=== PATIENT | male | born 1940 | race Caucasian/White ===

== ENCOUNTER 2016-12-05 12:57 | Day surgery (SDC) | payer MEDICARE ==
[2016-11-29 12:25] VITALS: BMI 32.3
[~2016-12-05 12:57] MED LIST: LACTATED RINGERS 1,000 ML IV SCH
[2016-12-05] MEDS: PHENYLEPHRINE 10% OPHTH DROPS 5 ML BTL OP ONE ×3 (13:18→13:39)
[2016-12-05] MEDS: FLURBIPROFEN 0.03% OPHTH DROPS 2.5 ML BTL OP ONE ×3 (13:20→13:41)
[2016-12-05] MEDS: CYCLOPENTOLATE 1% OPHTH SOLN 2 ML BTL OP ONE ×3 (13:22→13:44)
[2016-12-05] MEDS ORDERED: LIDOCAINE 1% 20 ML VIAL (10MG/ML) FOR IV START INTRADERMA ONE (13:31)
[2016-12-05] MEDS ORDERED: BALANCED SALT IRRIG SOLN COMB2 15 ML IRRIG.SOLN INTRAOCULA ONE (13:58)
[2016-12-05] MEDS ORDERED: HYALURONATE SODIUM INTRAOCULAR 1 EACH SYRINGE (10MG/ML) INTRAOCULA ONE (13:58)
[2016-12-05] MEDS ORDERED: LIDOCAINE 1% INJ 10MG/ML (20 ML MDV) ONE (14:00)
[2016-12-05] MEDS ORDERED: PROPOFOL 10 MG/ML 20 ML VIAL IV ONE (14:00)
[2016-12-05] MEDS ORDERED: EPINEPHrine (PF) 0.5 ML in BALANCED SALT IRRIG SOLN COMB2 500 ML IRRIGATION ONE (14:11)
--- NOTE | 2016-12-05 14:22 | P.OP ---
Date of Procedure: 12/05/16 Procedure(s) Performed: PREOPERATIVE DIAGNOSIS: Cataract, left eye. POSTOPERATIVE DIAGNOSIS: Cataract, left eye. OPERATION: Phacoemulsification cataract, left eye. DESCRIPTION OF PROCEDURE: The patient was taken to the preoperative holding area. Intravenous Propofol was given so as to bring about adequate sedation. The following mixture was given for local anesthesia: 5 mL of 2% lidocaine, 5 mL of 0.75% Marcaine, and 1 mL of Wydase. Approximately 4 mL was injected in the retrobulbar space of the surgical eye. Additional 1 mL was then directed to the temporal area of the surgical eye. This was performed to allow adequate neurological block of the facial muscles. The patient was revived and then taken into the operative room. The patient was prepped and draped in the usual sterile manner for the operative eye. A lid speculum was put into position. The conjunctiva was resected back from the limbus in the 12 o'clock position. Bleeding was controlled with electrocautery. A #69 blade was then used and a half-thickness scleral incision approximately 1-mm posterior to the limbus was made on bare sclera. This was shelved in the clear cornea using a crescent knife. Next a 15-degree blade was used to make a stab incision at the 3 o' clock position at the corneolimbal interface. Keratome blade was then used and the superior wound was extended into the anterior chamber. Viscoelastic was injected into the anterior chamber and to maintain its form. Next, a cystotome was used and a continuous anterior capsulotomy was made without difficulty. Hydrodissection using a blunt cannula and BSS was performed. Phaco probe was then employed and a groove extending from 12 to 6 o'clock in the lens was created. A Rickie wand was used through the stab incision so as to perform a divide and conquer technique. Next an irrigation aspiration probe was utilized and any residual cortex was removed from the eye. Again, viscoelastic was injected into the anterior chamber. An Trey posterior chamber lens implant was placed in the cartridge and injected into the anterior chamber without difficulty. The SinMobileWeaverey hook was utilized to spin the lens into position and this was again performed without any difficulty. The irrigation and aspiration probe was again employed and any residual viscoelastic was removed from the eye. Then BSS was injected into the limbal stab incision and the anterior chamber re-inflated. The conjunctiva was reapproximated using electrocautery. One drop of 0.25% Timoptic was placed over the corneal along with TobraDex ophthalmic ointment. Two sterile patches and a Lester eye shield were taped into position. The patient was transported to the recovery room in stable condition. Pathology: none sent Condition: stable Disposition: same day
[2016-12-05 14:31] VITALS: PULSE 60; RESP 16; TEMP 96.6
[2016-12-05 14:40] VITALS: BP 166/95
[2016-12-05] MEDS ORDERED: TIMOLOL 0.5% OPHTH SOLN (PF) 0.2 ML DROPERETTE OP ONE (23:00)
[2016-12-05] MEDS ORDERED: BUPIVACAINE (PF) 0.75% 5 ML, LIDOCAINE 4% (PF) 5 ML, HYALURONIDASE, HUMAN RECOMB 150 UNIT MISCELLANE ONE ×3 (23:00)
[2016-12-05] MEDS ORDERED: GENTAMICIN/PREDNISOL AC OPHTH OINT 3.5GM OPHTHALMIC ONE (23:00)
== END 2016-12-05 15:16 | disposition home or self-care (01) ==
LOC: OR 12:57
PROVIDERS: ATTEND Ophthalmology
DX: H25.13 Age-related nuclear cataract, bilateral (principal); I25.10 Atherosclerotic heart disease of native coronary artery without angina pectoris; I10 Essential (primary) hypertension; F03.90 Unspecified dementia, unspecified severity, without behavioral disturbance, psychotic disturbance, mood disturbance, and anxiety; E78.5 Hyperlipidemia, unspecified; K21.9 Gastro-esophageal reflux disease without esophagitis; I25.2 Old myocardial infarction; Z79.01 Long term (current) use of anticoagulants; Z79.82 Long term (current) use of aspirin; Z79.899 Other long term (current) drug therapy; Z95.0 Presence of cardiac pacemaker; Z95.1 Presence of aortocoronary bypass graft; Z87.442 Personal history of urinary calculi
CPT/HCPCS: 66984; V2632; J2001 ×2; J3470; J0171; J2704; 99152; 99153

== ENCOUNTER 2017-01-01 07:48 | Day surgery (SDC) | payer MEDICARE ==
[2017-01-01 08:53] LABS: Mean Platelet Volume 8.3
[2017-01-01] MEDS ORDERED: DIAZEPAM 5 MG TAB PO STA (09:02)
[2017-01-01 09:07] LABS: INR 1.3 (<1.1); Prothrombin Time 12.8 sec (9.0-12.0)
[2017-01-01 09:55] VITALS: TEMP 97.8
[2017-01-01 10:55] VITALS: RESP 16
[2017-01-01] MEDS ORDERED: HYDROcodone/APAP 5-325MG 1 EACH TAB PO PRN (11:08)
--- NOTE | 2017-01-01 14:15 | FL ---
EXAMINATION TYPE: FL guided lumbar puncture LP DATE OF EXAM: 01/01/2017 11:33 AM COMPARISON: NONE HISTORY: Gait disturbance, normal pressure hydrocephalus evaluation Informed consent was obtained and all the patient's questions were answered. The L3-L4 level was loc alized under fluoroscopy. Standard sterile technique was utilized as well as appropriate local anest hesia 1% Lidocaine. Spinal needle was introduced into the thecal sac under fluoroscopic guidance. A total of 42 mL of clear CSF was drained by gravity. The patient was monitored throughout the proced ure. The patient tolerated the procedure very well. Following completion of the drainage of fluid 0.5 mL of tagged indium-111 was administered. The patient was transferred for completion of the evaluation in physical therapy for normal pressure hydrocephalus following the fluid drainage. Discharge instructions were provided. Follow-up will be p erformed by nuclear medicine scans. IMPRESSION: 1. Drainage of CSF for normal pressure hydrocephalus evaluation. 2. Successful injection of radiotracer for normal pressure hydrocephalus testing.
[2017-01-01 18:40] VITALS: BP 162/85; PULSE 62
--- NOTE | 2017-01-04 13:18 | NM ---
EXAMINATION TYPE: NM cerebral spine fluid flow DATE OF EXAM: 01/04/2017 12:57 PM COMPARISON: NONE HISTORY: Hydrocephalus TECHNIQUE: Following intrathecal administration of In-111 DTPA 550 uCi uCi In-111 DTPA via lumbar pu ncture. Images 6 HR, 24 HR, 48 HR, 72 HR hours post injection. FINDINGS: Planar images at 24 and 48 hours post injection demonstrate persistent reflux into the ventricles wit h no flow over the convexities. At 72 hours of flow is noted over the convexities. IMPRESSION: Findings compatible with normal pressure hydrocephalus.
== END 2017-01-01 16:25 | disposition home or self-care (01) ==
LOC: RADPROMAIN 07:48
PROVIDERS: ATTEND Neurological Surgery
DX: Z79.899 Other long term (current) drug therapy (principal); Z85.830 Personal history of malignant neoplasm of bone; Z85.3 Personal history of malignant neoplasm of breast; Z85.46 Personal history of malignant neoplasm of prostate; Z85.118 Personal history of other malignant neoplasm of bronchus and lung; Z91.040 Latex allergy status; Z91.09 Other allergy status, other than to drugs and biological substances; K21.9 Gastro-esophageal reflux disease without esophagitis; E11.9 Type 2 diabetes mellitus without complications; E20.9 Hypoparathyroidism, unspecified; I10 Essential (primary) hypertension
CPT/HCPCS: 85049; 85610; 36415; 62272; 78630; A9548; 62270

== ENCOUNTER 2017-03-07 20:04 | Inpatient (IN) | payer MEDICARE ==
--- NOTE | 2017-03-07 20:45 | ED ---
General Adult HPI - General Chief complaint: Altered Mental Status Stated complaint: Poss Sepsis Time Seen by Provider: 03/07/17 20:05 Source: family, EMS, RN notes reviewed, old records reviewed Mode of arrival: EMS Limitations: altered mental status - History of Present Illness Initial comments: This is a 76-year-old male to the ER for evaluation of altered mental status fever not responding well. Patient's poor historian. Patient has history of normal pressure hydrocephalus with just having a recent shunt placement. Patient's history is obtained from EMS and the patient's chart - Related Data Home Medications Medication Instructions Recorded Confirmed Leflunomide [Arava] 20 mg PO DAILY 08/05/14 03/07/17 Omeprazole [PriLOSEC] 20 mg PO QAM 08/05/14 03/07/17 Warfarin [Coumadin] 1.25 mg PO THSA 08/05/14 03/07/17 Allopurinol [Zyloprim] 100 mg PO BID 07/25/16 03/07/17 Furosemide [Lasix] 40 mg PO SUTUTHSA PRN 07/25/16 03/07/17 Losartan Potassium [Cozaar] 100 mg PO QAM 07/25/16 03/07/17 Warfarin [Coumadin] 2.5 mg PO SUMOWEFR 07/25/16 03/07/17 Donepezil [Aricept] 5 mg PO HS 11/29/16 03/07/17 Acetaminophen Tab [Tylenol] 650 mg PO ONCE PRN 03/07/17 03/07/17 Atorvastatin [Lipitor] 20 mg PO HS 03/07/17 03/07/17 Dimethicone/Zinc Oxide [Inzo Zinc 1 applic TOPICAL BID 03/07/17 03/07/17 Oxide Barrier Cream] Furosemide [Lasix] 40 mg PO MOWEFR@0900,1700 03/07/17 03/07/17 Metoprolol Tartrate [Lopressor] 50 mg PO BID 03/07/17 03/07/17 Potassium Chloride ER [K-Dur 20] 20 meq PO SUTUTHSA 03/07/17 03/07/17 Potassium Chloride [Klor-Con 20] 20 meq PO MOWEFR@0900,2100 03/07/17 03/07/17 Tamsulosin [Flomax] 0.4 mg PO DAILY 03/07/17 03/07/17 Tolnaftate [Tinactin] 1 applic TOPICAL BID 03/07/17 03/07/17 predniSONE 10 mg PO DAILY 03/07/17 03/07/17 Allergies Allergy/AdvReac Type Severity Reaction Status Date / Time No Known Allergies Allergy Verified 03/07/17 20:11 Review of Systems ROS Statement: Those systems with pertinent positive or pertinent negative responses have been documented in the HPI. ROS Other: All systems not noted in ROS Statement are negative. Past Medical History Past Medical History: Cancer, GERD/Reflux, Hyperlipidemia, Hypertension, Memory Impairment, Myocardial Infarction (non Q-wave), Rheumatoid Arthritis (RA) Additional Past Medical History / Comment(s): CMP - PACEMAKER. Skin CA, MELANOMA X1. Renal Stones. OCC EDEMA LEGS. HX RECTAL BLEED AFTER COLONOSCOPY R/T COUMADIN USE, unsteady gait with intermittent confusion. Last Myocardial Infarction Date:: 2001 History of Any Multi-Drug Resistant Organisms: None Reported Past Surgical History: Coronary Bypass/CABG, Orthopedic Surgery, Pacemaker Additional Past Surgical History / Comment(s): TRIPLE CABG 2001. LT Shoulder. Colonoscopy. KIDNEY Stones Removed. 07/2016 GENERATOR CHANGE Past Anesthesia/Blood Transfusion Reactions: No Reported Reaction Type of Cardiac Device: Permanent Pacemaker Device Placement Date:: 03/21/2006 Past Psychological History: No Psychological Hx Reported Smoking Status: Never smoker Past Alcohol Use History: Daily Additional Past Alcohol Use History / Comment(s): GLASS OF WINE WITH DARLING JUICE DAILY PER SPOUSE Past Drug Use History: None Reported - Past Family History Brother(s) Family Medical History: Cancer Additional Family Medical History / Comment(s): SKIN Sister(s) Family Medical History: Cancer Additional Family Medical History / Comment(s): SKIN Mother Family Medical History: Cancer General Exam Limitations: altered mental status General appearance: alert, in no apparent distress Head exam: Present: atraumatic, normocephalic, normal inspection Eye exam: Present: normal appearance, PERRL, EOMI. Absent: scleral icterus, conjunctival injection, periorbital swelling ENT exam: Present: normal exam, mucous membranes moist Neck exam: Present: normal inspection. Absent: tenderness, meningismus, lymphadenopathy Respiratory exam: Present: normal lung sounds bilaterally. Absent: respiratory distress, wheezes, rales, rhonchi, stridor Cardiovascular Exam: Present: regular rate, normal rhythm, normal heart sounds. Absent: systolic murmur, diastolic murmur, rubs, gallop, clicks GI/Abdominal exam: Present: soft, normal bowel sounds. Absent: distended, tenderness, guarding, rebound, rigid Extremities exam: Present: normal inspection, full ROM, normal capillary refill. Absent: tenderness, pedal edema, joint swelling, calf tenderness Back exam: Present: normal inspection Neurological exam: Present: alert, oriented X3, CN II-XII intact Psychiatric exam: Present: normal affect, normal mood Skin exam: Present: warm, dry, intact, normal color. Absent: rash Course Vital Signs 03/07/17 03/07/17 03/07/17 20:26 20:34 22:32 Temperature 100.1 F H 98.6 F Pulse Rate 71 72 Respiratory 22 22 16 Rate Blood Pressure 146/81 O2 Sat by Pulse 95 96 Oximetry 03/07/17 23:00 Temperature Pulse Rate 81 Respiratory 16 Rate Blood Pressure 142/65 O2 Sat by Pulse 98 Oximetry - Reevaluation(s) Reevaluation #1: 03/07/17 23:37 Family spoke with regarding patient's clinical condition, they are aware, questions answered Reevaluation #2: 03/07/17 23:37 The patient appears to be improving regarding symptomatic therapy fever control hydration EKG Findings - EKG Comments: EKG Findings:: EKG shows A. fib paced rhythm rate of 71, QRS 152, QRS 499 Medical Decision Making - Medical Decision Making 76 male the ER for altered mental status fever, patient found positive urinary tract infection, significant sepsis, patient given significant IV fluid hydration, fever control and will be admitted for IV antibiotics and monitoring of cardiopath pulmonary hemodynamic status - Lab Data Result diagrams: 03/07/17 20:29 03/07/17 20:29 Lab Results 03/07/17 03/07/17 03/07/17 Range/Units 20:29 20:29 20:29 WBC 13.2 H (3.8-10.6) k/uL RBC 4.35 (4.30-5.90) m/uL Hgb 13.7 (13.0-17.5) gm/dL Hct 42.0 (39.0-53.0) % MCV 96.7 (80.0-100.0) fL MCH 31.5 (25.0-35.0) pg MCHC 32.5 (31.0-37.0) g/dL RDW 15.8 H (11.5-15.5) % Plt Count 260 (150-450) k/uL Neutrophils % 92 % Lymphocytes % 4 % Monocytes % 4 % Eosinophils % 0 % Basophils % 0 % Neutrophils # 12.1 H (1.3-7.7) k/uL Lymphocytes # 0.5 L (1.0-4.8) k/uL Monocytes # 0.5 (0-1.0) k/uL Eosinophils # 0.0 (0-0.7) k/uL Basophils # 0.1 (0-0.2) k/uL PT (9.0-12.0) sec INR (<1.1) APTT (22.0-30.0) sec Sodium 135 L (137-145) mmol/L Potassium 4.0 (3.5-5.1) mmol/L Chloride 103 (98-107) mmol/L Carbon Dioxide 20 L (22-30) mmol/L Anion Gap 12 mmol/L BUN 32 H (9-20) mg/dL Creatinine 1.30 H (0.66-1.25) mg/dL Est GFR (MDRD) Af Amer >60 (>60 ml/min/1.73 sqM) Est GFR (MDRD) Non-Af 54 (>60 ml/min/1.73 sqM) Glucose 143 H (74-99) mg/dL Plasma Lactic Acid Santiago (0.7-2.0) mmol/L Calcium 8.9 (8.4-10.2) mg/dL Phosphorus 3.1 (2.5-4.5) mg/dL Magnesium 1.6 (1.6-2.3) mg/dL Total Bilirubin 1.4 H (0.2-1.3) mg/dL AST 36 (17-59) U/L ALT 37 (21-72) U/L Alkaline Phosphatase 71 (38-126) U/L Total Creatine Kinase 130 (55-170) U/L CK-MB (CK-2) 1.9 (0.0-2.4) ng/mL CK-MB (CK-2) Rel Index 1.5 Troponin I 0.092 H* (0.000-0.034) ng/mL Total Protein 6.4 (6.3-8.2) g/dL Albumin 3.3 L (3.5-5.0) g/dL Urine Color Urine Appearance (Clear) Urine pH (5.0-8.0) Ur Specific [place] (1.001-1.035) Urine Protein (Negative) Urine Glucose (UA) (Negative) Urine Ketones (Negative) Urine Blood (Negative) Urine Nitrite (Negative) Urine Bilirubin (Negative) Urine Urobilinogen (<2.0) mg/dL Ur Leukocyte Esterase (Negative) Urine RBC (0-5) /hpf Urine WBC (0-5) /hpf Urine WBC Clumps (None) /hpf Urine Bacteria (None) /hpf Urine Yeast (Budding) (None) /hpf 03/07/17 03/07/17 03/07/17 Range/Units 20:29 20:29 23:00 WBC (3.8-10.6) k/uL RBC (4.30-5.90) m/uL Hgb (13.0-17.5) gm/dL Hct (39.0-53.0) % MCV (80.0-100.0) fL MCH (25.0-35.0) pg MCHC (31.0-37.0) g/dL RDW (11.5-15.5) % Plt Count (150-450) k/uL Neutrophils % % Lymphocytes % % Monocytes % % Eosinophils % % Basophils % % Neutrophils # (1.3-7.7) k/uL Lymphocytes # (1.0-4.8) k/uL Monocytes # (0-1.0) k/uL Eosinophils # (0-0.7) k/uL Basophils # (0-0.2) k/uL PT 25.8 H (9.0-12.0) sec INR 2.7 (<1.1) APTT 26.0 (22.0-30.0) sec Sodium (137-145) mmol/L Potassium (3.5-5.1) mmol/L Chloride (98-107) mmol/L Carbon Dioxide (22-30) mmol/L Anion Gap mmol/L BUN (9-20) mg/dL Creatinine (0.66-1.25) mg/dL Est GFR (MDRD) Af Amer (>60 ml/min/1.73 sqM) Est GFR (MDRD) Non-Af (>60 ml/min/1.73 sqM) Glucose (74-99) mg/dL Plasma Lactic Acid Santiago 6.1 H* (0.7-2.0) mmol/L Calcium (8.4-10.2) mg/dL Phosphorus (2.5-4.5) mg/dL Magnesium (1.6-2.3) mg/dL Total Bilirubin (0.2-1.3) mg/dL AST (17-59) U/L ALT (21-72) U/L Alkaline Phosphatase (38-126) U/L Total Creatine Kinase (55-170) U/L CK-MB (CK-2) (0.0-2.4) ng/mL CK-MB (CK-2) Rel Index Troponin I (0.000-0.034) ng/mL Total Protein (6.3-8.2) g/dL Albumin (3.5-5.0) g/dL Urine Color Light Yellow Urine Appearance Cloudy (Clear) Urine pH 6.0 (5.0-8.0) Ur Specific [place] 1.008 (1.001-1.035) Urine Protein Negative (Negative) Urine Glucose (UA) Negative (Negative) Urine Ketones Negative (Negative) Urine Blood Moderate H (Negative) Urine Nitrite Negative (Negative) Urine Bilirubin Negative (Negative) Urine Urobilinogen <2.0 (<2.0) mg/dL Ur Leukocyte Esterase Large H (Negative) Urine RBC 11 H (0-5) /hpf Urine WBC >182 H (0-5) /hpf Urine WBC Clumps Many H (None) /hpf Urine Bacteria Many H (None) /hpf Urine Yeast (Budding) Few H (None) /hpf - Radiology Data Radiology results: report reviewed (CT brain and chest x-ray negative for acute disease), image reviewed Disposition Clinical Impression: Altered mental status, UTI (urinary tract infection), Fever, Sepsis Disposition: ADMITTED IP TO THIS HOSP Condition: Fair Referrals: Alejandrina Roman MD [Primary Care Provider] - 1-2 days
[2017-03-07 20:53] LABS: Basophils # (A) 0.1 k/uL (0-0.2); Basophils % (A) 0 %; CHCM 33.2; Eosinophils % (A) 0 %; HGB 13.7 gm/dL (13.0-17.5); Immature Gran Flag Slight; Luc # (Auto) 0.05; Luc % (Auto) 0; Lymphocytes # (A) 0.5 k/uL (1.0-4.8); Lymphocytes % (A) 4 %; MCH 31.5 pg (25.0-35.0); MCHC 32.5 g/dL (31.0-37.0); MCV 96.7 fL (80.0-100.0); Monocytes # (A) 0.5 k/uL (0-1.0); Monocytes % (A) 4 %; Neutrophils # (A) 12.1 k/uL (1.3-7.7); Neutrophils % (A) 92 %; RBC 4.35 m/uL (4.30-5.90); RDW 15.8 % (11.5-15.5); WBC 13.2 k/uL (3.8-10.6); WBC (Perox) 13.63
[2017-03-07 21:02] LABS: Chloride 103 mmol/L (98-107); Glucose 143 mg/dL (74-99); Sodium 135 mmol/L (137-145); Total Protein 6.4 g/dL (6.3-8.2)
[2017-03-07 21:03] LABS: ALT 37 U/L (21-72); AST 36 U/L (17-59); Alkaline Phosphatase 71 U/L (38-126); Anion Gap 12 mmol/L; Blood Urea Nitrogen 32 mg/dL (9-20); Calcium 8.9 mg/dL (8.4-10.2); Carbon Dioxide 20 mmol/L (22-30); Magnesium 1.6 mg/dL (1.6-2.3); Non-African American GFR(MDRD) 54 (>60 ml/min/1.73 sqM); Phosphorous 3.1 mg/dL (2.5-4.5); Total Bilirubin 1.4 mg/dL (0.2-1.3)
[2017-03-07 21:18] LABS: INR 2.7 (<1.1); Prothrombin Time 25.8 sec (9.0-12.0)
[2017-03-07 21:25] LABS: Creatine Kinase MB 1.9 ng/mL (0.0-2.4)
[2017-03-07 21:26] LABS: Troponin I 0.092 ng/mL (0.000-0.034)
--- NOTE | 2017-03-07 21:44 | CT ---
EXAMINATION TYPE: CT brain wo con DATE OF EXAM: 03/07/2017 9:13 PM COMPARISON: October 04, 2016 HISTORY: Post OP 3 weeks shunt placement. decreased mental status CT DLP: 2440 mGycm Automated exposure control for dose reduction was used. FINDINGS: Shunt catheter enters the right lateral ventricle from a right posterior approach to have i ts tip at the interventricular septum between the frontal horns. The right and left lateral ventricles and third ventricle appear slightly larger than the prior CT of October 04, 2016. The sulcal pattern and cisterns appear similar to the prior study. There is no evidence of hemorrhage. No evidence of mass or mass effect or definite new attenuation in tra-axial defect. No extra-axial fluid collections. However, a 2 mm gas bubble is noted nondependently within the front al horn of the right lateral ventricle. Bones and soft tissues are unremarkable as are the paranasal sinuses and mastoid sinus air cells and middle ear cavities. IMPRESSION: MILD VENTRICULOMEGALY PATTERN APPEARS MILDLY MORE PROMINENT WHEN COMPARED TO THE OCTOBER 04, 2016 CT . 2 MM NONDEPENDENT GAS BUBBLE NOTED WITHIN THE FRONTAL HORN OF THE RIGHT LATERAL VENTRICLE.
--- NOTE | 2017-03-07 21:47 | XR ---
EXAMINATION TYPE: XR chest 2V DATE OF EXAM: 03/07/2017 9:06 PM COMPARISON: 03/15/2015 HISTORY: Shunt placement 3 weeks ago, altered mental status TECHNIQUE: Frontal and lateral views of the chest are obtained. FINDINGS: Moderate marked cardiac silhouette enlargement redemonstrated. Sternal sutures and mediast inal clips and cardiac pacemaker noted. Shunt catheter is noted along the right hemithorax . The lungs appear to be clear bilaterally. Pleural spaces are negative. Bones and soft tissues are unr emarkable. IMPRESSION: NO DEFINITE ACUTE PROCESS.
[2017-03-07] MEDS ORDERED: ACETAMINOPHEN TAB 500 MG TAB PO STA (21:59)
[2017-03-07] MEDS ORDERED: IBUPROFEN 800 MG TAB PO STA (21:59)
[2017-03-07] MEDS ORDERED: AMPICILLIN-SULBACTAM 3 GM in SODIUM CHLORIDE 0.9% 100 ML IVPB STA (21:59)
[2017-03-07 23:20] LABS: Appearance,Urine Cloudy (Clear); Bacteria,Urine Many /hpf; Bilirubin,Urine Negative (Negative); Glucose,Urine (UA) Negative (Negative); Ketones,Urine Negative (Negative); Leukocyte Esterase,Urine Large (Negative); Nitrite,Urine Negative (Negative); Particle Count 55963; Protein,Urine Negative (Negative); RBC,Urine 11 /hpf (0-5); Specific Gravity,Urine 1.008 (1.001-1.035); UA Billing (MACRO vs. MICRO) MICRO; Urobilinogen,Urine <2.0 mg/dL (<2.0); WBC,Urine >182 /hpf (0-5)
[2017-03-07] MEDS ORDERED: SODIUM CHLORIDE 0.9% 1,000 ML IV ONE (23:37)
[2017-03-07] MEDS ORDERED: ACETAMINOPHEN TAB 325 MG TAB PO PRN (23:37)
[2017-03-07] MEDS ORDERED: SODIUM CHLORIDE 0.9% 1,000 ML IV STA (23:52)
[2017-03-07] MEDS ORDERED: SODIUM CHLORIDE 0.9% 2,000 ML IV STA (23:52)
[2017-03-07] MEDS ORDERED: SODIUM CHLORIDE 0.9% 500 ML IV STA (23:52)
[2017-03-08] MEDS ORDERED: ACETAMINOPHEN IV (For NPO) 1,000 MG in EMPTY BAG 1 BAG IVPB STA (02:00)
[2017-03-08] MEDS ORDERED: KETOROLAC 30 MG/ML 1 ML VIAL IVP STA (02:00)
[2017-03-08] MEDS: METOPROLOL TARTRATE 50 MG TAB PO SCH ×3 (02:00→21:50)
[2017-03-08 06:51] LABS: Basophils % (A) 0 %; CH 31.8; CHCM 32.7; Eosinophils # (A) 0.1 k/uL (0-0.7); Eosinophils % (A) 1 %; HCT 37.4 % (39.0-53.0); HDW 2.45; HGB 11.7 gm/dL (13.0-17.5); Luc # (Auto) 0.04; Luc % (Auto) 0; Lymphocytes # (A) 0.5 k/uL (1.0-4.8); Lymphocytes % (A) 6 %; MCH 30.7 pg (25.0-35.0); MCHC 31.4 g/dL (31.0-37.0); MCV 97.9 fL (80.0-100.0); Macrocytosis Slight; Mean Platelet Volume 6.9; Monocytes # (A) 0.3 k/uL (0-1.0); Monocytes % (A) 3 %; Neutrophils % (A) 90 %; RBC 3.82 m/uL (4.30-5.90); WBC 8.8 k/uL (3.8-10.6); WBC (Perox) 9.23
[2017-03-08 07:09] LABS: INR 3.4 (<1.1); Prothrombin Time 33.4 sec (9.0-12.0)
[2017-03-08 07:14] LABS: ALT 31 U/L (21-72); AST 30 U/L (17-59); Alkaline Phosphatase 58 U/L (38-126); Anion Gap 6 mmol/L; Blood Urea Nitrogen 31 mg/dL (9-20); Carbon Dioxide 25 mmol/L (22-30); Chloride 108 mmol/L (98-107); Glucose 151 mg/dL (74-99); Non-African American GFR(MDRD) 50 (>60 ml/min/1.73 sqM); Potassium 3.5 mmol/L (3.5-5.1); Sodium 139 mmol/L (137-145); Total Bilirubin 1.1 mg/dL (0.2-1.3); Total Protein 5.2 g/dL (6.3-8.2)
[2017-03-08] MEDS ORDERED: ENOXAPARIN 40 MG/0.4 ML SYRINGE SQ SCH (09:00)
[2017-03-08] MEDS: ALLOPURINOL 100 MG TAB PO SCH ×2 (09:26→21:47)
[2017-03-08] MEDS: PANTOPRAZOLE 40 MG TABLET PO SCH (09:27)
[2017-03-08] MEDS: LOSARTAN 50 MG TAB PO SCH (09:27)
[2017-03-08] MEDS: TAMSULOSIN 0.4 MG CAP.ER.24H PO SCH (09:27)
[2017-03-08] MEDS: predniSONE 10 MG TAB PO SCH (09:28)
[2017-03-08] MEDS: POTASSIUM CHLORIDE ER 20 MEQ TAB.ER PO SCH (09:28)
[2017-03-08] MEDS: IBUPROFEN 600 MG TAB PO SCH ×2 (09:34→16:38)
[2017-03-08] MEDS: CLOTRIMAZOLE 1% CREAM 15 GM TUBE TOPICAL SCH ×2 (10:39→21:52)
--- NOTE | 2017-03-08 13:28 | US ---
EXAMINATION TYPE: US kidneys/renal and bladder DATE OF EXAM: 03/08/2017 1:00 PM COMPARISON: CT CLINICAL HISTORY: pyelonephritis. Abnormal labs EXAM MEASUREMENTS: Right Kidney: 11.2 x 5.9 x 5.2 cm Left Kidney: 10.7 x 5.3 x 5.2 cm Right Kidney: Mildly dilated renal pelvis, lobulation vs. mass upper/medial pole= 3.7 x 3.0 x 2.7 cm Left Kidney: Difficult to visualize due to large pt body habitus, overlying bowel gas, no evidence of hydro Bladder: Over distended, multiple diverticula, debris at dependent portion Bilateral Jets seen: No There is no evidence for hydronephrosis at this point in time. No nephrolithiasis is seen. No joao s are identified. The urinary bladder is anechoic. Bilateral ureteral jets are seen. IMPRESSION: 1. Right-sided hydronephrosis. 2. I cannot exclude a mass versus cortical lobulation upper pole right kidney. Consider contrast-enha nced CT. 3. Limited visualization of the left kidney. 4. Debris with multiple diverticula involving the urinary bladder.
--- NOTE | 2017-03-08 17:49 | P.HPIM ---
History of Present Illness H&P Date: 03/08/17 Chief Complaint: Weakness, mental status change fever This is a pleasant 76-year-old gentleman patient of Dr. Dr. putnam. He [facility] resides [facility] [place]. He recently was diagnosed to have normal pressure hydrocephalus requiring shunt placement by Dr. Ray04/ at [facility]. He stayed there for a few days, thereafter transferred to [facility] 2 weeks ago. He complained of urinary retention at that time the hospital, and required an indwelling Anne catheter for which he was discharged to [facility] on anne catheter. He is anne catheter was discontinued by Dr. Bob one week prior to admission. Patient complained off diminished appetite, decreased oral intake, weight loss of 13 pounds, memory worsening memory loss, walking impairment, shuffling gait, and urinary incontinence. He also has edema , along with fever and chills. Next Emergency room he was found to have a urinary tract infection with urine WBC of 182, RBC of 11, INR 2.6, blood WBC of 13, lactic acid of 6. He was admitted for sepsis with suspected urinary tract source. CAT scan of the brain was performed including a chest x-ray which failed to reveal any acute infiltrate no pneumoperitoneum and no pneumothorax,. CAT scan of the brain showed mild ventriculomegaly pattern appears mildly more prominent when compared to 2015 CT, 2 mm nondependent gas bubble noted within the frontal horn of the right lateral ventricle additional tests included ultrasound right hydronephrosis, cannot exclude a mass versus cortical lobulation within upper pole right kidney consultation made with Dr. Bob and Dr. Jeffries Review of Systems Constitutional: Reports as per HPI, Reports anorexia, Reports chills, Reports fever, Reports lethargy, Reports malaise, Reports weakness, Reports weight loss Ears, nose, mouth and throat: Reports as per HPI, Denies ant. neck pain, Denies bleeding gums, Denies dental pain, Denies dysphagia, Denies epistaxis, Denies headache, Denies hoarseness, Denies mouth pain, Denies nasal congestion, Denies nasal discharge, Denies neck fullness/pressure, Denies neck lump, Denies nose pain, Denies odynophagia, Denies post-nasal drip, Denies sinus pain, Denies sinus pressure, Denies swelling in mouth, Denies swelling in throat, Denies sore throat, Denies vertigo, Denies voice changes Cardiovascular: Reports as per HPI, Denies chest pain, Denies claudication, Denies decreased exercise tolerance, Denies dyspnea on exertion, Denies edema, Denies high blood pressure, Denies irregular heart beat, Denies leg edema, Denies lightheadedness, Denies orthopnea, Denies palpitations, Denies paroxysmal nocturnal dyspnea, Denies phlebitis, Denies rapid heart beat, Denies shortness of breath, Denies syncope Respiratory: Reports as per HPI, Denies congestion, Denies cough, Denies cough with sputum, Denies dyspnea, Denies excessive sputum, Denies hemoptysis, Denies home oxygen, Denies pain, Denies pain on inspiration, Denies pleurisy, Denies respiratory infections, Denies sleep apnea, Denies snoring, Denies wheezing Gastrointestinal: Reports as per HPI, Denies abdominal pain, Denies belching, Denies bloating, Denies BRBPR, Denies change in bowel habits, Denies coffee ground emesis, Denies constipation, Denies diarrhea, Denies dyspepsia, Denies early satiety, Denies excessive gas, Denies heartburn, Denies hematemesis, Denies hematochezia, Denies indigestion, Denies jaundice, Denies lactose intolerance, Denies loss of appetite, Denies melena, Denies nausea, Denies vomiting Genitourinary: Reports as per HPI, Denies decreased libido, Denies difficulties fathering child, Denies discharge, Denies dysuria, Denies erectile dysfunction, Denies flank pain, Denies genital pain, Denies genital sores, Denies hematuria, Denies impotence, Denies incontinence, Denies kidney stones, Denies nocturia, Denies polyuria, Denies testicular lump, Denies testicular pain, Denies urinary frequency, Denies urinary hesitancy, Denies urinary retention Musculoskeletal: Reports as per HPI, Reports gait dysfunction, Reports limitation of motion Integumentary: Reports as per HPI, Denies acne, Denies boils, Denies brittle nails, Denies change in hair/nails, Denies color changes, Denies darkening of skin, Denies depigmentation, Denies dryness, Denies foot/leg ulcers, Denies growths, Denies hirsutism, Denies lesions, Denies onychomycosis, Denies pruritus , Denies rash, Denies sores, Denies striae, Denies unusual bruising, Denies wounds Neurological: Reports as per HPI, Reports gait dysfunction, Reports lack of coordination, Denies aphasia, Denies ataxia, Denies balance difficulties, Denies burning pain, Denies change in mentation, Denies change in smell/taste, Denies change in speech, Denies confusion, Denies convulsions, Denies double vision, Denies head injury, Denies headaches, Denies hearing difficulties, Denies loss of vision, Denies memory loss, Denies migraines, Denies motor disturbance, Denies numbness, Denies paralysis, Denies paresthesias, Denies seizures, Denies sensory deficit, Denies spasticity, Denies syncope, Denies tic , Denies tingling, Denies transient paralysis, Denies tremors, Denies vertigo, Denies weakness, Denies visual changes Psychiatric: Reports as per HPI, Reports change in appetite Endocrine: Reports as per HPI Hematologic/Lymphatic: Reports as per HPI Allergic/Immunologic: Reports as per HPI, Denies allergic rhinitis, Denies anaphylaxis, Denies angioedema, Denies gluten intolerance, Denies persistent infections, Denies seasonal allergies, Denies urticaria, Denies wheezing Past Medical History Past Medical History: Atrial Fibrillation, Cancer, Dementia, Eye Disorder, GERD/ Reflux, GI Bleed, Hyperlipidemia, Hypertension, Memory Impairment, Myocardial Infarction ([place]), Prostate Disorder, Renal Disease, Rheumatoid Arthritis (RA), Vascular Disorder Additional Past Medical History / Comment(s): Normal pressure hydocephalus with recent shunt, current yeast infection meatus, SSS - PACEMAKER, Skin CA- MELANOMA with removal from nose and other types of skin cancer removed, CKD, nephrolithiasis with sx, PVD, OCC EDEMA LEGS, glaucoma bilaterally, R eye cataract, BPH, past urinary retention after cerebral shunt and was discharged with a anne to [facility] dc'd on 03/02/17, RECTAL BLEED AFTER COLONOSCOPY R /T COUMADIN USE, unsteady gait, intermittent confusion, occasional allergic rhinitis. Last Myocardial Infarction Date:: 2001?-silent History of Any Multi-Drug Resistant Organisms: None Reported Past Surgical History: Coronary Bypass/CABG, Heart Catheterization, Orthopedic Surgery, Pacemaker Additional Past Surgical History / Comment(s): Recent cerebral shunt, PCI with stent, TRIPLE CABG 2001, LT Shoulder rotator cuff repair, Colonoscopy, 2004 Original pacer, 07/2016 GENERATOR CHANGE, cystoscopy with double J catheter, since removed, lithotripsies, L eye cataract removal, skin cancer removals. Past Anesthesia/Blood Transfusion Reactions: No Reported Reaction Type of Cardiac Device: Permanent Pacemaker Device Placement Date:: 03/21/2006 Past Psychological History: No Psychological Hx Reported Additional Psychological History / Comment(s): Pt recently resides at [facility] for rehab post cerebral shunt placement. They state he is mostly in a wheelchair and can stand with one assist. He feeds himself and needs assistance with all other ADLs. Spouse states that prior to cerebral shunt, pt could ambulate short distances with a walker. He was no longer driving due to dementia. Spouse drives. She was his product advisor and hopes for pt to come home after rehab. She is in the process of placing grab rails etc. Smoking Status: Never smoker Past Alcohol Use History: Daily Additional Past Alcohol Use History / Comment(s): GLASS OF WINE WITH DARLING JUICE DAILY PER SPOUSE Past Drug Use History: None Reported - Past Family History Brother(s) Family Medical History: Cancer Additional Family Medical History / Comment(s): SKIN Sister(s) Family Medical History: Cancer Additional Family Medical History / Comment(s): SKIN Mother Family Medical History: Cancer Medications and Allergies Home Medications Medication Instructions Recorded Confirmed Type Leflunomide [Arava] 20 mg PO DAILY 08/05/14 03/07/17 History Omeprazole [PriLOSEC] 20 mg PO QAM 08/05/14 03/07/17 History Warfarin [Coumadin] 1.25 mg PO THSA 08/05/14 03/07/17 History Allopurinol [Zyloprim] 100 mg PO BID 07/25/16 03/07/17 History Furosemide [Lasix] 40 mg PO SUTUTHSA PRN 07/25/16 03/07/17 History Losartan Potassium [Cozaar] 100 mg PO QAM 07/25/16 03/07/17 History Warfarin [Coumadin] 2.5 mg PO SUMOWEFR 07/25/16 03/07/17 History Donepezil [Aricept] 5 mg PO HS 11/29/16 03/07/17 History Acetaminophen Tab [Tylenol] 650 mg PO ONCE PRN 03/07/17 03/07/17 History Atorvastatin [Lipitor] 20 mg PO HS 03/07/17 03/07/17 History Dimethicone/Zinc Oxide [Inzo Zinc 1 applic TOPICAL BID 03/07/17 03/07/17 History Oxide Barrier Cream] Furosemide [Lasix] 40 mg PO MOWEFR@0900,1700 03/07/17 03/07/17 History Metoprolol Tartrate [Lopressor] 50 mg PO BID 03/07/17 03/07/17 History Potassium Chloride ER [K-Dur 20] 20 meq PO SUTUTHSA 03/07/17 03/07/17 History Potassium Chloride [Klor-Con 20] 20 meq PO MOWEFR@0900,2100 03/07/17 03/07/17 History Tamsulosin [Flomax] 0.4 mg PO DAILY 03/07/17 03/07/17 History Tolnaftate [Tinactin] 1 applic TOPICAL BID 03/07/17 03/07/17 History predniSONE 10 mg PO DAILY 03/07/17 03/07/17 History Allergies Allergy/AdvReac Type Severity Reaction Status Date / Time No Known Allergies Allergy Verified 03/07/17 20:11 Physical Exam Vitals: Vital Signs Temp Pulse Resp BP Pulse Ox 03/08/17 08:13 98.1 F 67 18 134/61 97 03/08/17 07:52 98.1 F 67 18 134/61 03/08/17 06:11 65 16 105/67 97 03/08/17 04:20 77 16 101/57 96 03/08/17 01:27 99.0 F 79 18 159/85 99 03/08/17 00:00 98.0 F 80 20 134/70 96 - Constitutional General appearance: cooperative, no acute distress, obese - EENT Eyes: anicteric sclerae, EOMI, PERRLA, dentition normal, normal appearance ENT: hard of hearing, NA/AT, normal oropharynx - Neck Neck: no lymphadenopathy, normal ROM, no other, no rigidity, no stridor, no thyromegaly - Respiratory Respiratory: bilateral: CTA, negative: diminished, dullness, rales, rhonchi - Cardiovascular Rhythm: regular Heart sounds: normal: S1, S2 Abnormal Heart Sounds: systolic murmur, diastolic murmur, no rub, no S3 Gallop, no S4 Gallop, no click, no other - Gastrointestinal General gastrointestinal: normal bowel sounds, soft - Integumentary Integumentary: normal, normal turgor - Neurologic Neurologic: CNII-XII intact - Musculoskeletal Musculoskeletal: generalized weakness, strength equal bilaterally - Psychiatric Psychiatric: A&O x's 3, appropriate affect, intact judgment & insight Results CBC & Chem 7: 03/08/17 06:38 03/08/17 06:38 Labs: Abnormal Lab Results - Last 24 Hours (Table) 03/08/17 03/08/17 03/08/17 Range/Units 00:29 06:38 06:38 RBC 3.82 L (4.30-5.90) m/uL Hgb 11.7 L (13.0-17.5) gm/dL Hct 37.4 L (39.0-53.0) % RDW 16.0 H (11.5-15.5) % Neutrophils # 8.0 H (1.3-7.7) k/uL Lymphocytes # 0.5 L (1.0-4.8) k/uL PT (9.0-12.0) sec Chloride 108 H (98-107) mmol/L BUN 31 H (9-20) mg/dL Creatinine 1.38 H (0.66-1.25) mg/dL Glucose 151 H (74-99) mg/dL Plasma Lactic Acid Santiago 3.5 H* (0.7-2.0) mmol/L Calcium 8.0 L (8.4-10.2) mg/dL Total Protein 5.2 L (6.3-8.2) g/dL Albumin 2.6 L (3.5-5.0) g/dL 03/08/17 Range/Units 06:45 RBC (4.30-5.90) m/uL Hgb (13.0-17.5) gm/dL Hct (39.0-53.0) % RDW (11.5-15.5) % Neutrophils # (1.3-7.7) k/uL Lymphocytes # (1.0-4.8) k/uL PT 33.4 H (9.0-12.0) sec Chloride (98-107) mmol/L BUN (9-20) mg/dL Creatinine (0.66-1.25) mg/dL Glucose (74-99) mg/dL Plasma Lactic Acid Santiago (0.7-2.0) mmol/L Calcium (8.4-10.2) mg/dL Total Protein (6.3-8.2) g/dL Albumin (3.5-5.0) g/dL Thrombosis Risk Factor Assmnt - Choose All That Apply Any of the Below Risk Factors Present?: Yes Each Factor Represents 1 point: Medical pt on bed rest, Obesity (BMI >25), Sepsis (< 1month) Other Risk Factors: Yes Each Risk Factor Represents 2 Points: Malignancy Each Risk Factor Represents 3 Points: Age 75 years or older Other congenital or acquired thrombophilia - If yes, enter type in comment: No Thrombosis Risk Factor Assessment Total Risk Factor Score: 8 Thrombosis Risk Factor Assessment Level: High Risk Assessment and Plan Plan: 1. Sepsis with SIRS, metabolic encephalopathy, acute urinary tract infection for which patient recently was admitted for MARINE OILER shunt placement at [facility], 02/15/2017, he required indwelling Anne catheter for a few weeks and this was discontinued one week ago, catheter related urinary tract infection is highly suspected, patient is started on Fortaz and Rocephin 2. Bacteremia noted, cultures will be repeated, antibiotic as above, consult were made with Dr. Jeffries and Dr. Bob for the right hydronephrosis 3. Right hydronephrosis with lobulation noted on the upper pole of the right kidney, CT of the kidneys will be done kidney once renal function improves evaluate for abscess, continue Flomax 4. Recent MARINE OILER shunt by Dr. Ray 02/15/2017 [facility] normal pressure hydrocephalus 5. Hypertension 6. Pacemaker stable indication needs to be determined 7. Dementia possibly related to the NPH, continue Aricept 8 History of melanoma 9 Acute renal sufficiency with CK D stage III, fluids IV, avoid nephrotoxins, 10 hyperglycemia 11 Elevated troponin as related to sepsis, troponins will be monitored Debility with impaired balance and memory loss, patient seen by physical therapy and occupational therapy, Discharge planning [facility] with prior CABG in 2001, Edema, continue Lasix, metoprolol, losartan, history of kidney stone with prior lithotripsies BPH currently on Flomax Coagulopathy on Coumadin, indication for Coumadin currently is not known this would be verified Coumadin is on hold for possible procedure by urology Rheumatid arthritis on arava this needs to be held secondary to sepsis
[2017-03-08] MEDS ORDERED: WARFARIN 2.5 MG TAB PO SCH (18:00)
[2017-03-08] MEDS: ATORVASTATIN 20 MG TAB PO SCH (21:50)
[2017-03-08] MEDS: DONEPEZIL 5 MG TAB PO SCH (21:52)
[2017-03-08] MEDS: MENTHOL-ZINC OXIDE OINT 113 GM TUBE TOPICAL SCH (22:29)
--- NOTE | 2017-03-08 23:08 | P.GSCN ---
History of Present Illness Consult date: 03/08/17 Reason for Consult: UTI Requesting physician: Kim Carson History of present illness: He is a 76 year old male who developed urinary retention after a shunt placement for idiopathic hydrocephalus at [facility]. He has been having incontinence, and not been emptying his bladder for some time. He is now having more mobility problems. He was placed on tamsulosin, and his Anne catheter was removed when recently seen in our office by Dr. Bob. Bladder Scan was used to assess bladder emptying later in the day at [facility] [place]. The postvoid residual was 30 mL, and therefore the Anne catheter was left out. He is now admitted with confusion. Urinalysis obtained at the time of admission is consistent with infection. Review of Systems - Constitutional Reports chills, Reports fever, Reports poor appetite, Reports weight loss - Genitourinary Reports incontinence, Denies dysuria Past Medical History Past Medical History: Atrial Fibrillation, Cancer, Dementia, Eye Disorder, GERD/ Reflux, GI Bleed, Hyperlipidemia, Hypertension, Memory Impairment, Myocardial Infarction ([place]), Prostate Disorder, Renal Disease, Rheumatoid Arthritis ([place]), Vascular Disorder Additional Past Medical History / Comment(s): Normal pressure hydocephalus with recent shunt, current yeast infection meatus, SSS - PACEMAKER, Skin CA- MELANOMA with removal from nose and other types of skin cancer removed, CKD, nephrolithiasis with sx, PVD, OCC EDEMA LEGS, glaucoma bilaterally, R eye cataract, BPH, past urinary retention after cerebral shunt and was discharged with a anne to [facility] dc'd on 03/02/17, RECTAL BLEED AFTER COLONOSCOPY R /T COUMADIN USE, unsteady gait, intermittent confusion, occasional allergic rhinitis. Last Myocardial Infarction Date:: 2001?-silent History of Any Multi-Drug Resistant Organisms: None Reported Past Surgical History: Coronary Bypass/CABG, Heart Catheterization, Orthopedic Surgery, Pacemaker Additional Past Surgical History / Comment(s): Recent cerebral shunt, PCI with stent, TRIPLE CABG 2001, LT Shoulder rotator cuff repair, Colonoscopy, 2004 Original pacer, 07/2016 GENERATOR CHANGE, cystoscopy with double J catheter, since removed, lithotripsies, L eye cataract removal, skin cancer removals. Past Anesthesia/Blood Transfusion Reactions: No Reported Reaction Type of Cardiac Device: Permanent Pacemaker Device Placement Date:: 03/21/2006 Past Psychological History: No Psychological Hx Reported Additional Psychological History / Comment(s): Pt recently resides at [facility] for rehab post cerebral shunt placement. They state he is mostly in a wheelchair and can stand with one assist. He feeds himself and needs assistance with all other ADLs. Spouse states that prior to cerebral shunt, pt could ambulate short distances with a walker. He was no longer driving due to dementia. Spouse drives. She was his catalogue and special products manager and hopes for pt to come home after rehab. She is in the process of placing grab rails etc. Smoking Status: Never smoker Past Alcohol Use History: Daily Additional Past Alcohol Use History / Comment(s): GLASS OF WINE WITH DARLING JUICE DAILY PER SPOUSE Past Drug Use History: None Reported - Past Family History Brother(s) Family Medical History: Cancer Additional Family Medical History / Comment(s): SKIN Sister(s) Family Medical History: Cancer Additional Family Medical History / Comment(s): SKIN Mother Family Medical History: Cancer Medications and Allergies Home Medications Medication Instructions Recorded Confirmed Type Leflunomide [Arava] 20 mg PO DAILY 08/05/14 03/07/17 History Omeprazole [PriLOSEC] 20 mg PO QAM 08/05/14 03/07/17 History Warfarin [Coumadin] 1.25 mg PO THSA 08/05/14 03/07/17 History Allopurinol [Zyloprim] 100 mg PO BID 07/25/16 03/07/17 History Furosemide [Lasix] 40 mg PO SUTUTHSA PRN 07/25/16 03/07/17 History Losartan Potassium [Cozaar] 100 mg PO QAM 07/25/16 03/07/17 History Warfarin [Coumadin] 2.5 mg PO SUMOWEFR 07/25/16 03/07/17 History Donepezil [Aricept] 5 mg PO HS 11/29/16 03/07/17 History Acetaminophen Tab [Tylenol] 650 mg PO ONCE PRN 03/07/17 03/07/17 History Atorvastatin [Lipitor] 20 mg PO HS 03/07/17 03/07/17 History Dimethicone/Zinc Oxide [Inzo Zinc 1 applic TOPICAL BID 03/07/17 03/07/17 History Oxide Barrier Cream] Furosemide [Lasix] 40 mg PO MOWEFR@00,1700 03/07/17 03/07/17 History Metoprolol Tartrate [Lopressor] 50 mg PO BID 03/07/17 03/07/17 History Potassium Chloride ER [K-Dur 20] 20 meq PO SUTUTHSA 03/07/17 03/07/17 History Potassium Chloride [Klor-Con 20] 20 meq PO MOWEFR@0900,2100 03/07/17 03/07/17 History Tamsulosin [Flomax] 0.4 mg PO DAILY 03/07/17 03/07/17 History Tolnaftate [Tinactin] 1 applic TOPICAL BID 03/07/17 03/07/17 History predniSONE 10 mg PO DAILY 03/07/17 03/07/17 History Allergies Allergy/AdvReac Type Severity Reaction Status Date / Time No Known Allergies Allergy Verified 03/07/17 20:11 Surgical - Exam Vital Signs Temp Pulse Resp BP Pulse Ox 100.1 F H 71 22 146/81 95 03/07/17 20:26 03/07/17 20:26 03/07/17 20:26 03/07/17 20:26 03/07/17 20:26 - General well developed, well nourished, no distress - Respiratory normal respiratory effort - Abdomen Abdomen: soft, tender (mild RLQ tenderness), no masses, no guarding, no rigid, no rebound, no distended - Genitourinary normal penis with no external lesions, testicles non-tender Results - Labs 03/08/17 06:38 03/08/17 06:38 Abnormal Lab Results - Last 24 Hours (Table) 03/08/17 03/08/17 03/08/17 Range/Units 00:29 06:38 06:38 RBC 3.82 L (4.30-5.90) m/uL Hgb 11.7 L (13.0-17.5) gm/dL Hct 37.4 L (39.0-53.0) % RDW 16.0 H (11.5-15.5) % Neutrophils # 8.0 H (1.3-7.7) k/uL Lymphocytes # 0.5 L (1.0-4.8) k/uL PT (9.0-12.0) sec Chloride 108 H (98-107) mmol/L BUN 31 H (9-20) mg/dL Creatinine 1.38 H (0.66-1.25) mg/dL Glucose 151 H (74-99) mg/dL Plasma Lactic Acid Santiago 3.5 H* (0.7-2.0) mmol/L Calcium 8.0 L (8.4-10.2) mg/dL Total Protein 5.2 L (6.3-8.2) g/dL Albumin 2.6 L (3.5-5.0) g/dL 03/08/17 Range/Units 06:45 RBC (4.30-5.90) m/uL Hgb (13.0-17.5) gm/dL Hct (39.0-53.0) % RDW (11.5-15.5) % Neutrophils # (1.3-7.7) k/uL Lymphocytes # (1.0-4.8) k/uL PT 33.4 H (9.0-12.0) sec Chloride (98-107) mmol/L BUN (9-20) mg/dL Creatinine (0.66-1.25) mg/dL Glucose (74-99) mg/dL Plasma Lactic Acid Santiago (0.7-2.0) mmol/L Calcium (8.4-10.2) mg/dL Total Protein (6.3-8.2) g/dL Albumin (3.5-5.0) g/dL Diabetes panel 03/08/17 Range/Units 06:38 Sodium 139 (137-145) mmol/L Potassium 3.5 (3.5-5.1) mmol/L Chloride 108 H (98-107) mmol/L Carbon Dioxide 25 (22-30) mmol/L BUN 31 H (9-20) mg/dL Creatinine 1.38 H (0.66-1.25) mg/dL Glucose 151 H (74-99) mg/dL Calcium 8.0 L (8.4-10.2) mg/dL AST 30 (17-59) U/L ALT 31 (21-72) U/L Alkaline Phosphatase 58 (38-126) U/L Total Protein 5.2 L (6.3-8.2) g/dL Albumin 2.6 L (3.5-5.0) g/dL Calcium panel 03/08/17 Range/Units 06:38 Calcium 8.0 L (8.4-10.2) mg/dL Albumin 2.6 L (3.5-5.0) g/dL Pituitary panel 03/08/17 Range/Units 06:38 Sodium 139 (137-145) mmol/L Potassium 3.5 (3.5-5.1) mmol/L Chloride 108 H (98-107) mmol/L Carbon Dioxide 25 (22-30) mmol/L BUN 31 H (9-20) mg/dL Creatinine 1.38 H (0.66-1.25) mg/dL Glucose 151 H (74-99) mg/dL Calcium 8.0 L (8.4-10.2) mg/dL Adrenal panel 03/08/17 Range/Units 06:38 Sodium 139 (137-145) mmol/L Potassium 3.5 (3.5-5.1) mmol/L Chloride 108 H (98-107) mmol/L Carbon Dioxide 25 (22-30) mmol/L BUN 31 H (9-20) mg/dL Creatinine 1.38 H (0.66-1.25) mg/dL Glucose 151 H (74-99) mg/dL Calcium 8.0 L (8.4-10.2) mg/dL Total Bilirubin 1.1 (0.2-1.3) mg/dL AST 30 (17-59) U/L ALT 31 (21-72) U/L Alkaline Phosphatase 58 (38-126) U/L Total Protein 5.2 L (6.3-8.2) g/dL Albumin 2.6 L (3.5-5.0) g/dL Assessment and Plan (1) UTI (urinary tract infection) Status: Acute Plan: Urinalysis is consistent with a UTI. A urine culture is pending. Blood cultures show gram-negative bacilli. He is being treated with ceftazidime, pending the final culture results. He is receiving tamsulosin, and bladder ultrasound suggested the presence of bladder distention. In view of this, the postvoid residual will be checked using the bladder scan. The renal ultrasound visualized the left kidney poorly, and suggested the possible presence of right hydronephrosis as well as a right upper pole renal mass. I am in agreement that a computed tomography scan should be obtained for further evaluation. Time with Patient: Greater than 30
[2017-03-09 03:44] LABS: Basophils % (A) 0 %; CH 31.6; CHCM 32.7; Eosinophils # (A) 0.1 k/uL (0-0.7); Eosinophils % (A) 1 %; HDW 2.49; HGB 11.5 gm/dL (13.0-17.5); Luc # (Auto) 0.04; Luc % (Auto) 1; Lymphocytes # (A) 0.4 k/uL (1.0-4.8); Lymphocytes % (A) 5 %; MCH 31.1 pg (25.0-35.0); MCV 97.2 fL (80.0-100.0); Macrocytosis Slight; Mean Platelet Volume 6.8; Monocytes # (A) 0.3 k/uL (0-1.0); Monocytes % (A) 3 %; Neutrophils # (A) 7.3 k/uL (1.3-7.7); Neutrophils % (A) 91 %; RDW 15.9 % (11.5-15.5); WBC (Perox) 8.51
[2017-03-09 03:56] LABS: ALT 37 U/L (21-72); AST 48 U/L (17-59); Alkaline Phosphatase 59 U/L (38-126); Anion Gap 7 mmol/L; Blood Urea Nitrogen 32 mg/dL (9-20); Calcium 8.2 mg/dL (8.4-10.2); Carbon Dioxide 21 mmol/L (22-30); Chloride 114 mmol/L (98-107); Glucose 105 mg/dL (74-99); Non-African American GFR(MDRD) >60 (>60 ml/min/1.73 sqM); Potassium 3.3 mmol/L (3.5-5.1); Sodium 142 mmol/L (137-145); Total Bilirubin 0.8 mg/dL (0.2-1.3); Total Protein 5.2 g/dL (6.3-8.2)
[2017-03-09] MEDS: PANTOPRAZOLE 40 MG TABLET PO SCH (07:00)
[2017-03-09] MEDS: MENTHOL-ZINC OXIDE OINT 113 GM TUBE TOPICAL SCH ×2 (07:59→21:50)
[2017-03-09] MEDS: CLOTRIMAZOLE 1% CREAM 15 GM TUBE TOPICAL SCH (07:59)
[2017-03-09] MEDS: ALLOPURINOL 100 MG TAB PO SCH ×2 (07:59→21:50)
[2017-03-09] MEDS: METOPROLOL TARTRATE 50 MG TAB PO SCH ×2 (08:00→21:50)
[2017-03-09] MEDS: LOSARTAN 50 MG TAB PO SCH (08:00)
[2017-03-09] MEDS: TAMSULOSIN 0.4 MG CAP.ER.24H PO SCH (08:00)
[2017-03-09] MEDS: POTASSIUM CHLORIDE ER 20 MEQ TAB.ER PO SCH ×2 (08:00→21:50)
[2017-03-09] MEDS: predniSONE 10 MG TAB PO SCH (08:00)
--- NOTE | 2017-03-09 09:32 | P.CONS ---
History of Present Illness - Reason for Consult Consult date: 03/09/17 Bacteremia, urinary tract infection - History of Present Illness This is a 76-year-old male who is currently presented from [facility]. 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 Apparently, he has had ongoing problems with urinary retention since that time and has followed with Dr. holden. He has been on tamsulosin and Anne catheter was recently removed in the office. Patient was sent in from [facility] to be evaluated at [facility] emergency center for altered mental status and fever. Patient remains very confused and information is mostly obtained from the chart and from his nurse. He presented with temperature of 100.1, leukocytosis of 13.2 and lactic acidosis of 6.1 with repeat of 1.2. His INR is elevated at 3.4 for which she is on Coumadin for atrial fibrillation. His urinalysis was cloudy, blood moderate, WBCs greater than 182, bacteria many, WBC clumps many, yeast few. One blood culture showing gram-negative rods and a second blood cultures showing gram-negative bacilli. Urine culture is in progress. There are no previous cultures on her system. CAT scan of the brain showed mild ventriculomegaly pattern appears mildly more prominent when compared to September CAT scan. 2 mm nondependent gas bubble the frontal horn of the right lateral ventricle. Chest x-ray shows no definite acute process. Patient did have urinary retention during the night and required straight catheter 900 mL. His nurse states that initially the flow was clear and then became a milky white. He also has had incontinence of urine but small amounts only. Patient' s passed on that the patient was treated for a fungal urinary tract infection at the snf. There is a rash in the buttocks for which barrier cream is being used. Patient also has history of rheumatoid arthritis and is on Arava and prednisone. Review of Systems ROS unobtainable: due to mental status All systems: negative Constitutional: Reports chills, Reports fever Eyes: denies blurred vision, denies pain Ears, nose, mouth and throat: Denies headache, Denies sore throat Cardiovascular: Denies chest pain, Denies shortness of breath Respiratory: Denies cough Gastrointestinal: Denies abdominal pain, Denies diarrhea, Denies nausea, Denies vomiting Genitourinary: Reports dysuria, Reports urinary retention Musculoskeletal: Denies myalgias Integumentary: Denies pruritus, Denies rash Neurological: Reports change in mentation, Denies numbness, Denies weakness Psychiatric: Denies anxiety, Denies depression Endocrine: Denies fatigue, Denies weight change Past Medical History Past Medical History: Atrial Fibrillation, Cancer, Dementia, Eye Disorder, GERD/ Reflux, GI Bleed, Hyperlipidemia, Hypertension, Memory Impairment, Myocardial Infarction (IN), Prostate Disorder, Renal Disease, Rheumatoid Arthritis (RA), Vascular Disorder Additional Past Medical History / Comment(s): Normal pressure hydocephalus with recent shunt, current yeast infection meatus, SSS - PACEMAKER, Skin CA- MELANOMA with removal from nose and other types of skin cancer removed, CKD, nephrolithiasis with sx, PVD, OCC EDEMA LEGS, glaucoma bilaterally, R eye cataract, BPH, past urinary retention after cerebral shunt and was discharged with a anne to [facility]-anne dc'd on 03/02/17, RECTAL BLEED AFTER COLONOSCOPY R /T COUMADIN USE, unsteady gait, intermittent confusion, occasional allergic rhinitis. Last Myocardial Infarction Date:: 2001?-silent History of Any Multi-Drug Resistant Organisms: None Reported Past Surgical History: Coronary Bypass/CABG, Heart Catheterization, Orthopedic Surgery, Pacemaker Additional Past Surgical History / Comment(s): Recent cerebral shunt, PCI with stent, TRIPLE CABG 2001, LT Shoulder rotator cuff repair, Colonoscopy, 2004 Original pacer, 07/2016 GENERATOR CHANGE, cystoscopy with double J catheter, since removed, lithotripsies, L eye cataract removal, skin cancer removals. Past Anesthesia/Blood Transfusion Reactions: No Reported Reaction Type of Cardiac Device: Permanent Pacemaker Device Placement Date:: 03/21/2006 Past Psychological History: No Psychological Hx Reported Additional Psychological History / Comment(s): Pt recently resides at [facility] on [facility] for rehab post cerebral shunt placement. They state he is mostly in a wheelchair and can stand with one assist. He feeds himself and needs assistance with all other ADLs. Spouse states that prior to cerebral shunt, pt could ambulate short distances with a walker. He was no longer driving due to dementia. Spouse drives. She was his geothermal hvac technician and hopes for pt to come home after rehab. She is in the process of placing grab rails etc. Smoking Status: Never smoker Past Alcohol Use History: Daily Additional Past Alcohol Use History / Comment(s): GLASS OF WINE WITH DARLING JUICE DAILY PER SPOUSE Past Drug Use History: None Reported - Past Family History Brother(s) Family Medical History: Cancer Additional Family Medical History / Comment(s): SKIN Sister(s) Family Medical History: Cancer Additional Family Medical History / Comment(s): SKIN Mother Family Medical History: Cancer Medications and Allergies Home Medications Medication Instructions Recorded Confirmed Type Leflunomide [Arava] 20 mg PO DAILY 08/05/14 03/07/17 History Omeprazole [PriLOSEC] 20 mg PO QAM 08/05/14 03/07/17 History Warfarin [Coumadin] 1.25 mg PO THSA 08/05/14 03/07/17 History Allopurinol [Zyloprim] 100 mg PO BID 07/25/16 03/07/17 History Furosemide [Lasix] 40 mg PO SUTUTHSA PRN 07/25/16 03/07/17 History Losartan Potassium [Cozaar] 100 mg PO QAM 07/25/16 03/07/17 History Warfarin [Coumadin] 2.5 mg PO SUMOWEFR 07/25/16 03/07/17 History Donepezil [Aricept] 5 mg PO HS 11/29/16 03/07/17 History Acetaminophen Tab [Tylenol] 650 mg PO ONCE PRN 03/07/17 03/07/17 History Atorvastatin [Lipitor] 20 mg PO HS 03/07/17 03/07/17 History Dimethicone/Zinc Oxide [Inzo Zinc 1 applic TOPICAL BID 03/07/17 03/07/17 History Oxide Barrier Cream] Furosemide [Lasix] 40 mg PO MOWEFR@0900,1700 03/07/17 03/07/17 History Metoprolol Tartrate [Lopressor] 50 mg PO BID 03/07/17 03/07/17 History Potassium Chloride ER [K-Dur 20] 20 meq PO SUTUTHSA 03/07/17 03/07/17 History Potassium Chloride [Klor-Con 20] 20 meq PO MOWEFR@0900,2100 03/07/17 03/07/17 History Tamsulosin [Flomax] 0.4 mg PO DAILY 03/07/17 03/07/17 History Tolnaftate [Tinactin] 1 applic TOPICAL BID 03/07/17 03/07/17 History predniSONE 10 mg PO DAILY 03/07/17 03/07/17 History Allergies Allergy/AdvReac Type Severity Reaction Status Date / Time No Known Allergies Allergy Verified 03/07/17 20:11 Physical Exam Vitals: Vital Signs Temp Pulse Resp BP BP Pulse Ox 03/09/17 07:56 97.5 F L 66 16 144/77 97 03/09/17 04:00 97.3 F L 60 16 133/67 98 03/09/17 00:00 96.9 F L 70 16 157/84 100 03/08/17 20:00 96.9 F L 77 16 111/55 99 03/08/17 15:45 97.2 F L 74 16 130/74 97 03/08/17 12:00 97.6 F 68 16 101/59 100 Intake and Output 03/08/17 03/09/17 03/09/17 22:59 06:59 14:59 Intake Total 306 60 480 Output Total 1000 Balance 306 -940 480 Intake: IV 70 60 0.9@ 20mls 20 60 cefTAZidime 1 gm In 50 Sodium Chloride 0.9% 50 ml @ 100 mls/hr IVPB Q8HR [facility] Rx#:[id number] Oral 236 480 Output: Post Void Residual 1000 Other: Voiding Method Urinal Urinal Urinal Diaper Diaper Diaper # Voids 1 # Bowel Movements 1 Gen: This is a 76-year-old male. He is sitting up in bed and appears to be in no acute distress. HEENT: Head is atraumatic, normocephalic. Pupils equal, round. Sclerae is anicteric. Adjunctive a pink. Mucous membranes of the mouth are moist. Dentition is in good condition for age. There is a lesion on the lower left lip. Small abrasion to the top of his scalp NECK: Supple. No JVD. No lymphadenopathy. No thyromegaly. LUNGS: Clear to auscultation. No wheezes or rhonchi. No intercostal retractions. HEART: Regular rate and rhythm. Systolic murmur. ABDOMEN: Soft. Bowel sounds are present. No masses. No tenderness. EXTREMITIES: No pedal edema. Dorsalis pedis +2 bilaterally. Patient has dark color change to the right heel which is tender to touch. Mediboots are on bilaterally. NEUROLOGICAL: Patient is awake, alert and oriented x1. He is unable to state where he is, month or year. 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 Results Results: Laboratory Results WBC 8.0 k/uL (3.8-10.6) 03/09/17 03:25 RBC 3.70 m/uL (4.30-5.90) L 03/09/17 03:25 Hgb 11.5 gm/dL (13.0-17.5) L 03/09/17 03:25 Hct 36.0 % (39.0-53.0) L 03/09/17 03:25 MCV 97.2 fL (80.0-100.0) 03/09/17 03:25 MCH 31.1 pg (25.0-35.0) 03/09/17 03:25 MCHC 32.0 g/dL (31.0-37.0) 03/09/17 03:25 RDW 15.9 % (11.5-15.5) H 03/09/17 03:25 Plt Count 206 k/uL (150-450) 03/09/17 03:25 Neutrophils % 91 % 03/09/17 03:25 Lymphocytes % 5 % 03/09/17 03:25 Monocytes % 3 % 03/09/17 03:25 Eosinophils % 1 % 03/09/17 03:25 Basophils % 0 % 03/09/17 03:25 Neutrophils # 7.3 k/uL (1.3-7.7) 03/09/17 03:25 Lymphocytes # 0.4 k/uL (1.0-4.8) L 03/09/17 03:25 Monocytes # 0.3 k/uL (0-1.0) 03/09/17 03:25 Eosinophils # 0.1 k/uL (0-0.7) 03/09/17 03:25 Basophils # 0.0 k/uL (0-0.2) 03/09/17 03:25 Macrocytosis Slight 03/09/17 03:25 PT 33.4 sec (9.0-12.0) H 03/08/17 06:45 INR 3.4 (<1.1) 03/08/17 06:45 APTT 26.0 sec (22.0-30.0) 03/07/17 20:29 Sodium 142 mmol/L (137-145) 03/09/17 03:25 Potassium 3.3 mmol/L (3.5-5.1) L 03/09/17 03:25 Chloride 114 mmol/L (98-107) H 03/09/17 03:25 Carbon Dioxide 21 mmol/L (22-30) L 03/09/17 03:25 Anion Gap 7 mmol/L 03/09/17 03:25 BUN 32 mg/dL (9-20) H 03/09/17 03:25 Creatinine 1.16 mg/dL (0.66-1.25) 03/09/17 03:25 Est GFR (MDRD) Af Amer >60 (>60 ml/min/1.73 sqM) 03/09/17 03:25 Est GFR (MDRD) Non-Af >60 (>60 ml/min/1.73 sqM) 03/09/17 03:25 Glucose 105 mg/dL (74-99) H 03/09/17 03:25 Plasma Lactic Acid Santiago 1.2 mmol/L (0.7-2.0) 03/09/17 03:25 Calcium 8.2 mg/dL (8.4-10.2) L 03/09/17 03:25 Phosphorus 3.1 mg/dL (2.5-4.5) 03/07/17 20:29 Magnesium 1.6 mg/dL (1.6-2.3) 03/07/17 20:29 Total Bilirubin 0.8 mg/dL (0.2-1.3) 03/09/17 03:25 AST 48 U/L (17-59) 03/09/17 03:25 ALT 37 U/L (21-72) 03/09/17 03:25 Alkaline Phosphatase 59 U/L (38-126) 03/09/17 03:25 Total Creatine Kinase 130 U/L (55-170) 03/07/17 20:29 CK-MB (CK-2) 1.9 ng/mL (0.0-2.4) 03/07/17 20:29 CK-MB (CK-2) Rel Index 1.5 03/07/17 20:29 Troponin I 0.092 ng/mL (0.000-0.034) H* 03/07/17 20:29 Total Protein 5.2 g/dL (6.3-8.2) L 03/09/17 03:25 Albumin 2.4 g/dL (3.5-5.0) L 03/09/17 03:25 Urine Color Light Yellow 03/07/17 23:00 Urine Appearance Cloudy (Clear) 03/07/17 23:00 Urine pH 6.0 (5.0-8.0) 03/07/17 23:00 Ur Specific [place] 1.008 (1.001-1.035) 03/07/17 23:00 Urine Protein Negative (Negative) 03/07/17 23:00 Urine Glucose (UA) Negative (Negative) 03/07/17 23:00 Urine Ketones Negative (Negative) 03/07/17 23:00 Urine Blood Moderate (Negative) H 03/07/17 23:00 Urine Nitrite Negative (Negative) 03/07/17 23:00 Urine Bilirubin Negative (Negative) 03/07/17 23:00 Urine Urobilinogen <2.0 mg/dL (<2.0) 03/07/17 23:00 Ur Leukocyte Esterase Large (Negative) H 03/07/17 23:00 Urine RBC 11 /hpf (0-5) H 03/07/17 23:00 Urine WBC >182 /hpf (0-5) H 03/07/17 23:00 Urine WBC Clumps Many /hpf (None) H 03/07/17 23:00 Urine Bacteria Many /hpf (None) H 03/07/17 23:00 Urine Yeast (Budding) Few /hpf (None) H 03/07/17 23:00 CBC & Chem 7: 03/09/17 03:25 03/09/17 03:25 Labs: Abnormal Lab Results - Last 24 Hours (Table) 03/08/17 03/09/17 03/09/17 Range/Units 20:08 03:25 03:25 RBC 3.70 L (4.30-5.90) m/uL Hgb 11.5 L (13.0-17.5) gm/dL Hct 36.0 L (39.0-53.0) % RDW 15.9 H (11.5-15.5) % Lymphocytes # 0.4 L (1.0-4.8) k/uL Potassium 3.3 L (3.5-5.1) mmol/L Chloride 114 H (98-107) mmol/L Carbon Dioxide 21 L (22-30) mmol/L BUN 32 H (9-20) mg/dL Glucose 105 H (74-99) mg/dL Plasma Lactic Acid Santiago 2.4 H* (0.7-2.0) mmol/L Calcium 8.2 L (8.4-10.2) mg/dL Total Protein 5.2 L (6.3-8.2) g/dL Albumin 2.4 L (3.5-5.0) g/dL Assessment and Plan Plan: This is a 76-year-old male who has had ongoing problems with urinary retention despite tamsulosin. He has been managed by Dr. Bob and Anne catheter was recently removed in the office. Ultrasound at this time shows a right hydronephrosis and cannot exclude mass versus cortical lobulation upper pole right kidney. He is currently on IV antibiotics in the form of ceftazidime which will be changed to meropenem. He does show signs of gram- negative bacteremia and septicemia due to urinary tract infection secondary to urinary retention, present on admission. Patient is followed by Dr. Chua. Eckerman Nane catheter be replaced due to right-sided hydronephrosis and urinary retention this continued. Pre-albumin has been ordered. Continue supportive care. Further recommendations as patient progresses. The above dictated assessment and findings were discussed with Dr. Jeffries. The impression and plan of care have been directed as dictated. Trudi Dawkins nurse practitioner acting as scribe for Dr. Jeffries. Time with Patient: Greater than 30
[2017-03-09 10:13] LABS: INR 3.2 (<1.1); Prothrombin Time 30.7 sec (9.0-12.0)
[2017-03-09] MEDS ORDERED: POTASSIUM CHLORIDE ER 20 MEQ TAB.ER PO STA (10:46)
[2017-03-09 11:02] VITALS: BMI 31.5
[2017-03-09] MEDS: MEROPENEM 1 GM in SODIUM CHLORIDE 0.9% 100 ML IVPB SCH (12:00)
[2017-03-09] MEDS ORDERED: RX INFO: IV CONTRAST WAS GIVEN 1 EACH MISC MISCELLANE PRN (12:27)
--- NOTE | 2017-03-09 14:55 | P.PN ---
Subjective This is a pleasant 76-year-old gentleman patient of Dr. Dr. putnam. [facility] [place]. He recently was diagnosed to have normal pressure hydrocephalus requiring shunt placement by Dr. Ray02/15/2017 at [facility]. He stayed there for a few days, thereafter transferred to [facility] 2 weeks ago. He complained of urinary retention at that time the hospital, and required an indwelling Anne catheter for which he was discharged to [facility] on anne catheter. He is anne catheter was discontinued by Dr. Bob one week prior to admission. Patient complained off diminished appetite, decreased oral intake, weight loss of 13 pounds, memory worsening memory loss, walking impairment, shuffling gait, and urinary incontinence. He also has edema , along with fever and chills. Next Emergency room he was found to have a urinary tract infection with urine WBC of 182, RBC of 11, INR 2.6, blood WBC of 13, lactic acid of 6. He was admitted for sepsis with suspected urinary tract source. CAT scan of the brain was performed including a chest x-ray which failed to reveal any acute infiltrate no pneumoperitoneum and no pneumothorax,. CAT scan of the brain showed mild ventriculomegaly pattern appears mildly more prominent when compared to 2015 CT, 2 mm nondependent gas bubble noted within the frontal horn of the right lateral ventricle additional tests included ultrasound right hydronephrosis, cannot exclude a mass versus cortical lobulation within upper pole right kidney consultation made with Dr. Bob and Dr. Jeffries 03/09: Patient has had ongoing urinary retention and required straight cath this morning. Anne catheter will be reinserted. Patient is been seen by Dr. Jeffries and repeat blood cultures have been obtained and antibiotics changed to meropenem. CAT scan of the abdomen and pelvis with contrast has been ordered regarding mass. IV fluids at 75 mL per hour. Potassium has been replaced. Patient's states that she does not want him to go back to [facility] and would like [facility] [place] instead. Medical social work has been updated. Objective - Vital Signs Vital signs: Vital Signs Temp 97.5 F L 03/09/17 07:56 Pulse 66 03/09/17 07:56 Resp 16 03/09/17 07:56 BP 144/77 03/09/17 07:56 Pulse Ox 97 03/09/17 07:56 Intake & Output 03/08/17 03/09/17 03/09/17 18:59 06:59 18:59 Intake Total 476 130 480 Output Total 1000 Balance 476 -870 480 Intake: IV 130 0.9@ 20mls 80 cefTAZidime 1 gm In 50 Sodium Chloride 0.9% 50 ml @ 100 mls/hr IVPB Q8HR [facility] Rx#:[id number] Oral 476 480 Output: Post Void Residual 1000 Other: Voiding Method Urinal Urinal Urinal Diaper Diaper Diaper # Voids 1 1 # Bowel Movements 1 - Exam General appearance: cooperative, no acute distress, obese - EENT Eyes: anicteric sclerae, EOMI, PERRLA, dentition normal, normal appearance ENT: hard of hearing, NA/AT, normal oropharynx - Neck Neck: no lymphadenopathy, normal ROM, no other, no rigidity, no stridor, no thyromegaly - Respiratory Respiratory: bilateral: CTA, negative: diminished, dullness, rales, rhonchi - Cardiovascular Rhythm: regular Heart sounds: normal: S1, S2 Abnormal Heart Sounds: systolic murmur, diastolic murmur, no rub, no S3 Gallop, no S4 Gallop, no click, no other - Gastrointestinal General gastrointestinal: normal bowel sounds, soft - Integumentary Integumentary: normal, normal turgor - Neurologic Neurologic: CNII-XII intact - Musculoskeletal Musculoskeletal: generalized weakness, strength equal bilaterally - Psychiatric Psychiatric: A&O x's 1, no appropriate affect, intact judgment & insight - Labs CBC & Chem 7: 03/09/17 03:25 03/09/17 03:25 Labs: Abnormal Lab Results - Last 24 Hours (Table) 03/08/17 03/09/17 03/09/17 Range/Units 20:08 03:25 03:25 RBC 3.70 L (4.30-5.90) m/uL Hgb 11.5 L (13.0-17.5) gm/dL Hct 36.0 L (39.0-53.0) % RDW 15.9 H (11.5-15.5) % Lymphocytes # 0.4 L (1.0-4.8) k/uL PT (9.0-12.0) sec Potassium 3.3 L (3.5-5.1) mmol/L Chloride 114 H (98-107) mmol/L Carbon Dioxide 21 L (22-30) mmol/L BUN 32 H (9-20) mg/dL Glucose 105 H (74-99) mg/dL Plasma Lactic Acid Santiago 2.4 H* (0.7-2.0) mmol/L Calcium 8.2 L (8.4-10.2) mg/dL Total Protein 5.2 L (6.3-8.2) g/dL Albumin 2.4 L (3.5-5.0) g/dL 03/09/17 Range/Units 09:38 RBC (4.30-5.90) m/uL Hgb (13.0-17.5) gm/dL Hct (39.0-53.0) % RDW (11.5-15.5) % Lymphocytes # (1.0-4.8) k/uL PT 30.7 H (9.0-12.0) sec Potassium (3.5-5.1) mmol/L Chloride (98-107) mmol/L Carbon Dioxide (22-30) mmol/L BUN (9-20) mg/dL Glucose (74-99) mg/dL Plasma Lactic Acid Santiago (0.7-2.0) mmol/L Calcium (8.4-10.2) mg/dL Total Protein (6.3-8.2) g/dL Albumin (3.5-5.0) g/dL Assessment and Plan Plan: 1. Septicemia and gram-negative bacteremia, metabolic encephalopathy, acute urinary tract infection due to urinary retention and recent Anne catheter, catheter associated urinary tract infection. Patient recently was admitted for BARREL LINER shunt placement at [facility], 02/15/2017, he required indwelling Anne catheter for a few weeks and this was discontinued one week ago. Consults with Dr. Peralta and Dr. Jeffries appreciated. Anne catheter to be inserted. CAT scan of the abdomen and pelvis has been ordered to evaluate mass. 2. Gram- negative bacteremia. Consult in place with Dr. Jeffries and Dr. Bob for the right hydronephrosis 3. Right hydronephrosis with lobulation noted on the upper pole of the right kidney, CT of the kidneys will be done kidney once renal function improves evaluate for abscess, continue Flomax. Patient may require Anne catheter be replaced. 4. Recent BARREL LINER shunt by Dr. Ray 02/15/2017 [facility] for normal pressure hydrocephalus 5. Hypertension 6. Pacemaker stable indication needs to be determined 7. Dementia possibly related to the NPH, continue Aricept 8 History of melanoma 9 Acute renal insufficiency with CKD stage III, fluids IV, avoid nephrotoxins, 10 hyperglycemia 11 Elevated troponin as related to sepsis 12. Debility with impaired balance and memory loss, patient seen by physical therapy and occupational therapy, 13. CAD with prior CABG in 2001, Edema, continue Lasix, metoprolol, losartan, 14. History of kidney stone with prior lithotripsies 15. BPH currently on Flomax 16. Coagulopathy on Coumadin, indication for Coumadin currently is not known this would be verified Coumadin is on hold for possible procedure by urology 17. Rheumatid arthritis on arava and prednisone. Arava held secondary to sepsis. Continue prednisone Discharge plan: Medical social work following for possible [facility] [place] versus [facility] Impression and plan of care have been directed as dictated by the signing physician. Trudi Dawkins nurse practitioner acting as scribe for signing physician. Time with Patient: Greater than 30
--- NOTE | 2017-03-09 15:42 | CT ---
EXAMINATION TYPE: CT abdomen pelvis w con DATE OF EXAM: 03/09/2017 2:50 PM REFERENCE: Previous study dated 04/05/2012 HISTORY: low dose contrast, mass, creat 1.16 HISTORY: Abdominal pain REFERENCE: NONE CT DLP: 1956 mGy Automated exposure control for dose reduction was used. TECHNIQUE: Helical acquisition through the abdomen and pelvis was obtained following the oral ingesti on of without Oral Contrast and following intravenous administration of 100 ml mL of Visipaque 320. T he data was reformatted in axial, coronal and sagittal projections. FINDINGS: There is atelectasis or consolidation at both lung bases. There is no pleural or pericardi al fluid. The heart is enlarged. Pacemaker is in place. There is coronary artery and other vascular c alcifications. Within the abdomen, the liver and gallbladder are normal. There is evidence of old granulomatous dise ase within the spleen. There is a stable 2.2 cm myolipoma of the right adrenal gland. The left adrenal gland is normal. Calcifications associated with the kidneys are believed to BE vascular. There is no evidence of hydro nephrosis. The pancreas is unremarkable. No significant retroperitoneal, iliac or inguinal adenopathy. There is a Barriga catheter within the bladder. There are scattered diverticula in the sigmoid region with scattered diverticula elsewhere. There is no radiographic evidence of diverticulitis. The appendix appears normal. There is a direct inguinal hernia on the right containing fat only. There is no free fluid and there is no free air. There is a looped catheter within the anterior abdominal wall with surrounding soft tissue which may represent hematoma. There is degenerative disc disease at L5-S1. This hypertrophic spondylosis throughout the spine most marked in the mid dorsal region. There is facet arthropathy in the lower lumbar spine. No bony destru ctive lesion is seen. IMPRESSION: 1. CARDIOMEGALY. 2. OLD GRANULOMATOUS DISEASE OF THE SPLEEN. 3. STABLE RIGHT ADRENAL MYELOLIPOMA. 4. MINIMAL, UNCOMPLICATED DIVERTICULOSIS OF THE LEFT SIDE OF THE COLON. 5. LOOP CATHETER IN THE ANTERIOR ABDOMINAL WALL WITH ADJACENT SOFT TISSUE MAY REPRESENT HEMATOMA. 6. DEGENERATIVE CHANGES WITHIN THE SPINE. 7. DIRECT INGUINAL HERNIA ON THE RIGHT CONTAINING FAT ONLY.
[2017-03-09] MEDS: SODIUM CHLORIDE 0.9% 1,000 ML IV SCH (15:56)
--- NOTE | 2017-03-09 17:01 | CDI ---
In responding to this query, please exercise your independent professional judgment. The [facility] Coding Staff and Clinical Documentation Specialists appreciate your assistance in clarifying documentation, maintaining compliance with coding guidelines, accurately documenting patients condition and capturing severity of illness. The fact that a question is asked does not imply that any particular answer is desired or expected. Communication forms are a method of clarifying documentation and are not made part of the Legal Health Record. Thank you in advance for your clarification. Last Revision, September 2015 Radu Babin [address] [facility] [place] [address] Documentation Clarification Form Date: 03/09/2017 4:53:00 PM From: Nanda King CCS, CCDS Admit Date: 03/07/2017 11:37:00 PM Patient Name: Allan Stevens Visit Number: [id number] Discharge Date: Dr. Kim Carson: Patient presents with a BUN/CR/GFR of: 32 & 1.30. History/Risk Factors: CKD stage III, BPH with recurrent urinary retention requiring a Barriga Catheter, recently removed. Patients baseline BUN/CR/GFR: unknown or not documented. Clinical Indicators: Recently hospitalized for insertion of ONLINE RETAILER shunt for NPH, discharged with Barriga catheter to [facility], cath recently removed, now admitted with gm negative sepsis secondary to CAUTI. Treatment: IV antibiotics, IV fluids Consults: Infectious Disease, Urology In order to capture the severity of condition, please clarify if the condition signifies: Acute renal failure Please specify (if known): Cortical, Medullary, or Tubular Necrosis? Acute kidney injury Acute on chronic renal failure Other, specify Please document in your progress notes and discharge summary in order to capture severity of illness and risk of mortality. Include clinical findings that support your diagnosis. FYI: Press F11 to launch patient chart. Place X here if this finding has no clinical significance, is not applicable or if you are not able to provide any additional documentation. Thank You. add dx acute on chronic renal failure ckd 3 MTDD
[2017-03-09] MEDS ORDERED: WARFARIN 1.25 MG TAB PO SCH (18:00)
--- NOTE | 2017-03-09 18:51 | P.CON ---
Consult Note - . Consult date: 03/09/17 Assessment/Plan:: This is a 76-year-old male who is currently presented from [facility]. He has a recent history of DIGITAL MEASUREMENT ADVISOR shunt placement for idiopathic hydrocephalus done at [facility]. Apparently, he has had ongoing problems with urinary retention since that time and has followed with Dr. holden. He has been on tamsulosin and Barriga catheter was recently removed in the office. Patient was sent in from [facility] to be evaluated at [facility] emergency center for altered mental status and fever. Patient remains very confused and information is mostly obtained from the chart and from his nurse. He presented with temperature of 100.1, leukocytosis of 13.2 and lactic acidosis of 6.1 with repeat of 1.2. His INR is elevated at 3.4 for which she is on Coumadin for atrial fibrillation. His urinalysis was cloudy, blood moderate, WBCs greater than 182, bacteria many, WBC clumps many, yeast few. One blood culture showing gram-negative rods and a second blood cultures showing gram-negative bacilli. Urine culture is in progress. There are no previous cultures on her system. CAT scan of the brain showed mild ventriculomegaly pattern appears mildly more prominent when compared to September CAT scan. 2 mm nondependent gas bubble the frontal horn of the right lateral ventricle. Chest x-ray shows no definite acute process. Patient did have urinary retention during the night and required straight catheter 900 mL. His nurse states that initially the flow was clear and then became a milky white. He also has had incontinence of urine but small amounts only. Patient' s passed on that the patient was treated for a fungal urinary tract infection at the detention. There is a rash in the buttocks for which barrier cream is being used. Patient also has history of rheumatoid arthritis and is on Arava and prednisone. Please see the consult note is dictated by nurse practitioner Mrs. Trudi Dawkins. Patient has evidence of some ongoing confusion which has been ongoing for quite some time family which his and son are very hopeful that after treatment of his sepsis, now that he has drainage of his normal pressure hydrocephalus that he may have some improvement of his neurological status. Since patient was at a tertiary [facility] antibiotic therapy was changed to meropenem with concerns to a drug resistant pathogen such as ESBL. Cultures are pending which will further help direct antimicrobial therapy. May require intravenous antibiotic therapy at discharge depending on findings This information is provided to the family who is the and the son. Urological follow-up is in process. Computed tomography scan was requested. May require intervention to the right renal system. I agree with evaluation, assessment and plan as dictated by nurse practitioner Mrs. Trudi Dawkins
[2017-03-09] MEDS: ATORVASTATIN 20 MG TAB PO SCH (21:50)
[2017-03-09] MEDS: DONEPEZIL 5 MG TAB PO SCH (21:50)
[2017-03-10] MEDS: MEROPENEM 1 GM in SODIUM CHLORIDE 0.9% 100 ML IVPB SCH ×3 (00:09→17:28)
[2017-03-10] MEDS: CLOTRIMAZOLE 1% CREAM 15 GM TUBE TOPICAL SCH ×3 (06:50→21:03)
[2017-03-10] MEDS: PANTOPRAZOLE 40 MG TABLET PO SCH (06:51)
[2017-03-10] MEDS: SODIUM CHLORIDE 0.9% 1,000 ML IV SCH ×2 (06:51→17:31)
[2017-03-10 06:56] LABS: INR 2.8 (<1.1); Prothrombin Time 27.3 sec (9.0-12.0)
[2017-03-10 07:11] LABS: Anion Gap 6 mmol/L; Blood Urea Nitrogen 19 mg/dL (9-20); Calcium 8.3 mg/dL (8.4-10.2); Carbon Dioxide 18 mmol/L (22-30); Chloride 112 mmol/L (98-107); Creatine Kinase 154 U/L (55-170); Glucose 103 mg/dL (74-99); Non-African American GFR(MDRD) >60 (>60 ml/min/1.73 sqM); Potassium 3.9 mmol/L (3.5-5.1); Sodium 136 mmol/L (137-145)
[2017-03-10] MEDS: MENTHOL-ZINC OXIDE OINT 113 GM TUBE TOPICAL SCH ×2 (08:19→21:03)
[2017-03-10] MEDS: ALLOPURINOL 100 MG TAB PO SCH ×2 (08:19→21:02)
[2017-03-10] MEDS: METOPROLOL TARTRATE 50 MG TAB PO SCH ×2 (08:19→21:03)
[2017-03-10] MEDS: POTASSIUM CHLORIDE ER 20 MEQ TAB.ER PO SCH ×2 (08:20→11:56)
[2017-03-10 09:48] LABS: Basophils % (A) 0 %; CH 31.5; CHCM 32.2; Eosinophils # (A) 0.1 k/uL (0-0.7); Eosinophils % (A) 1 %; HGB 11.7 gm/dL (13.0-17.5); Luc # (Auto) 0.11; Luc % (Auto) 1; Lymphocytes # (A) 0.7 k/uL (1.0-4.8); Lymphocytes % (A) 8 %; MCHC 32.6 g/dL (31.0-37.0); MCV 98.3 fL (80.0-100.0); Macrocytosis Slight; Mean Platelet Volume 8.1; Monocytes # (A) 0.5 k/uL (0-1.0); Monocytes % (A) 6 %; Neutrophils # (A) 6.5 k/uL (1.3-7.7); Neutrophils % (A) 83 %; RBC 3.67 m/uL (4.30-5.90); RDW 15.8 % (11.5-15.5); WBC 7.8 k/uL (3.8-10.6); WBC (Perox) 7.38
--- NOTE | 2017-03-10 10:05 | P.PN ---
Subjective This is a pleasant 76-year-old gentleman patient of Dr. Dr. putnam. He [facility] [place]. He recently was diagnosed to have normal pressure hydrocephalus requiring shunt placement by Dr. Ray02/15/2017 at [facility]. He stayed there for a few days, thereafter transferred to [facility] 2 weeks ago. He complained of urinary retention at that time the hospital, and required an indwelling Anne catheter for which he was discharged to [facility] on anne catheter. He is anne catheter was discontinued by Dr. Bob one week prior to admission. Patient complained off diminished appetite, decreased oral intake, weight loss of 13 pounds, memory worsening memory loss, walking impairment, shuffling gait, and urinary incontinence. He also has edema , along with fever and chills. Next Emergency room he was found to have a urinary tract infection with urine WBC of 182, RBC of 11, INR 2.6, blood WBC of 13, lactic acid of 6. He was admitted for sepsis with suspected urinary tract source. CAT scan of the brain was performed including a chest x-ray which failed to reveal any acute infiltrate no pneumoperitoneum and no pneumothorax,. CAT scan of the brain showed mild ventriculomegaly pattern appears mildly more prominent when compared to 2015 CT, 2 mm nondependent gas bubble noted within the frontal horn of the right lateral ventricle additional tests included ultrasound right hydronephrosis, cannot exclude a mass versus cortical lobulation within upper pole right kidney consultation made with Dr. Bob and Dr. Jeffries 03/09: Patient has had ongoing urinary retention and required straight cath this morning. Anne catheter will be reinserted. Patient is been seen by Dr. Jeffries and repeat blood cultures have been obtained and antibiotics changed to meropenem. CAT scan of the abdomen and pelvis with contrast has been ordered regarding mass. IV fluids at 75 mL per hour. Potassium has been replaced. Patient's states that she does not want him to go back to [facility] and would like [facility] instead. Medical social work has been updated. 03/10: Patient continues to be confused but awake and alert and able to answer simple questions. He has Anne catheter in place draining lamont urine. Urine cultures positive for Klebsiella pneumoniae riggs sensitive. Patient will be transferred to the [facility] floor. Objective - Vital Signs Vital signs: Vital Signs Temp 97.2 F L 03/10/17 08:00 Pulse 82 03/10/17 08:00 Resp 16 03/10/17 08:00 BP 159/76 03/10/17 08:00 Pulse Ox 96 03/10/17 08:00 Intake & Output 03/09/17 03/10/17 03/10/17 18:59 06:59 18:59 Intake Total 1120 700 120 Output Total 1000 200 Balance 120 500 120 Weight 99.79 kg 78 kg Intake: Intake, IV Titration 700 Amount Meropenem 1 gm In Sodium 100 Chloride 0.9% 100 ml @ 200 mls/hr IVPB Q8HR [facility] Rx#:[id number] Sodium Chloride 0.9% 1, 600 000 ml @ 75 mls/hr IV . [id number] [facility] Rx#:[id number] Oral 1120 120 Output: Urine 1000 200 Straight 500 Uretheral (Anne) 500 Other: Voiding Method Indwelling Catheter Indwelling Catheter # Voids 1 - Exam General appearance: cooperative, no acute distress, obese - EENT Eyes: anicteric sclerae, EOMI, PERRLA, dentition normal, normal appearance ENT: hard of hearing, NA/AT, normal oropharynx - Neck Neck: no lymphadenopathy, normal ROM, no other, no rigidity, no stridor, no thyromegaly - Respiratory Respiratory: bilateral: CTA, negative: diminished, dullness, rales, rhonchi - Cardiovascular Rhythm: regular Heart sounds: normal: S1, S2 Abnormal Heart Sounds: systolic murmur, diastolic murmur, no rub, no S3 Gallop, no S4 Gallop, no click, no other - Gastrointestinal General gastrointestinal: normal bowel sounds, soft - Integumentary Integumentary: normal, normal turgor - Neurologic Neurologic: CNII-XII intact - Musculoskeletal Musculoskeletal: generalized weakness, strength equal bilaterally - Psychiatric Psychiatric: A&O x's 1, no appropriate affect, intact judgment & insight - Labs CBC & Chem 7: 03/10/17 06:30 03/10/17 06:30 Labs: Abnormal Lab Results - Last 24 Hours (Table) 03/09/17 03/10/17 03/10/17 Range/Units 09:38 06:30 06:30 RBC 3.67 L (4.30-5.90) m/uL Hgb 11.7 L (13.0-17.5) gm/dL Hct 36.0 L (39.0-53.0) % RDW 15.8 H (11.5-15.5) % Lymphocytes # 0.7 L (1.0-4.8) k/uL PT 30.7 H 27.3 H (9.0-12.0) sec Sodium (137-145) mmol/L Chloride (98-107) mmol/L Carbon Dioxide (22-30) mmol/L Glucose (74-99) mg/dL Calcium (8.4-10.2) mg/dL 03/10/17 Range/Units 06:30 RBC (4.30-5.90) m/uL Hgb (13.0-17.5) gm/dL Hct (39.0-53.0) % RDW (11.5-15.5) % Lymphocytes # (1.0-4.8) k/uL PT (9.0-12.0) sec Sodium 136 L (137-145) mmol/L Chloride 112 H (98-107) mmol/L Carbon Dioxide 18 L (22-30) mmol/L Glucose 103 H (74-99) mg/dL Calcium 8.3 L (8.4-10.2) mg/dL Microbiology - Last 24 Hours (Table) 03/09/17 04:00 Urine Culture - Preliminary Urine,Catheterized Assessment and Plan Plan: 1. Septicemia and Klebsiella pneumoniae bacteremia, metabolic encephalopathy, acute urinary tract infection due to urinary retention and recent Anne catheter , catheter associated urinary tract infection. Patient recently was admitted for PEARL HAND shunt placement at [facility], 02/15/2017, he required indwelling Anne catheter for a few weeks and this was discontinued one week ago. Consults with Dr. Chua and Dr. Jeffries appreciated. Anne catheter to be inserted. CAT scan of the abdomen and pelvis has been ordered to evaluate mass. 2. Klebsiella pneumoniae bacteremia. Consult in place with Dr. Jeffries and Dr. Bob for the right hydronephrosis 3. Right hydronephrosis with lobulation noted on the upper pole of the right kidney, CT of the kidneys will be done kidney once renal function improves evaluate for abscess, continue Flomax. Patient may require Anne catheter be replaced. 4. Recent PEARL HAND shunt by Dr. Ray 02/15/2017 [facility] for normal pressure hydrocephalus 5. Hypertension 6. Pacemaker stable indication needs to be determined 7. Dementia possibly related to the NPH, continue Aricept 8 History of melanoma 9 Acute renal insufficiency with CKD stage III, fluids IV, avoid nephrotoxins, 10 hyperglycemia 11 Elevated troponin as related to sepsis 12. Debility with impaired balance and memory loss, patient seen by physical therapy and occupational therapy, 13. CAD with prior CABG in 2001, Edema, continue Lasix, metoprolol, losartan, 14. History of kidney stone with prior lithotripsies 15. BPH currently on Flomax 16. Coagulopathy on Coumadin, indication for Coumadin currently is not known this would be verified Coumadin is on hold for possible procedure by urology 17. Rheumatid arthritis on arava and prednisone. Arava held secondary to sepsis. Continue prednisone Discharge plan: Medical social work following for possible [facility] versus [facility] Impression and plan of care have been directed as dictated by the signing physician. Trudi Dawkins nurse practitioner acting as scribe for signing physician. Time with Patient: Greater than 30
--- NOTE | 2017-03-10 11:55 | P.PN ---
Subjective The patient has admission for confusion and urinary tract infection with sepsis. The catheter has been replaced. There was question of a hydronephrosis on ultrasound. A computed tomography scan did not identify any hydronephrosis. Urine culture grew Klebsiella which was sensitive to everything but ampicillin. He can be switched to oral antibiotics at any time deemed appropriate from the medical staff. He should follow-up with as an outpatient for his voiding dysfunction. No further urologic recommendations are necessary at this point in time. Objective - Vital Signs Vital signs: Vital Signs Temp 97.2 F L 03/10/17 08:00 Pulse 82 03/10/17 08:00 Resp 16 03/10/17 11:22 BP 159/76 03/10/17 08:00 Pulse Ox 96 03/10/17 08:00 Intake & Output 03/09/17 03/10/17 03/10/17 18:59 06:59 18:59 Intake Total 1120 700 120 Output Total 1000 200 Balance 120 500 120 Weight 99.79 kg 78 kg Intake: Intake, IV Titration 700 Amount Meropenem 1 gm In Sodium 100 Chloride 0.9% 100 ml @ 200 mls/hr IVPB Q8HR [facility] Rx#:[id number] Sodium Chloride 0.9% 1, 600 000 ml @ 75 mls/hr IV . [id number] [facility] Rx#:[id number] Oral 1120 120 Output: Urine 1000 200 Straight 500 Uretheral (Barriga) 500 Other: Voiding Method Indwelling Catheter Indwelling Catheter Indwelling Catheter # Voids 1 - Labs CBC & Chem 7: 03/10/17 06:30 03/10/17 06:30 Labs: Abnormal Lab Results - Last 24 Hours (Table) 03/10/17 03/10/17 03/10/17 Range/Units 06:30 06:30 06:30 RBC 3.67 L (4.30-5.90) m/uL Hgb 11.7 L (13.0-17.5) gm/dL Hct 36.0 L (39.0-53.0) % RDW 15.8 H (11.5-15.5) % Lymphocytes # 0.7 L (1.0-4.8) k/uL PT 27.3 H (9.0-12.0) sec Sodium 136 L (137-145) mmol/L Chloride 112 H (98-107) mmol/L Carbon Dioxide 18 L (22-30) mmol/L Glucose 103 H (74-99) mg/dL Calcium 8.3 L (8.4-10.2) mg/dL Microbiology - Last 24 Hours (Table) 03/09/17 04:00 Urine Culture - Preliminary Urine,Catheterized
[2017-03-10] MEDS: TAMSULOSIN 0.4 MG CAP.ER.24H PO SCH (11:57)
[2017-03-10] MEDS: LOSARTAN 50 MG TAB PO SCH (11:57)
[2017-03-10] MEDS: predniSONE 10 MG TAB PO SCH (11:57)
[2017-03-10 15:50] VITALS: RESP 20
[2017-03-10] MEDS: cefTRIAXone 2,000 MG in SODIUM CHLORIDE 0.9% 100 ML IVPB SCH (17:28)
[2017-03-10] MEDS: ATORVASTATIN 20 MG TAB PO SCH (21:03)
[2017-03-10] MEDS: DONEPEZIL 5 MG TAB PO SCH (21:03)
--- NOTE | 2017-03-11 00:10 | P.PN ---
Subjective Principal diagnosis: sepsis This is a 76-year-old male who is currently presented from [facility]. He has a recent history of ZIGZAGGER shunt placement for idiopathic hydrocephalus done at [facility]. Apparently, he has had ongoing problems with urinary retention since that time and has followed with Dr. holden. He has been on tamsulosin and Barriga catheter was recently removed in the office. Patient was sent in from [facility] to be evaluated at [facility] emergency center for altered mental status and fever. Patient remains very confused and information is mostly obtained from the chart and from his nurse. He presented with temperature of 100.1, leukocytosis of 13.2 and lactic acidosis of 6.1 with repeat of 1.2. His INR is elevated at 3.4 for which she is on Coumadin for atrial fibrillation. His urinalysis was cloudy, blood moderate, WBCs greater than 182, bacteria many, WBC clumps many, yeast few. One blood culture showing gram-negative rods and a second blood cultures showing gram-negative bacilli. Urine culture is in progress. There are no previous cultures on her system. CAT scan of the brain showed mild ventriculomegaly pattern appears mildly more prominent when compared to September CAT scan. 2 mm nondependent gas bubble the frontal horn of the right lateral ventricle. Chest x-ray shows no definite acute process. Patient did have urinary retention during the night and required straight catheter 900 mL. His nurse states that initially the flow was clear and then became a milky white. He also has had incontinence of urine but small amounts only. Patient' s passed on that the patient was treated for a fungal urinary tract infection at the [facility]. There is a rash in the buttocks for which barrier cream is being used. Patient also has history of rheumatoid arthritis and is on Arava and prednisone. Urine culture is coming back is a quite susceptible Klebsiella pneumoniae Patient is change of his status. It is noted that he is having is somewhat copious amount of drainage out of the abdominal site of his vent particular peritoneal shunt. The fluid is clear in nature. There is no significant yellow hue. There is also no odor. Culture is sent. Objective - Vital Signs Vital signs: Vital Signs Temp 100.8 F H 03/10/17 15:49 Pulse 79 03/10/17 21:04 Resp 20 03/10/17 16:00 BP 147/86 03/10/17 15:49 Pulse Ox 96 03/10/17 15:49 Intake & Output 03/10/17 03/10/17 03/11/17 06:59 18:59 06:59 Intake Total 700 600 Output Total 200 400 Balance 500 200 Weight 78 kg Intake: Intake, IV Titration 700 Amount Meropenem 1 gm In Sodium 100 Chloride 0.9% 100 ml @ 200 mls/hr IVPB Q8HR MIROSLAVA Rx#:[id number] Sodium Chloride 0.9% 1, 600 000 ml @ 75 mls/hr IV . [id number] MIROSLAVA Rx#:[id number] Oral 600 Output: Urine 200 400 Other: Voiding Method Indwelling Catheter Indwelling Catheter Indwelling Catheter # Voids 1 # Bowel Movements 1 - Exam Gen: This is a 76-year-old male. He is sitting up in bed and appears to be in no acute distress. HEENT: Head is atraumatic, normocephalic. Pupils equal, round. Sclerae is anicteric. Adjunctive a pink. Mucous membranes of the mouth are moist. Dentition is in good condition for age. There is a lesion on the lower left lip. Small abrasion to the top of his scalp NECK: Supple. No JVD. No lymphadenopathy. No thyromegaly. LUNGS: Clear to auscultation. No wheezes or rhonchi. No intercostal retractions. HEART: Regular rate and rhythm. Systolic murmur. ABDOMEN: Soft. Bowel sounds are present. No masses. No tenderness.There however is no significant drainage of a thin serous clear fluid from the abdominal wall. It has no odor. Sent for culture. EXTREMITIES: No pedal edema. Dorsalis pedis +2 bilaterally. Patient has dark color change to the right heel which is tender to touch. Mediboots are on bilaterally. NEUROLOGICAL: Patient is awake, alert and oriented x1. He is unable to state where he is, month or year. He does not know where he resides and does not know or able to recall recent ZIGZAGGER shunt surgery or anything regarding recent urinary retention. - Labs CBC & Chem 7: 03/10/17 06:30 03/10/17 06:30 Labs: Abnormal Lab Results - Last 24 Hours (Table) 03/10/17 03/10/17 03/10/17 Range/Units 06:30 06:30 06:30 RBC 3.67 L (4.30-5.90) m/uL Hgb 11.7 L (13.0-17.5) gm/dL Hct 36.0 L (39.0-53.0) % RDW 15.8 H (11.5-15.5) % Lymphocytes # 0.7 L (1.0-4.8) k/uL PT 27.3 H (9.0-12.0) sec Sodium 136 L (137-145) mmol/L Chloride 112 H (98-107) mmol/L Carbon Dioxide 18 L (22-30) mmol/L Glucose 103 H (74-99) mg/dL Calcium 8.3 L (8.4-10.2) mg/dL Microbiology - Last 24 Hours (Table) 03/10/17 17:28 Wound Culture - Preliminary Abdominal Fluid 03/09/17 04:00 Urine Culture - Preliminary Urine,Catheterized Gram Neg Bacilli 03/09/17 09:48 Blood Culture - Preliminary Blood No Growth after 24 hours 03/09/17 09:38 Blood Culture - Preliminary Blood No Growth after 24 hours Laboratory Results WBC 7.8 k/uL (3.8-10.6) 03/10/17 06:30 RBC 3.67 m/uL (4.30-5.90) L 03/10/17 06:30 Hgb 11.7 gm/dL (13.0-17.5) L 03/10/17 06:30 Hct 36.0 % (39.0-53.0) L 03/10/17 06:30 MCV 98.3 fL (80.0-100.0) 03/10/17 06:30 MCH 32.0 pg (25.0-35.0) 03/10/17 06:30 MCHC 32.6 g/dL (31.0-37.0) 03/10/17 06:30 RDW 15.8 % (11.5-15.5) H 03/10/17 06:30 Plt Count 201 k/uL (150-450) 03/10/17 06:30 Neutrophils % 83 % 03/10/17 06:30 Lymphocytes % 8 % 03/10/17 06:30 Monocytes % 6 % 03/10/17 06:30 Eosinophils % 1 % 03/10/17 06:30 Basophils % 0 % 03/10/17 06:30 Neutrophils # 6.5 k/uL (1.3-7.7) 03/10/17 06:30 Lymphocytes # 0.7 k/uL (1.0-4.8) L 03/10/17 06:30 Monocytes # 0.5 k/uL (0-1.0) 03/10/17 06:30 Eosinophils # 0.1 k/uL (0-0.7) 03/10/17 06:30 Basophils # 0.0 k/uL (0-0.2) 03/10/17 06:30 Macrocytosis Slight 03/10/17 06:30 PT 27.3 sec (9.0-12.0) H 03/10/17 06:30 INR 2.8 (<1.1) 03/10/17 06:30 APTT 26.0 sec (22.0-30.0) 03/07/17 20:29 Sodium 136 mmol/L (137-145) L 03/10/17 06:30 Potassium 3.9 mmol/L (3.5-5.1) 03/10/17 06:30 Chloride 112 mmol/L (98-107) H 03/10/17 06:30 Carbon Dioxide 18 mmol/L (22-30) L 03/10/17 06:30 Anion Gap 6 mmol/L 03/10/17 06:30 BUN 19 mg/dL (9-20) 03/10/17 06:30 Creatinine 0.88 mg/dL (0.66-1.25) 03/10/17 06:30 Est GFR (MDRD) Af Amer >60 (>60 ml/min/1.73 sqM) 03/10/17 06:30 Est GFR (MDRD) Non-Af >60 (>60 ml/min/1.73 sqM) 03/10/17 06:30 Glucose 103 mg/dL (74-99) H 03/10/17 06:30 Plasma Lactic Acid Santiago 1.2 mmol/L (0.7-2.0) 03/09/17 03:25 Calcium 8.3 mg/dL (8.4-10.2) L 03/10/17 06:30 Phosphorus 3.1 mg/dL (2.5-4.5) 03/07/17 20:29 Magnesium 1.6 mg/dL (1.6-2.3) 03/07/17 20:29 Total Bilirubin 0.8 mg/dL (0.2-1.3) 03/09/17 03:25 AST 48 U/L (17-59) 03/09/17 03:25 ALT 37 U/L (21-72) 03/09/17 03:25 Alkaline Phosphatase 59 U/L (38-126) 03/09/17 03:25 Creatine Kinase 154 U/L (55-170) 03/10/17 06:30 Total Creatine Kinase 130 U/L (55-170) 03/07/17 20:29 CK-MB (CK-2) 1.9 ng/mL (0.0-2.4) 03/07/17 20: CK-MB (CK-2) Rel Index 1.5 03/07/17 20: Troponin I 0.092 ng/mL (0.000-0.034) H* 03/07/17 20:29 Total Protein 5.2 g/dL (6.3-8.2) L 03/09/17 03:25 Albumin 2.4 g/dL (3.5-5.0) L 03/09/17 03:25 Prealbumin 19 mg/dL (18-36) 03/09/17 03:25 Urine Color Light Yellow 03/07/17 23:00 Urine Appearance Cloudy (Clear) 03/07/17 23:00 Urine pH 6.0 (5.0-8.0) 03/07/17 23:00 Ur Specific [place] 1.008 (1.001-1.035) 03/07/17 23:00 Urine Protein Negative (Negative) 03/07/17 23:00 Urine Glucose (UA) Negative (Negative) 03/07/17 23:00 Urine Ketones Negative (Negative) 03/07/17 23:00 Urine Blood Moderate (Negative) H 03/07/17 23:00 Urine Nitrite Negative (Negative) 03/07/17 23:00 Urine Bilirubin Negative (Negative) 03/07/17 23:00 Urine Urobilinogen <2.0 mg/dL (<2.0) 03/07/17 23:00 Ur Leukocyte Esterase Large (Negative) H 03/07/17 23:00 Urine RBC 11 /hpf (0-5) H 03/07/17 23:00 Urine WBC >182 /hpf (0-5) H 03/07/17 23:00 Urine WBC Clumps Many /hpf (None) H 03/07/17 23:00 Urine Bacteria Many /hpf (None) H 03/07/17 23:00 Urine Yeast (Budding) Few /hpf (None) H 03/07/17 23:00 Microbiology 03/10/17 17:28 Abdominal Fluid Wound Culture - Preliminary 03/09/17 04:00 Urine,Catheterized Urine Culture - Preliminary Gram Neg Bacilli 03/09/17 09:48 Blood Blood Culture - Preliminary No Growth after 24 hours 03/09/17 09:38 Blood Blood Culture - Preliminary No Growth after 24 hours 03/07/17 23:00 Urine,Catheterized Urine Culture - Final Klebsiella pneumoniae 03/07/17 20:29 Blood Blood Culture Gram Stain - Final 03/07/17 20:29 Blood Blood Culture - Final Klebsiella pneumoniae 03/07/17 20:29 Blood Blood Culture - Final Assessment and Plan (1) Klebsiella pneumoniae sepsis Narrative/Plan: 76-year-old male who has a history of progressive ulceration of his mental status. Underlying dementia that appear to be much worse because of his normal pressure hydrocephalus. Was seen at [facility] and underwent the ventricular peritoneal shunt. Hope is that this will allow some improvement of his hydrocephalus and improve his functional status. However is now admitted with evidence of sepsis or urinary system. Was having difficulties with significant obstructive uropathy. No his Barriga catheter in place. Urine culture with Klebsiella pneumoniae. Fortunately quite susceptible. However there is evidence of possible cultures. Oral therapy would be possible if he quinolone can be utilized. Will have a catheter in place until there is resolution of his significant obstructive symptoms. Follow blood cultures have been requested to ensure that he is clearing his bacteremia Doing well with current antibiotic therapy. However does not need such broad coverage and is now tapered to ceftriaxone 2 g a day. He has no other significant trouble with the abdominal wall with drainage of the site of the abdominal wall. Concern is this could be CSF fluid. Cultures obtained. If there is any concern that this is infected or it is truly CSF drainage would need to be seen by his neurosurgeon for reevaluation of this acute issue. This is discussed with the . Information is given about the infection and sepsis. Status: Acute (2) UTI (urinary tract infection) Status: Acute (3) Obstructive uropathy Status: Acute (4) Hydrocephalus Status: Acute
[2017-03-11] MEDS: SODIUM CHLORIDE 0.9% 1,000 ML IV SCH (04:23)
[2017-03-11] MEDS: METOPROLOL TARTRATE 50 MG TAB PO SCH (07:49)
[2017-03-11] MEDS: predniSONE 10 MG TAB PO SCH (07:50)
[2017-03-11] MEDS: PANTOPRAZOLE 40 MG TABLET PO SCH (07:50)
[2017-03-11] MEDS: ALLOPURINOL 100 MG TAB PO SCH (07:50)
[2017-03-11] MEDS: LOSARTAN 50 MG TAB PO SCH (07:50)
[2017-03-11] MEDS: TAMSULOSIN 0.4 MG CAP.ER.24H PO SCH (07:50)
[2017-03-11] MEDS: POTASSIUM CHLORIDE ER 20 MEQ TAB.ER PO SCH ×2 (07:51→07:52)
[2017-03-11] MEDS: MENTHOL-ZINC OXIDE OINT 113 GM TUBE TOPICAL SCH (07:51)
[2017-03-11] MEDS: CLOTRIMAZOLE 1% CREAM 15 GM TUBE TOPICAL SCH (07:52)
[2017-03-11 09:44] LABS: Prothrombin Time 19.3 sec (9.0-12.0)
[2017-03-11] MEDS ORDERED: SPIRONOLACTONE 25 MG TAB PO SCH (10:00)
[2017-03-11] MEDS ORDERED: FUROSEMIDE 10 MG/ML 2 ML VIAL IV SCH (10:00)
[2017-03-11 10:02] LABS: Anion Gap 6 mmol/L; Calcium 7.9 mg/dL (8.4-10.2); Carbon Dioxide 18 mmol/L (22-30); Chloride 106 mmol/L (98-107); Creatine Kinase 132 U/L (55-170); Glucose 95 mg/dL (74-99); Non-African American GFR(MDRD) >60 (>60 ml/min/1.73 sqM); Sodium 130 mmol/L (137-145)
[2017-03-11 10:16] LABS: Blood Urea Nitrogen 18 mg/dL (9-20); Potassium 3.8 mmol/L (3.5-5.1)
--- NOTE | 2017-03-11 12:33 | P.PN ---
Subjective This is a pleasant 76-year-old gentleman patient of Dr. Dr. putnam. [facility] [place]. He recently was diagnosed to have normal pressure hydrocephalus requiring sh[place] [facility] days, thereafter transferred to [facility] weeks ago. He complained of urinary retention at that time the hospital, and required an indwelling Anne catheter for which he was discharged to [facility] on anne catheter. He is anne catheter was discontinued by Dr. Bob one week prior to admission. Patient complained off diminished appetite, decreased oral intake, weight loss of 13 pounds, memory worsening memory loss, walking impairment, shuffling gait, and urinary incontinence. He also has edema , along with fever and chills. Next Emergency room he was found to have a urinary tract infection with urine WBC of 182, RBC of 11, INR 2.6, blood WBC of 13, lactic acid of 6. He was admitted for sepsis with suspected urinary tract source. CAT scan of the brain was performed including a chest x-ray which failed to reveal any acute infiltrate no pneumoperitoneum and no pneumothorax,. CAT scan of the brain showed mild ventriculomegaly pattern appears mildly more prominent when compared to 2015 CT, 2 mm nondependent gas bubble noted within the frontal horn of the right lateral ventricle additional tests included ultrasound right hydronephrosis, cannot exclude a mass versus cortical lobulation within upper pole right kidney consultation made with Dr. Bob and Dr. Jeffries 03/09: Patient has had ongoing urinary retention and required straight cath this morning. Anne catheter will be reinserted. Patient is been seen by Dr. Jeffries and repeat blood cultures have been obtained and antibiotics changed to meropenem. CAT scan of the abdomen and pelvis with contrast has been ordered regarding mass. IV fluids at 75 mL per hour. Potassium has been replaced. Patient's states that she does not want him to go back to [facility] and would like [facility] [place] instead. Medical social work has been updated. 03/10: Patient continues to be confused but awake and alert and able to answer simple questions. He has Anne catheter in place draining lamont urine. Urine cultures positive for Klebsiella pneumoniae riggs sensitive. [facility]. 03/11: Dr. Jeffries has changed antibiotics to Rocephin. Patient developed copious amounts of drainage from his abdominal site of the FORESTRY WORKER shunt which is clear. Cultures were obtained yesterday with Dr. Jeffries. Son is at the bedside and discussed the patient will need follow-up with [facility] in 7-10 days regarding the FORESTRY WORKER shunt. Son does not think his mental status has changed very much. He is still sleeping a lot and confused. Repeat blood cultures showing no growth at 24 hours. Patient has followed with Dr. Major in the outpatient setting. Objective - Vital Signs Vital signs: Vital Signs Temp 97.6 F 03/11/17 07:42 Pulse 65 03/11/17 07:42 Resp 20 03/11/17 07:42 BP 158/77 03/11/17 07:42 Pulse Ox 97 03/11/17 07:42 Intake & Output 03/10/17 03/11/17 03/11/17 18:59 06:59 18:59 Intake Total 600 400 240 Output Total 400 800 Balance 200 -400 240 Weight 71.5 kg Intake: Oral 600 400 240 Output: Urine 400 800 Uretheral (Anne) 400 Other: Voiding Method Indwelling Catheter Indwelling Catheter Indwelling Catheter # Bowel Movements 1 1 1 - Exam General appearance: cooperative, no acute distress, obese - EENT Eyes: anicteric sclerae, EOMI, PERRLA, dentition normal, normal appearance ENT: hard of hearing, NA/AT, normal oropharynx - Neck Neck: no lymphadenopathy, normal ROM, no other, no rigidity, no stridor, no thyromegaly - Respiratory Respiratory: bilateral: CTA, negative: diminished, dullness, rales, rhonchi - Cardiovascular Rhythm: regular Heart sounds: normal: S1, S2 Abnormal Heart Sounds: systolic murmur, diastolic murmur, no rub, no S3 Gallop, no S4 Gallop, no click, no other - Gastrointestinal General gastrointestinal: normal bowel sounds, soft - Integumentary Integumentary: normal, normal turgor - Neurologic Neurologic: CNII-XII intact - Musculoskeletal Musculoskeletal: generalized weakness, strength equal bilaterally - Psychiatric Psychiatric: A&O x's 1, no appropriate affect, intact judgment & insight - Labs CBC & Chem 7: 03/10/17 06:30 03/11/17 08:30 Labs: Abnormal Lab Results - Last 24 Hours (Table) 05/07/17 05/07/17 Range/Units 08:30 08:30 PT 19.3 H (9.0-12.0) sec Sodium 130 L (137-145) mmol/L Carbon Dioxide 18 L (22-30) mmol/L Calcium 7.9 L (8.4-10.2) mg/dL Microbiology - Last 24 Hours (Table) 03/09/17 09:48 Blood Culture - Preliminary Blood No Growth after 48 hours 03/09/17 09:38 Blood Culture - Preliminary Blood No Growth after 48 hours 03/09/17 04:00 Urine Culture - Final Urine,Catheterized Klebsiella pneumoniae 03/10/17 17:28 Gram Stain - Preliminary Abdominal Fluid Wound Culture - Preliminary Assessment and Plan Plan: 1. Septicemia and Klebsiella pneumoniae bacteremia, metabolic encephalopathy, acute urinary tract infection due to urinary retention and recent Anne catheter , catheter associated urinary tract infection. Patient recently was admitted for FORESTRY WORKER shunt placement at [facility], 02/15/2017, he required indwelling Anne catheter for a few weeks and this was discontinued one week ago. Consults with Dr. Chua and Dr. Jeffries appreciated. Anne catheter to be inserted. CAT scan of the abdomen and pelvis has been ordered to evaluate mass. 2. Klebsiella pneumoniae bacteremia. Consult in place with Dr. Jeffries and Dr. Bob for the right hydronephrosis 3. Right hydronephrosis with lobulation noted on the upper pole of the right kidney, CT of the kidneys will be done kidney once renal function improves evaluate for abscess, continue Flomax. Anne catheter be replaced. 4. Recent FORESTRY WORKER shunt by Dr. Ray 02/15/2017 [facility] for normal pressure hydrocephalus. Abdominal drainage possible from FORESTRY WORKER shunt. Patient will follow-up with neurosurgeon. 5. Hypertension 6. Pacemaker stable indication needs to be determined 7. Dementia possibly related to the NPH, continue Aricept 8 History of melanoma 9 Acute renal insufficiency with CKD stage III, fluids IV, avoid nephrotoxins, 10 hyperglycemia 11 Elevated troponin as related to sepsis 12. Debility with impaired balance and memory loss, patient seen by physical therapy and occupational therapy, 13. CAD with prior CABG in 2001, Edema, continue Lasix, metoprolol, losartan, 14. History of kidney stone with prior lithotripsies 15. BPH currently on Flomax 16. Coagulopathy on Coumadin, indication for Coumadin currently is not known this would be verified Coumadin is on hold for possible procedure by urology 17. Rheumatid arthritis on arava and prednisone. Arava held secondary to sepsis. Continue prednisone Discharge plan: Medical social work following for possible [facility] [place] versus [facility] and plan of care have been directed as dictated by the signing physician. Trudi Dawkins nurse practitioner acting as scribe for signing physician.
--- NOTE | 2017-03-11 14:32 | P.CNNES ---
History of Present Illness Consult date: 03/11/17 Reason for Consult: Patient with history of NPH and now with [employer] SERVICE TECHNICIAN shunt leak. History of Present Illness: This neurology consultation was notified to Dr. Elvin Cameron on 03/11/2017 at 2 PM. This patient is a 76-year-old right-handed white male who was admitted to Hospital with symptoms of altered mentation and recent ventriculoperitoneal shunt surgery. Patient is residing at [facility] the [facility] and apparently showed signs of increased confusion and disorientation. He was also having evidence of sepsis. His initial temperature on admission was 100.1. He had evidence of leukocytosis as well. Patient was seen in the emergency room and underwent a computed tomography scan of the brain on 03/07/2017. The CAT scan report revealed evidence of mild ventriculomegaly. This was slightly more prominent when compared to her previous study done on 10/04/2016. 2 mm nondependent gas bubble was noted in the right frontal horn as well. Patient's was at bedside today and provided history stating that he has a history of underlying dementia which has been worsening over the last 6 months. He underwent a recent cisternogram which came back positive for normal pressure hydrocephalus. He was referred to neurosurgeon at [facility] in [place]. According to his he underwent a [employer] SERVICE TECHNICIAN shunt placement by Dr. Ray on 02/15/2017. He stayed there for a few days and then was transferred to [facility] on the [facility] for recovery and rehabilitation. According to his who provided the medical history today there was no significant improvement in his underlying dementia. In fact she feels he actually worsened following the [employer] SERVICE TECHNICIAN shunt placement. The patient was seen by infectious disease yesterday for evaluation of sepsis. He was found to have discharge from the abdominal incision suggesting possibility of CSF fluid. We are concerned that this has been ongoing according to the at the assisted for the past week. He has had brief computed discharge coming from the incision site on the abdominal wall. The patient continues to follow some simple commands. As noted he does have history of underlying dementia and hydrocephalus. Due to the leakage of his possible spinal fluid we are recommending he should be reevaluated by neurosurgery and Dr. Ray who performed the [employer] SERVICE TECHNICIAN shunt procedures soon as possible for further assessment. There is concern he should not develop some form of the fistula or ventriculitis due to spread of infection. He is currently being seen by Dr. Jeffries. He has been placed on IV Rocephin. He does have positive urine and blood cultures. We have discussed the case today with Dr. Jeffries and he is in agreement that it would be best to have this patient transferred for neurosurgical consultation at [facility] with Dr. Ray. Since he is performed the surgery he is best to reevaluate him regarding possible CSF leak. We have recommended a stat computed tomography scan of the brain be done this afternoon as well for comparison to the previous study done on 03/07/2017. We have discussed these findings in detail with the patient's and son at bedside. We are recommending the patient to be transferred as soon as possible to [facility] for further evaluation. They're aware of our recommendations and we will await further orders from the admitting physician Dr. Avila and the transferred team. His overall prognosis at this time remains guarded. He does remain afebrile with a temperature of 97.7 today. He does have episodes of intermittent confusion and will require ongoing treatment for this sepsis. We have discussed once again these findings in detail with the patient's and son at bedside. All their questions were answered. They're aware of his urgent need for neurosurgical consultation today. We will follow along with the other specialist in his further treatment at this time. His overall prognosis at this time remains very guarded. Review of Systems Constitutional: Denies chills, Denies fever Eyes: denies blurred vision, denies pain Ears, nose, mouth and throat: Denies headache, Denies sore throat Cardiovascular: Denies chest pain, Denies shortness of breath Respiratory: Denies cough Gastrointestinal: Denies abdominal pain, Denies diarrhea, Denies nausea, Denies vomiting Musculoskeletal: Denies myalgias Integumentary: Denies pruritus, Denies rash Neurological: Reports change in mentation, Reports confusion, Reports memory loss, Denies numbness, Denies weakness Psychiatric: Reports memory loss, Denies anxiety, Denies depression Endocrine: Denies fatigue, Denies weight change Past Medical History Past Medical History: Atrial Fibrillation, Cancer, Dementia, Eye Disorder, GERD/ Reflux, GI Bleed, Hyperlipidemia, Hypertension, Memory Impairment, Myocardial Infarction ([place]), Prostate Disorder, Renal Disease, Rheumatoid Arthritis (RA), Vascular Disorder Additional Past Medical History / Comment(s): Normal pressure hydocephalus with recent shunt, current yeast infection meatus, SSS - PACEMAKER, Skin CA- MELANOMA with removal from nose and other types of skin cancer removed, CKD, nephrolithiasis with sx, PVD, OCC EDEMA LEGS, glaucoma bilaterally, R eye cataract, BPH, past urinary retention after cerebral shunt and was discharged with a anne to [facility]-anne dc'd on 03/02/17, RECTAL BLEED AFTER COLONOSCOPY R /T COUMADIN USE, unsteady gait, intermittent confusion, occasional allergic rhinitis. Last Myocardial Infarction Date:: 2001?-silent History of Any Multi-Drug Resistant Organisms: None Reported Past Surgical History: Coronary Bypass/CABG, Heart Catheterization, Orthopedic Surgery, Pacemaker Additional Past Surgical History / Comment(s): Recent cerebral shunt, PCI with stent, TRIPLE CABG 2001, LT Shoulder rotator cuff repair, Colonoscopy, 2004 Original pacer, 07/2016 GENERATOR CHANGE, cystoscopy with double J catheter, since removed, lithotripsies, L eye cataract removal, skin cancer removals. Past Anesthesia/Blood Transfusion Reactions: No Reported Reaction Type of Cardiac Device: Permanent Pacemaker Device Placement Date:: 03/21/2006 Past Psychological History: No Psychological Hx Reported Additional Psychological History / Comment(s): Pt recently resides at [facility] on the [facility] for rehab post cerebral shunt placement. They state he is mostly in a wheelchair and can stand with one assist. He feeds himself and needs assistance with all other ADLs. Spouse states that prior to cerebral shunt, pt could ambulate short distances with a walker. He was no longer driving due to dementia. Spouse drives. She was his metal sorter and hopes for pt to come home after rehab. She is in the process of placing grab rails etc. Smoking Status: Never smoker Past Alcohol Use History: Daily Additional Past Alcohol Use History / Comment(s): GLASS OF WINE WITH DARLING JUICE DAILY PER SPOUSE Past Drug Use History: None Reported - Past Family History Brother(s) Family Medical History: Cancer Additional Family Medical History / Comment(s): SKIN Sister(s) Family Medical History: Cancer Additional Family Medical History / Comment(s): SKIN Mother Family Medical History: Cancer Medications and Allergies Home Medications Medication Instructions Recorded Confirmed Type Leflunomide [Arava] 20 mg PO DAILY 08/05/14 03/07/17 History Omeprazole [PriLOSEC] 20 mg PO QAM 08/05/14 03/07/17 History Warfarin [Coumadin] 1.25 mg PO THSA 08/05/14 03/07/17 History Allopurinol [Zyloprim] 100 mg PO BID 07/25/16 03/07/17 History Furosemide [Lasix] 40 mg PO SUTUTHSA PRN 07/25/16 03/07/17 History Losartan Potassium [Cozaar] 100 mg PO QAM 07/25/16 03/07/17 History Warfarin [Coumadin] 2.5 mg PO SUMOWEFR 07/25/16 03/07/17 History Donepezil [Aricept] 5 mg PO HS 11/29/16 03/07/17 History Acetaminophen Tab [Tylenol] 650 mg PO ONCE PRN 03/07/17 03/07/17 History Atorvastatin [Lipitor] 20 mg PO HS 03/07/17 03/07/17 History Dimethicone/Zinc Oxide [Inzo Zinc 1 applic TOPICAL BID 03/07/17 03/07/17 History Oxide Barrier Cream] Furosemide [Lasix] 40 mg PO MOWEFR@0900,1700 03/07/17 03/07/17 History Metoprolol Tartrate [Lopressor] 50 mg PO BID 03/07/17 03/07/17 History Potassium Chloride ER [K-Dur 20] 20 meq PO SUTUTHSA 03/07/17 03/07/17 History Potassium Chloride [Klor-Con 20] 20 meq PO MOWEFR@0900,2100 03/07/17 03/07/17 History Tamsulosin [Flomax] 0.4 mg PO DAILY 03/07/17 03/07/17 History Tolnaftate [Tinactin] 1 applic TOPICAL BID 03/07/17 03/07/17 History predniSONE 10 mg PO DAILY 03/07/17 03/07/17 History Allergies Allergy/AdvReac Type Severity Reaction Status Date / Time No Known Allergies Allergy Verified 03/07/17 20:11 Physical Examination - Vital Signs Vital Signs: Vital Signs Temp Pulse Resp BP Pulse Ox 03/11/17 07:42 97.6 F 65 20 158/77 97 03/11/17 00:00 98.7 F 71 20 149/84 96 03/10/17 21:04 79 05/06/17 16:00 20 03/10/17 15:49 100.8 F H 67 20 147/86 96 03/10/17 14:30 20 Intake and Output 03/10/17 03/11/17 03/11/17 22:59 06:59 14:59 Intake Total 540 100 240 Output Total 800 Balance 540 -700 240 Intake: Oral 540 100 240 Output: Urine 800 Uretheral (Anne) 400 Other: Voiding Method Indwelling Catheter Indwelling Catheter # Bowel Movements 1 1 Weight 71.5 kg - Constitutional General appearance: cooperative, mild distress - EENT EENT: PERRL, mucous membranes moist - Respiratory Respiratory: lungs clear, normal breath sounds - Cardiovascular Cardiovascular: regular rate, normal S1, normal S2 Extremities: no peripheral edema bilaterally - Gastrointestinal Gastrointestinal: normoactive bowel sounds - Integumentary Integumentary: normal - Neurologic Cranial nerve examination: PERRL, EOMI, VFF, V1/V2/V3 grossly intact, face symmetric, intact gag reflex, intact corneal reflex, normal palatal elevation Speech examination: intact Sensorimotor examination: intact Detailed motor examination: grossly full strength in all extremities Detailed sensory examination: intact Reflex and gait examination: intact Reflexes: 1+: ankle, bicep, knee, tricep - Musculoskeletal Musculoskeletal: no pain - Psychiatric Psychiatric: mood/affect appropriate, cooperative Results - Laboratory Findings CBC and BMP: 03/10/17 06:30 03/11/17 08:30 Abnormal Lab Findings: Abnormal Labs 03/08/17 03/08/17 03/08/17 00:29 06:38 06:38 RBC 3.82 L Hgb 11.7 L Hct 37.4 L RDW 16.0 H Neutrophils # 8.0 H Lymphocytes # 0.5 L PT Sodium Potassium Chloride 108 H Carbon Dioxide BUN 31 H Creatinine 1.38 H Glucose 151 H Plasma Lactic Acid Santiago 3.5 H* Calcium 8.0 L Total Protein 5.2 L Albumin 2.6 L 03/08/17 03/08/17 03/09/17 06:45 20:08 03:25 RBC 3.70 L Hgb 11.5 L Hct 36.0 L RDW 15.9 H Neutrophils # Lymphocytes # 0.4 L PT 33.4 H Sodium Potassium Chloride Carbon Dioxide BUN Creatinine Glucose Plasma Lactic Acid Santiago 2.4 H* Calcium Total Protein Albumin 03/09/17 03/09/17 03/10/17 03:25 09:38 06:30 RBC 3.67 L Hgb 11.7 L Hct 36.0 L RDW 15.8 H Neutrophils # Lymphocytes # 0.7 L PT 30.7 H Sodium Potassium 3.3 L Chloride 114 H Carbon Dioxide 21 L BUN 32 H Creatinine Glucose 105 H Plasma Lactic Acid Santiago Calcium 8.2 L Total Protein 5.2 L Albumin 2.4 L 03/10/17 03/10/17 03/11/17 06:30 06:30 08:30 RBC Hgb Hct RDW Neutrophils # Lymphocytes # PT 27.3 H 19.3 H Sodium 136 L Potassium Chloride 112 H Carbon Dioxide 18 L BUN Creatinine Glucose 103 H Plasma Lactic Acid Santiago Calcium 8.3 L Total Protein Albumin 03/11/17 08:30 RBC Hgb Hct RDW Neutrophils # Lymphocytes # PT Sodium 130 L Potassium Chloride Carbon Dioxide 18 L BUN Creatinine Glucose Plasma Lactic Acid Santiago Calcium 7.9 L Total Protein Albumin Assessment and Plan (1) Normal pressure hydrocephalus Status: Acute Code(s): G91.2 - (IDIOPATHIC) NORMAL PRESSURE HYDROCEPHALUS (2) S/P [employer] SERVICE TECHNICIAN shunt Status: Acute Code(s): Z98.2 - PRESENCE OF CEREBROSPINAL FLUID DRAINAGE DEVICE (3) Dementia Status: Acute Code(s): F03.90 - UNSPECIFIED DEMENTIA WITHOUT BEHAVIORAL DISTURBANCE (4) Acute encephalopathy Status: Acute Code(s): G93.40 - ENCEPHALOPATHY, UNSPECIFIED Plan: This patient is a 76-year-old male who recently underwent a ventriculoperitoneal shunt procedure for treatment of normal pressure hydrocephalus. This was done at [facility] on 02/15/[address] Ray. He remained in the hospital a few days and then was transferred to [facility] for further recovery and management. Patient was admitted from [facility] with symptoms of sepsis and worsening dementia. According to the since having the [employer] SERVICE TECHNICIAN shunt's dementia symptoms actually have worsened. He did have a computed tomography scan of the brain done on 01/2017 which revealed mild ventriculomegaly. He was seen by infectious disease and is being treated for urinary tract infection as well as positive blood cultures. He is currently on IV Rocephin. The patient also has evidence of base discharge coming from the abdominal wall highly suggestive of CSF fluid. Most likely this is spinal fluid as his [employer] SERVICE TECHNICIAN shunt is draining into the abdominal cavity. Case was discussed today with Dr. Jeffries. Patient is at risk of developing ventriculitis from a possible fistula developing in the abdominal wall. We are recommending the patient should be transferred to neurosurgery for correction of this possible [employer] SERVICE TECHNICIAN shunt leak. We have recommended a stat computed tomography scan of the brain be done today as well for comparison to his previous study done on 03/07/2017. The the and son of the patient was updated on all of our current neurological findings. They' re aware of his current position with possible spinal fluid leak. We are recommending that he should be transferred back to [facility] today for further evaluation by neurosurgery. They are in full agreement and we will make arrangements for transfer this patient as soon as a bed becomes available. We've instructed the nursing staff to contact Dr. Avila to inform him of our recommendations for transfer this patient to neurosurgery as is the recommendation of Dr. Jeffries as well today. His overall prognosis at this time remains guarded. Case was discussed at length with the patient's and son at bedside. All their questions were answered. They are aware of his guarded condition. We will continue close neurological follow-up of this patient during this admission. Time with Patient: Greater than 30
--- NOTE | 2017-03-11 14:42 | CT ---
EXAMINATION TYPE: CT brain wo con DATE OF EXAM: 03/11/2017 2:33 PM COMPARISON: Prior CT brain 07 Mar 2017 HISTORY: History of NPH and LOG POND WORKER shunt leak CT DLP: 1189 mGycm Automated exposure control for dose reduction was used. FINDINGS: Findings are stable. Gastric bubble present in the anterior aspect of the right lateral ventricle. Ve ntricles show prominence as on prior exam, shunt tubing appear stable. There is no hemorrhage. IMPRESSION: Stable findings, no acute abnormality.
--- NOTE | 2017-03-11 15:01 | P.PN ---
Subjective Principal diagnosis: sepsis This is a 76-year-old male who is currently presented from [facility]. He has a recent history of FOOTWEAR FACTORY WORKER shunt placement for idiopathic hydrocephalus done at [facility]. Apparently, he has had ongoing problems with urinary retention since that time and has followed with Dr. holden. He has been on tamsulosin and Barriga catheter was recently removed in the office. Patient was sent in from [facility] to be evaluated at [facility] emergency center for altered mental status and fever. Patient remains very confused and information is mostly obtained from the chart and from his nurse. He presented with temperature of 100.1, leukocytosis of 13.2 and lactic acidosis of 6.1 with repeat of 1.2. His INR is elevated at 3.4 for which she is on Coumadin for atrial fibrillation. His urinalysis was cloudy, blood moderate, WBCs greater than 182, bacteria many, WBC clumps many, yeast few. One blood culture showing gram-negative rods and a second blood cultures showing gram-negative bacilli. Urine culture is in progress. There are no previous cultures on her system. CAT scan of the brain showed mild ventriculomegaly pattern appears mildly more prominent when compared to September CAT scan. 2 mm nondependent gas bubble the frontal horn of the right lateral ventricle. Chest x-ray shows no definite acute process. Patient did have urinary retention during the night and required straight catheter 900 mL. His nurse states that initially the flow was clear and then became a milky white. He also has had incontinence of urine but small amounts only. Patient' s passed on that the patient was treated for a fungal urinary tract infection at the halfway. There is a rash in the buttocks for which barrier cream is being used. Patient also has history of rheumatoid arthritis and is on Arava and prednisone. Urine culture is coming back is a quite susceptible Klebsiella pneumoniae Patient is change of his status. It is noted that he is having is somewhat copious amount of drainage out of the abdominal site of his vent particular peritoneal shunt. The fluid is clear in nature. There is no significant yellow hue. There is also no odor. Culture is sent. The case is discussed with the neurologist. The wound and fluid is demonstrated to the neurologist. Agreement that this is likely fluid from the FOOTWEAR FACTORY WORKER shunt. Objective - Vital Signs Vital signs: Vital Signs Temp 97.6 F 03/11/17 07:42 Pulse 65 03/11/17 07:42 Resp 20 03/11/17 07:42 BP 158/77 03/11/17 07:42 Pulse Ox 97 03/11/17 07:42 Intake & Output 03/10/17 03/11/17 03/11/17 18:59 06:59 18:59 Intake Total 600 400 240 Output Total 871 985 9706 Balance 200 -400 -2260 Weight 71.5 kg Intake: Oral 600 400 240 Output: Urine 828 263 0728 Uretheral (Barriga) 400 Other: Voiding Method Indwelling Catheter Indwelling Catheter Indwelling Catheter # Bowel Movements 1 1 1 - Exam Gen: This is a 76-year-old male. He is sitting up in bed and appears to be in no acute distress. HEENT: Head is atraumatic, normocephalic. Pupils equal, round. Sclerae is anicteric. Adjunctive a pink. Mucous membranes of the mouth are moist. Dentition is in good condition for age. There is a lesion on the lower left lip. Small abrasion to the top of his scalp NECK: Supple. No JVD. No lymphadenopathy. No thyromegaly. LUNGS: Clear to auscultation. No wheezes or rhonchi. No intercostal retractions. HEART: Regular rate and rhythm. Systolic murmur. ABDOMEN: Soft. Bowel sounds are present. No masses. No tenderness.There however is no significant drainage of a thin serous clear fluid from the abdominal wall. It has no odor. Sent for culture. EXTREMITIES: No pedal edema. Dorsalis pedis +2 bilaterally. Patient has dark color change to the right heel which is tender to touch. Mediboots are on bilaterally. NEUROLOGICAL: Patient is awake, alert and oriented x1. He is unable to state where he is, month or year. He does not know where he resides and does not know or able to recall recent FOOTWEAR FACTORY WORKER shunt surgery or anything regarding recent urinary retention. - Labs CBC & Chem 7: 03/10/17 06:30 03/11/17 08:30 Labs: Abnormal Lab Results - Last 24 Hours (Table) 03/11/17 03/11/17 Range/Units 08:30 08:30 PT 19.3 H (9.0-12.0) sec Sodium 130 L (137-145) mmol/L Carbon Dioxide 18 L (22-30) mmol/L Calcium 7.9 L (8.4-10.2) mg/dL Microbiology - Last 24 Hours (Table) 03/09/17 09:48 Blood Culture - Preliminary Blood No Growth after 48 hours 03/09/17 09:38 Blood Culture - Preliminary Blood No Growth after 48 hours 03/09/17 04:00 Urine Culture - Final Urine,Catheterized Klebsiella pneumoniae 03/10/17 17:28 Gram Stain - Preliminary Abdominal Fluid Wound Culture - Preliminary Laboratory Results WBC 7.8 k/uL (3.8-10.6) 03/10/17 06:30 RBC 3.67 m/uL (4.30-5.90) L 03/10/17 06:30 Hgb 11.7 gm/dL (13.0-17.5) L 03/10/17 06:30 Hct 36.0 % (39.0-53.0) L 03/10/17 06:30 MCV 98.3 fL (80.0-100.0) 03/10/17 06:30 MCH 32.0 pg (25.0-35.0) 03/10/17 06:30 MCHC 32.6 g/dL (31.0-37.0) 03/10/17 06:30 RDW 15.8 % (11.5-15.5) H 03/10/17 06:30 Plt Count 201 k/uL (150-450) 03/10/17 06:30 Neutrophils % 83 % 03/10/17 06:30 Lymphocytes % 8 % 03/10/17 06:30 Monocytes % 6 % 03/10/17 06:30 Eosinophils % 1 % 03/10/17 06:30 Basophils % 0 % 03/10/17 06:30 Neutrophils # 6.5 k/uL (1.3-7.7) 03/10/17 06:30 Lymphocytes # 0.7 k/uL (1.0-4.8) L 03/10/17 06:30 Monocytes # 0.5 k/uL (0-1.0) 03/10/17 06:30 Eosinophils # 0.1 k/uL (0-0.7) 03/10/17 06:30 Basophils # 0.0 k/uL (0-0.2) 03/10/17 06:30 Macrocytosis Slight 03/10/17 06:30 PT 19.3 sec (9.0-12.0) H 03/11/17 08:30 INR 2.0 (<1.1) 03/11/17 08:30 APTT 26.0 sec (22.0-30.0) 03/07/17 20:29 Sodium 130 mmol/L (137-145) L 03/11/17 08:30 Potassium 3.8 mmol/L (3.5-5.1) 03/11/17 08:30 Chloride 106 mmol/L (98-107) 03/11/17 08:30 Carbon Dioxide 18 mmol/L (22-30) L 03/11/17 08:30 Anion Gap 6 mmol/L 03/11/17 08:30 BUN 18 mg/dL (9-20) 03/11/17 08:30 Creatinine 0.86 mg/dL (0.66-1.25) 03/11/17 08:30 Est GFR (MDRD) Af Amer >60 (>60 ml/min/1.73 sqM) 03/11/17 08:30 Est GFR (MDRD) Non-Af >60 (>60 ml/min/1.73 sqM) 03/11/17 08:30 Glucose 95 mg/dL (74-99) 03/11/17 08:30 Plasma Lactic Acid Santiago 1.2 mmol/L (0.7-2.0) 03/09/17 03:25 Calcium 7.9 mg/dL (8.4-10.2) L 03/11/17 08:30 Phosphorus 3.1 mg/dL (2.5-4.5) 03/07/17 20:29 Magnesium 1.6 mg/dL (1.6-2.3) 03/07/17 20:29 Total Bilirubin 0.8 mg/dL (0.2-1.3) 03/09/17 03:25 AST 48 U/L (17-59) 03/09/17 03:25 ALT 37 U/L (21-72) 03/09/17 03:25 Alkaline Phosphatase 59 U/L (38-126) 03/09/17 03:25 Creatine Kinase 132 U/L (55-170) 03/11/17 08:30 Total Creatine Kinase 130 U/L (55-170) 03/07/17 20:29 CK-MB (CK-2) 1.9 ng/mL (0.0-2.4) 03/07/17 20: CK-MB (CK-2) Rel Index 1.5 03/07/17 20: Troponin I 0.092 ng/mL (0.000-0.034) H* 03/07/17 20:29 Total Protein 5.2 g/dL (6.3-8.2) L 03/09/17 03:25 Albumin 2.4 g/dL (3.5-5.0) L 03/09/17 03:25 Prealbumin 19 mg/dL (18-36) 03/09/17 03:25 Urine Color Light Yellow 03/07/17 23:00 Urine Appearance Cloudy (Clear) 03/07/17 23:00 Urine pH 6.0 (5.0-8.0) 03/07/17 23:00 Ur Specific Story 1.008 (1.001-1.035) 03/07/17 23:00 Urine Protein Negative (Negative) 03/07/17 23:00 Urine Glucose (UA) Negative (Negative) 03/07/17 23:00 Urine Ketones Negative (Negative) 03/07/17 23:00 Urine Blood Moderate (Negative) H 03/07/17 23:00 Urine Nitrite Negative (Negative) 03/07/17 23:00 Urine Bilirubin Negative (Negative) 03/07/17 23:00 Urine Urobilinogen <2.0 mg/dL (<2.0) 03/07/17 23:00 Ur Leukocyte Esterase Large (Negative) H 03/07/17 23:00 Urine RBC 11 /hpf (0-5) H 03/07/17 23:00 Urine WBC >182 /hpf (0-5) H 03/07/17 23:00 Urine WBC Clumps Many /hpf (None) H 03/07/17 23:00 Urine Bacteria Many /hpf (None) H 03/07/17 23:00 Urine Yeast (Budding) Few /hpf (None) H 03/07/17 23:00 Microbiology 03/09/17 09:48 Blood Blood Culture - Preliminary No Growth after 48 hours 03/09/17 09:38 Blood Blood Culture - Preliminary No Growth after 48 hours 03/09/17 04:00 Urine,Catheterized Urine Culture - Final Klebsiella pneumoniae 03/10/17 17:28 Abdominal Fluid Gram Stain - Preliminary 03/10/17 17:28 Abdominal Fluid Wound Culture - Preliminary 03/07/17 23:00 Urine,Catheterized Urine Culture - Final Klebsiella pneumoniae 03/07/17 20:29 Blood Blood Culture Gram Stain - Final 03/07/17 20:29 Blood Blood Culture - Final Klebsiella pneumoniae 03/07/17 20:29 Blood Blood Culture - Final Assessment and Plan (1) Klebsiella pneumoniae sepsis Narrative/Plan: 76-year-old male who has a history of progressive ulceration of his mental status. Underlying dementia that appear to be much worse because of his normal pressure hydrocephalus. Was seen at [facility] and underwent the ventricular peritoneal shunt. Hope is that this will allow some improvement of his hydrocephalus and improve his functional status. However is now admitted with evidence of sepsis or urinary system. Was having difficulties with significant obstructive uropathy. No his Barriga catheter in place. Urine culture with Klebsiella pneumoniae. Fortunately quite susceptible. However there is evidence of possible cultures. Oral therapy would be possible if he quinolone can be utilized. Will have a catheter in place until there is resolution of his significant obstructive symptoms. Follow blood cultures have been requested to ensure that he is clearing his bacteremia Doing well with current antibiotic therapy. However does not need such broad coverage and is now tapered to ceftriaxone 2 g a day. He has no other significant trouble with the abdominal wall with drainage of the site of the abdominal wall. Concern is this could be CSF fluid. Cultures obtained. This is been discussed with the neurologist. Agreement this could be CSF leak. Will discuss with the attending about the need for transfer back to his neurosurgeon who placed a FOOTWEAR FA[employer]ORY WORKER shunt to have repair of the peritoneal side of the shunt. Continue current antibiotic therapy. Status: Acute (2) UTI (urinary tract infection) Status: Acute (3) Obstructive uropathy Status: Acute (4) Hydrocephalus Status: Acute
[2017-03-11 15:19] VITALS: BP 163/91; PULSE 68; TEMP 98.2
[2017-03-11] MEDS: cefTRIAXone 2,000 MG in SODIUM CHLORIDE 0.9% 100 ML IVPB SCH (17:18)
--- NOTE | 2017-03-13 14:58 | P.DS ---
Providers Date of admission: 03/07/17 23:37 Expected date of discharge: 03/11/17 Attending physician: Kim Carson Consults: 03/08/17 11:53 Consult Physician Routine Consulting Provider: Blue Jeffries Consult Reason/Comments: septis fever uti brain shunt Do you want consulting provider notified?: Yes 03/08/17 14:23 Consult Physician Routine Consulting Provider: Janusz Bob Consult Reason/Comments: hydronephrosis, mass pyelonephritis Do you want consulting provider notified?: Yes 03/11/17 09:58 Consult Physician Routine Consulting Provider: Dianne Cameron Consult Reason/Comments: NPH Do you want consulting provider notified?: Yes [facility] Course: This is a pleasant 76-year-old gentleman patient of Dr. Dr. putnam. [facility] [place]. He recently was diagnosed to have normal pressure hydrocephalus requiring shunt placement by Dr. Ray02/15/2017 at [facility]. He stayed there for a few days, thereafter transferred to [facility] weeks ago. He complained of urinary retention at that time the hospital, and required an indwelling Anne catheter for which he was discharged to [facility] on anne catheter. He is anne catheter was discontinued by Dr. Bob one week prior to admission. Patient complained off diminished appetite, decreased oral intake, weight loss of 13 pounds, memory worsening memory loss, walking impairment, shuffling gait, and urinary incontinence. He also has edema , along with fever and chills. Next Emergency room he was found to have a urinary tract infection with urine WBC of 182, RBC of 11, INR 2.6, blood WBC of 13, lactic acid of 6. He was admitted for sepsis with suspected urinary tract source. CAT scan of the brain was performed including a chest x-ray which failed to reveal any acute infiltrate no pneumoperitoneum and no pneumothorax,. CAT scan of the brain showed mild ventriculomegaly pattern appears mildly more prominent when compared to 2015 CT, 2 mm nondependent gas bubble noted within the frontal horn of the right lateral ventricle additional tests included ultrasound right hydronephrosis, cannot exclude a mass versus cortical lobulation within upper pole right kidney consultation made with Dr. Bob and Dr. Jeffries 03/09: Patient has had ongoing urinary retention and required straight cath this morning. Anne catheter will be reinserted. Patient is been seen by Dr. Jeffries and repeat blood cultures have been obtained and antibiotics changed to meropenem. CAT scan of the abdomen and pelvis with contrast has been ordered regarding mass. IV fluids at 75 mL per hour. Potassium has been replaced. Patient's states that she does not want him to go back to [facility] and would like metal lodged [place] instead. Medical social work has been updated. 03/10: Patient continues to be confused but awake and alert and able to answer simple questions. He has Anne catheter in place draining lamont urine. Urine cultures positive for Klebsiella pneumoniae riggs sensitive. Patient will be transferred to the [facility] floor. 03/11: Dr. Jeffries has changed antibiotics to Rocephin. Patient developed copious amounts of drainage from his abdominal site of the TRAFFIC ANALYST shunt which is clear. Cultures were obtained yesterday with Dr. Jeffries. Son is at the bedside and discussed the patient will need follow-up with [facility] in 7-10 days regarding the TRAFFIC ANALYST shunt. Son does not think his mental status has changed very much. He is still sleeping a lot and confused. Repeat blood cultures showing no growth at 24 hours. Patient has followed with Dr. Major in the outpatient setting. Patient was reevaluated by Dr. Cameron with concern for possible spinal fluid leak for which arrangements were made for him to transfer to [facility] and be evaluated by neurosurgery. All arrangements were made by Dr. Cameron. Discharge diagnoses: 1. Septicemia and Klebsiella pneumoniae bacteremia, metabolic encephalopathy, acute urinary tract infection due to urinary retention and recent Anne catheter , catheter associated urinary tract infection. 2. Klebsiella pneumoniae bacteremia. 3. Right hydronephrosis with lobulation noted on the upper pole of the right kidney 4. Recent TRAFFIC ANALYST shunt by Dr. Ray 02/15/2017 [facility] for normal pressure hydrocephalus with possible TRAFFIC ANALYST leak of cerebrospinal fluid. 5. Hypertension 6. Pacemaker stable i 7. Dementia possibly related to the NPH 8 History of melanoma 9 Acute renal insufficiency with CKD stage III 10 hyperglycemia 11 Elevated troponin as related to sepsis 12. Debility with impaired balance and memory loss 13. CAD with prior CABG in 2001 14. History of kidney stone with prior lithotripsies 15. BPH 16. Coagulopathy on Coumadin 17. Rheumatid arthritis Discharge plan: Transfer to [facility] Impression and plan of care have been directed as dictated by the signing physician. Trudi Dawkins nurse practitioner acting as scribe for signing physician. Patient Condition at Discharge: Serious Plan - Discharge Summary Discharge Medication List Leflunomide [Arava] 20 mg PO DAILY 08/05/14 [History] Omeprazole [PriLOSEC] 20 mg PO QAM 08/05/14 [History] Warfarin [Coumadin] 1.25 mg PO THSA 08/05/14 [History] Allopurinol [Zyloprim] 100 mg PO BID 07/25/16 [History] Furosemide [Lasix] 40 mg PO SUTUTHSA PRN 07/25/16 [History] Losartan Potassium [Cozaar] 100 mg PO QAM 07/25/16 [History] Warfarin [Coumadin] 2.5 mg PO SUMOWEFR 07/25/16 [History] Donepezil [Aricept] 5 mg PO HS 11/29/16 [History] Acetaminophen Tab [Tylenol] 650 mg PO ONCE PRN 03/07/17 [History] Atorvastatin [Lipitor] 20 mg PO HS 03/07/17 [History] Dimethicone/Zinc Oxide [Inzo Zinc Oxide Barrier Cream] 1 applic TOPICAL BID 01/19 [History] Furosemide [Lasix] 40 mg PO MOWEFR@0900,1700 03/07/17 [History] Metoprolol Tartrate [Lopressor] 50 mg PO BID 03/07/17 [History] Potassium Chloride ER [K-Dur 20] 20 meq PO SUTUTHSA 03/07/17 [History] Potassium Chloride [Klor-Con 20] 20 meq PO MOWEFR@0900,2100 03/07/17 [History] Tamsulosin [Flomax] 0.4 mg PO DAILY 03/07/17 [History] Tolnaftate [Tinactin] 1 applic TOPICAL BID 03/07/17 [History] predniSONE 10 mg PO DAILY 03/07/17 [History] Follow up Appointment(s)/Referral(s): Alejandrina Roman MD [Primary Care Provider] - 1-2 days Discharge Disposition: OTHER INSTITUTION NOT DEFINED
== END 2017-03-11 20:09 | disposition short-term general hospital (02) | DRG 698 ==
LOC: EC 20:04 → 6ICU 23:37 → 6SEL 03-08 03:28 → 4MS4W 03-10 12:53
PROVIDERS: ADMIT Family Medicine; ATTEND Family Medicine
PROC: 0T2BX0Z Change Drainage Device in Bladder, External Approach (ICD-10-PCS; principal; 2017-03-09)
DX: T83.511A Infection and inflammatory reaction due to indwelling urethral catheter, initial encounter (principal); G93.41 Metabolic encephalopathy; A41.59 Other Gram-negative sepsis; E87.2 Acidosis; G91.2 (Idiopathic) normal pressure hydrocephalus; N13.30 Unspecified hydronephrosis; T85.615A Breakdown (mechanical) of other nervous system device, implant or graft, initial encounter; N39.0 Urinary tract infection, site not specified; I48.91 Unspecified atrial fibrillation; N18.3 Chronic kidney disease, stage 3 (moderate); M06.9 Rheumatoid arthritis, unspecified; R33.8 Other retention of urine; N40.1 Benign prostatic hyperplasia with lower urinary tract symptoms; I25.2 Old myocardial infarction; I25.10 Atherosclerotic heart disease of native coronary artery without angina pectoris; T45.515A Adverse effect of anticoagulants, initial encounter; R74.8 Abnormal levels of other serum enzymes; I73.9 Peripheral vascular disease, unspecified; I12.9 Hypertensive chronic kidney disease with stage 1 through stage 4 chronic kidney disease, or unspecified chronic kidney disease; B96.1 Klebsiella pneumoniae [K. pneumoniae] as the cause of diseases classified elsewhere; R73.9 Hyperglycemia, unspecified; E78.5 Hyperlipidemia, unspecified; N39.498 Other specified urinary incontinence; K21.9 Gastro-esophageal reflux disease without esophagitis; F03.90 Unspecified dementia, unspecified severity, without behavioral disturbance, psychotic disturbance, mood disturbance, and anxiety; R93.421 Abnormal radiologic findings on diagnostic imaging of right kidney; R41.3 Other amnesia; R53.81 Other malaise; R26.9 Unspecified abnormalities of gait and mobility; R60.9 Edema, unspecified; R21 Rash and other nonspecific skin eruption; G93.89 Other specified disorders of brain; L98.9 Disorder of the skin and subcutaneous tissue, unspecified; S00.01XA Abrasion of scalp, initial encounter; I49.5 Sick sinus syndrome; H26.9 Unspecified cataract; E66.9 Obesity, unspecified; J30.9 Allergic rhinitis, unspecified; H40.9 Unspecified glaucoma; R63.4 Abnormal weight loss; H91.90 Unspecified hearing loss, unspecified ear; Z98.42 Cataract extraction status, left eye; Z87.19 Personal history of other diseases of the digestive system; Z98.2 Presence of cerebrospinal fluid drainage device; Z87.442 Personal history of urinary calculi; Z95.1 Presence of aortocoronary bypass graft; Z85.820 Personal history of malignant melanoma of skin; Z16.11 Resistance to penicillins; Z79.01 Long term (current) use of anticoagulants; Z79.899 Other long term (current) drug therapy; Z85.828 Personal history of other malignant neoplasm of skin; Z71.3 Dietary counseling and surveillance; Z80.8 Family history of malignant neoplasm of other organs or systems; Z86.19 Personal history of other infectious and parasitic diseases; Z87.440 Personal history of urinary (tract) infections; Z68.31 Body mass index [BMI] 31.0-31.9, adult; Z95.0 Presence of cardiac pacemaker; Z79.52 Long term (current) use of systemic steroids; Y84.6 Urinary catheterization as the cause of abnormal reaction of the patient, or of later complication, without mention of misadventure at the time of the procedure
CPT/HCPCS: 36415; 70450; 71020; 74177; 76770; 80048; 80053; 81001; 82550; 82553; 83605; 83735; 84100; 84134; 84484; 85025; 85610; 85730; 87040; 87070; 87077; 87086; 87186; 87205; 93005; 96365; 99285

== ENCOUNTER → 2017-08-24 | Outpatient (CLI) | payer MEDICARE ==
--- NOTE | 2017-08-24 12:03 | CT ---
EXAMINATION TYPE: CT brain wo con DATE OF EXAM: 08/24/2017 COMPARISON: 03/11/2017 INDICATION: Patient poor historian. Normal pressure hydrocephalus. Follow up study. DLP: 1070 mGycm, Automated exposure control for dose reduction was used. CONTRAST: None CT of the brain is performed utilizing 3 mm thick sections through the posterior fossa and 3 mm thick sections through the remaining calvarium. Study is performed within 24 hours of arrival to the hosp ital. No abnormal hyperdensity is present to suggest an acute intracranial hemorrhage. No mass lesion is evident. No acute infarcts are evident. Old lacunar infarct is in the lateral posterior left basal ganglion. T his was not present on 03/11/2017. There is some periventricular white matter hypodensity most likely on the basis of chronic white mat ter ischemic changes. Shunt catheter enters on the right posterior lateral region with the tip in the midline right anterio r lateral ventricle. Third and fourth ventricle are midline. Lateral ventricles are mildly prominent. There is mild prominence of the sulci compatible with atrophy. Ventricular and sulci findings appear stable from comparison. No suspicious temporal horn dilatation is evident. Paranasal sinuses and mastoid air cells within the [id number] are clear. IMPRESSIONS: 1. Right-sided shunt catheter is stable in appearance. No change in the ventricular prominence from comparison 2. Interval development of a left basal ganglion lacunar infarct. This appears old. 3. Atrophy with periventricular white matter ischemic changes.
== END | disposition home or self-care (01) ==
LOC: RADCTMAIN 11:29
PROVIDERS: ATTEND Neurological Surgery
DX: G31.9 Degenerative disease of nervous system, unspecified (principal); I67.89 Other cerebrovascular disease; Z98.2 Presence of cerebrospinal fluid drainage device
CPT/HCPCS: 70450

== ENCOUNTER → 2017-11-15 | Outpatient (CLI) | payer MEDICARE ==
--- NOTE | 2017-11-15 11:49 | CT ---
EXAMINATION TYPE: CT brain wo con DATE OF EXAM: 11/15/2017 COMPARISON: 08/24/2017 HISTORY: Idiopathic normal pressure hydrocephalus CT DLP: [address] of the brain was performed. The ventricles, basal cisterns and sulci overlying the cerebral convexities demonstrate mild enlargem ent. Again noted is a shunt catheter which enters the posterior right parietal region with its distal tip within the midline right lateral ventricle. High left frontal extra-axial prominence since the p rior study may reflect a small chronic subdural. There is no evidence for intracranial hemorrhage or sulcal effacement. There is decreased attenuation about the periventricular white matter and deep white matter of both c erebral hemispheres, compatible with chronic small vessel ischemia. Differential diagnosis does inclu de demyelination. No mass effects are seen.No midline shift. Osseous calvarium is intact. If symptoms persist consider MRI. IMPRESSION: 1. Stable features of normal pressure hydrocephalus. 2. Interval development of high left frontal extra-axial prominence which may reflect a small chronic subdural.
== END | disposition home or self-care (01) ==
LOC: RADCTMAIN 10:59
PROVIDERS: ATTEND Neurological Surgery
DX: G91.2 (Idiopathic) normal pressure hydrocephalus (principal)
CPT/HCPCS: 70450

== ENCOUNTER → 2017-11-30 | Outpatient (CLI) | payer MEDICARE ==
--- NOTE | 2017-11-30 14:04 | US ---
EXAMINATION TYPE: US venous doppler duplex LE RT DATE OF EXAM: 11/30/2017 1:38 PM COMPARISON: Bilateral lower extremity venous ultrasound August 20, 2017 CLINICAL HISTORY: RT Lower Edema R60.9. SIDE PERFORMED: Right TECHNIQUE: The lower extremity deep venous system is examined utilizing real time linear array sonog ildefonso with graded compression, doppler sonography and color-flow sonography. VESSELS IMAGED: External Iliac Vein (EIV) Common Femoral Vein Deep Femoral Vein Greater Saphenous Vein * Femoral Vein Popliteal Vein Proximal Calf Veins (* superficial vessels) Severe subcutaneous edema is noted towards end of study in the right lower extremity. Right Leg: Negative for DVT Grayscale, color doppler, spectral doppler imaging performed of the deep veins of the right lower ext remity. There is normal flow, compressibility, vascular waveforms. IMPRESSION: No ultrasound evidence for acute DVT in the right lower extremity.
== END | disposition home or self-care (01) ==
LOC: RADUSWWP 13:13
PROVIDERS: ATTEND Internal Medicine
DX: R60.9 Edema, unspecified (principal)

== ENCOUNTER → 2018-04-05 | Outpatient (CLI) | payer MEDICARE ==
--- NOTE | 2018-04-05 15:52 | US ---
EXAMINATION TYPE: US venous doppler duplex LE BI DATE OF EXAM: 04/05/2018 2:58 PM COMPARISON: Bilateral venous ultrasound August 20, 2017 CLINICAL HISTORY: I77.9 DISORDER OF ARTERIES AND ARTERIOLES. Bilateral lower leg swelling, patient on blood thinners SIDE PERFORMED: Bilateral TECHNIQUE: The lower extremity deep venous system is examined utilizing real time linear array sonog ildefonso with graded compression, doppler sonography and color-flow sonography. VESSELS IMAGED: External Iliac Vein (EIV) Common Femoral Vein Deep Femoral Vein Greater Saphenous Vein * Femoral Vein Popliteal Vein Small Saphenous Vein * Proximal Calf Veins (* superficial vessels) Right Leg: Appears negative for DVT Left Leg: Appears negative for DVT Grayscale, color doppler, spectral doppler imaging performed of the deep veins of the bilateral lower extremities. There is normal flow, compressibility, vascular waveforms. IMPRESSION: No ultrasound evidence for acute DVT in either lower extremity.
--- NOTE | 2018-04-09 09:52 | P.ARTDOP ---
Arterial Doppler LOWER EXTREMITY ARTERIAL DOPPLER: DATE OF SERVICE: 04/05/2018 Reason for study: Bilateral leg swelling. Doppler waveforms: Multiphasic bilaterally throughout. Pulse volume recording: Normal configuration. Pressure gradients: Only at the right great toe. Ankle-brachial indices: Greater than 1 bilaterally. Toe pressures: 64 on the right, 124 on the left Impression: Normal study. Right great toe decreased pressure of uncertain significance. Clinical correlation recommended..
== END | disposition home or self-care (01) ==
LOC: RADUSWWP 14:10
PROVIDERS: ATTEND Surgery
DX: I83.893 Varicose veins of bilateral lower extremities with other complications (principal); I77.9 Disorder of arteries and arterioles, unspecified; M79.89 Other specified soft tissue disorders
CPT/HCPCS: 93923; 93970

== ENCOUNTER → 2018-07-10 | Outpatient (CLI) | payer MEDICARE ==
--- NOTE | 2018-07-10 18:47 | CT ---
EXAMINATION TYPE: CT brain wo con DATE OF EXAM: 07/10/2018 COMPARISON: 11/15/2017 HISTORY: Idiopathic normal pressure hydrocephalus. CT DLP: 1260 mGycm Automated exposure control for dose reduction was used. FINDINGS: There is cerebral cortical atrophy. There is no mass effect nor midline shift. There is no sign of in tracranial hemorrhage. There is prominence of the ventricles. There is a right ventriculoperitoneal s trinh catheter with the tip in the frontal horn right lateral ventricle. The calvarium appears intact. IMPRESSION: CEREBRAL ATROPHY. SHUNT CATHETER IS IN GOOD POSITION. STABLE MILD HYDROCEPHALUS. NO ACUTE INTRACRANIA L ABNORMALITY.
== END | disposition home or self-care (01) ==
LOC: RADCTMAIN 18:00
PROVIDERS: ATTEND Neurological Surgery
DX: G91.9 Hydrocephalus, unspecified (principal); G31.9 Degenerative disease of nervous system, unspecified; Z98.2 Presence of cerebrospinal fluid drainage device
CPT/HCPCS: 70450

== ENCOUNTER 2018-12-15 08:40 | Emergency (ER) | payer MEDICARE ==
[2018-12-15 08:49] VITALS: RESP 18
--- NOTE | 2018-12-15 09:52 | ED ---
Fall HPI - General Chief Complaint: Fall Stated Complaint: fall, head and knee injury Time Seen by Provider: 12/15/18 08:51 Source: patient, Caregiver Mode of arrival: wheelchair - History of Present Illness Initial Comments: Patient 78-year-old male who presents return from [facility]. Patient presents emergency department today after a fall. Patient reports that he slipped and fell. Patient states that he hit his head and complains of bilateral knee pain. - Related Data Home Medications Medication Instructions Recorded Confirmed Leflunomide [Arava] 20 mg PO DAILY 08/05/14 03/07/17 Omeprazole [PriLOSEC] 20 mg PO QAM 08/05/14 03/07/17 Warfarin [Coumadin] 1.25 mg PO THSA 08/05/14 03/07/17 Allopurinol [Zyloprim] 100 mg PO BID 07/25/16 03/07/17 Furosemide [Lasix] 40 mg PO SUTUTHSA PRN 07/25/16 03/07/17 Losartan Potassium [Cozaar] 100 mg PO QAM 07/25/16 03/07/17 Warfarin [Coumadin] 2.5 mg PO SUMOWEFR 07/25/16 03/07/17 Donepezil [Aricept] 5 mg PO HS 11/29/16 03/07/17 Acetaminophen Tab [Tylenol] 650 mg PO ONCE PRN 03/07/17 03/07/17 Atorvastatin [Lipitor] 20 mg PO HS 03/07/17 03/07/17 Dimethicone/Zinc Oxide [Inzo Zinc 1 applic TOPICAL BID 03/07/17 03/07/17 Oxide Barrier Cream] Furosemide [Lasix] 40 mg PO MOWEFR@0900,1700 03/07/17 03/07/17 Metoprolol Tartrate [Lopressor] 50 mg PO BID 03/07/17 03/07/17 Potassium Chloride ER [K-Dur 20] 20 meq PO SUTUTHSA 03/07/17 03/07/17 Potassium Chloride [Klor-Con 20] 20 meq PO MOWEFR@0900,2100 03/07/17 03/07/17 Tamsulosin [Flomax] 0.4 mg PO DAILY 03/07/17 03/07/17 Tolnaftate [Tinactin] 1 applic TOPICAL BID 03/07/17 03/07/17 predniSONE 10 mg PO DAILY 03/07/17 03/07/17 Allergies Allergy/AdvReac Type Severity Reaction Status Date / Time No Known Allergies Allergy Verified 12/15/18 08:49 Review of Systems ROS Statement: Those systems with pertinent positive or pertinent negative responses have been documented in the HPI. ROS Other: All systems not noted in ROS Statement are negative. Past Medical History Past Medical History: Atrial Fibrillation, Cancer, Dementia, Eye Disorder, GERD/ Reflux, GI Bleed, Hyperlipidemia, Hypertension, Memory Impairment, Myocardial Infarction ([place]), Prostate Disorder, Renal Disease, Rheumatoid Arthritis ([place]), Vascular Disorder Additional Past Medical History / Comment(s): Normal pressure hydocephalus with recent shunt, current yeast infection meatus, SSS - PACEMAKER, Skin CA- MELANOMA with removal from nose and other types of skin cancer removed, CKD, nephrolithiasis with sx, PVD, OCC EDEMA LEGS, glaucoma bilaterally, R eye cataract, BPH, past urinary retention after cerebral shunt and was discharged with a anne to [facility]-anne dc'd on 03/02/17, RECTAL BLEED AFTER COLONOSCOPY R /T COUMADIN USE, unsteady gait, intermittent confusion, occasional allergic rhinitis. Last Myocardial Infarction Date:: 2001?-silent History of Any Multi-Drug Resistant Organisms: None Reported Past Surgical History: Coronary Bypass/CABG, Heart Catheterization, Orthopedic Surgery, Pacemaker Additional Past Surgical History / Comment(s): Recent cerebral shunt, PCI with stent, TRIPLE CABG 2001, LT Shoulder rotator cuff repair, Colonoscopy, 2004 Original pacer, 07/2016 GENERATOR CHANGE, cystoscopy with double J catheter, since removed, lithotripsies, L eye cataract removal, skin cancer removals. Past Anesthesia/Blood Transfusion Reactions: No Reported Reaction Type of Cardiac Device: Permanent Pacemaker Device Placement Date:: 03/21/2006 Past Psychological History: No Psychological Hx Reported Smoking Status: Never smoker Past Alcohol Use History: Daily Past Drug Use History: None Reported - Past Family History Brother(s) Family Medical History: Cancer Additional Family Medical History / Comment(s): SKIN Sister(s) Family Medical History: Cancer Additional Family Medical History / Comment(s): SKIN Mother Family Medical History: Cancer General Exam - General Exam Comments Initial Comments: 78 year old male, with history of dementia. Alert to self and place. Family reports baseline. Limitations: altered mental status General appearance: alert, in no apparent distress Head exam: Present: atraumatic, normocephalic, normal inspection, other ( abrasion over forhead. ) Eye exam: Present: normal appearance, PERRL, EOMI. Absent: scleral icterus, conjunctival injection, periorbital swelling ENT exam: Present: normal exam, mucous membranes moist Neck exam: Present: normal inspection. Absent: tenderness, meningismus, lymphadenopathy Respiratory exam: Present: normal lung sounds bilaterally. Absent: respiratory distress, wheezes, rales, rhonchi, stridor Cardiovascular Exam: Present: regular rate, normal rhythm, normal heart sounds. Absent: systolic murmur, diastolic murmur, rubs, gallop, clicks GI/Abdominal exam: Present: soft, normal bowel sounds. Absent: distended, tenderness, guarding, rebound, rigid Extremities exam: Present: normal inspection, full ROM, normal capillary refill. Absent: tenderness, pedal edema, joint swelling, calf tenderness Back exam: Present: normal inspection Neurological exam: Present: alert, oriented X3, CN II-XII intact Psychiatric exam: Present: normal affect, normal mood Skin exam: Present: warm, dry, intact, normal color. Absent: rash Course Vital Signs 12/15/18 12/15/18 08:42 11:54 Pulse Rate 66 65 Respiratory 18 18 Rate Blood Pressure 133/86 130/70 O2 Sat by Pulse 96 97 Oximetry Medical Decision Making - Medical Decision Making 78 year old male presents for assisted living after slipping and falling. He complains of bilateral knee pain and contusion over forehead. He is at baseline. Patient is on coumadin. PAtient has full range of motion of legs. Patient has negative CT scan, and negative knee xrays. Patient family feel comfortable with patient back to assisted living facility and close follow up with PCP. - Radiology Data Radiology results: report reviewed Mild hydrocephalus. Stable of the shunt catheter present unchanged from 2017. No acute osseous normality seen in cervical spine. Degenerative disc changes and firm at foraminal narrowing and C4-C5 and C5-C6 and C6-C7. Xray of knees are unremarkable. Disposition Clinical Impression: Dementia, Knee contusion, Head injury, closed, without LOC, Fall Disposition: HOME SELF-CARE Condition: Good Instructions (If sedation given, give patient instructions): Fall Prevention ( ED) Additional Instructions: Patient advised close follow-up with primary care physician. Patient should return to the emergency department if any alarming signs or symptoms occur. Is patient prescribed a controlled substance at d/c from ED?: No Referrals: Alejandrina Roman MD [Primary Care Provider] - 1-2 days Time of Disposition: 12:36
--- NOTE | 2018-12-15 10:55 | CT ---
EXAMINATION TYPE: CT brain mat wo con DATE OF EXAM: 12/15/2018 COMPARISON: 07/10/2018 HISTORY: head injury CT DLP: 1589.3 mGycm, Automated exposure control for dose reduction was used. CONTRAST: Patient injected with 0 mL of Isovue 300. CT of the brain is performed utilizing 3 mm thick sections through the posterior fossa and 3 mm thick sections through the remaining calvarium. Study is performed within 24 hours of arrival to the hospital. No abnormal hyperdensity is present to suggest an acute intracranial hemorrhage. No mass lesion is evident. No acute infarcts are evident. Periventricular white matter hypodensity is present, likely on the ba sis of chronic white matter ischemic changes. There is a shunt catheter present entering from the right parietal-occipital region with the tip in t he midline. Lateral ventricles are prominent. Third ventricle is prominent. Mild temporal horn roundi ng is present. This is stable from comparison. Ventricles and sulci are appropriate for the patient age. Paranasal sinuses and mastoid air cells within the [id number] are clear. Motion artifact limits the skull base evaluation. IMPRESSIONS: 1. Mild hydrocephalus, stable with the shunt catheter present unchanged from July 25, 2018. CT cervical spine. COMPARISON: None CT of the cervical spine is performed in the axial plane at 2 mm thick sections. Reconstructed image s in the coronal, and sagittal plane are reviewed on the computer. No acute fractures are evident. Vertebral body alignment is normal. Diffuse disc space narrowing is present. Vertebral body heights are preserved. No spinal canal stenosis is evident. Uncovertebral joint hypertrophy at C4-5 has severe left and moderate right foraminal stenosis. Forami nal stenosis is mild foraminal narrowing C5-6 and on the left at C6-7. IMPRESSIONS: 1. No acute osseous abnormality cervical spine. 2. Degenerative changes with foraminal narrowing discussed above.
--- NOTE | 2018-12-15 11:46 | XR ---
EXAMINATION TYPE: XR knee complete bilateral DATE OF EXAM: 12/15/2018 COMPARISON: None HISTORY: Pain following fall TECHNIQUE: Bilateral knees examined in 3 projections each. FINDINGS: Bilateral knees: Medial and lateral compartment joint spaces are normal. A large anterior superior patellar spur is present. No joint effusion is evident. Vascular calcification is present bilaterally. Right knee Vascular clips are present medially. IMPRESSION: 1. No acute osseous abnormality bilateral knees
[2018-12-15 11:55] VITALS: BP 130/70; PULSE 65
== END 2018-12-15 12:59 | disposition home or self-care (01) ==
LOC: EC 08:40
DX: S00.83XA Contusion of other part of head, initial encounter (principal); S80.02XA Contusion of left knee, initial encounter; S80.01XA Contusion of right knee, initial encounter; F03.90 Unspecified dementia, unspecified severity, without behavioral disturbance, psychotic disturbance, mood disturbance, and anxiety; I48.91 Unspecified atrial fibrillation; K21.9 Gastro-esophageal reflux disease without esophagitis; E78.5 Hyperlipidemia, unspecified; I25.2 Old myocardial infarction; M06.9 Rheumatoid arthritis, unspecified; I12.9 Hypertensive chronic kidney disease with stage 1 through stage 4 chronic kidney disease, or unspecified chronic kidney disease; N18.9 Chronic kidney disease, unspecified; I73.9 Peripheral vascular disease, unspecified; N40.0 Benign prostatic hyperplasia without lower urinary tract symptoms; Z98.2 Presence of cerebrospinal fluid drainage device; Z95.0 Presence of cardiac pacemaker; Z85.820 Personal history of malignant melanoma of skin; Z95.1 Presence of aortocoronary bypass graft; Z95.818 Presence of other cardiac implants and grafts; Z79.01 Long term (current) use of anticoagulants; Z79.52 Long term (current) use of systemic steroids; Z79.899 Other long term (current) drug therapy; W01.0XXA Fall on same level from slipping, tripping and stumbling without subsequent striking against object, initial encounter; Y92.009 Unspecified place in unspecified non-institutional (private) residence as the place of occurrence of the external cause
CPT/HCPCS: 70450; 72125; 99284

== ENCOUNTER 2019-10-26 11:59 | Inpatient (IN) | payer MEDICARE ==
[2019-10-26] MEDS ORDERED: IPRATROPIUM-ALBUTEROL 3 ML NEB INHALATION STA (12:41)
--- NOTE | 2019-10-26 12:46 | ED ---
General Adult HPI - General Chief complaint: Shortness of Breath Stated complaint: wheezing Time Seen by Provider: 10/26/19 12:12 Source: patient, family, RN notes reviewed Mode of arrival: wheelchair Limitations: altered mental status, physical limitation - History of Present Illness Initial comments: Patient is a pleasant 79-year-old male presenting to the emergency Department with complaints of difficulty in breathing. provides majority of history. Onset of symptoms was 3-4 days ago. Patient does have occasional cough. Patient does have some leg swelling however this is chronic. May be slightly worse than normal. No fevers. No history of similar symptoms previous. No known history of chronic lung disease. - Related Data Home Medications Medication Instructions Recorded Confirmed Leflunomide [Arava] 20 mg PO DAILY 08/05/14 03/07/17 Omeprazole [PriLOSEC] 20 mg PO QAM 08/05/14 03/07/17 Warfarin [Coumadin] 1.25 mg PO THSA 08/05/14 03/07/17 Allopurinol [Zyloprim] 100 mg PO BID 07/25/16 03/07/17 Furosemide [Lasix] 40 mg PO SUTUTHSA PRN 07/25/16 03/07/17 Losartan Potassium [Cozaar] 100 mg PO QAM 07/25/16 03/07/17 Warfarin [Coumadin] 2.5 mg PO SUMOWEFR 07/25/16 03/07/17 Donepezil [Aricept] 5 mg PO HS 11/29/16 03/07/17 Acetaminophen Tab [Tylenol] 650 mg PO ONCE PRN 03/07/17 03/07/17 Atorvastatin [Lipitor] 20 mg PO HS 03/07/17 03/07/17 Dimethicone/Zinc Oxide [Inzo Zinc 1 applic TOPICAL BID 03/07/17 03/07/17 Oxide Barrier Cream] Furosemide [Lasix] 40 mg PO MOWEFR@0900,1700 03/07/17 03/07/17 Metoprolol Tartrate [Lopressor] 50 mg PO BID 03/07/17 03/07/17 Potassium Chloride ER [K-Dur 20] 20 meq PO SUTUTHSA 03/07/17 03/07/17 Potassium Chloride [Klor-Con 20] 20 meq PO MOWEFR@0900,2100 03/07/17 03/07/17 Tamsulosin [Flomax] 0.4 mg PO DAILY 03/07/17 03/07/17 Tolnaftate [Tinactin] 1 applic TOPICAL BID 03/07/17 03/07/17 predniSONE 10 mg PO DAILY 03/07/17 03/07/17 Allergies Allergy/AdvReac Type Severity Reaction Status Date / Time No Known Allergies Allergy Verified 10/26/19 12:07 Review of Systems ROS Statement: Those systems with pertinent positive or pertinent negative responses have been documented in the HPI. ROS Other: All systems not noted in ROS Statement are negative. Constitutional: Denies: fever Eyes: Denies: eye pain ENT: Denies: ear pain Respiratory: Reports: cough, dyspnea Cardiovascular: Denies: chest pain Endocrine: Reports: fatigue Gastrointestinal: Denies: abdominal pain Genitourinary: Denies: dysuria Musculoskeletal: Denies: back pain Skin: Denies: rash Neurological: Denies: weakness Past Medical History Past Medical History: Atrial Fibrillation, Cancer, Dementia, Eye Disorder, GERD/Reflux, GI Bleed, Hyperlipidemia, Hypertension, Memory Impairment, Myocardial Infarction ([place]), Prostate Disorder, Renal Disease, Rheumatoid Arthritis ([place]), Vascular Disorder Additional Past Medical History / Comment(s): alcoholism, Normal pressure hydocephalus with recent shunt, SSS - PACEMAKER, Skin CA- MELANOMA with removal from nose and other types of skin cancer removed, CKD, nephrolithiasis with sx, PVD, OCC EDEMA LEGS, glaucoma bilaterally, R eye cataract, BPH, past urinary retention after cerebral shunt and was discharged with a anne to [facility] dc'd on 03/02/17, RECTAL BLEED AFTER COLONOSCOPY R/T COUMADIN USE, unsteady gait, intermittent confusion, Last Myocardial Infarction Date:: 2001?-silent History of Any Multi-Drug Resistant Organisms: None Reported Past Surgical History: Coronary Bypass/CABG, Heart Catheterization, Orthopedic Surgery, Pacemaker Additional Past Surgical History / Comment(s): Recent cerebral shunt, PCI with stent, TRIPLE CABG 2001, Shoulder rotator cuff repair, Colonoscopy, 2004 Original pacer, 07/2016 GENERATOR CHANGE, cystoscopy with double J catheter, since removed, lithotripsies, L eye cataract removal, skin cancer removals. Past Anesthesia/Blood Transfusion Reactions: No Reported Reaction Type of Cardiac Device: Permanent Pacemaker Device Placement Date:: 03/21/2006 Past Psychological History: No Psychological Hx Reported Smoking Status: Never smoker Past Alcohol Use History: Daily Past Drug Use History: None Reported - Past Family History Brother(s) Family Medical History: Cancer Additional Family Medical History / Comment(s): SKIN Sister(s) Family Medical History: Cancer Additional Family Medical History / Comment(s): SKIN Mother Family Medical History: Cancer General Exam Limitations: altered mental status, physical limitation General appearance: alert, in no apparent distress Head exam: Present: normocephalic Eye exam: Present: normal appearance Neck exam: Present: normal inspection Respiratory exam: Present: wheezes Cardiovascular Exam: Present: regular rate, normal rhythm GI/Abdominal exam: Present: soft. Absent: tenderness Extremities exam: Present: pedal edema. Absent: calf tenderness Neurological exam: Present: alert Psychiatric exam: Present: normal affect, normal mood Skin exam: Present: normal color Course Vital Signs 10/26/19 10/26/19 10/26/19 12:01 13:00 13:09 Temperature 98.0 F Pulse Rate 60 59 L 60 Respiratory 18 Rate Blood Pressure 143/81 O2 Sat by Pulse 98 Oximetry EKG Findings - EKG Comments: EKG Findings:: Paced rhythm 363. QRS 182. QT 494. QTC 505. Left axis. Wide QRS complex. Nonspecific ST-T. Medical Decision Making - Medical Decision Making patient reevaluated and resting comfortably in bed. Patient still feels slightly short of breath. Patient still has some wheezing on the left side. Patient and family updated on results and plan. Case was discussed in detail with Dr. Salvador, who will admit covering for Dr. Anibal putnam. - Lab Data Result diagrams: 10/26/19 12:45 10/26/19 12:45 Lab Results 10/26/19 10/26/19 10/26/19 Range/Units 12:45 12:45 12:45 WBC 8.5 (3.8-10.6) k/uL RBC 3.86 L (4.30-5.90) m/uL Hgb 12.5 L (13.0-17.5) gm/dL Hct 38.0 L (39.0-53.0) % MCV 98.5 (80.0-100.0) fL MCH 32.4 (25.0-35.0) pg MCHC 32.9 (31.0-37.0) g/dL RDW 14.8 (11.5-15.5) % Plt Count 254 (150-450) k/uL Neutrophils % 74 % Lymphocytes % 16 % Monocytes % 6 % Eosinophils % 2 % Basophils % 0 % Neutrophils # 6.3 (1.3-7.7) k/uL Lymphocytes # 1.4 (1.0-4.8) k/uL Monocytes # 0.5 (0-1.0) k/uL Eosinophils # 0.2 (0-0.7) k/uL Basophils # 0.0 (0-0.2) k/uL PT (9.0-12.0) sec INR (<1.2) APTT (22.0-30.0) sec Sodium 138 (137-145) mmol/L Potassium 4.3 (3.5-5.1) mmol/L Chloride 104 (98-107) mmol/L Carbon Dioxide 27 (22-30) mmol/L Anion Gap 7 mmol/L BUN 29 H (9-20) mg/dL Creatinine 1.26 H (0.66-1.25) mg/dL Est GFR (CKD-EPI)AfAm 62 (>60 ml/min/1.73 sqM) Est GFR (CKD-EPI)NonAf 54 (>60 ml/min/1.73 sqM) Glucose 97 (74-99) mg/dL Calcium 9.2 (8.4-10.2) mg/dL Total Bilirubin 1.1 (0.2-1.3) mg/dL AST 37 (17-59) U/L ALT 37 (4-49) U/L Alkaline Phosphatase 91 (38-126) U/L Troponin I (0.000-0.034) ng/mL NT-Pro-B Natriuret Pep 2010 pg/mL Total Protein 7.6 (6.3-8.2) g/dL Albumin 3.9 (3.5-5.0) g/dL 10/26/19 10/26/19 Range/Units 12:45 12:45 WBC (3.8-10.6) k/uL RBC (4.30-5.90) m/uL Hgb (13.0-17.5) gm/dL Hct (39.0-53.0) % MCV (80.0-100.0) fL MCH (25.0-35.0) pg MCHC (31.0-37.0) g/dL RDW (11.5-15.5) % Plt Count (150-450) k/uL Neutrophils % % Lymphocytes % % Monocytes % % Eosinophils % % Basophils % % Neutrophils # (1.3-7.7) k/uL Lymphocytes # (1.0-4.8) k/uL Monocytes # (0-1.0) k/uL Eosinophils # (0-0.7) k/uL Basophils # (0-0.2) k/uL PT 18.6 H (9.0-12.0) sec INR 1.9 H (<1.2) APTT 31.8 H (22.0-30.0) sec Sodium (137-145) mmol/L Potassium (3.5-5.1) mmol/L Chloride (98-107) mmol/L Carbon Dioxide (22-30) mmol/L Anion Gap mmol/L BUN (9-20) mg/dL Creatinine (0.66-1.25) mg/dL Est GFR (CKD-EPI)AfAm (>60 ml/min/1.73 sqM) Est GFR (CKD-EPI)NonAf (>60 ml/min/1.73 sqM) Glucose (74-99) mg/dL Calcium (8.4-10.2) mg/dL Total Bilirubin (0.2-1.3) mg/dL AST (17-59) U/L ALT (4-49) U/L Alkaline Phosphatase (38-126) U/L Troponin I 0.020 (0.000-0.034) ng/mL NT-Pro-B Natriuret Pep pg/mL Total Protein (6.3-8.2) g/dL Albumin (3.5-5.0) g/dL - Radiology Data Radiology results: image reviewed (Chest x-ray shows bibasilar airspace disease and cardiomegaly. Cannot rule out small effusion.) Disposition Clinical Impression: Pneumonia Disposition: ADMITTED IP TO THIS [facility] Is patient prescribed a controlled substance at d/c from ED?: No Referrals: Alejandrina Roman MD [Primary Care Provider] - 1-2 days Decision Time: 13:50
[2019-10-26 13:05] LABS: Basophils % (A) 0 %; Eosinophils # (A) 0.2 k/uL (0-0.7); Eosinophils % (A) 2 %; HGB 12.5 gm/dL (13.0-17.5); Lymphocytes # (A) 1.4 k/uL (1.0-4.8); Lymphocytes % (A) 16 %; MCH 32.4 pg (25.0-35.0); MCHC 32.9 g/dL (31.0-37.0); MCV 98.5 fL (80.0-100.0); Mean Platelet Volume 7.5; Monocytes # (A) 0.5 k/uL (0-1.0); Monocytes % (A) 6 %; Neutrophils # (A) 6.3 k/uL (1.3-7.7); Neutrophils % (A) 74 %; Platelet Count 254 k/uL (150-450); RBC 3.86 m/uL (4.30-5.90); RDW 14.8 % (11.5-15.5); WBC 8.5 k/uL (3.8-10.6)
[2019-10-26 13:14] LABS: Albumin 3.9 g/dL (3.5-5.0); Calcium 9.2 mg/dL (8.4-10.2); Potassium 4.3 mmol/L (3.5-5.1); Total Bilirubin 1.1 mg/dL (0.2-1.3); Total Protein 7.6 g/dL (6.3-8.2)
[2019-10-26 13:15] LABS: INR 1.9 (<1.2); Partial Thromboplastin Time 31.8 sec (22.0-30.0); Prothrombin Time 18.6 sec (9.0-12.0)
--- NOTE | 2019-10-26 13:30 | XR ---
EXAMINATION TYPE: XR chest 2V DATE OF EXAM: 10/26/2019 HISTORY: difficulty breathing. REFERENCE: Previous study dated 03/07/2017. FINDINGS: There has been a midline sternotomy. There is a bipolar pacemaker place on the left. A HOT BALLER s trinh projects over the right side of the chest. The heart is enlarged. The left CP angle is blunted and I cannot exclude a small left effusion. There is bibasilar airspace disease greater on the right than the left. I cannot exclude pneumonia. IMPRESSION: 1. BIBASILAR AIRSPACE DISEASE, WORSE ON THE RIGHT THAN THE LEFT. 2. CARDIOMEGALY. 3. I COULD NOT EXCLUDE A SMALL LEFT EFFUSION.
[2019-10-26] MEDS ORDERED: AZITHROMYCIN 500 MG in SODIUM CHLORIDE 0.9% 250 ML IVPB STA (13:51)
[2019-10-26] MEDS ORDERED: PNEUMONIA PROTOCOL UTILIZED 1 EACH MISC PO PRN (13:51)
[2019-10-26] MEDS ORDERED: IPRATROPIUM-ALBUTEROL 3 ML NEB INHALATION PRN (13:51)
[2019-10-26] MEDS: SODIUM CHLORIDE 0.9% 1,000 ML IV SCH ×2 (14:29→23:41)
[2019-10-26] MEDS: IPRATROPIUM-ALBUTEROL 3 ML NEB INHALATION SCH ×3 (15:43→19:09)
[2019-10-26] MEDS ORDERED: guaiFENesin-DM 100-10MG/5ML 10 ML CUP PO PRN (18:20)
[2019-10-26] MEDS ORDERED: LOPERAMIDE 2 MG CAP PO PRN (18:20)
[2019-10-26] MEDS ORDERED: HYDROcodone/APAP 5-325MG 1 EACH TAB PO PRN (18:20)
[2019-10-26] MEDS ORDERED: ACETAMINOPHEN TAB 325 MG TAB PO PRN (18:20)
[2019-10-26] MEDS: MIRTAZAPINE 15 MG TAB PO SCH (20:17)
[2019-10-26] MEDS: POTASSIUM CHLORIDE ER 20 MEQ TAB.ER PO SCH (20:17)
[2019-10-26] MEDS: ALLOPURINOL 100 MG TAB PO SCH (20:17)
[2019-10-26] MEDS: ATORVASTATIN 40 MG TAB PO SCH (20:17)
[2019-10-26] MEDS: TAMSULOSIN 0.4 MG CAP.ER.24H PO SCH (20:17)
[2019-10-26] MEDS: WARFARIN 1.5 MG TAB PO SCH (20:17)
[2019-10-27] MEDS: IPRATROPIUM-ALBUTEROL 3 ML NEB INHALATION SCH ×4 (07:02→19:17)
[2019-10-27] MEDS ORDERED: NON FORMULARY DRUG (Ensure 1 CAN) PO SCH (07:30)
[2019-10-27] MEDS: FUROSEMIDE 80 MG TAB PO SCH ×2 (08:04→13:28)
[2019-10-27] MEDS: ALLOPURINOL 100 MG TAB PO SCH ×2 (08:04→20:37)
[2019-10-27] MEDS: FERROUS SULFATE 325 MG TAB PO SCH (08:04)
[2019-10-27] MEDS: METOPROLOL TARTRATE 50 MG TAB PO SCH ×2 (08:04→16:50)
[2019-10-27] MEDS: TAMSULOSIN 0.4 MG CAP.ER.24H PO SCH ×2 (08:04→20:37)
[2019-10-27] MEDS: POTASSIUM CHLORIDE ER 20 MEQ TAB.ER PO SCH ×3 (08:04→20:37)
[2019-10-27] MEDS: LOSARTAN 50 MG TAB PO SCH (08:04)
[2019-10-27] MEDS: METOLAZONE 2.5 MG TAB PO SCH (08:04)
[2019-10-27] MEDS: PANTOPRAZOLE 40 MG TABLET PO SCH (08:04)
[2019-10-27] MEDS: FINASTERIDE 5 MG TAB PO SCH (08:04)
[2019-10-27] MEDS: SODIUM CHLORIDE 0.9% 1,000 ML IV SCH ×2 (10:10→20:38)
--- NOTE | 2019-10-27 10:14 | XR ---
EXAMINATION TYPE: XR chest 2V DATE OF EXAM: 10/27/2019 COMPARISON: 10/26/2019 HISTORY: 79-year-old male with pneumonia TECHNIQUE: Frontal and lateral views FINDINGS: Median sternotomy wires are present with post-CABG clips. Left anterior chest wall pacemaker generato r leads. Right-sided [employer] TESTER shunt catheter. Heart is enlarged. Low lung volumes and crowded vascular markings. Diffuse interstitial changes. Left basilar opacity and suspected small effusions. IMPRESSION: Hypoventilatory changes. Correlate for superimposed CHF with pulmonary vascular congestion. Left basi lar atelectasis and/or consolidation. Small effusions difficult to exclude.
[2019-10-27] MEDS ORDERED: DOCUSATE 100 MG CAP PO SCH (12:00)
[2019-10-27] MEDS: AZITHROMYCIN 500 MG TAB PO SCH (13:28)
--- NOTE | 2019-10-27 15:58 | P.HPIM ---
History of Present Illness H&P Date: 10/27/19 Chief Complaint: COUGHSHORTNESS OF BREATHBREATH This is a pleasant 79-year-old gentleman patient of Dr. Roman. He currently resides at [facility] , underlying history normal pressure hydrocephalus requiring shunt placement by Dr. Ray02/15/2017 at [facility] causing significant memory impairment, hypertension, atrial fibrillation, CAD, sick sinus syndrome requiring pacemaker,he follows with Dr. Vizcaino cardiology. Patient has had shortness of breath for the past 4 days, occasional cough, chronic dependent edema, and wheezing for the past 5 days. He was given Mucinex, no antibiotics, no fever, there is rest or illnesses ongoing at the residential home, patient has diminished appetite for the past 2 days, no medication changes from any other physicians, however the mentioned that he needs a pacemaker check routinely. Patient denies any palpitations, no chest pain, no aspirative events, Review of Systems All systems: negative Constitutional: Reports anorexia, Reports lethargy, Reports poor appetite, Reports weight loss, Denies as per HPI, Denies chills, Denies chronic headaches, Denies chronic pain, Denies daytime sleepiness, Denies fatigue, Denies fever, Denies malaise, Denies night sweats, Denies sweats, Denies weakness, Denies weight gain Ears, nose, mouth and throat: Reports as per HPI, Denies ant. neck pain, Denies bleeding gums, Denies dental pain, Denies dysphagia, Denies epistaxis, Denies headache, Denies hoarseness, Denies mouth pain, Denies nasal congestion, Denies nasal discharge, Denies neck fullness/pressure, Denies neck lump, Denies nose pain, Denies odynophagia, Denies post-nasal drip, Denies sinus pain, Denies sinus pressure, Denies swelling in mouth, Denies swelling in throat, Denies sore throat, Denies vertigo, Denies voice changes Cardiovascular: Reports as per HPI, Reports decreased exercise tolerance, Reports shortness of breath, Denies chest pain, Denies claudication, Denies dyspnea on exertion, Denies edema, Denies high blood pressure, Denies irregular heart beat, Denies leg edema, Denies lightheadedness, Denies orthopnea, Denies palpitations, Denies paroxysmal nocturnal dyspnea, Denies phlebitis, Denies rapid heart beat, Denies syncope Respiratory: Reports as per HPI, Denies congestion, Denies cough, Denies cough with sputum, Denies dyspnea, Denies excessive sputum, Denies hemoptysis, Denies home oxygen, Denies pain, Denies pain on inspiration, Denies pleurisy, Denies respiratory infections, Denies sleep apnea, Denies snoring, Denies wheezing Gastrointestinal: Reports as per HPI, Denies abdominal pain, Denies belching, Denies bloating, Denies BRBPR, Denies change in bowel habits, Denies coffee ground emesis, Denies constipation, Denies diarrhea, Denies dyspepsia, Denies early satiety, Denies excessive gas, Denies heartburn, Denies hematemesis, Denies hematochezia, Denies indigestion, Denies jaundice, Denies lactose intolerance, Denies loss of appetite, Denies melena, Denies nausea, Denies vomiting Genitourinary: Reports as per HPI Musculoskeletal: Reports as per HPI, Reports gait dysfunction, Reports limitation of motion (wheelchair bound) Integumentary: Reports as per HPI Neurological: Reports as per HPI, Denies aphasia, Denies ataxia, Denies balance difficulties, Denies burning pain, Denies change in mentation, Denies change in smell/taste, Denies change in speech, Denies confusion, Denies convulsions, Denies double vision, Denies gait dysfunction, Denies head injury, Denies headaches, Denies hearing difficulties, Denies lack of coordination, Denies loss of vision, Denies memory loss, Denies migraines, Denies motor disturbance, Denies numbness, Denies paralysis, Denies paresthesias, Denies seizures, Denies sensory deficit, Denies spasticity, Denies syncope, Denies tic, Denies tingling, Denies transient paralysis, Denies tremors, Denies vertigo, Denies weakness, Denies visual changes Psychiatric: Reports as per HPI Endocrine: Reports as per HPI, Denies cold intolerance, Denies deepening of the voice, Denies excessive sweating, Denies excessive thirst, Denies fatigue, Denies flushing, Denies heat intolerance, Denies high blood sugars, Denies increase in ring/shoe/hat size, Denies low blood sugars, Denies nocturia, Denies palpitations, Denies polydipsia, Denies polyphagia, Denies polyuria, Denies proptosis, Denies recent glucocorticoid use, Denies thyroid mass, Denies weight change Hematologic/Lymphatic: Reports as per HPI Allergic/Immunologic: Reports as per HPI Past Medical History Past Medical History: Atrial Fibrillation, Cancer, Dementia, Eye Disorder, GERD/Reflux, GI Bleed, Hyperlipidemia, Hypertension, Memory Impairment, Myocardial Infarction (PR), Prostate Disorder, Renal Disease, Rheumatoid Arthritis (RA), Vascular Disorder Additional Past Medical History / Comment(s): alcoholism, Normal pressure hyd ocephalus with recent shunt, SSS - PACEMAKER, Skin CA- MELANOMA with removal from nose and other types of skin cancer removed, CKD, nephrolithiasis with sx, PVD, OCC EDEMA LEGS, glaucoma bilaterally, R eye cataract, BPH, past urinary retention after cerebral shunt and was discharged with a anne to [facility] dc'd on 03/02/17, RECTAL BLEED AFTER COLONOSCOPY R/T COUMADIN USE, unsteady gait, intermittent confusion, Last Myocardial Infarction Date:: 2001?-silent History of Any Multi-Drug Resistant Organisms: None Reported Past Surgical History: Coronary Bypass/CABG, Heart Catheterization, Orthopedic Surgery, Pacemaker Additional Past Surgical History / Comment(s): Recent cerebral shunt, PCI with stent, TRIPLE CABG 2001, LT Shoulder rotator cuff repair, Colonoscopy, 2004 Original pacer, 07/2016 GENERATOR CHANGE, cystoscopy with double J catheter, since removed, lithotripsies, L eye cataract removal, skin cancer removals. Past Anesthesia/Blood Transfusion Reactions: No Reported Reaction Type of Cardiac Device: Permanent Pacemaker Device Placement Date:: 03/21/2006 Past Psychological History: No Psychological Hx Reported Additional Psychological History / Comment(s): Pt recently resides at [facility] for rehab post cerebral shunt placement. They state he is mostly in a wheelchair and can stand with one assist. He feeds himself and needs assistance with all other ADLs. Spouse states that prior to cerebral shunt, pt could ambulate short distances with a walker. He was no longer driving due to dementia. Spouse drives. She was his application defense manager and hopes for pt to come home after rehab. She is in the process of placing grab rails etc. Smoking Status: Never smoker Past Alcohol Use History: Daily Additional Past Alcohol Use History / Comment(s): GLASS OF WINE WITH DARLING JUICE DAILY PER SPOUSE Past Drug Use History: None Reported - Past Family History Brother(s) Family Medical History: Cancer Additional Family Medical History / Comment(s): SKIN Sister(s) Family Medical History: Cancer Additional Family Medical History / Comment(s): SKIN Mother Family Medical History: Cancer Medications and Allergies Home Medications Medication Instructions Recorded Confirmed Type Allopurinol [Zyloprim] 100 mg PO BID@0800,199907/25/16 10/26/19 History Losartan Potassium [Cozaar] 50 mg PO QAM 07/25/16 10/26/19 History Acetaminophen Tab [Tylenol] 650 mg PO BID PRN 03/07/17 10/26/19 History Metoprolol Tartrate [Lopressor] 50 mg PO BID@0800,1700 03/07/17 10/26/19 History Potassium Chloride [Klor-Con 20] 20 meq PO TID@0800,1400,199903/07/17 10/26/19 History Tamsulosin [Flomax] 0.4 mg PO BID@0800,199903/07/17 10/26/19 History Acetaminophen Tab [Tylenol Tab] 325 mg PO Q4H PRN 10/26/19 10/26/19 History Antibiotic Oint 1 applic TOPICAL BID 10/26/19 10/26/19 History Atorvastatin [Lipitor] 40 mg PO HS@199910/26/19 10/26/19 History Docusate Sodium [Dok] 100 mg PO DAILY@1200 10/26/19 10/26/19 History Ensure 1 can PO BID-W/MEALS 10/26/19 10/26/19 History Ferrous Sulfate [Feosol] 325 mg PO DAILY@0800 10/26/19 10/26/19 History Finasteride [Proscar] 5 mg PO DAILY 10/26/19 10/26/19 History Furosemide [Lasix] 80 mg PO BID@0800,1400 10/26/19 10/26/19 History HYDROcodone/APAP 5-325MG [[place] 1 tab PO Q12H PRN 10/26/19 10/26/19 History 5-325] Loperamide [Imodium] 2 mg PO QID PRN 10/26/19 10/26/19 History Metolazone [Zaroxolyn] 2.5 mg PO MOWEFR 10/26/19 10/26/19 History Metolazone [Zaroxolyn] 2.5 mg PO ONCE PRN 10/26/19 10/26/19 History Mirtazapine [Remeron] 15 mg PO HS@199910/26/19 10/26/19 History Mupirocin 2% Oint [Bactroban 2% 1 applic TOPICAL DAILY 10/26/19 10/26/19 History Oint] Pantoprazole Sodium [Protonix] 40 mg PO DAILY@0800 10/26/19 10/26/19 History SILVER sulfADIAZINE CREAM 1 applic TOPICAL HS@199910/26/19 10/26/19 History [Silvadene Cream] Thermazine 1% Cr 1 applic TOPICAL BID 10/26/19 10/26/19 History Warfarin [Coumadin] 1.5 mg PO SUTUTH 10/26/19 10/26/19 History Warfarin [Coumadin] 3 mg PO MOWEFRSA 10/26/19 10/26/19 History guaiFENesin-DM 100-10MG/5ML 20 ml PO Q4H PRN 10/26/19 10/26/19 History [Robitussin DM] Allergies Allergy/AdvReac Type Severity Reaction Status Date / Time No Known Allergies Allergy Verified 10/26/19 14:57 Physical Exam Vitals: Vital Signs Temp Pulse Pulse Pulse Resp BP BP 10/27/19 11:10 60 10/27/19 11:01 60 10/27/19 07:11 60 10/27/19 07:02 60 10/27/19 05:27 97.7 F 59 L 20 133/72 10/26/19 23:00 98.6 F 60 20 129/62 10/26/19 22:13 18 10/26/19 15:59 62 10/26/19 15:43 60 10/26/19 15:00 98.0 F 57 L 18 125/66 10/26/19 14:00 64 114/72 10/26/19 13:30 66 112/56 10/26/19 13:09 60 10/26/19 13:00 62 112/70 10/26/19 12:30 58 L 10/26/19 12:01 98.0 F 60 18 143/81 Pulse Ox 10/27/19 11:10 10/27/19 11:01 10/27/19 07:11 10/27/19 07:02 91 L 10/27/19 05:27 95 10/26/19 23:00 96 10/26/19 22:13 10/26/19 15:59 10/26/19 15:43 96 10/26/19 15:00 98 10/26/19 14:00 96 10/26/19 13:30 97 10/26/19 13:09 10/26/19 13:00 96 10/26/19 12:30 10/26/19 12:01 98 Intake and Output 10/26/19 10/27/19 10/27/19 22:59 06:59 14:59 Other: Voiding Method Diaper # Voids 1 2 # Bowel Movements 0 0 Weight 114.305 kg - Constitutional General appearance: cooperative, no acute distress - EENT Eyes: anicteric sclerae, PERRLA, dentition normal, normal appearance ENT: hard of hearing, NA/AT - Neck Neck: normal ROM - Respiratory Respiratory: bilateral: CTA, diminished, negative: rales, rhonchi, wheezing - Cardiovascular Rhythm: regular Heart sounds: normal: S1, S2 Abnormal Heart Sounds: systolic murmur - Gastrointestinal General gastrointestinal: normal bowel sounds, soft - Integumentary Integumentary: decreased turgor, normal - Neurologic Neurologic: CNII-XII intact - Musculoskeletal Musculoskeletal: generalized weakness, strength equal bilaterally - Psychiatric Psychiatric: A&O x's 3 (x1), appropriate affect Results CBC & Chem 7: 10/26/19 12:45 10/26/19 12:45 Labs: Abnormal Lab Results - Last 24 Hours (Table) 10/26/19 10/26/19 10/26/19 Range/Units 12:45 12:45 12:45 RBC 3.86 L (4.30-5.90) m/uL Hgb 12.5 L (13.0-17.5) gm/dL Hct 38.0 L (39.0-53.0) % PT 18.6 H (9.0-12.0) sec INR 1.9 H (<1.2) APTT 31.8 H (22.0-30.0) sec BUN 29 H (9-20) mg/dL Creatinine 1.26 H (0.66-1.25) mg/dL 10/27/19 Range/Units 07:49 RBC (4.30-5.90) m/uL Hgb (13.0-17.5) gm/dL Hct (39.0-53.0) % PT 20.0 H (9.0-12.0) sec INR 2.0 H (<1.2) APTT (22.0-30.0) sec BUN (9-20) mg/dL Creatinine (0.66-1.25) mg/dL Microbiology - Last 24 Hours (Table) 10/26/19 19:05 Gram Stain - Preliminary Sputum Sputum Culture - Preliminary Laboratory Results WBC 8.5 k/uL (3.8-10.6) 10/26/19 12:45 RBC 3.86 m/uL (4.30-5.90) L 10/26/19 12:45 Hgb 12.5 gm/dL (13.0-17.5) L 10/26/19 12:45 Hct 38.0 % (39.0-53.0) L 10/26/19 12:45 MCV 98.5 fL (80.0-100.0) 10/26/19 12:45 MCH 32.4 pg (25.0-35.0) 10/26/19 12:45 MCHC 32.9 g/dL (31.0-37.0) 10/26/19 12:45 RDW 14.8 % (11.5-15.5) 10/26/19 12:45 Plt Count 254 k/uL (150-450) 10/26/19 12:45 Neutrophils % 74 % 10/26/19 12:45 Lymphocytes % 16 % 10/26/19 12:45 Monocytes % 6 % 10/26/19 12:45 Eosinophils % 2 % 10/26/19 12:45 Basophils % 0 % 10/26/19 12:45 Neutrophils # 6.3 k/uL (1.3-7.7) 10/26/19 12:45 Lymphocytes # 1.4 k/uL (1.0-4.8) 10/26/19 12:45 Monocytes # 0.5 k/uL (0-1.0) 10/26/19 12:45 Eosinophils # 0.2 k/uL (0-0.7) 10/26/19 12:45 Basophils # 0.0 k/uL (0-0.2) 10/26/19 12:45 PT 20.0 sec (9.0-12.0) H 10/27/19 07:49 INR 2.0 (<1.2) H 10/27/19 07:49 APTT 31.8 sec (22.0-30.0) H 10/26/19 12:45 Sodium 138 mmol/L (137-145) 10/26/19 12:45 Potassium 4.3 mmol/L (3.5-5.1) 10/26/19 12:45 Chloride 104 mmol/L (98-107) 10/26/19 12:45 Carbon Dioxide 27 mmol/L (22-30) 10/26/19 12:45 Anion Gap 7 mmol/L 10/26/19 12:45 BUN 29 mg/dL (9-20) H 10/26/19 12:45 Creatinine 1.26 mg/dL (0.66-1.25) H 10/26/19 12:45 Est GFR (CKD-EPI)AfAm 62 (>60 ml/min/1.73 sqM) 10/26/19 12:45 Est GFR (CKD-EPI)NonAf 54 (>60 ml/min/1.73 sqM) 10/26/19 12:45 Glucose 97 mg/dL (74-99) 10/26/19 12:45 Calcium 9.2 mg/dL (8.4-10.2) 10/26/19 12:45 Total Bilirubin 1.1 mg/dL (0.2-1.3) 10/26/19 12:45 AST 37 U/L (17-59) 10/26/19 12:45 ALT 37 U/L (4-49) 10/26/19 12:45 Alkaline Phosphatase 91 U/L (38-126) 10/26/19 12:45 Troponin I 0.020 ng/mL (0.000-0.034) 10/26/19 12:45 NT-Pro-B Natriuret Pep 2010 pg/mL 10/26/19 12:45 Total Protein 7.6 g/dL (6.3-8.2) 12/22/19 12:45 Albumin 3.9 g/dL (3.5-5.0) 10/26/19 12:45 Thrombosis Risk Factor Assmnt - DVT/VTE Prophylaxis DVT/VTE Prophylaxis: Mechanical Prophylaxis ordered, Low risk, early ambulation encouraged - Choose All That Apply Each Risk Factor Represents 3 Points: Age 75 years or older Thrombosis Risk Factor Assessment Total Risk Factor Score: 3 Thrombosis Risk Factor Assessment Level: Moderate Risk Assessment and Plan Plan: 1. left basilar infiltrate and/or atelectasis, with possible small pleural effusion, superimposed CHF with pulmonary vascular congestion diffuse interstitial changes , community acquired, start on Rocephin IVand ZithromaxIV 2. Acute renal insufficiency with dehydration secondary secondary to diminished appetite, IV hydration gentle, History of hydronephrosis in the past, we'll going to obtain renal ultrasound, was seen by urology in 2017 for obstructive uropathy 3. diastolic CHF exacerbation with bilateral dependent edema, however unknown whether this is systolic in nature, no echocardiogram available for review since 2017,we will request another echocardiogram, consult cardiology, IV Lasix 4. history of NPH with BUS PERSON DISHWASHER shunt by Dr. Ray 02/15/2017 [facility] normal pressure hydrocephalus 5. Hypertension metoprolol, Zaroxolyn, 6. Pacemaker stable , need pacemaker check consult cardiology, on long-term anticoagulation 7. significantDementia possibly related to the NPH, not on a cholinesterase inhibition 8 History of melanoma 9 Acute renal sufficiency with CK D stage III, fluids IV, avoid nephrotoxins, 11 Elevated troponin as related to sepsis, troponins will be monitored 12 Debility with impaired balance and memory loss, patient seen by physical therapy and occupational therapy, 13 CAD with prior CABG in 2001, Edema, . readjusted Lasix, continue metoprolol, losartan, 14 history of kidney stone with prior lithotripsies 15 BPH currently on Flomax Proscar 16 Coagulopathy on Coumadin, indication for Coumadin currently is not known this would be verified Coumadin is on hold for possible procedure by urology 17 Rheumatid arthritis with debility wheelchair bound prior to admission, 1-2 person assist on community ablation consult PT OT 18 long-term anticoagulation with Coumadin discharge planning, subacute rehab against returning to [facility]
[2019-10-27] MEDS: SENNOSIDES-DOCUSATE SODIUM 1 EACH TAB PO SCH (16:50)
[2019-10-27] MEDS: WARFARIN 3 MG TAB PO SCH (16:51)
--- NOTE | 2019-10-27 17:33 | US ---
EXAMINATION TYPE: US renals and bladder DATE OF EXAM: 10/27/2019 COMPARISON: US, CT CLINICAL HISTORY: hydronephrosis arf. Dementia EXAM MEASUREMENTS: Right Kidney: 8.7 x 6.7 x 5.4cm Left Kidney: 10.3 x 4.5 x 4.9cm Post Void Residual Volume: not assessed on inpatient Right Kidney: smaller than left kidney; hypoechoic crescent shaped area adjacent to mid cortex is son ographic "sweat sign" suggestive of renal failure Left Kidney: couple of shadowing renal stones imaged with larger 0.8 x 0.8 x 0.5cm Bladder: wnl Bilateral Jets seen: yes IMPRESSION: Nonobstructing left renal calculi. Mild renal atrophy. No solid renal mass. No evidence of obstructio n. Urinary bladder is sonolucent. No evidence of bladder mass.
[2019-10-27] MEDS: ATORVASTATIN 40 MG TAB PO SCH (20:37)
[2019-10-27] MEDS: MIRTAZAPINE 15 MG TAB PO SCH (20:37)
[2019-10-27] MEDS: FUROSEMIDE 10 MG/ML 4 ML VIAL IV SCH (23:27)
[2019-10-28 00:39] LABS: Appearance,Urine Turbid (Clear); Bacteria,Urine Occasional /hpf; Bilirubin,Urine Negative (Negative); Blood,Urine Small (Negative); Color,Urine Light Yellow; Glucose,Urine (UA) Negative (Negative); Hyaline Casts,Urine 9 /lpf (0-2); Ketones,Urine Negative (Negative); Leukocyte Esterase,Urine Large (Negative); Nitrite,Urine Negative (Negative); PH, Urine 6.5 (5.0-8.0); Protein,Urine Negative (Negative); RBC,Urine 11 /hpf (0-5); Specific Gravity,Urine 1.009 (1.001-1.035); Urobilinogen,Urine <2.0 mg/dL (<2.0); WBC,Urine >182 /hpf (0-5)
[2019-10-28] MEDS: SODIUM CHLORIDE 0.9% 1,000 ML IV SCH ×2 (05:51→16:55)
[2019-10-28] MEDS: IPRATROPIUM-ALBUTEROL 3 ML NEB INHALATION SCH ×4 (06:59→20:39)
[2019-10-28] MEDS: FUROSEMIDE 10 MG/ML 4 ML VIAL IV SCH (08:24)
[2019-10-28] MEDS: SENNOSIDES-DOCUSATE SODIUM 1 EACH TAB PO SCH (08:24)
[2019-10-28] MEDS: FERROUS SULFATE 325 MG TAB PO SCH (08:24)
[2019-10-28] MEDS: FINASTERIDE 5 MG TAB PO SCH (08:25)
[2019-10-28] MEDS: LOSARTAN 50 MG TAB PO SCH (08:25)
[2019-10-28] MEDS: TAMSULOSIN 0.4 MG CAP.ER.24H PO SCH ×2 (08:25→21:44)
[2019-10-28] MEDS: POTASSIUM CHLORIDE ER 20 MEQ TAB.ER PO SCH ×3 (08:25→21:43)
[2019-10-28] MEDS: PANTOPRAZOLE 40 MG TABLET PO SCH (08:25)
[2019-10-28] MEDS: ALLOPURINOL 100 MG TAB PO SCH ×2 (08:25→21:44)
[2019-10-28] MEDS: METOPROLOL TARTRATE 50 MG TAB PO SCH ×2 (08:25→16:40)
[2019-10-28 08:34] LABS: Prothrombin Time 19.9 sec (9.0-12.0)
[2019-10-28 08:39] LABS: Basophils % (A) 0 %; Eosinophils # (A) 0.2 k/uL (0-0.7); Eosinophils % (A) 3 %; HCT 37.8 % (39.0-53.0); HGB 11.9 gm/dL (13.0-17.5); Lymphocytes # (A) 1.5 k/uL (1.0-4.8); Lymphocytes % (A) 21 %; MCH 31.2 pg (25.0-35.0); MCHC 31.5 g/dL (31.0-37.0); MCV 99.1 fL (80.0-100.0); Macrocytosis Slight; Mean Platelet Volume 7.5; Monocytes # (A) 0.4 k/uL (0-1.0); Monocytes % (A) 6 %; Neutrophils # (A) 5.1 k/uL (1.3-7.7); Neutrophils % (A) 68 %; Platelet Count 220 k/uL (150-450); RBC 3.82 m/uL (4.30-5.90); RDW 14.7 % (11.5-15.5); WBC 7.5 k/uL (3.8-10.6)
[2019-10-28 08:42] LABS: Albumin 3.3 g/dL (3.5-5.0); Potassium 3.6 mmol/L (3.5-5.1); Total Bilirubin 0.9 mg/dL (0.2-1.3); Total Protein 6.7 g/dL (6.3-8.2)
--- NOTE | 2019-10-28 08:51 | P.CRDCN ---
History of Present Illness Consult date: 10/28/19 Requesting physician: Kim Carson Reason for Consult (text): CHF, Pacemaker check Chief complaint: shortness of breath, edema History of present illness: This is a pleasantly confused 79-year-old gentleman who follows with Dr. Vizcaino in the office. The patient has a history of memory impairment and dementia he is a poor historian and no family is at the bedside at the time of my exam. HE has apparently been somewhat cmbative and uncooperative at times with the staff and family. HPI was obtained from the chart and nursing staff. The patient cannot recall while why he came into the hospital and answers most questions inappropriately. Apparently came in with a 3 to four-day history of progressively worsening shortness of breath as well as worsening edema. Patient does have a history of chronic persistent atrial fibrillation, sick sinus syndrome with prior pacemaker implantation, NPH, prior shunt placement, hypertension, CAD, prior CABG, and chronic congestive heart failure. We were asked to see the patient in consultation for CHF and pacemaker check. EKG on admission showed underlying atrial fibrillation with ventricular paced rhythm with no signs of pacemaker malfunction. Chest x-ray on admission showed bibasilar airspace disease, worse on the right than the left, cardiomegaly, could not exclude a small left effusion. Repeat chest x-ray done yesterday showed hypoventilatory changes, correlate for superimposed CHF with pulmonary vascular congestion, left basilar atelectasis in her consolidation, small effusions difficult to exclude. Labs on admission show normal white blood cell count, hemoglobin 12.5, INR 1.9 with repeat of 2.0 yesterday, BUN of 29 and creatinine of 1.26 with an NT proBNP of 2010 and troponin negative 1. Creatinine is elevated compared to most recent creatinine drawn here in July 2017. Vital signs have been stable except for oxygen saturation dipping into the low 90s on room air at times. Heart rate has been stable in the 50s to 60s. Upon review of office records, patient's most recent pacemaker interrogation there in April of this year was normal, patient is pacemaker dependent and is followed remotely with the last remote transmission in September of this year being normal. Most recent echocardiogram from the office done in December 2017 showed a low-normal LV systolic function with an ejection fraction between 50-55% with no significant valvular abnormalities. No labs have been drawn yet this morning as patient refused. He is currently on Lasix 40 mg IV every 8 hours as well as metolazone 2.5 mg by mouth on Wednesdays and Fridays. Other medications include Lipitor 40 mg by mouth daily at bedtime, metoprolol 50 mg by mouth twice a day, losartan 50 mg by mouth daily, and Coumadin. Upon examination, patient is resting comfortably in bed with no signs of acute distress. The patient is unable to answer most questions appropriately. Past Medical History Past Medical History: Atrial Fibrillation, Cancer, Dementia, Eye Disorder, GERD/Reflux, GI Bleed, Hyperlipidemia, Hypertension, Memory Impairment, Myocardial Infarction ([place]), Prostate Disorder, Renal Disease, Rheumatoid Arthritis (RA), Vascular Disorder Additional Past Medical History / Comment(s): alcoholism, Normal pressure hydocephalus with recent shunt, SSS - PACEMAKER, Skin CA- MELANOMA with removal from nose and other types of skin cancer removed, CKD, nephrolithiasis with sx, PVD, OCC EDEMA LEGS, glaucoma bilaterally, R eye cataract, BPH, past urinary retention after cerebral shunt and was discharged with a anne to [facility] dc'd on 03/02/17, RECTAL BLEED AFTER COLONOSCOPY R/T COUMADIN USE, unsteady gait, intermittent confusion, Last Myocardial Infarction Date:: 2001?-silent History of Any Multi-Drug Resistant Organisms: None Reported Past Surgical History: Coronary Bypass/CABG, Heart Catheterization, Orthopedic Surgery, Pacemaker Additional Past Surgical History / Comment(s): Recent cerebral shunt, PCI with stent, TRIPLE CABG 2001, LT Shoulder rotator cuff repair, Colonoscopy, 2004 Original pacer, 07/2016 GENERATOR CHANGE, cystoscopy with double J catheter, since removed, lithotripsies, L eye cataract removal, skin cancer removals. Past Anesthesia/Blood Transfusion Reactions: No Reported Reaction Type of Cardiac Device: Permanent Pacemaker Device Placement Date:: 03/21/2006 Past Psychological History: No Psychological Hx Reported Additional Psychological History / Comment(s): Pt recently resides at [facility] on [facility] for rehab post cerebral shunt placement. They state he is mostly in a wheelchair and can stand with one assist. He feeds himself and needs assistance with all other ADLs. Spouse states that prior to cerebral shunt, pt could ambulate short distances with a walker. He was no longer driving due to dementia. Spouse drives. She was his wholesale account manager and hopes for pt to come home after rehab. She is in the process of placing grab rails etc. Smoking Status: Never smoker Past Alcohol Use History: Daily Additional Past Alcohol Use History / Comment(s): GLASS OF WINE WITH DARLING JUICE DAILY PER SPOUSE Past Drug Use History: None Reported - Past Family History Brother(s) Family Medical History: Cancer Additional Family Medical History / Comment(s): SKIN Sister(s) Family Medical History: Cancer Additional Family Medical History / Comment(s): SKIN Mother Family Medical History: Cancer Medications and Allergies Home Medications Medication Instructions Recorded Confirmed Type Allopurinol [Zyloprim] 100 mg PO BID@0800,199907/25/16 10/26/19 History Losartan Potassium [Cozaar] 50 mg PO QAM 07/25/16 10/26/19 History Acetaminophen Tab [Tylenol] 650 mg PO BID PRN 03/07/17 10/26/19 History Metoprolol Tartrate [Lopressor] 50 mg PO BID@0800,1700 03/07/17 10/26/19 History Potassium Chloride [Klor-Con 20] 20 meq PO TID@0800,1400,199903/07/17 10/26/19 History Tamsulosin [Flomax] 0.4 mg PO BID@0800,199903/07/17 10/26/19 History Acetaminophen Tab [Tylenol Tab] 325 mg PO Q4H PRN 10/26/19 10/26/19 History Antibiotic Oint 1 applic TOPICAL BID 10/26/19 10/26/19 History Atorvastatin [Lipitor] 40 mg PO HS@199910/26/19 10/26/19 History Docusate Sodium [Dok] 100 mg PO DAILY@1200 10/26/19 10/26/19 History Ensure 1 can PO BID-W/MEALS 10/26/19 10/26/19 History Ferrous Sulfate [Feosol] 325 mg PO DAILY@0800 10/26/19 10/26/19 History Finasteride [Proscar] 5 mg PO DAILY 10/26/19 10/26/19 History Furosemide [Lasix] 80 mg PO BID@0800,1400 10/26/19 10/26/19 History HYDROcodone/APAP 5-325MG [Racine 1 tab PO Q12H PRN 10/26/19 10/26/19 History 5-325] Loperamide [Imodium] 2 mg PO QID PRN 10/26/19 10/26/19 History Metolazone [Zaroxolyn] 2.5 mg PO MOWEFR 10/26/19 10/26/19 History Metolazone [Zaroxolyn] 2.5 mg PO ONCE PRN 10/26/19 10/26/19 History Mirtazapine [Remeron] 15 mg PO HS@199910/26/19 10/26/19 History Mupirocin 2% Oint [Bactroban 2% 1 applic TOPICAL DAILY 10/26/19 10/26/19 History Oint] Pantoprazole Sodium [Protonix] 40 mg PO DAILY@0800 10/26/19 10/26/19 History SILVER sulfADIAZINE CREAM 1 applic TOPICAL HS@199910/26/19 10/26/19 History [Silvadene Cream] Thermazine 1% Cr 1 applic TOPICAL BID 10/26/19 10/26/19 History Warfarin [Coumadin] 1.5 mg PO SUTUTH 10/26/19 10/26/19 History Warfarin [Coumadin] 3 mg PO MOWEFRSA 10/26/19 10/26/19 History guaiFENesin-DM 100-10MG/5ML 20 ml PO Q4H PRN 10/26/19 10/26/19 History [Robitussin DM] Allergies Allergy/AdvReac Type Severity Reaction Status Date / Time No Known Allergies Allergy Verified 10/26/19 14:57 Physical Exam Vitals: Vital Signs Temp Pulse Pulse Resp BP Pulse Ox 10/28/19 07:11 60 10/28/19 07:00 98.7 F 64 20 130/77 95 10/28/19 06:59 60 95 10/27/19 21:00 98.3 F 55 L 18 112/61 95 10/27/19 19:25 62 10/27/19 19:17 62 10/27/19 15:39 17 10/27/19 15:13 64 10/27/19 15:00 68 10/27/19 13:51 93 L 10/27/19 12:50 98.5 F 61 17 151/60 90 L 10/27/19 11:10 60 10/27/19 11:01 60 Intake and Output 10/27/19 10/28/19 10/28/19 22:59 06:59 14:59 Intake Total 615 400 Output Total 1300 Balance 615 -900 Intake: Oral 615 400 Output: Urine 1300 Uretheral (Anne) 300 Other: Voiding Method Diaper Diaper Indwelling Catheter # Voids 3 # Bowel Movements 1 PHYSICAL EXAMINATION: HEENT: Head is atraumatic, normocephalic. Pupils equal, round. Neck is supple. There is no elevated jugular venous pressure. No carotid bruit HEART EXAMINATION: Heart sounds regular, S1 and S2 with a systolic murmur. CHEST EXAMINATION: Lungs are clear to auscultation anteriorly. No chest wall tenderness is noted on palpation or with deep breathing. Coughing up small amounts of clear sputum. ABDOMEN: Soft, obese, nontender. Bowel sounds are heard. EXTREMITIES: 1+ peripheral pulses with +1 bilateral lower extremity edema with evidence of improvement. NEUROLOGIC patient is awake, alert and oriented x1. . Results 10/28/19 08:04 10/28/19 08:04 Coagulation 10/27/19 Range/Units 07:49 PT 20.0 H (9.0-12.0) sec Current Medications Generic Name Dose Route Start Last Admin Trade Name Freq PRN Reason Stop Dose Admin Acetaminophen 325 mg 10/26/19 18:20 Tylenol Tab PO Q4H PRN Pain Hydrocodone Bitart/Acetaminophen 1 each 10/26/19 18:20 [place] 5-325 PO Q12H PRN Moderate Pain Albuterol/Ipratropium 3 ml 10/26/19 16:00 10/28/19 06:59 Duoneb 0.5 Mg-3 Mg/3 Ml Soln INHALATION 3 ml RT-QID MIROSLAVA Administration Albuterol/Ipratropium 3 ml 10/26/19 13:51 Duoneb 0.5 Mg-3 Mg/3 Ml Soln INHALATION RT-Q4H PRN shortness of breath Allopurinol 100 mg 10/26/19 20:00 10/27/19 20:37 Zyloprim PO 100 mg BID@0800,1999 MIROSLAVA Administration Atorvastatin Calcium 40 mg 10/26/19 20:00 10/27/19 20:37 Lipitor PO 40 mg HS@1999 MIROSLAVA Administration Azithromycin 500 mg 10/27/19 12:00 10/27/19 13:28 Zithromax PO 500 mg DAILY@1200 MIROSLAVA Administration Ferrous Sulfate 325 mg 10/27/19 08:00 10/27/19 08:04 Feosol PO 325 mg DAILY@0800 MIROSLAVA Administration Finasteride 5 mg 10/27/19 09:00 10/27/19 08:04 Proscar PO 5 mg DAILY MIROSLAVA Administration Furosemide 40 mg 10/28/19 00:00 10/27/19 23:27 Lasix IV 40 mg Q8HR MIROSLAVA Administration Guaifenesin/Dextromethorphan 10 ml 10/26/19 18:20 Robitussin Dm PO Q4H PRN Cough Haloperidol Lactate 2 mg 10/26/19 18:31 Haldol IM Q4HR PRN Agitation or Acute Psychosis Sodium Chloride 1,000 mls @ 100 mls/hr 10/26/19 14:00 10/28/19 05:51 Saline 0.9% IV 100 mls/hr .Q10H MIROSLAVA Administration Ceftriaxone Sodium 1 gm/ 50 mls @ 100 mls/hr 10/27/19 09:00 10/27/19 08:02 Sodium Chloride IVPB 10/30/19 09:01 100 mls/hr Q24HR MIROSLAVA Administration Loperamide HCl 2 mg 10/26/19 18:20 Imodium PO QID PRN Loose Stool Losartan Potassium 50 mg 10/27/19 09:00 10/27/19 08:04 Cozaar PO 50 mg QAM MIROSLAVA Administration Metolazone 2.5 mg 10/27/19 09:00 10/27/19 08:04 Zaroxolyn PO 2.5 mg MoWeFr@0900 MIROSLAVA Administration Metoprolol Tartrate 50 mg 10/27/19 08:00 10/27/19 16:50 Lopressor PO 50 mg BID@0800,1700 MIROSLAVA Administration Mirtazapine 15 mg 10/26/19 20:00 10/27/19 20:37 Remeron PO 15 mg HS@2000 MIROSLAVA Administration Miscellaneous Information 1 each 10/26/19 13:51 Pneumonia Protocol Utilized PO ONCE PRN Per Protocol Miscellaneous Information 1 each 10/26/19 18:32 Coumadin Per Pharmacy MISCELLANE DIRECTED PRN Per Protocol Pantoprazole Sodium 40 mg 10/27/19 08:00 12/23/19 08:04 Protonix PO 40 mg DAILY@0800 [facility] Administration Potassium Chloride 20 meq 10/26/19 20:00 10/27/19 20:37 K-Dur 20 PO 20 meq TID@0800,1399,1999 [facility] Administration Senna/Docusate Sodium 1 each 10/27/19 16:15 10/27/19 16:50 Senokot-S PO 1 each DAILY MIROSLAVA Administration Silver Sulfadiazine 1 applic 10/26/19 20:00 10/27/19 20:38 Silvadene Cream TOPICAL 1 applic HS@1999 [facility] Administration Tamsulosin HCl 0.4 mg 10/26/19 20:00 10/27/19 20:37 Flomax PO 0.4 mg BID@799,1999 [facility] Administration Warfarin Sodium 1.5 mg 10/26/19 19:00 10/26/19 20:17 Coumadin PO 1.5 mg SuTuTh@1800 [facility] Administration Warfarin Sodium 3 mg 10/27/19 18:00 10/27/19 16:51 Coumadin PO 3 mg MoWeFrSa@1800 [facility] Administration Intake and Output 10/27/19 10/28/19 10/28/19 22:59 06:59 14:59 Intake Total 615 400 Output Total 1300 Balance 615 -900 Intake: Oral 615 400 Output: Urine 1300 Uretheral (Anne) 300 Other: Voiding Method Diaper Diaper Indwelling Catheter # Voids 3 # Bowel Movements 1 10/26/19 12:45 10/26/19 12:45 EKG Interpretations (text) Ventricular paced rhythm with underlying atrial fibrillation Assessment and Plan Assessment: #1 mild acute on chronic congestive heart failure, awaiting recent echocardiogram but likely diastolic with most recent echocardiogram from December 2017 showing an ejection fraction between 50-55%, diuresing well #2 left basilar infiltrate, community acquired, on IV antibiotics #3 acute renal insufficiency #4 history of NPH with VIROLOGIST shunt #5 advanced dementia #6 chronic atrial fibrillation, anticoagulated on Coumadin #7 history of sick sinus syndrome, status post pacemaker implantation with no signs of malfunction #8 CAD with prior CABG Plan: From cardiology's perspective, we will review 2-D echocardiogram that was ordered by primary. Obtain labs this morning to assess renal function and electrolytes and make recommendations regarding diuresis following results. We will likely switch to by mouth Lasix. No indication for pacemaker interrogation at this time as there is no signs of malfunction. Patient has follow-up appointment and appointment for pacemaker interrogation to be done in the office on 11/10/2019. We will keep this appointment. The patient is followed remotely through [facility]. We will continue to follow the patient and provide further recommendations accordingly. FOUNDATION COORDINATOR note has been reviewed, I agree with a documented findings and plan of care. Patient was seen and examined.
--- NOTE | 2019-10-28 10:00 | ECHOF ---
Referral Reason:shortness of breath chf MEASUREMENTS -------- HEIGHT: 182.9 cm WEIGHT: 114.3 kg BP: RVIDd: 4.0 cm (< 3.3) IVSd: 1.7 cm (0.6 - 1.1) LVIDd: 3.9 cm (3.9 - 5.3) LVPWd: 1.6 cm (0.6 - 1.1) IVSs: 1.9 cm LVIDs: 2.0 cm LVPWs: 2.3 cm Ao Diam: 3.4 cm (2.0 - 3.7) AV Cusp: 2.2 cm (1.5 - 2.6) LA Diam: 4.1 cm (2.7 - 3.8) MV EXCURSION: 15.618 mm (> 18.000) MV EF SLOPE: 41 mm/s (70 - 150) EPSS: 1.0 cm MV E Jorge: 1.02 m/s MV DecT: 209 ms MV A Jorge: 0.46 m/s MV E/A Ratio: 2.20 RAP: 5.00 mmHg RVSP: 37.96 mmHg FINDINGS -------- Sinus rhythm. This was a technically difficult study with suboptimal views. The left ventricular size is normal. There is moderate concentric left ventricular hypertrophy. O verall left ventricular systolic function is low-normal with, an EF between 50 - 55 %. The right ventricle is moderately enlarged. The left atrium is mildly dilated. The right atrium was not well visualized. Lumason used There is moderate aortic valve sclerosis. The mitral valve leaflets are mildly thickened. Mild mitral regurgitation is present. The tricuspid valve appears structurally normal. [id number] tricuspid regurgitation present. There is mild pulmonary hypertension. The right ventricular systolic pressure, as measured by Dop pler, is 37.96mmHg. The pulmonic valve was not well visualized. The aortic root size is normal. IVC Not well visulized. There is no pericardial effusion. CONCLUSIONS -------- 1. Sinus rhythm. 2. This was a technically difficult study with suboptimal views. 3. The left ventricular size is normal. 4. There is moderate concentric left ventricular hypertrophy. 5. Overall left ventricular systolic function is low-normal with, an EF between 50 - 55 %. 6. The right ventricle is moderately enlarged. 7. The left atrium is mildly dilated. 8. Lumason used 9. There is moderate aortic valve sclerosis. 10. The mitral valve leaflets are mildly thickened. 11. Mild mitral regurgitation is present. 12. The tricuspid valve appears structurally normal. 13. Nzec-jk-rcygjqre tricuspid regurgitation present. 14. There is mild pulmonary hypertension. 15. The pulmonic valve was not well visualized. 16. The aortic root size is normal. 17. IVC Not well visulized. 18. There is no pericardial effusion. SCREENING TECHNICIAN: Chari Aquino RDCS
[2019-10-28] MEDS: AZITHROMYCIN 500 MG TAB PO SCH (14:10)
--- NOTE | 2019-10-28 14:23 | CDI ---
Documentation Clarification Form Date: 10/28/2019 01:49:27 PM From: Claudia Moses RN, CCDS Admit Date: 10/26/2019 01:51:00 PM Patient Name: Allan Stevens Visit Number: [id number] Discharge Date: ATTENTION: The Clinical Documentation Specialists (CDI) and [facility] Coding Staff appreciate your assistance in clarifying documentation. Please respond to the clarification below the line at the bottom and electronically sign. The CDI & [facility] Coding staff will review the response and follow-up if needed. Please note: Queries are made part of the Legal Health Record. If you have any questions, please contact the author of this message via ITS. Dr. Anita Galvin MD Documentation states: Left basilar infiltrate and/or atelectasis, with possible small pleural effusion, superimposed CHF with pulmonary vascular congestion diffuse interstitial changes, community acquired. History/Risk Factors: Hypertension, CKD stage III, Cerebral shunt, Atrial Fibrillation, Congestive heart failure Clinical indicators: 79-year-old male who present with shortness of breath with occasional cough for past 4 days. Chest x-ray: bibasilar air space disease and cardiomegaly. Cannot rule out small effusion. 10/26/19 @ 12:01 Vial signs 143/81 60 18 98.0 Emergency department clinical impression: Pneumonia Treatment: Rocephin IV, Zithromax PO Monitor CBC, Lytes Duonebs per orders Clinical significance of diagnostic testing and treatment CANNOT be assumed or coded without physician documentation of significance if any. Please further clarify left basilar infiltrate and are you treating? Pneumonia, community acquired Infectious process, please specify Unable to determine Other, please specify (Last Revision: August 2017) community acquired pneumonia, gram negative MTDD
--- NOTE | 2019-10-28 14:37 | CDI ---
Documentation Clarification Form Date: 10/28/2019 02:24:36 PM From: Claudia Moses RN, CCDS Admit Date: 10/26/2019 01:51:00 PM Patient Name: Allan Stevens Visit Number: [id number] Discharge Date: ATTENTION: The Clinical Documentation Specialists (CDI) and [facility] Coding Staff appreciate your assistance in clarifying documentation. Please respond to the clarification below the line at the bottom and electronically sign. The CDI & [facility] Coding staff will review the response and follow-up if needed. Please note: Queries are made part of the Legal Health Record. If you have any questions, please contact the author of this message via ITS. Dr. Anita Galvin MD The patient presented with shortness of breath with occasional cough for past 4 days. History/Risk Factors: Hypertension, CKD stage III, Cerebral shunt, Atrial fibrillation, Congestive heart failure Clinical Indicators:79-year-old male present for evaluation of his shortness or breath ruled in for congestive heart failure and per emergency department impression pneumonia. In the History and Physical you have documented elevated troponin as related to sepsis, troponins will be monitored. 10/26/19 WBC 8.5 Lactic acid: Not noted Blood cultures: No growth after 24 hrs (preliminary Urine: Ur Leukocyte esterase Large, WBC .182, Urine culture: Pending Vitals signs on admission: 143/81 60 19 98.0 98 % RA Treatment: Antibiotics: Rocephin IV, Zithromax PO Monitor CBC, Lytes, In your professional opinion, please clarify if these findings signify one of the following conditions, whether the condition: Sepsis ruled out Sepsis ruled in (specify clinical indicators to support diagnosis) Other, please specify Unable to determine SIRS Criteria (2 or more of the following may indicate SIRS): -Temperature < 96.8F (36C) or > 101.0F (38.3C) -Heart Rate > 90 bpm -Respiratory Rate > 20 breaths/min or PaCO2 < 32 mmHg -White Blood Cell Count > 12,000 or < 4,000 cells/mm3 or > 10% bands -Lactate >2.0 mmol/L (>4.0 is equivalent to septic shock) (Last Revision: February 2018) sepsis ruled out MTDD
[2019-10-28] MEDS ORDERED: FUROSEMIDE 10 MG/ML 4 ML VIAL IV SCH (16:02)
--- NOTE | 2019-10-28 16:10 | P.PN ---
Subjective Progress Note Date: 10/28/19 This is a pleasant 79-year-old gentleman patient of Dr. Roman. He currently resides at [facility] , underlying history normal pressure hydrocephalus requiring shunt placement by Dr. Ray02/15/2017 at [facility] causing significant memory impairment, hypertension, atrial fibrillation, CAD, sick sinus syndrome requiring pacemaker,he follows with Dr. Vizcaino cardiology. Patient has had shortness of breath for the past 4 days, occasional cough, chronic dependent edema, and wheezing for the past 5 days. He was given Mucinex, no antibiotics, no fever, there is rest or illnesses ongoing at the residential home, patient has diminished appetite for the past 2 days, no medication changes from any other physicians, however the mentioned that he needs a pacemaker check routinely. Patient denies any palpitations, no chest pain, no aspirative events, 10/28: Patient is more mentally clear today, was able to converse and participate appropriately, per nursing staff, patient was able to ambulate with a walker to the door but not to the hallway, no lightheadedness and dizziness, patient has a positive urinalysis with pyuria, patient is on Rocephin, which was currently pending sputum cultures final, few normal respiratory luis, blood cultures are currently negative patient remains to be afebrile, oxygen are 98% room air blood pressure 146/50, INR 2.0, hemoglobin 11.wbc count 7.5, creatinine 1.39 from a previous of 1.26, has indwelling Barriga for I's and O's monitoring, will discontinue Barriga catheter tonight. him a cardiology has seen him, patient does not need any interrogation at this time, IV Lasix now switched to oral, awaiting urine cultures prior to discharge, discharge planning in progress, subacute against home therapies at residential place Review of Systems All systems: negative Constitutional: Reports anorexia, Reports lethargy, Reports poor appetite, Reports weight loss, Denies as per HPI, Denies chills, Denies chronic headaches, Denies chronic pain, Denies daytime sleepiness, Denies fatigue, Denies fever, Denies malaise, Denies night sweats, Denies sweats, Denies weakness, Denies weight gain Ears, nose, mouth and throat: Reports as per HPI, Denies ant. neck pain, Denies bleeding gums, Denies dental pain, Denies dysphagia, Denies epistaxis, Denies headache, Denies hoarseness, Denies mouth pain, Denies nasal congestion, Denies nasal discharge, Denies neck fullness/pressure, Denies neck lump, Denies nose pain, Denies odynophagia, Denies post-nasal drip, Denies sinus pain, Denies sinus pressure, Denies swelling in mouth, Denies swelling in throat, Denies sore throat, Denies vertigo, Denies voice changes Cardiovascular: Reports as per HPI, Reports decreased exercise tolerance, Reports shortness of breath, Denies chest pain, Denies claudication, Denies dyspnea on exertion, Denies edema, Denies high blood pressure, Denies irregular heart beat, Denies leg edema, Denies lightheadedness, Denies orthopnea, Denies palpitations, Denies paroxysmal nocturnal dyspnea, Denies phlebitis, Denies rapid heart beat, Denies syncope Respiratory: Reports as per HPI, Denies congestion, Denies cough, Denies cough with sputum, Denies dyspnea, Denies excessive sputum, Denies hemoptysis, Denies home oxygen, Denies pain, Denies pain on inspiration, Denies pleurisy, Denies respiratory infections, Denies sleep apnea, Denies snoring, Denies wheezing Gastrointestinal: Reports as per HPI, Denies abdominal pain, Denies belching, Denies bloating, Denies BRBPR, Denies change in bowel habits, Denies coffee ground emesis, Denies constipation, Denies diarrhea, Denies dyspepsia, Denies early satiety, Denies excessive gas, Denies heartburn, Denies hematemesis, Denies hematochezia, Denies indigestion, Denies jaundice, Denies lactose intolerance, Denies loss of appetite, Denies melena, Denies nausea, Denies vomiting Genitourinary: Reports as per HPI Musculoskeletal: Reports as per HPI, Reports gait dysfunction, Reports limitation of motion (wheelchair bound) Integumentary: Reports as per HPI Neurological: Reports as per HPI, Denies aphasia, Denies ataxia, Denies balance difficulties, Denies burning pain, Denies change in mentation, Denies change in smell/taste, Denies change in speech, Denies confusion, Denies convulsions, Denies double vision, Denies gait dysfunction, Denies head injury, Denies headaches, Denies hearing difficulties, Denies lack of coordination, Denies loss of vision, Denies memory loss, Denies migraines, Denies motor disturbance, Denies numbness, Denies paralysis, Denies paresthesias, Denies seizures, Denies sensory deficit, Denies spasticity, Denies syncope, Denies tic, Denies tingling, Denies transient paralysis, Denies tremors, Denies vertigo, Denies weakness, Denies visual changes Psychiatric: Reports as per HPI Endocrine: Reports as per HPI, Denies cold intolerance, Denies deepening of the voice, Denies excessive sweating, Denies excessive thirst, Denies fatigue, Denies flushing, Denies heat intolerance, Denies high blood sugars, Denies increase in ring/shoe/hat size, Denies low blood sugars, Denies nocturia, Denies palpitations, Denies polydipsia, Denies polyphagia, Denies polyuria, Denies proptosis, Denies recent glucocorticoid use, Denies thyroid mass, Denies weight change Hematologic/Lymphatic: Reports as per HPI Allergic/Immunologic: Reports as per HPI Objective - Vital Signs Vital signs: Vital Signs Temp 97.9 F 10/28/19 15:00 Pulse 61 10/28/19 15:35 Resp 16 10/28/19 15:00 BP 146/55 10/28/19 15:00 Pulse Ox 98 10/28/19 15:24 Intake & Output 10/27/19 10/28/19 10/28/19 18:59 06:59 18:59 Intake Total 240 775 540 Output Total 1300 Balance 240 -525 540 Intake: Oral 240 775 540 Output: Urine 1300 Uretheral (Barriga) 300 Other: Voiding Method Diaper Diaper Indwelling Catheter Indwelling Catheter # Voids 3 3 1,100 # Bowel Movements 1 - Constitutional General appearance: Present: cooperative, no acute distress - EENT Eyes: Present: anicteric sclerae, EOMI, PERRLA, poor dentition ENT: Present: NA/AT, normal oropharynx - Neck Neck: Present: normal ROM - Respiratory Respiratory: bilateral: CTA, negative: diminished, dullness, rales - Cardiovascular Rhythm: regular Heart sounds: normal: S1, S2 - Gastrointestinal General gastrointestinal: Present: normal bowel sounds, soft - Integumentary Integumentary: Present: decreased turgor, normal - Neurologic Neurologic: Present: CNII-XII intact - Musculoskeletal Musculoskeletal: Present: gait normal (Walker's assistance), generalized weakness, strength equal bilaterally - Psychiatric Psychiatric: Present: A&O x's 3 (2), appropriate affect - Labs CBC & Chem 7: 10/28/19 08:04 10/28/19 08:04 Labs: Abnormal Lab Results - Last 24 Hours (Table) 10/28/19 10/28/19 10/28/19 Range/Units 00:17 08:04 08:04 RBC 3.82 L (4.30-5.90) m/uL Hgb 11.9 L (13.0-17.5) gm/dL Hct 37.8 L (39.0-53.0) % PT 19.9 H (9.0-12.0) sec INR 2.0 H (<1.2) BUN (9-20) mg/dL Creatinine (0.66-1.25) mg/dL Glucose (74-99) mg/dL Albumin (3.5-5.0) g/dL Urine Blood Small H (Negative) Ur Leukocyte Esterase Large H (Negative) Urine RBC 11 H (0-5) /hpf Urine WBC >182 H (0-5) /hpf Urine WBC Clumps Many H (None) /hpf Urine Bacteria Occasional H (None) /hpf Hyaline Casts 9 H (0-2) /lpf 10/28/19 Range/Units 08:04 RBC (4.30-5.90) m/uL Hgb (13.0-17.5) gm/dL Hct (39.0-53.0) % PT (9.0-12.0) sec INR (<1.2) BUN 28 H (9-20) mg/dL Creatinine 1.39 H (0.66-1.25) mg/dL Glucose 117 H (74-99) mg/dL Albumin 3.3 L (3.5-5.0) g/dL Urine Blood (Negative) Ur Leukocyte Esterase (Negative) Urine RBC (0-5) /hpf Urine WBC (0-5) /hpf Urine WBC Clumps (None) /hpf Urine Bacteria (None) /hpf Hyaline Casts (0-2) /lpf Microbiology - Last 24 Hours (Table) 10/26/19 19:05 Gram Stain - Final Sputum Sputum Culture - Final 10/28/19 00:17 Urine Culture - Preliminary Urine,Catheterized 10/26/19 12:41 Blood Culture - Preliminary Blood No Growth after 24 hours Assessment and Plan Plan: 1. left basilar infiltrate and/or atelectasis, with possible small pleural ef fusion, superimposed CHF with pulmonary vascular congestion diffuse interstitial changes , community acquired, start on Rocephin IVand ZithromaxIV few respiratory normal luis isolated on culture 2. Acute urinary tract infection, with metabolic encephalopathy, patient is on Rocephin, cultures are currently pending 2. Acute renal insufficiency with dehydration secondary secondary to diminished appetite, IV hydration gentle, History of hydronephrosis in the past, we'll going to obtain renal ultrasound, was seen by urology in 2017 for obstructive uropathy 3. diastolic CHF exacerbation with bilateral dependent edema, however unknown whether this is systolic in nature, no echocardiogram available for review since 2017,we will request another echocardiogram, consult cardiology, IV Lasix 4. 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 Ray 02/15/2017 [facility] normal pressure hydrocephalus 5. Hypertension metoprolol, Zaroxolyn, 6. Pacemaker stable , need pacemaker check consult cardiology, on long-term anticoagulation 7. significantDementia possibly related to the NPH, not on a cholinesterase inhibition 8 History of melanoma 9 Acute renal sufficiency with CK D stage III, fluids IV, avoid nephrotoxins, 11 Elevated troponin as related to sepsis, troponins will be monitored 12 Debility with impaired balance and memory loss, patient seen by physical therapy and occupational therapy, 13 CAD with prior CABG in 2001, Edema, . readjusted Lasix, continue metoprolol, losartan, 14 history of kidney stone with prior lithotripsies 15 BPH currently on Flomax Proscar 16 Coagulopathy on Coumadin, indication for Coumadin currently is not known this would be verified Coumadin is on hold for possible procedure by urology 17 Rheumatid arthritis with debility wheelchair bound prior to admission, 1-2 person assist on community ablation consult PT OT 18 long-term anticoagulation with Coumadin discharge planning, subacute rehab against returning to [facility] with home therapy baseline with ambulation would be a walker, 1 person assist
[2019-10-28] MEDS: FUROSEMIDE 20 MG TAB PO SCH (16:40)
[2019-10-28] MEDS: WARFARIN 1.5 MG TAB PO SCH (16:42)
[2019-10-28] MEDS: MIRTAZAPINE 15 MG TAB PO SCH (21:43)
[2019-10-28] MEDS: ATORVASTATIN 40 MG TAB PO SCH (21:44)
[2019-10-29] MEDS: SODIUM CHLORIDE 0.9% 1,000 ML IV SCH ×3 (02:15→22:23)
[2019-10-29 07:25] LABS: Basophils % (A) 0 %; Eosinophils # (A) 0.3 k/uL (0-0.7); Eosinophils % (A) 3 %; HCT 37.9 % (39.0-53.0); HGB 12.4 gm/dL (13.0-17.5); Lymphocytes # (A) 1.2 k/uL (1.0-4.8); Lymphocytes % (A) 15 %; MCH 32.1 pg (25.0-35.0); MCHC 32.8 g/dL (31.0-37.0); MCV 97.8 fL (80.0-100.0); Mean Platelet Volume 7.4; Monocytes # (A) 0.5 k/uL (0-1.0); Monocytes % (A) 6 %; Neutrophils # (A) 6.3 k/uL (1.3-7.7); Neutrophils % (A) 75 %; Platelet Count 260 k/uL (150-450); RBC 3.88 m/uL (4.30-5.90); RDW 14.6 % (11.5-15.5); WBC 8.5 k/uL (3.8-10.6)
[2019-10-29] MEDS: IPRATROPIUM-ALBUTEROL 3 ML NEB INHALATION SCH ×4 (07:41→19:40)
[2019-10-29 07:45] LABS: INR 2.2 (<1.2)
[2019-10-29 07:52] LABS: Albumin 3.6 g/dL (3.5-5.0); Calcium 9.2 mg/dL (8.4-10.2); Potassium 3.9 mmol/L (3.5-5.1); Total Bilirubin 0.9 mg/dL (0.2-1.3)
[2019-10-29] MEDS: ALLOPURINOL 100 MG TAB PO SCH ×2 (08:31→19:23)
[2019-10-29] MEDS: FINASTERIDE 5 MG TAB PO SCH (08:31)
[2019-10-29] MEDS: METOPROLOL TARTRATE 50 MG TAB PO SCH ×2 (08:31→18:31)
[2019-10-29] MEDS: FERROUS SULFATE 325 MG TAB PO SCH (08:31)
[2019-10-29] MEDS: FUROSEMIDE 20 MG TAB PO SCH ×2 (08:31→18:31)
[2019-10-29] MEDS: POTASSIUM CHLORIDE ER 20 MEQ TAB.ER PO SCH ×3 (08:31→19:22)
[2019-10-29] MEDS: PANTOPRAZOLE 40 MG TABLET PO SCH (08:31)
[2019-10-29] MEDS: SENNOSIDES-DOCUSATE SODIUM 1 EACH TAB PO SCH (08:32)
[2019-10-29] MEDS: TAMSULOSIN 0.4 MG CAP.ER.24H PO SCH ×2 (08:32→19:22)
[2019-10-29] MEDS: LOSARTAN 50 MG TAB PO SCH (08:32)
[2019-10-29] MEDS: METOLAZONE 2.5 MG TAB PO SCH (12:53)
[2019-10-29] MEDS: AZITHROMYCIN 500 MG TAB PO SCH (12:53)
--- NOTE | 2019-10-29 13:36 | PN ---
PROGRESS NOTE Mr. Stevens is an 79-year-old male who is followed by Dr. Vizcaino, has a history of dementia who was more confused. He had a prior history of coronary artery bypass grafting, history of chronic congestive heart failure, permanent pacemaker implantation, who presented with worsening dyspnea and change in mental status. He is awake, confused, denying any chest pain. His breathing has been stable. Denies any dizziness or palpitation. He had an echocardiogram performed during this admission that revealed an ejection fraction of 50% to 55% with mild mitral and mild to moderate tricuspid regurgitation. He continues to be at this time on Lipitor 40 mg daily, azithromycin, ceftriaxone, iron, Lasix 80 mg p.o. twice a day, losartan 50 mg daily, metolazone 3 times a week, metoprolol tartrate 50 mg twice a day in addition to Coumadin. PHYSICAL EXAMINATION: Blood pressure 130/60 with a heart rate in the 60s. Lungs with a few crackles at the bases. No wheezes. Heart S1, S2. No S3, no rub with systolic murmur. ABDOMEN: Soft, nontender. EXTREMITIES: With trace edema. IMPRESSION: 1. Progressive dyspnea with an element of pneumonia and mild congestive heart failure with preserved systolic function. 2. History of chronic persistent atrial fibrillation. 3. Permanent pacemaker implantation. 4. Status post coronary artery bypass grafting. 5. Chronic kidney disease. RECOMMENDATIONS: From the cardiac standpoint, he is stable. We will continue present therapy. No further cardiac workup will be needed at this time. We will see him on as-needed basis. Please feel free to call us for any questions. MMODL / IJN: [id number] /
--- NOTE | 2019-10-29 14:54 | P.PN ---
Subjective Progress Note Date: 10/29/19 This is a pleasant 79-year-old gentleman patient of Dr. Roman. He currently resides at [facility] , underlying history normal pressure hydrocephalus requiring shunt placement by Dr. Ray02/15/2017 at [facility] causing significant memory impairment, hypertension, atrial fibrillation, CAD, sick sinus syndrome requiring pacemaker,he follows with Dr. Vizcaino cardiology. Patient has had shortness of breath for the past 4 days, occasional cough, chronic dependent edema, and wheezing for the past 5 days. He was given Mucinex, no antibiotics, no fever, there is rest or illnesses ongoing at the residential home, patient has diminished appetite for the past 2 days, no medication changes from any other physicians, however the mentioned that he needs a pacemaker check routinely. Patient denies any palpitations, no chest pain, no aspirative events, 10/28: Patient is more mentally clear today, was able to converse and participate appropriately, per nursing staff, patient was able to ambulate with a walker to the door but not to the hallway, no lightheadedness and dizziness, patient has a positive urinalysis with pyuria, patient is on Rocephin, which was currently pending sputum cultures final, few normal respiratory luis, blood cultures are currently negative patient remains to be afebrile, oxygen are 98% room air blood pressure 146/50, INR 2.0, hemoglobin 11.wbc count 7.5, creatinine 1.39 from a previous of 1.26, has indwelling Barriga for I's and O's monitoring, will discontinue Barriga catheter tonight. him a cardiology has seen him, patient does not need any interrogation at this time, IV Lasix now switched to oral, awaiting urine cultures prior to discharge, discharge planning in progress, subacute against home therapies at residential place 10/29: Patient continues to be alert, he has baseline difficulties of hearing, however appropriate answers are given, no mentation changes at night per nursing staff, no fever no chills, Pseudomonas growing on urine, sensitivities are currently pending, on IV Rocephin, await final culture report, anticipate discha rge in a.m. 2 therapies either to [facility] where he currently resides at the 28/05 supervision, again subacute rehab Review of Systems All systems: negative Constitutional: Reports anorexia, Reports lethargy, Reports poor appetite, Reports weight loss, Denies as per HPI, Denies chills, Denies chronic headaches, Denies chronic pain, Denies daytime sleepiness, Denies fatigue, Denies fever, Denies malaise, Denies night sweats, Denies sweats, Denies weakness, Denies weight gain Ears, nose, mouth and throat: Reports as per HPI, Denies ant. neck pain, Denies bleeding gums, Denies dental pain, Denies dysphagia, Denies epistaxis, Denies headache, Denies hoarseness, Denies mouth pain, Denies nasal congestion, Denies nasal discharge, Denies neck fullness/pressure, Denies neck lump, Denies nose pain, Denies odynophagia, Denies post-nasal drip, Denies sinus pain, Denies sinus pressure, Denies swelling in mouth, Denies swelling in throat, Denies sore throat, Denies vertigo, Denies voice changes Cardiovascular: Reports as per HPI, Reports decreased exercise tolerance, Repor ts shortness of breath, Denies chest pain, Denies claudication, Denies dyspnea on exertion, Denies edema, Denies high blood pressure, Denies irregular heart beat, Denies leg edema, Denies lightheadedness, Denies orthopnea, Denies palpitations, Denies paroxysmal nocturnal dyspnea, Denies phlebitis, Denies rapid heart beat, Denies syncope Respiratory: Reports as per HPI, Denies congestion, Denies cough, Denies cough with sputum, Denies dyspnea, Denies excessive sputum, Denies hemoptysis, Denies home oxygen, Denies pain, Denies pain on inspiration, Denies pleurisy, Denies respiratory infections, Denies sleep apnea, Denies snoring, Denies wheezing Gastrointestinal: Reports as per HPI, Denies abdominal pain, Denies belching, Denies bloating, Denies BRBPR, Denies change in bowel habits, Denies coffee ground emesis, Denies constipation, Denies diarrhea, Denies dyspepsia, Denies early satiety, Denies excessive gas, Denies heartburn, Denies hematemesis, Denies hematochezia, Denies indigestion, Denies jaundice, Denies lactose intolerance, Denies loss of appetite, Denies melena, Denies nausea, Denies vomiting Genitourinary: Reports as per HPI Musculoskeletal: Reports as per HPI, Reports gait dysfunction, Reports limitation of motion (wheelchair bound) Integumentary: Reports as per HPI Neurological: Reports as per HPI, Denies aphasia, Denies ataxia, Denies balance difficulties, Denies burning pain, Denies change in mentation, Denies change in smell/taste, Denies change in speech, Denies confusion, Denies convulsions, Denies double vision, Denies gait dysfunction, Denies head injury, Denies headaches, Denies hearing difficulties, Denies lack of coordination, Denies loss of vision, Denies memory loss, Denies migraines, Denies motor disturbance, Denies numbness, Denies paralysis, Denies paresthesias, Denies seizures, Denies sensory deficit, Denies spasticity, Denies syncope, Denies tic, Denies tingling, Denies transient paralysis, Denies tremors, Denies vertigo, Denies weakness, Denies visual changes Psychiatric: Reports as per HPI Endocrine: Reports as per HPI, Denies cold intolerance, Denies deepening of the voice, Denies excessive sweating, Denies excessive thirst, Denies fatigue, Denies flushing, Denies heat intolerance, Denies high blood sugars, Denies increase in ring/shoe/hat size, Denies low blood sugars, Denies nocturia, Denies palpitations, Denies polydipsia, Denies polyphagia, Denies polyuria, Denies proptosis, Denies recent glucocorticoid use, Denies thyroid mass, Denies weight change Hematologic/Lymphatic: Reports as per HPI Allergic/Immunologic: Reports as per HPI Objective - Vital Signs Vital signs: Vital Signs Temp 97.0 F L 10/29/19 12:18 Pulse 62 10/29/19 12:18 Resp 18 10/29/19 12:18 BP 146/85 10/29/19 12:18 Pulse Ox 94 L 10/29/19 12:18 Intake & Output 10/28/19 10/29/19 10/29/19 18:59 06:59 18:59 Intake Total 540 Output Total 325 700 Balance 540 -325 -700 Weight 101.5 kg Intake: Oral 540 Output: Urine 325 700 Other: Voiding Method Indwelling Catheter Indwelling Catheter Indwelling Catheter # Voids 1,100 600 1 - Constitutional General appearance: Present: cooperative, no acute distress - EENT Eyes: Present: anicteric sclerae - Respiratory Respiratory: bilateral: CTA, negative: diminished, dullness, rales, rhonchi - Cardiovascular Rhythm: regular - Gastrointestinal General gastrointestinal: Present: normal bowel sounds, soft - Integumentary Integumentary: Present: normal - Musculoskeletal Musculoskeletal: Present: generalized weakness, strength equal bilaterally - Psychiatric Psychiatric: Present: appropriate affect - Allied health notes Allied health notes reviewed: PT - Labs CBC & Chem 7: 10/29/19 06:56 10/29/19 06:56 Labs: Abnormal Lab Results - Last 24 Hours (Table) 10/29/19 10/29/19 10/29/19 Range/Units 06:56 06:56 06:56 RBC 3.88 L (4.30-5.90) m/uL Hgb 12.4 L (13.0-17.5) gm/dL Hct 37.9 L (39.0-53.0) % PT 21.0 H (9.0-12.0) sec INR 2.2 H (<1.2) BUN 29 H (9-20) mg/dL Creatinine 1.42 H (0.66-1.25) mg/dL Glucose 109 H (74-99) mg/dL Microbiology - Last 24 Hours (Table) 10/28/19 00:17 Urine Culture - Preliminary Urine,Catheterized Pseudomonas spec 10/26/19 12:41 Blood Culture - Preliminary Blood No Growth after 48 hours 10/26/19 19:05 Gram Stain - Final Sputum Sputum Culture - Final Assessment and Plan Plan: 1. left basilar infiltrate and/or atelectasis, with possible small pleural effusion, superimposed CHF with pulmonary vascular congestion diffuse interstitial changes , community acquired, start on Rocephin IVand ZithromaxIV few respiratory normal luis isolated on culture 2. Acute urinary tract infection Pseudomonas, with metabolic encephalopathy, patient is on Rocephin, cultures are currently pending 2. Acute renal insufficiency with dehydration secondary secondary to diminished appetite, IV hydration gentle, History of hydronephrosis in the past, we'll going to obtain renal ultrasound, was seen by urology in 2017 for obstructive uropathy 3. diastolic CHF exacerbation with bilateral dependent edema, however unknown whether this is systolic in nature, no echocardiogram available for review since 2017,we will request another echocardiogram, consult cardiology, IV Lasix 4. 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 Ray 02/15/2017 [facility] normal pressure hydrocephalus 5. Hypertension metoprolol, Zaroxolyn, 6. Pacemaker stable , need pacemaker check consult cardiology, on long-term anticoagulation 7. significantDementia possibly related to the NPH, not on a cholinesterase inhibition 8 History of melanoma 9 Acute renal sufficiency with CK D stage III, fluids IV, avoid nephrotoxins, 11 Elevated troponin as related to sepsis, troponins will be monitored 12 Debility with impaired balance and memory loss, patient seen by physical therapy and occupational therapy, 13 CAD with prior CABG in 2001, Edema, . readjusted Lasix, continue metoprolol, losartan, 14 history of kidney stone with prior lithotripsies 15 BPH currently on Flomax Proscar 16 Coagulopathy on Coumadin, indication for Coumadin currently is not known this would be verified Coumadin is on hold for possible procedure by urology 17 Rheumatid arthritis with debility wheelchair bound prior to admission, 1-2 person assist on community ablation consult PT OT 18 long-term anticoagulation with Coumadin discharge planning, subacute rehab against returning to [facility] with home therapy baseline with ambulation would be a walker, 1 person assist
[2019-10-29] MEDS: ATORVASTATIN 40 MG TAB PO SCH (19:22)
[2019-10-29] MEDS: WARFARIN 3 MG TAB PO SCH (19:22)
[2019-10-29] MEDS: MIRTAZAPINE 15 MG TAB PO SCH (19:23)
[2019-10-29] MEDS: HALOPERIDOL LACTATE 5 MG/ML 1 ML VIAL IM PRN (19:30)
[2019-10-30] MEDS: SENNOSIDES-DOCUSATE SODIUM 1 EACH TAB PO SCH (08:16)
[2019-10-30] MEDS: PANTOPRAZOLE 40 MG TABLET PO SCH (08:16)
[2019-10-30] MEDS: METOPROLOL TARTRATE 50 MG TAB PO SCH ×2 (08:16→17:10)
[2019-10-30] MEDS: FERROUS SULFATE 325 MG TAB PO SCH (08:16)
[2019-10-30] MEDS: FINASTERIDE 5 MG TAB PO SCH (08:16)
[2019-10-30] MEDS: POTASSIUM CHLORIDE ER 20 MEQ TAB.ER PO SCH ×3 (08:16→21:08)
[2019-10-30] MEDS: LOSARTAN 50 MG TAB PO SCH (08:16)
[2019-10-30] MEDS: FUROSEMIDE 20 MG TAB PO SCH ×2 (08:16→17:09)
[2019-10-30] MEDS: TAMSULOSIN 0.4 MG CAP.ER.24H PO SCH ×2 (08:16→21:08)
[2019-10-30] MEDS: ALLOPURINOL 100 MG TAB PO SCH ×2 (08:16→21:08)
[2019-10-30] MEDS: SODIUM CHLORIDE 0.9% 1,000 ML IV SCH ×2 (08:22→21:07)
[2019-10-30 08:59] LABS: Basophils % (A) 0 %; Eosinophils # (A) 0.3 k/uL (0-0.7); Eosinophils % (A) 4 %; HCT 40.3 % (39.0-53.0); HGB 13.3 gm/dL (13.0-17.5); Lymphocytes # (A) 1.2 k/uL (1.0-4.8); Lymphocytes % (A) 15 %; MCH 32.4 pg (25.0-35.0); MCHC 32.9 g/dL (31.0-37.0); MCV 98.6 fL (80.0-100.0); Mean Platelet Volume 7.3; Monocytes # (A) 0.4 k/uL (0-1.0); Monocytes % (A) 4 %; Neutrophils # (A) 6.1 k/uL (1.3-7.7); Neutrophils % (A) 74 %; Platelet Count 272 k/uL (150-450); RBC 4.09 m/uL (4.30-5.90); RDW 14.6 % (11.5-15.5); WBC 8.1 k/uL (3.8-10.6)
[2019-10-30 09:03] LABS: INR 2.1 (<1.2); Prothrombin Time 20.6 sec (9.0-12.0)
[2019-10-30] MEDS: IPRATROPIUM-ALBUTEROL 3 ML NEB INHALATION SCH ×4 (09:18→19:14)
[2019-10-30] MEDS ORDERED: CEFEPIME 2 GM in SODIUM CHLORIDE 0.9% 100 ML IVPB SCH (13:00)
--- NOTE | 2019-10-30 15:36 | P.PN ---
Subjective This is a pleasant 79-year-old gentleman patient of Dr. Roman. He currently resides at [facility] , underlying history normal pressure hydrocephalus requiring shunt placement by Dr. Ray02/15/2017 at [facility] causing significant memory impairment, hypertension, atrial fibrillation, CAD, sick sinus syndrome requiring pacemaker,he follows with Dr. Vizcaino cardiology. Patient has had shortness of breath for the past 4 days, occasional cough, chronic dependent edema, and wheezing for the past 5 days. He was given Mucinex, no antibiotics, no fever, there is rest or illnesses ongoing at the residential home, patient has diminished appetite for the past 2 days, no medication changes from any other physicians, however the mentioned that he needs a pacemaker check routinely. Patient denies any palpitations, no chest pain, no aspirative events, 10/28: Patient is more mentally clear today, was able to converse and p articipate appropriately, per nursing staff, patient was able to ambulate with a walker to the door but not to the hallway, no lightheadedness and dizziness, patient has a positive urinalysis with pyuria, patient is on Rocephin, which was currently pending sputum cultures final, few normal respiratory luis, blood cultures are currently negative patient remains to be afebrile, oxygen are 98% room air blood pressure 146/50, INR 2.0, hemoglobin 11.wbc count 7.5, creatinine 1.39 from a previous of 1.26, has indwelling Barriga for I's and O's monitoring, will discontinue Barriga catheter tonight. him a cardiology has seen him, patient does not need any interrogation at this time, IV Lasix now switched to oral, awaiting urine cultures prior to discharge, discharge planning in progress, subacute against home therapies at residential place 10/29: Patient continues to be alert, he has baseline difficulties of hearing, however appropriate answers are given, no mentation changes at night per nursing staff, no fever no chills, Pseudomonas growing on urine, sensitivities are currently pending, on IV Rocephin, await final culture report, anticipate discharge in a.m. 2 therapies either to [facility] where he currently resides at the 28/05 supervision, again subacute rehab Review of Systems All systems: negative Constitutional: Reports anorexia, Reports lethargy, Reports poor appetite, Reports weight loss, Denies as per HPI, Denies chills, Denies chronic headaches, Denies chronic pain, Denies daytime sleepiness, Denies fatigue, Denies fever, Denies malaise, Denies night sweats, Denies sweats, Denies weakness, Denies w eight gain Ears, nose, mouth and throat: Reports as per HPI, Denies ant. neck pain, Denies bleeding gums, Denies dental pain, Denies dysphagia, Denies epistaxis, Denies headache, Denies hoarseness, Denies mouth pain, Denies nasal congestion, Denies nasal discharge, Denies neck fullness/pressure, Denies neck lump, Denies nose pain, Denies odynophagia, Denies post-nasal drip, Denies sinus pain, Denies sinus pressure, Denies swelling in mouth, Denies swelling in throat, Denies sore throat, Denies vertigo, Denies voice changes Cardiovascular: Reports as per HPI, Reports decreased exercise tolerance, Reports shortness of breath, Denies chest pain, Denies claudication, Denies dyspnea on exertion, Denies edema, Denies high blood pressure, Denies irregular heart beat, Denies leg edema, Denies lightheadedness, Denies orthopnea, Denies palpitations, Denies paroxysmal nocturnal dyspnea, Denies phlebitis, Denies rapid heart beat, Denies syncope Respiratory: Reports as per HPI, Denies congestion, Denies cough, Denies cough with sputum, Denies dyspnea, Denies excessive sputum, Denies hemoptysis, Denies home oxygen, Denies pain, Denies pain on inspiration, Denies pleurisy, Denies respiratory infections, Denies sleep apnea, Denies snoring, Denies wheezing Gastrointestinal: Reports as per HPI, Denies abdominal pain, Denies belching, Denies bloating, Denies BRBPR, Denies change in bowel habits, Denies coffee ground emesis, Denies constipation, Denies diarrhea, Denies dyspepsia, Denies early satiety, Denies excessive gas, Denies heartburn, Denies hematemesis, Denies hematochezia, Denies indigestion, Denies jaundice, Denies lactose intolerance, Denies loss of appetite, Denies melena, Denies nausea, Denies vomiting Genitourinary: Reports as per HPI Musculoskeletal: Reports as per HPI, Reports gait dysfunction, Reports limitation of motion (wheelchair bound) Integumentary: Reports as per HPI Neurological: Reports as per HPI, Denies aphasia, Denies ataxia, Denies balance difficulties, Denies burning pain, Denies change in mentation, Denies change in smell/taste, Denies change in speech, Denies confusion, Denies convulsions, Denies double vision, Denies gait dysfunction, Denies head injury, Denies headaches, Denies hearing difficulties, Denies lack of coordination, Denies loss of vision, Denies memory loss, Denies migraines, Denies motor disturbance, Denies numbness, Denies paralysis, Denies paresthesias, Denies seizures, Denies sensory deficit, Denies spasticity, Denies syncope, Denies tic, Denies tingling, Denies transient paralysis, Denies tremors, Denies vertigo, Denies weakness, Denies visual changes Psychiatric: Reports as per HPI Endocrine: Reports as per HPI, Denies cold intolerance, Denies deepening of the voice, Denies excessive sweating, Denies excessive thirst, Denies fatigue, Denies flushing, Denies heat intolerance, Denies high blood sugars, Denies increase in ring/shoe/hat size, Denies low blood sugars, Denies nocturia, Denies palpitations, Denies polydipsia, Denies polyphagia, Denies polyuria, Denies pr optosis, Denies recent glucocorticoid use, Denies thyroid mass, Denies weight change Hematologic/Lymphatic: Reports as per HPI Allergic/Immunologic: Reports as per HPI Objective - Vital Signs Vital signs: Vital Signs Temp 98.1 F 10/30/19 05:30 Pulse 65 10/30/19 05:30 Resp 24 10/30/19 05:30 BP 146/70 10/30/19 05:30 Pulse Ox 94 L 10/30/19 05:30 Intake & Output 10/29/19 10/30/19 10/30/19 18:59 06:59 18:59 Intake Total 0 Output Total 1250 400 Balance -1250 -400 Weight 91.5 kg Intake: Oral 0 Output: Urine 1250 400 Other: Voiding Method Indwelling Catheter Indwelling Catheter # Voids 1 # Bowel Movements 0 - Constitutional General appearance: Present: cooperative, no acute distress - EENT Eyes: Present: anicteric sclerae, PERRLA, normal appearance ENT: Present: NA/AT, normal oropharynx - Neck Neck: Present: normal ROM Thyroid: bilateral: normal size - Respiratory Respiratory: bilateral: CTA, negative: diminished, dullness, rales, prolonged expiration - Gastrointestinal General gastrointestinal: Present: normal bowel sounds, soft - Integumentary Integumentary: Present: normal, normal turgor - Neurologic Neurologic: Present: CNII-XII intact - Musculoskeletal Musculoskeletal: Present: generalized weakness, strength equal bilaterally - Psychiatric Psychiatric: Present: appropriate affect - Labs CBC & Chem 7: 10/30/19 08:41 10/29/19 06:56 Labs: Abnormal Lab Results - Last 24 Hours (Table) 10/30/19 10/30/19 Range/Units 08:41 08:41 RBC 4.09 L (4.30-5.90) m/uL PT 20.6 H (9.0-12.0) sec INR 2.1 H (<1.2) Microbiology - Last 24 Hours (Table) 10/28/19 00:17 Urine Culture - Final Urine,Catheterized Pseudomonas aeruginosa 10/26/19 12:41 Blood Culture - Preliminary Blood No Growth after 72 hours Assessment and Plan Plan: 1. left basilar infiltrate and/or atelectasis, with possible small pleural effusion, superimposed CHF with pulmonary vascular congestion diffuse interstitial changes , community acquired, discontinue Rocephin IVand ZithromaxIV few respiratory normal luis isolated on culture Seprafilm started for Pseudomonas UTI 2. Acute urinary tract infection Pseudomonas, with metabolic encephalopathy, patient is on Rocephin, drug resistance, Rocephin discontinued, consult with Dr. Yoder,cephepime g every 12 hours started. Discontinue Barriga catheter today 10/30 2. Acute renal insufficiency with dehydration secondary secondary to diminished appetite, IV hydration gentle, History of hydronephrosis in the past, we'll going to obtain renal ultrasound, was seen by urology in 2017 for obstructive uropathy 3. diastolic CHF exacerbation with bilateral dependent edema, however unknown whether this is systolic in nature, no echocardiogram available for review since 2017,we will request another echocardiogram, consult cardiology, IV Lasix 4. history of NPH with JAVA ARCHIT[employer] shunt by Dr. Ray 02/15/2017 [facility] normal pressure hydrocephalus 5. Hypertension metoprolol, Zaroxolyn, 6. Pacemaker stable , need pacemaker check consult cardiology, on long-term anticoagulation 7. significantDementia possibly related to the NPH, not on a cholinesterase inhibition 8 History of melanoma 9 Acute renal sufficiency with CK D stage III, fluids IV, avoid nephrotoxins, 11 Elevated troponin as related to sepsis, troponins will be monitored 12 Debility with impaired balance and memory loss, patient seen by physical therapy and occupational therapy, 13 CAD with prior CABG in 2001, Edema, . readjusted Lasix, continue metoprolol, losartan, 14 history of kidney stone with prior lithotripsies 15 BPH currently on Flomax Proscar 16 Coagulopathy on Coumadin, indication for Coumadin currently is not known this would be verified Coumadin is on hold for possible procedure by urology 17 Rheumatid arthritis with debility wheelchair bound prior to admission, 1-2 person assist on community ablation consult PT OT 18 long-term anticoagulation with Coumadin discharge planning, subacute rehab against returning to [facility] with home therapy baseline with ambulation would be a walker, 1 person assist
[2019-10-30] MEDS: WARFARIN 1.5 MG TAB PO SCH (17:20)
[2019-10-30 19:30] LABS: Appearance,Urine Clear (Clear); Bilirubin,Urine Negative (Negative); Blood,Urine Trace (Negative); Color,Urine Light Yellow; Glucose,Urine (UA) Negative (Negative); Ketones,Urine Negative (Negative); Leukocyte Esterase,Urine Small (Negative); Nitrite,Urine Negative (Negative); Protein,Urine Negative (Negative); RBC,Urine 4 /hpf (0-5); Specific Gravity,Urine 1.008 (1.001-1.035); Urobilinogen,Urine <2.0 mg/dL (<2.0); WBC,Urine 4 /hpf (0-5)
[2019-10-30] MEDS: MIRTAZAPINE 15 MG TAB PO SCH (21:08)
[2019-10-30] MEDS: ATORVASTATIN 40 MG TAB PO SCH (21:08)
[2019-10-31] MEDS: SODIUM CHLORIDE 0.9% 1,000 ML IV SCH ×2 (04:39→12:56)
--- NOTE | 2019-10-31 06:48 | CONS ---
CONSULTATION DATE OF SERVICE: 10/30/2019 REASON FOR CONSULTATION: Resistant Pseudomonas urinary tract infection. HISTORY OF PRESENT ILLNESS: The patient is an 79-year-old male who was brought into the ER at [facility] on October 26, 2019 for evaluation of difficulty in breathing. The patient's symptom has been going on for about 3 to 4 days before presenting to the hospital and did have some occasional cough. With these symptoms, the patient was evaluated by the ER physician. On arrival to the ER, the patient did have a chest x- ray which did show bibasilar airspace disease, more so on the right than on the left and cardiomegaly. The patient on admission has been afebrile and no fever has been recorded with this admission. The patient white count has been normal as well. Creatinine was mildly elevated. Subsequently the patient did have a problem with urinary retention and some incontinence for which a Barriga catheter has been placed. On the , he also had an UA obtained which did shows large leukocyte esterase with more than 182 WBC and many bacteria clumps, with this culture have been finalized with Pseudomonas aeruginosa with intermediate sensitivity to Levaquin and ciprofloxacin. The patient has been started on cefepime 2 grams q.24 hours with dose adjusted to his kidney function. Infectious Disease has been consulted for further recommendation of antibiotic. The patient is currently having indwelling Barriga catheter and did not have any symptom, but . REVIEW OF SYSTEMS: Positive points have been mentioned in HPI. Rest of the systems are negative. PAST MEDICAL HISTORY: Atrial fibrillation, dementia, gastroesophageal reflux disease, history of prostate disorder, hyperlipidemia, hypertension, rheumatoid arthritis. PAST SURGICAL HISTORY: Coronary bypass grafting, heart catheterization, pacemaker placement, left shoulder cuff repair, colonoscopy. SOCIAL HISTORY: No history of smoking. Daily drinks. No drug use. FAMILY HISTORY: Brother history of skin cancer. Sister with history of skin cancer as well. ALLERGIES: No known drug allergies. MEDICATIONS: Medications include the patient is currently on Tylenol, [place], DuoNeb, Zyloprim, Lipitor, cefepime 2 grams q.24 hour, Robitussin, Imodium, Cozaar, Zaroxolyn, Remeron, K- Dur, Flomax. PHYSICAL EXAMINATION: On examination, blood pressure is 146/70 with a pulse of 65, temperature 98.1. He is 94% on room air. General description is an elderly male up in the chair in no distress. No tachypnea or accessory muscle of respiration use. HEENT: Examination shows no pallor or scleral icterus. Oral mucous membrane is dry. No pharyngeal erythema or thrush. NECK: Trachea central. No thyromegaly. LUNGS: Unlabored breathing, clear to auscultation anteriorly. No wheeze or crackle. HEART: S1, S2. Regular rate and rhythm. No added sounds. ABDOMEN: Soft, no tenderness. No guarding or rigidity. EXTREMITIES: No edema of feet. SKIN EXAMINATION: No rash or mass palpable. NEUROLOGIC: The patient is awake, alert, oriented x2. Mood and affect normal. GENITOURINARY: Barriga catheter draining clear urine. LABS: Hemoglobin is 13.3, white count of 8.1. BUN of 29, creatinine 1.42. Electrolytes have been normal. Liver enzymes are normal. Urine was positive with large leukocyte esterase, more than 182 WBCs. Culture with Pseudomonas aeruginosa, colony count more than 100,000. DIAGNOSTIC IMPRESSION AND PLAN: Patient with positive urine culture with Pseudomonas aeruginosa in this patient who did have a Barriga catheter placed because of urinary incontinence and has been admitted to the hospital with respiratory symptoms. The patient currently with no fever or elevated white count with question of possible Barriga colonization versus contamination, true cystitis, not entirely excluded plan. PLAN: 1. We will obtain A repeat UA and cultures. 2. Cefepime 2 grams q.24 to continue while waiting for repeat UA to finalize. 3. We will follow up on his clinical condition and culture to further adjust medication if needed. Family at the bedside. Questions and concerns were answered. MMODL / IJN: [id number] /
[2019-10-31] MEDS: METOPROLOL TARTRATE 50 MG TAB PO SCH ×2 (07:52→17:03)
[2019-10-31] MEDS: FUROSEMIDE 20 MG TAB PO SCH ×2 (07:52→17:03)
[2019-10-31] MEDS: POTASSIUM CHLORIDE ER 20 MEQ TAB.ER PO SCH ×3 (07:53→20:09)
[2019-10-31] MEDS: FERROUS SULFATE 325 MG TAB PO SCH (07:53)
[2019-10-31] MEDS: PANTOPRAZOLE 40 MG TABLET PO SCH (07:53)
[2019-10-31] MEDS: METOLAZONE 2.5 MG TAB PO SCH (07:53)
[2019-10-31] MEDS: FINASTERIDE 5 MG TAB PO SCH (07:53)
[2019-10-31] MEDS: LOSARTAN 50 MG TAB PO SCH (07:53)
[2019-10-31] MEDS: TAMSULOSIN 0.4 MG CAP.ER.24H PO SCH ×2 (07:53→20:09)
[2019-10-31] MEDS: SENNOSIDES-DOCUSATE SODIUM 1 EACH TAB PO SCH (07:53)
[2019-10-31] MEDS: ALLOPURINOL 100 MG TAB PO SCH ×2 (07:53→20:09)
[2019-10-31 09:01] LABS: INR 2.3 (<1.2); Prothrombin Time 22.4 sec (9.0-12.0)
[2019-10-31] MEDS: IPRATROPIUM-ALBUTEROL 3 ML NEB INHALATION SCH ×4 (09:38→19:53)
[2019-10-31] MEDS: CEFEPIME 2 GM in SODIUM CHLORIDE 0.9% 100 ML IVPB SCH (12:55)
--- NOTE | 2019-10-31 13:54 | PN ---
PROGRESS NOTE DATE OF SERVICE: 10/31/2019 REASON FOR FOLLOWUP: Pseudomonas urinary tract infection. INTERVAL HISTORY: The patient is currently afebrile. Patient has been breathing comfortably. Denies having any chest pain or cough. No nausea, vomiting, abdominal pain, or any diarrhea reported. PHYSICAL EXAMINATION: Blood pressure is 99/67, pulse of 50, temperature 98.7, he is 92% on room air. General description is an elderly male, up in the chair in no distress. RESPIRATORY SYSTEM: Unlabored breathing with decreased breath sounds in the bases. No wheeze. HEART S1, S2. Regular rate and rhythm. ABDOMEN: Soft, no tenderness. EXTREMITIES: No edema of the feet. LABS: INR 2.3. Repeat UA done yesterday, looks pretty clear. DIAGNOSTIC IMPRESSION AND PLAN: Patient with Pseudomonas positive urine culture, blood culture positive for E colonization with mild cystitis. Three days of cefepime should be more than enough, no need for any PICC line or outpatient IV antibiotic therapy. Continue supportive care. MMODL / IJN: [id number] /
--- NOTE | 2019-10-31 16:42 | P.PN ---
Subjective Progress Note Date: 10/31/19 This is a pleasant 79-year-old gentleman patient of Dr. Roman. He currently resides at [facility] , underlying history normal pressure hydrocephalus requiring shunt [place]. [place] [facility] [place] impairment, hypertension, atrial fibrillation, CAD, sick sinus syndrome requiring pacemaker,he follows with Dr. Vizcaino cardiology. Patient has had shortness of breath for the past 4 days, occasional cough, chronic dependent edema, and wheezing for the past 5 days. He was given Mucinex, no antibiotics, no fever, there is rest or illnesses ongoing at the residential home, patient has diminished appetite for the past 2 days, no medication changes from any other physicians, however the mentioned that he needs a pacemaker check routinely. Patient denies any palpitations, no chest pain, no aspirative events, 10/28: Patient is more mentally clear today, was able to converse and participate appropriately, per nursing staff, patient was able to ambulate with a walker to the door but not to the hallway, no lightheadedness and dizziness, patient has a positive urinalysis with pyuria, patient is on Rocephin, which was currently pending sputum cultures final, few normal respiratory luis, blood cultures are currently negative patient remains to be afebrile, oxygen are 98% room air blood pressure 146/50, INR 2.0, hemoglobin 11.wbc count 7.5, creatinine 1.39 from a previous of 1.26, has indwelling Anne for I's and O's monitoring, will discontinue Anne catheter tonight. him a cardiology has seen him, patient does not need any interrogation at this time, IV Lasix now switched to oral, awaiting urine cultures prior to discharge, discharge planning in progress, subacute against home therapies at residential place 10/29: Patient continues to be alert, he has baseline difficulties of hearing, however appropriate answers are given, no mentation changes at night per nursing staff, no fever no chills, Pseudomonas growing on urine, sensitivities are currently pending, on IV Rocephin, await final culture report, anticipate discha rge in a.m. [address] [facility] where he currently resides at the 28/05 supervision, again subacute rehab 10/30, patient is alert at baseline with communication, sitting in recliner [facility] no pain, no diarrhea, : no hematuria, no falls, no aspiration,. culture sows pseudomonas with intermidiate resistance to quinolone, will stop rocephine, start cefepime, antipseudomonal agent. consult with dr Chen. will d/c anne today 10/[address] Chen, will continue at least 3 more days of cefepime, will not need PICC line and does not need oral antibiotic post discharge. mable david does not have any repiratory symptioms, no cardiovascular symtpoms, very pleasant, still with anne. will monitor pvr after anne removal Review of Systems All systems: negative Constitutional: Reports anorexia, Reports lethargy, Reports poor appetite, Reports weight loss, Denies as per HPI, Denies chills, Denies chronic headaches, Denies chronic pain, Denies daytime sleepiness, Denies fatigue, Denies fever, Denies malaise, Denies night sweats, Denies sweats, Denies weakness, Denies weight gain Ears, nose, mouth and throat: Reports as per HPI, Denies ant. neck pain, Denies bleeding gums, Denies dental pain, Denies dysphagia, Denies epistaxis, Denies headache, Denies hoarseness, Denies mouth pain, Denies nasal congestion, Denies nasal discharge, Denies neck fullness/pressure, Denies neck lump, Denies nose pain, Denies odynophagia, Denies post-nasal drip, Denies sinus pain, Denies sinus pressure, Denies swelling in mouth, Denies swelling in throat, Denies sore throat, Denies vertigo, Denies voice changes Cardiovascular: Reports as per HPI, Reports decreased exercise tolerance, Reports shortness of breath, Denies chest pain, Denies claudication, Denies dyspnea on exertion, Denies edema, Denies high blood pressure, Denies irregular heart beat, Denies leg edema, Denies lightheadedness, Denies orthopnea, Denies palpitations, Denies paroxysmal nocturnal dyspnea, Denies phlebitis, Denies rapid heart beat, Denies syncope Respiratory: Reports as per HPI, Denies congestion, Denies cough, Denies cough with sputum, Denies dyspnea, Denies excessive sputum, Denies hemoptysis, Denies home oxygen, Denies pain, Denies pain on inspiration, Denies pleurisy, Denies respiratory infections, Denies sleep apnea, Denies snoring, Denies wheezing Gastrointestinal: Reports as per HPI, Denies abdominal pain, Denies belching, Denies bloating, Denies BRBPR, Denies change in bowel habits, Denies coffee ground emesis, Denies constipation, Denies diarrhea, Denies dyspepsia, Denies early satiety, Denies excessive gas, Denies heartburn, Denies hematemesis, Denies hematochezia, Denies indigestion, Denies jaundice, Denies lactose intolerance, Denies loss of appetite, Denies melena, Denies nausea, Denies vomiting Genitourinary: Reports as per HPI Musculoskeletal: Reports as per HPI, Reports gait dysfunction, Reports limitation of motion (wheelchair bound) Integumentary: Reports as per HPI Neurological: Reports as per HPI, Denies aphasia, Denies ataxia, Denies balance difficulties, Denies burning pain, Denies change in mentation, Denies change in smell/taste, Denies change in speech, Denies confusion, Denies convulsions, Denies double vision, Denies gait dysfunction, Denies head injury, Denies headaches, Denies hearing difficulties, Denies lack of coordination, Denies loss of vision, Denies memory loss, Denies migraines, Denies motor disturbance, Denies numbness, Denies paralysis, Denies paresthesias, Denies seizures, Denies sensory deficit, Denies spasticity, Denies syncope, Denies tic, Denies tingling, Denies transient paralysis, Denies tremors, Denies vertigo, Denies weakness, Denies visual changes Psychiatric: Reports as per HPI Endocrine: Reports as per HPI, Denies cold intolerance, Denies deepening of the voice, Denies excessive sweating, Denies excessive thirst, Denies fatigue, Denies flushing, Denies heat intolerance, Denies high blood sugars, Denies increase in ring/shoe/hat size, Denies low blood sugars, Denies nocturia, Denies palpitations, Denies polydipsia, Denies polyphagia, Denies polyuria, Denies proptosis, Denies recent glucocorticoid use, Denies thyroid mass, Denies weight change Hematologic/Lymphatic: Reports as per HPI Allergic/Immunologic: Reports as per HPI Objective - Vital Signs Vital signs: Vital Signs Temp 98.1 F 10/31/19 13:09 Pulse 64 10/31/19 15:51 Resp 16 10/31/19 15:14 BP 107/71 10/31/19 13:09 Pulse Ox 99 10/31/19 15:41 Intake & Output 10/30/19 10/31/19 10/31/19 18:59 06:59 18:59 Intake Total 360 Output Total 1200 2425 Balance -1200 -2425 360 Intake: Oral 360 Output: Urine 1200 2425 Other: Voiding Method Indwelling Catheter Indwelling Catheter Indwelling Catheter # Voids 900 - Constitutional General appearance: Present: cooperative, no acute distress - EENT Eyes: Present: anicteric sclerae, PERRLA, dentition normal, normal appearance ENT: Present: NA/AT, normal oropharynx - Neck Neck: Present: normal ROM - Respiratory Respiratory: bilateral: CTA, negative: diminished, dullness, rales, rhonchi, wheezing - Cardiovascular Rhythm: regular Heart sounds: normal: S1, S2 Abnormal Heart Sounds: Absent: systolic murmur, diastolic murmur, rub, S3 Gallop, S4 Gallop, click, other - Gastrointestinal General gastrointestinal: Present: normal bowel sounds, soft - Genitourinary Genitourinary Comment(s): anne inplace clear - Integumentary Integumentary: Present: normal, normal turgor - Neurologic Neurologic: Present: CNII-XII intact - Musculoskeletal Musculoskeletal: Present: generalized weakness, strength equal bilaterally - Psychiatric Psychiatric: Present: appropriate affect - Labs CBC & Chem 7: 10/30/19 08:41 10/29/19 06:56 Labs: Abnormal Lab Results - Last 24 Hours (Table) 10/30/19 10/31/19 Range/Units 16:05 08:08 PT 22.4 H (9.0-12.0) sec INR 2.3 H (<1.2) Urine Blood Trace H (Negative) Ur Leukocyte Esterase Small H (Negative) Microbiology - Last 24 Hours (Table) 10/26/19 12:41 Blood Culture - Preliminary Blood No Growth after 96 hours Assessment and Plan Plan: . repiratory symtoms hav e resolved 1. left basilar infiltrate and/or atelectasis, with possible small pleural effusion, superimposed CHF with pulmonary vascular congestion diffuse interstitial changes , community acquired, discontinue Rocephin IVand ZithromaxIV few respiratory normal luis isolated on culture cefepime started for Pseudomonas UTI wiith metabolic encephalopathy, 2. Acute urinary tract infection Pseudomonas UTI has quinolone intermidiate reistance drug, Rocephin discontinued, consult with Dr. Chen,cephepime g ev christine 12 hours started. Discontinue Anne, monitor for urinary retention. Dr chen 3 more doses at least of cefepime, no PICC needed, would complete treatment prior to discharge 2. Acute renal insufficiency with dehydration secondary secondary to diminished appetite, IV hydration gentle, History of hydronephrosis in the past, we'll going to obtain renal ultrasound, was seen by urology in 2017 for obstructive uropathy 3. diastolic CHF exacerbation with bilateral dependent edema, however unknown whether this is systolic in nature, no echocardiogram available for review since 2017,we will request another echocardiogram, consult cardiology, IV Lasix 4. history of NPH with [employer] shunt by Dr. Ray 02/15/2017 [place] normal pressure hydrocephalus 5. Hypertension metoprolol, Zaroxolyn, 6. Pacemaker stable , need pacemaker check consult cardiology, on long-term anticoagulation 7. significantDementia possibly related to the NPH, not on a cholinesterase inhibition 8 History of melanoma 9 Acute renal sufficiency with CK D stage III, fluids IV, avoid nephrotoxins, 11 Elevated troponin as related to sepsis, troponins will be monitored 12 Debility with impaired balance and memory loss, patient seen by physical therapy and occupational therapy, 13 CAD with prior CABG in 2001, Edema, . readjusted Lasix, continue metoprolol, losartan, 14 history of kidney stone with prior lithotripsies 15 BPH currently on Flomax Proscar 16 Coagulopathy on Coumadin, indication for Coumadin currently is not known this would be verified Coumadin is on hold for possible procedure by urology 17 Rheumatid arthritis with debility wheelchair bound prior to admission, 1-2 person assist on community ablation consult PT OT 18 long-term anticoagulation with Coumadin discharge planning, subacute rehab against returning to [facility] with home therapy baseline with ambulation would be a walker, 1 person assist
[2019-10-31] MEDS: WARFARIN 3 MG TAB PO SCH (17:03)
[2019-10-31] MEDS: MIRTAZAPINE 15 MG TAB PO SCH (20:09)
[2019-10-31] MEDS: ATORVASTATIN 40 MG TAB PO SCH (20:09)
[2019-11-01] MEDS: SODIUM CHLORIDE 0.9% 1,000 ML IV SCH ×2 (01:04→09:30)
[2019-11-01] MEDS: HALOPERIDOL LACTATE 5 MG/ML 1 ML VIAL IM PRN (01:14)
[2019-11-01] MEDS: IPRATROPIUM-ALBUTEROL 3 ML NEB INHALATION SCH ×4 (07:43→21:26)
[2019-11-01 09:02] LABS: INR 2.2 (<1.2); Prothrombin Time 21.9 sec (9.0-12.0)
[2019-11-01] MEDS: FUROSEMIDE 20 MG TAB PO SCH ×2 (09:28→15:35)
[2019-11-01] MEDS: LOSARTAN 50 MG TAB PO SCH (09:28)
[2019-11-01] MEDS: PANTOPRAZOLE 40 MG TABLET PO SCH (09:28)
[2019-11-01] MEDS: POTASSIUM CHLORIDE ER 20 MEQ TAB.ER PO SCH ×3 (09:29→19:54)
[2019-11-01] MEDS: SENNOSIDES-DOCUSATE SODIUM 1 EACH TAB PO SCH (09:29)
[2019-11-01] MEDS: TAMSULOSIN 0.4 MG CAP.ER.24H PO SCH ×2 (09:29→19:55)
[2019-11-01] MEDS: METOPROLOL TARTRATE 50 MG TAB PO SCH ×2 (09:29→17:11)
[2019-11-01] MEDS: ALLOPURINOL 100 MG TAB PO SCH ×2 (09:29→19:55)
[2019-11-01] MEDS: FINASTERIDE 5 MG TAB PO SCH (09:29)
[2019-11-01] MEDS: FERROUS SULFATE 325 MG TAB PO SCH (09:29)
--- NOTE | 2019-11-01 11:06 | P.PN ---
Subjective This is Naty Khan PA-C dictating a progress note on this patient The patient was interviewed and examined by me as well as by Dr. Medel Case discussed with Dr. Medel and he agrees with the plan of care IMPRESSION / ASSESSMENT: Dyspnea secondary to combination of pneumonia and CHF exacerbation, improving Acute on chronic diastolic CHF, most recent echo showing moderate concentric LVH, EF 50-55% CAD status post CABG persistent atrial fibrillation, anticoagulated CKD PLAN: Continue current medication regimen including Lasix 80 mg twice daily and metolazone 2.5 mg 3 times a week Check BMP Monitor intake and output HPI/interval history Patient is an 79-year-old male with a medical history of CAD status post CABG, chronic CHF, and status post permanent pacemaker placement who presented with complaints of dyspnea. He was diagnosed with pneumonia and CHF exacerbation and is being treated with antibiotics, Lasix 80 mg by mouth twice a day, and metolazone 2.5 mg 3 times a week. Patient seen and examined sitting up in bed. States his breathing is improving. Denies any chest pain, dizziness, or palpitations. EXAMINATION Temperature 97.9, pulse 60, respirations 18, blood pressure 131/77, oxygen saturation 96% on room air Patient seen and examined resting comfortably in bed, in no acute distress Lungs with few crackles at the bases Heart is regular, no audible murmurs No elevated JVD No lower extremity edema Abdomen soft and nontender to palpation REVIEW OF LABS, ECG No new labs today Objective - Vital Signs Vital signs: Vital Signs Temp 97.7 F 11/01/19 05:00 Pulse 56 L 11/01/19 10:57 Resp 18 11/01/19 05:00 BP 131/77 11/01/19 05:00 Pulse Ox 96 11/01/19 05:00 Intake & Output 10/31/19 11/01/19 11/01/19 18:59 06:59 18:59 Intake Total 600 725 300 Balance 600 725 300 Weight 91.5 kg 88 kg Intake: Oral 600 725 300 Other: Voiding Method Indwelling Catheter Incontinent Incontinent # Voids 900 3 1 # Bowel Movements 0 - Labs CBC & Chem 7: 10/30/19 08:41 10/29/19 06:56 Labs: Abnormal Lab Results - Last 24 Hours (Table) 11/01/19 Range/Units 08:10 PT 21.9 H (9.0-12.0) sec INR 2.2 H (<1.2) Microbiology - Last 24 Hours (Table) 10/26/19 12:41 Blood Culture - Preliminary Blood No Growth after 120 hours
[2019-11-01 11:40] LABS: Calcium 9.7 mg/dL (8.4-10.2); Potassium 4.2 mmol/L (3.5-5.1)
[2019-11-01] MEDS: CEFEPIME 2 GM in SODIUM CHLORIDE 0.9% 100 ML IVPB SCH (12:11)
--- NOTE | 2019-11-01 14:48 | P.PN ---
Subjective Progress Note Date: 11/01/19 This is a pleasant 79-year-old gentleman patient of Dr. Roman. He currently resides at [facility] , underlying history normal pressure hydrocephalus requiring shunt placement by Dr. Ray02/15/2017 at [facility] causing significant memory impairment, hypertension, atrial fibrillation, CAD, sick sinus syndrome requiring pacemaker,he follows with Dr. Vizcaino cardiology. Patient has had shortness of breath for the past 4 days, occasional cough, chronic dependent edema, and wheezing for the past 5 days. He was given Mucinex, no antibiotics, no fever, there is rest or illnesses ongoing at the residential home, patient has diminished appetite for the past 2 days, no medication changes from any other physicians, however the mentioned that he needs a pacemaker check routinely. Patient denies any palpitations, no chest pain, no aspirative events, 10/28: Patient is more mentally clear today, was able to converse and participate appropriately, per nursing staff, patient was able to ambulate with a walker to the door but not to the hallway, no lightheadedness and dizziness, patient has a positive urinalysis with pyuria, patient is on Rocephin, which was currently pending sputum cultures final, few normal respiratory luis, blood cultures are currently negative patient remains to be afebrile, oxygen are 98% room air blood pressure 146/50, INR 2.0, hemoglobin 11.wbc count 7.5, creatinine 1.39 from a previous of 1.26, has indwelling Anne for I's and O's monitoring, will discontinue Anne catheter tonight. him a cardiology has seen him, patient does not need any interrogation at this time, IV Lasix now switched to oral, awaiting urine cultures prior to discharge, discharge planning in progress, subacute against home therapies at residential place 10/29: Patient continues to be alert, he has baseline difficulties of hearing, however appropriate answers are given, no mentation changes at night per nursing staff, no fever no chills, Pseudomonas growing on urine, sensitivities are currently pending, on IV Rocephin, await final culture report, anticipate discha rge in a.m. [address] [facility] where he currently resides at the 28/05 supervision, again subacute rehab 10/30, patient is alert at baseline with communication, sitting in recliner the [facility] no pain, no diarrhea, : no hematuria, no falls, no aspiration,. culture sows pseudomonas with intermidiate resistance to quinolone, will stop rocephine, start cefepime, antipseudomonal agent. consult with dr Chen. will d/c anne today 10/[address] Chen, will continue at least 3 more doses of cefepime, will not need PICC line and does not need oral antibiotic post discharge. p atient does not have any repiratory symptioms, no cardiovascular symtpoms, very pleasant, still with anne. will monitor pvr after anne removal 11/01 patient is uncomfortable in the abdomen today, Anne catheter was discontinued yesterday, examination shows fullness of the bladder up to the umbilicus, PVR is at least 350, patient is incontinent, and cannot void on command, underlying neurogenic bladder, we consulted Dr. Chua urology, and reinsert Anne catheter, no plans for discharge today, physical therapy is following the patient, no recommendation for subacute, most likely would be di scharged to home environment at [facility] . No IV antibiotics needed on discharge per infectious disease, urinalyses has now normalized Review of Systems All systems: negative Constitutional: Reports anorexia, Reports lethargy, Reports poor appetite, Reports weight loss, Denies as per HPI, Denies chills, Denies chronic headaches, Denies chronic pain, Denies daytime sleepiness, Denies fatigue, Denies fever, Denies malaise, Denies night sweats, Denies sweats, Denies weakness, Denies weight gain Ears, nose, mouth and throat: Reports as per HPI, Denies ant. neck pain, Denies bleeding gums, Denies dental pain, Denies dysphagia, Denies epistaxis, Denies headache, Denies hoarseness, Denies mouth pain, Denies nasal congestion, Denies nasal discharge, Denies neck fullness/pressure, Denies neck lump, Denies nose pain, Denies odynophagia, Denies post-nasal drip, Denies sinus pain, Denies sinu s pressure, Denies swelling in mouth, Denies swelling in throat, Denies sore throat, Denies vertigo, Denies voice changes Cardiovascular: Reports as per HPI, Reports decreased exercise tolerance, Reports shortness of breath, Denies chest pain, Denies claudication, Denies dys pnea on exertion, Denies edema, Denies high blood pressure, Denies irregular heart beat, Denies leg edema, Denies lightheadedness, Denies orthopnea, Denies palpitations, Denies paroxysmal nocturnal dyspnea, Denies phlebitis, Denies rapid heart beat, Denies syncope Respiratory: Reports as per HPI, Denies congestion, Denies cough, Denies cough with sputum, Denies dyspnea, Denies excessive sputum, Denies hemoptysis, Denies home oxygen, Denies pain, Denies pain on inspiration, Denies pleurisy, Denies respiratory infections, Denies sleep apnea, Denies snoring, Denies wheezing Gastrointestinal: Reports as per HPI, Denies abdominal pain, Denies belching, Denies bloating, Denies BRBPR, Denies change in bowel habits, Denies coffee ground emesis, Denies constipation, Denies diarrhea, Denies dyspepsia, Denies early satiety, Denies excessive gas, Denies heartburn, Denies hematemesis, Denies hematochezia, Denies indigestion, Denies jaundice, Denies lactose intolerance, Denies loss of appetite, Denies melena, Denies nausea, Denies vomiting Genitourinary: Reports as per HPI Musculoskeletal: Reports as per HPI, Reports gait dysfunction, Reports limitation of motion (wheelchair bound) Integumentary: Reports as per HPI Neurological: Reports as per HPI, Denies aphasia, Denies ataxia, Denies balance difficulties, Denies burning pain, Denies change in mentation, Denies change in smell/taste, Denies change in speech, Denies confusion, Denies convulsions, Denies double vision, Denies gait dysfunction, Denies head injury, Denies headaches, Denies hearing difficulties, Denies lack of coordination, Denies loss of vision, Denies memory loss, Denies migraines, Denies motor disturbance, Denies numbness, Denies paralysis, Denies paresthesias, Denies seizures, Denies sensory deficit, Denies spasticity, Denies syncope, Denies tic, Denies tingling, Denies transient paralysis, Denies tremors, Denies vertigo, Denies weakness, Denies visual changes Psychiatric: Reports as per HPI Endocrine: Reports as per HPI, Denies cold intolerance, Denies deepening of the voice, Denies excessive sweating, Denies excessive thirst, Denies fatigue, Denies flushing, Denies heat intolerance, Denies high blood sugars, Denies increase in ring/shoe/hat size, Denies low blood sugars, Denies nocturia, Denies palpitations, Denies polydipsia, Denies polyphagia, Denies polyuria, Denies proptosis, Denies recent glucocorticoid use, Denies thyroid mass, Denies weight change Hematologic/Lymphatic: Reports as per HPI Allergic/Immunologic: Reports as per HPI Objective - Vital Signs Vital signs: Vital Signs Temp 97.3 F L 11/01/19 12:42 Pulse 59 L 11/01/19 12:42 Resp 18 11/01/19 12:42 BP 144/77 11/01/19 12:42 Pulse Ox 96 11/01/19 12:42 Intake & Output 10/31/19 11/01/19 11/01/19 18:59 06:59 18:59 Intake Total 600 725 300 Balance 600 725 300 Weight 91.5 kg 88 kg Intake: Oral 600 725 300 Other: Voiding Method Indwelling Catheter Incontinent Incontinent # Voids 900 3 1 # Bowel Movements 0 - Constitutional General appearance: Present: cooperative, no acute distress - EENT Eyes: Present: anicteric sclerae, EOMI, PERRLA, dentition normal, normal appear ance ENT: Present: NA/AT, normal oropharynx - Respiratory Respiratory: bilateral: CTA, negative: diminished, dullness - Cardiovascular Rhythm: regular Abnormal Heart Sounds: Present: systolic murmur - Gastrointestinal General gastrointestinal: Present: normal bowel sounds, soft - Integumentary Integumentary: Present: normal, normal turgor - Neurologic Neurologic: Present: CNII-XII intact - Musculoskeletal Musculoskeletal: Present: gait normal, generalized weakness, strength equal bilaterally - Psychiatric Psychiatric: Present: appropriate affect - Labs CBC & Chem 7: 10/30/19 08:41 11/01/19 08:10 Labs: Abnormal Lab Results - Last 24 Hours (Table) 11/01/19 11/01/19 Range/Units 08:10 08:10 PT 21.9 H (9.0-12.0) sec INR 2.2 H (<1.2) BUN 43 H (9-20) mg/dL Creatinine 1.55 H (0.66-1.25) mg/dL Glucose 108 H (74-99) mg/dL Microbiology - Last 24 Hours (Table) 10/26/19 12:41 Blood Culture - Preliminary Blood No Growth after 120 hours Assessment and Plan Plan: 1. 1. left basilar infiltrate and/or atelectasis,repiratory symtoms have resolved with possible small pleural effusion, superimposed CHF with pulmonary vascular congestion diffuse interstitial changes , community acquired, discontinue Rocephin IVand ZithromaxIV few respiratory normal luis isolated on culture cefepime started for Pseudomonas UTI wiith metabolic encephalopathy, 2. Acute urinary tract infection Pseudomonas UTI has quinolone intermidiate reistance drug, Rocephin discontinued, consult with Dr. Chen,cephepime g every 12 hours started. Discontinue Anne, monitor for urinary retention. Dr chen 3 more doses at least of cefepime, no PICC needed, would complete treatment prior to discharge 2. Acute renal insufficiency with dehydration secondary secondary to diminished appetite, IV hydration gentle, History of hydronephrosis in the past, we'll going to obtain renal ultrasound, was seen by urology in 2017 for obstructive uropathy 3. diastolic CHF exacerbation with bilateral dependent edema, however unknown whether this is systolic in nature, no echocardiogram available for review since 2017,we will request another echocardiogram, consult cardiology, IV Lasix 4. history of NPH with PRODUCTION WEIGHER shunt by Dr. Ray 02/15/2017 [facility] normal pressure hydrocephalus 5. Hypertension metoprolol, Zaroxolyn, 6. Pacemaker stable , need pacemaker check consult cardiology, on long-term anticoagulation 7. significantDementia possibly related to the NPH, not on a cholinesterase inhibition 8 History of melanoma 9 Acute renal sufficiency with CK D stage III, fluids IV, avoid nephrotoxins, 11 Elevated troponin as related to sepsis, troponins will be monitored 12 Debility with impaired balance and memory loss, patient seen by physical therapy and occupational therapy, 13 CAD with prior CABG in 2001, Edema, . readjusted Lasix, continue metoprolol, losartan, 14 history of kidney stone with prior lithotripsies 15 BPH has urinary retention currently on Flomax Proscar, reinsert anne has pvr 350, has urinary incontinence consult urology 16 Coagulopathy on Coumadin, indication for Coumadin currently is not known this would be verified Coumadin is on hold for possible procedure by urology 17 Rheumatid arthritis with debility wheelchair bound prior to admission, 1-2 person assist on community ablation consult PT OT 18 long-term anticoagulation with Coumadin discharge planning, subacute rehab against returning to [facility] with home therapy baseline with ambulation would be a walker, 1 person assist
[2019-11-01] MEDS: WARFARIN 3 MG TAB PO SCH (17:11)
[2019-11-01] MEDS: ATORVASTATIN 40 MG TAB PO SCH (19:55)
[2019-11-01] MEDS: MIRTAZAPINE 15 MG TAB PO SCH (19:55)
--- NOTE | 2019-11-01 23:50 | PN ---
PROGRESS NOTE DATE OF SERVICE: 11/01/2019 REASON FOR FOLLOWUP: Pseudomonas urinary tract infection. INTERVAL HISTORY: The patient is currently afebrile. Patient has been breathing comfortably. Denies having any chest pain or cough. No nausea, vomiting. No abdominal pain, no diarrhea. PHYSICAL EXAMINATION: Blood pressure 144/77 with a pulse of 80, temperature 97.3, he is 96% on room air. General description is an elderly male up in the bed in no distress. Respiratory system: Unlabored breathing, clear to auscultation anteriorly. Heart S1, S2. Regular rate and rhythm. Abdomen soft, no tenderness. LABS: BUN of 43, creatinine 1.55. Repeat urine is so far negative. DIAGNOSTIC IMPRESSION AND PLAN: Patient with a positive urine culture with Pseudomonas aeruginosa with possible ( ) versus a colonization. The patient has received about 3 days of antibiotics by tomorrow, ( ) mild cystitis with no need for any PICC line or antibiotic on discharge. Continue supportive care. MMODL / IJN: [id number] /
[2019-11-02] MEDS: SODIUM CHLORIDE 0.9% 1,000 ML IV SCH ×3 (04:23→17:23)
[2019-11-02] MEDS: IPRATROPIUM-ALBUTEROL 3 ML NEB INHALATION SCH ×4 (07:33→21:55)
[2019-11-02 09:20] LABS: INR 2.6 (<1.2); Prothrombin Time 24.8 sec (9.0-12.0)
--- NOTE | 2019-11-02 10:25 | P.GSCN ---
History of Present Illness Consult date: 11/02/19 Reason for Consult: UTI, urinary retention Requesting physician: Kim Carson History of present illness: The patient is an 79-year-old white male with a history of dementia. He has a history of normal pressure hydrocephalus requiring shunt placement in February 2017 at [facility]. His medical history is significant also for hypertension, atrial fibrillation, CAD, and sick sinus syndrome requiring pacemaker. He resides at [facility], and he was admitted with a four-day history of dyspnea, wheezing, and peripheral edema. He has been found to empty his bladder incompletely despite taking finasteride 5 mg and tamsulosin 0.8 mg daily, and a urine culture has shown a Pseudomonas UTI. A Anne catheter was inserted yesterday, with return of 800 mL of urine. The patient has dementia and is unable to provide history. His is not currently present. Review of Systems ROS unobtainable: due to mental status Past Medical History Past Medical History: Atrial Fibrillation, Cancer, Dementia, Eye Disorder, GERD/Reflux, GI Bleed, Hyperlipidemia, Hypertension, Memory Impairment, Myocardial Infarction (TN), Prostate Disorder, Renal Disease, Rheumatoid Arthritis (RA), Vascular Disorder Additional Past Medical History / Comment(s): alcoholism, Normal pressure hydocephalus with recent shunt, SSS - PACEMAKER, Skin CA- MELANOMA with removal from nose and other types of skin cancer removed, CKD, nephrolithiasis with sx, PVD, OCC EDEMA LEGS, glaucoma bilaterally, R eye cataract, BPH, past urinary retention after cerebral shunt and [facility], RECTAL BLEED AFTER COLONOSCOPY R/T COUMADIN USE, unsteady gait, intermittent confusion, Last Myocardial Infarction Date:: 2001?-silent History of Any Multi-Drug Resistant Organisms: None Reported Past Surgical History: Coronary Bypass/CABG, Heart Catheterization, Orthopedic Surgery, Pacemaker Additional Past Surgical History / Comment(s): Recent cerebral shunt, PCI with stent, TRIPLE CABG 2001, LT Shoulder rotator cuff repair, Colonoscopy, 2004 Original pacer, 07/2016 GENERATOR CHANGE, cystoscopy with double J catheter, since removed, lithotripsies, L eye cataract removal, skin cancer removals. Past Anesthesia/Blood Transfusion Reactions: No Reported Reaction Type of Cardiac Device: Permanent Pacemaker Device Placement Date:: 03/21/2006 Past Psychological History: No Psychological Hx Reported Additional Psychological History / Comment(s): Pt recently resides at [facility] for rehab post cerebral shunt placement. They state he is mostly in a wheelchair and can stand with one assist. He feeds himself and needs assistance with all other ADLs. Spouse states that prior to cerebral shunt, pt could ambulate short distances with a walker. He was no longer driving due to dementia. Spouse drives. She was his ethnoarchaeology professor and hopes for pt to come home after rehab. She is in the process of placing grab rails etc. Smoking Status: Never smoker Past Alcohol Use History: Daily Additional Past Alcohol Use History / Comment(s): GLASS OF WINE WITH DARLING JUICE DAILY PER SPOUSE Past Drug Use History: None Reported - Past Family History Brother(s) Family Medical History: Cancer Additional Family Medical History / Comment(s): SKIN Sister(s) Family Medical History: Cancer Additional Family Medical History / Comment(s): SKIN Mother Family Medical History: Cancer Medications and Allergies Home Medications Medication Instructions Recorded Confirmed Type Allopurinol [Zyloprim] 100 mg PO BID@0800,199907/25/16 10/26/19 History Losartan Potassium [Cozaar] 50 mg PO QAM 07/25/16 10/26/19 History Acetaminophen Tab [Tylenol] 650 mg PO BID PRN 03/07/17 10/26/19 History Metoprolol Tartrate [Lopressor] 50 mg PO BID@0800,1700 03/07/17 10/26/19 History Potassium Chloride [Klor-Con 20] 20 meq PO TID@0800,1399,199903/07/17 10/26/19 History Tamsulosin [Flomax] 0.4 mg PO BID@0800,199903/07/17 10/26/19 History Acetaminophen Tab [Tylenol Tab] 325 mg PO Q4H PRN 10/26/19 10/26/19 History Antibiotic Oint 1 applic TOPICAL BID 10/26/19 10/26/19 History Atorvastatin [Lipitor] 40 mg PO HS@199910/26/19 10/26/19 History Docusate Sodium [Dok] 100 mg PO DAILY@1200 10/26/19 10/26/19 History Ensure 1 can PO BID-W/MEALS 10/26/19 10/26/19 History Ferrous Sulfate [Feosol] 325 mg PO DAILY@0800 10/26/19 10/26/19 History Finasteride [Proscar] 5 mg PO DAILY 10/26/19 10/26/19 History Furosemide [Lasix] 80 mg PO BID@0800,1400 10/26/19 10/26/19 History HYDROcodone/APAP 5-325MG [Corona 1 tab PO Q12H PRN 10/26/19 10/26/19 History 5-325] Loperamide [Imodium] 2 mg PO QID PRN 10/26/19 10/26/19 History Metolazone [Zaroxolyn] 2.5 mg PO MOWEFR 10/26/19 10/26/19 History Metolazone [Zaroxolyn] 2.5 mg PO ONCE PRN 10/26/19 10/26/19 History Mirtazapine [Remeron] 15 mg PO HS@199910/26/19 10/26/19 History Mupirocin 2% Oint [Bactroban 2% 1 applic TOPICAL DAILY 10/26/19 10/26/19 History Oint] Pantoprazole Sodium [Protonix] 40 mg PO DAILY@0800 10/26/19 10/26/19 History SILVER sulfADIAZINE CREAM 1 applic TOPICAL HS@199910/26/19 10/26/19 History [Silvadene Cream] Thermazine 1% Cr 1 applic TOPICAL BID 10/26/19 10/26/19 History Warfarin [Coumadin] 1.5 mg PO SUTUTH 10/26/19 10/26/19 History Warfarin [Coumadin] 3 mg PO MOWEFRSA 10/26/19 10/26/19 History guaiFENesin-DM 100-10MG/5ML 20 ml PO Q4H PRN 10/26/19 10/26/19 History [Robitussin DM] Allergies Allergy/AdvReac Type Severity Reaction Status Date / Time No Known Allergies Allergy Verified 10/26/19 14:57 Surgical - Exam Vital Signs Temp Pulse Resp BP Pulse Ox 98.0 F 60 18 143/81 98 10/26/19 12:01 10/26/19 12:01 10/26/19 12:01 10/26/19 12:01 10/26/19 12:01 - General well developed, well nourished, no distress - Respiratory normal respiratory effort - Abdomen Abdomen: soft, non tender, no guarding, no rigid, no rebound - Genitourinary normal penis with no external lesions, testicles non-tender - Rectum Rectum: other (DUONG was attempted but could not be performed because the patient was combative.) - Psychiatric no oriented to time, no oriented to person, no oriented to place, speech is normal Results - Labs 10/30/19 08:41 11/01/19 08:10 Abnormal Lab Results - Last 24 Hours (Table) 11/01/19 11/02/19 Range/Units 08:10 08:26 PT 24.8 H (9.0-12.0) sec INR 2.6 H (<1.2) BUN 43 H (9-20) mg/dL Creatinine 1.55 H (0.66-1.25) mg/dL Glucose 108 H (74-99) mg/dL Microbiology - Last 24 Hours (Table) 10/26/19 12:41 Blood Culture - Final Blood No Growth after 144 hours Diabetes panel 11/01/19 Range/Units 08:10 Sodium 138 (137-145) mmol/L Potassium 4.2 (3.5-5.1) mmol/L Chloride 98 (98-107) mmol/L Carbon Dioxide 30 (22-30) mmol/L BUN 43 H (9-20) mg/dL Creatinine 1.55 H (0.66-1.25) mg/dL Glucose 108 H (74-99) mg/dL Calcium 9.7 (8.4-10.2) mg/dL Calcium panel 11/01/19 Range/Units 08:10 Calcium 9.7 (8.4-10.2) mg/dL Pituitary panel 11/01/19 Range/Units 08:10 Sodium 138 (137-145) mmol/L Potassium 4.2 (3.5-5.1) mmol/L Chloride 98 (98-107) mmol/L Carbon Dioxide 30 (22-30) mmol/L BUN 43 H (9-20) mg/dL Creatinine 1.55 H (0.66-1.25) mg/dL Glucose 108 H (74-99) mg/dL Calcium 9.7 (8.4-10.2) mg/dL Adrenal panel 11/01/19 Range/Units 08:10 Sodium 138 (137-145) mmol/L Potassium 4.2 (3.5-5.1) mmol/L Chloride 98 (98-107) mmol/L Carbon Dioxide 30 (22-30) mmol/L BUN 43 H (9-20) mg/dL Creatinine 1.55 H (0.66-1.25) mg/dL Glucose 108 H (74-99) mg/dL Calcium 9.7 (8.4-10.2) mg/dL Assessment and Plan (1) UTI (urinary tract infection) Current Visit: No Status: Acute Priority: High Code(s): N39.0 - URINARY TRACT INFECTION, SITE NOT SPECIFIED SNOMED Code(s): 71703166 (2) Urinary retention Current Visit: Yes Status: Acute Code(s): R33.9 - RETENTION OF URINE, UNSPECIFIED SNOMED Code(s): 923795689 Plan: The patient is currently receiving cefepime, to which the Pseudomonas is sensitive. The organism has only intermediate sensitivity to quinolones. It is anticipated that he will be transferred back to [facility] today or tomorrow. The Anne catheter shall remain in place for now. It would be reasonable to treat him with a quinolone, though this would be expected to be less effective than IV antibiotics. Arrangements will be made for a voiding trial on 11/10/2019. Time with Patient: Greater than 30
[2019-11-02] MEDS: FERROUS SULFATE 325 MG TAB PO SCH (10:35)
[2019-11-02] MEDS: ALLOPURINOL 100 MG TAB PO SCH ×2 (10:35→20:21)
[2019-11-02] MEDS: FUROSEMIDE 20 MG TAB PO SCH ×2 (10:35→17:23)
[2019-11-02] MEDS: FINASTERIDE 5 MG TAB PO SCH (10:35)
[2019-11-02] MEDS: SENNOSIDES-DOCUSATE SODIUM 1 EACH TAB PO SCH (10:35)
[2019-11-02] MEDS: POTASSIUM CHLORIDE ER 20 MEQ TAB.ER PO SCH ×2 (10:35→13:37)
[2019-11-02] MEDS: TAMSULOSIN 0.4 MG CAP.ER.24H PO SCH ×2 (10:36→20:21)
[2019-11-02] MEDS: PANTOPRAZOLE 40 MG TABLET PO SCH (10:37)
[2019-11-02] MEDS: METOPROLOL TARTRATE 50 MG TAB PO SCH ×2 (10:37→17:31)
[2019-11-02] MEDS: LOSARTAN 50 MG TAB PO SCH (10:37)
--- NOTE | 2019-11-02 12:31 | P.PN ---
Subjective This is Naty Khan PA-C dictating a progress note on this patient The patient was interviewed and examined by me as well as by Dr. Medel Case discussed with Dr. Medel and he agrees with the plan of care IMPRESSION / ASSESSMENT: Dyspnea secondary to combination of pneumonia and CHF exacerbation, improved Acute on chronic diastolic CHF, most recent echo showing moderate concentric LVH, EF 50-55% CAD status post CABG persistent atrial fibrillation, anticoagulated CKD PLAN: From a cardiology standpoint, continue current medication regimen and monitor intake and output, we will sign off now, please free to call with any further questions HPI/interval history Patient is an 79-year-old male with a medical history of CAD status post CABG, chronic CHF, and status post permanent pacemaker placement who presented with complaints of dyspnea. He was diagnosed with pneumonia and CHF exacerbation and is being treated with antibiotics, Lasix 80 mg by mouth twice a day, and metolazone 2.5 mg 3 times a week. Overnight, he developed urinary retention and urology has been consult. Patient seen and examined sitting up in the bed. D enies any chest pain or shortness of breath. EXAMINATION Patient is afebrile, pulse in the 60s, respirations 20, blood pressure 119/69, oxygen saturation 95% on room air Patient seen and examined sitting up in the bed, seems more confused today on exam, but not in any acute distress Lung exam difficult secondary to patient unable to follow directions to sit forward and take a deep breath, lungs clear to auscultation without any appreciable crackles Heart is irregularly irregular, no audible murmurs No lower extremity edema REVIEW OF LABS, ECG Potassium 4.2, BUN 43, creatinine 1.55 Objective - Vital Signs Vital signs: Vital Signs Temp 96.9 F L 11/02/19 05:00 Pulse 64 11/02/19 07:45 Resp 20 11/02/19 05:00 BP 119/69 11/02/19 05:00 Pulse Ox 95 11/02/19 05:00 Intake & Output 11/01/19 11/02/19 11/02/19 18:59 06:59 18:59 Intake Total 1000 900 Output Total 800 1500 Balance 200 -600 Weight 95.5 kg Intake: Oral 1000 900 Output: Urine 800 1500 Other: Voiding Method Incontinent Incontinent # Voids 1 0 # Bowel Movements 0 - Labs CBC & Chem 7: 10/30/19 08:41 11/01/19 08:10 Labs: Abnormal Lab Results - Last 24 Hours (Table) 11/02/19 Range/Units 08:26 PT 24.8 H (9.0-12.0) sec INR 2.6 H (<1.2) Microbiology - Last 24 Hours (Table) 10/26/19 12:41 Blood Culture - Final Blood No Growth after 144 hours
[2019-11-02] MEDS: CEFEPIME 2 GM in SODIUM CHLORIDE 0.9% 100 ML IVPB SCH (13:37)
--- NOTE | 2019-11-02 16:22 | PN ---
PROGRESS NOTE DATE OF SERVICE: 11/02/2019. REASON FOR FOLLOWUP: Pseudomonas urinary tract infection. INTERVAL HISTORY: The patient is currently afebrile. Patient is breathing comfortably. Patient denies having any chest pain or cough. No nausea, vomiting, abdominal pain, no diarrhea. PHYSICAL EXAMINATION: Blood pressure is 95/59 with a pulse of 61, temperature 96.9. He is 95% on room air. General description is an elderly male up in the bed in no distress. Respiratory system: Unlabored breathing, clear to auscultation anteriorly. Heart S1, S2. Regular rate and rhythm. Abdomen soft, no tenderness. LABS: INR is 2.3. DIAGNOSTIC IMPRESSION AND PLAN: Patient with Pseudomonas aeruginosa, positive culture, positive for versus Barriga. Repeat UA was negative. About three to four days of antibiotic should be more than enough, recommend no need for antibiotic on discharge. Continue supportive care. MMODL / IJN: [id number] /
[2019-11-02] MEDS: WARFARIN 1.5 MG TAB PO SCH (17:32)
--- NOTE | 2019-11-02 18:25 | P.PN ---
Subjective Progress Note Date: 11/02/19 This is a pleasant 79-year-old gentleman patient of Dr. Roman. He currently resides at [facility] , underlying history normal pressure hydrocephalus requiring shunt placement by Dr. Ray02/15/[address] [facility] causing significant memory impairment, hypertension, atrial fibrillation, CAD, sick sinus syndrome requiring pacemaker,he follows with Dr. Vizcaino cardiology. Patient has had shortness of breath for the past 4 days, occasional cough, chronic dependent edema, and wheezing for the past 5 days. He was given Mucinex, no antibiotics, no fever, there is rest or illnesses ongoing at the residential home, patient has diminished appetite for the past 2 days, no medication changes from any other physicians, however the mentioned that he needs a pacemaker check routinely. Patient denies any palpitations, no chest pain, no aspirative events, 10/28: Patient is more mentally clear today, was able to converse and participate appropriately, per nursing staff, patient was able to ambulate with a walker to the door but not to the hallway, no lightheadedness and dizziness, patient has a positive urinalysis with pyuria, patient is on Rocephin, which was currently pending sputum cultures final, few normal respiratory luis, blood cultures are currently negative patient remains to be afebrile, oxygen are 98% room air blood pressure 146/50, INR 2.0, hemoglobin 11.wbc count 7.5, creatinine 1.39 from a previous of 1.26, has indwelling Anne for I's and O's monitoring, will discontinue Anne catheter tonight. him a cardiology has seen him, patient does not need any interrogation at this time, IV Lasix now switched to oral, awaiting urine cultures prior to discharge, discharge planning in progress, subacute against home therapies at residential place 10/29: Patient continues to be alert, he has baseline difficulties of hearing, however appropriate answers are given, no mentation changes at night per nursing staff, no fever no chills, Pseudomonas growing on urine, sensitivities are currently pending, on IV Rocephin, await final culture report, anticipate discha rge in a.m. 2 therapies either to [facility] where he currently resides at the 28/05 supervision, again subacute rehab 10/30, patient is alert at baseline with communication, sitting in recliner [facility] no pain, no diarrhea, : no hematuria, no falls, no aspiration,. culture sows pseudomonas with intermidiate resistance to quinolone, will stop rocephine, start cefepime, antipseudomonal agent. consult with dr Chen. will d/c anne today 10/[address] Chen, will continue at least 3 more doses of cefepime, will not need PICC line and does not need oral antibiotic post discharge. p hermilaient does not have any repiratory symptioms, no cardiovascular symtpoms, very pleasant, still with anne. will monitor pvr after anne removal 11/01 patient is uncomfortable in the abdomen today, Anne catheter was discontinued yesterday, examination shows fullness of the bladder up to the umbilicus, PVR is at least 350, patient is incontinent, and cannot void on command, underlying neurogenic bladder, we consulted Dr. Chua urology, and reinsert Anne catheter, no plans for discharge today, physical therapy is following the patient, no recommendation for subacute, most likely would be di scharged to home environment at [facility] . No IV antibiotics needed on discharge per infectious disease, urinalyses has now normalized November 02: Were anticipating discharge today, however the had a flat tire, with delaying discharge until tomorrow, no IV antibiotics needed post discharge, no oral antibiotic needed post discharge per infectious disease, Dr. Chua recommended leaving the Anne in and would be discontinued 11/10/2019, shelter with home care, to be provided, and therapies. Patient's blood pressure has been low today, we've held Lasix, decrease Lasix dose of 40 mg daily, decrease losartan to 25 mg daily Review of Systems All systems: negative Constitutional: Reports anorexia, Reports lethargy, Reports poor appetite, Reports weight loss, Denies as per HPI, Denies chills, Denies chronic headaches, Denies chronic pain, Denies daytime sleepiness, Denies fatigue, Denies fever, Denies malaise, Denies night sweats, Denies sweats, Denies weakness, Denies weight gain Ears, nose, mouth and throat: Reports as per HPI, Denies ant. neck pain, Denies bleeding gums, Denies dental pain, Denies dysphagia, Denies epistaxis, Denies headache, Denies hoarseness, Denies mouth pain, Denies nasal congestion, Denies nasal discharge, Denies neck fullness/pressure, Denies neck lump, Denies nose pain, Denies odynophagia, Denies post-nasal drip, Denies sinus pain, Denies sinus pressure, Denies swelling in mouth, Denies swelling in throat, Denies sore throat, Denies vertigo, Denies voice changes Cardiovascular: Reports as per HPI, Reports decreased exercise tolerance, Reports shortness of breath, Denies chest pain, Denies claudication, Denies dyspnea on exertion, Denies edema, Denies high blood pressure, Denies irregular heart beat, Denies leg edema, Denies lightheadedness, Denies orthopnea, Denies palpitations, Denies paroxysmal nocturnal dyspnea, Denies phlebitis, Denies rapid heart beat, Denies syncope Respiratory: Reports as per HPI, Denies congestion, Denies cough, Denies cough with sputum, Denies dyspnea, Denies excessive sputum, Denies hemoptysis, Denies home oxygen, Denies pain, Denies pain on inspiration, Denies pleurisy, Denies respiratory infections, Denies sleep apnea, Denies snoring, Denies wheezing Gastrointestinal: Reports as per HPI, Denies abdominal pain, Denies belching, Denies bloating, Denies BRBPR, Denies change in bowel habits, Denies coffee ground emesis, Denies constipation, Denies diarrhea, Denies dyspepsia, Denies early satiety, Denies excessive gas, Denies heartburn, Denies hematemesis, Denies hematochezia, Denies indigestion, Denies jaundice, Denies lactose intolerance, Denies loss of appetite, Denies melena, Denies nausea, Denies vomiting Genitourinary: Reports as per HPI Musculoskeletal: Reports as per HPI, Reports gait dysfunction, Reports limitation of motion (wheelchair bound) Integumentary: Reports as per HPI Neurological: Reports as per HPI, Denies aphasia, Denies ataxia, Denies balance difficulties, Denies burning pain, Denies change in mentation, Denies change in smell/taste, Denies change in speech, Denies confusion, Denies convulsions, Denies double vision, Denies gait dysfunction, Denies head injury, Denies headaches, Denies hearing difficulties, Denies lack of coordination, Denies loss of vision, Denies memory loss, Denies migraines, Denies motor disturbance, Denies numbness, Denies paralysis, Denies paresthesias, Denies seizures, Denies sensory deficit, Denies spasticity, Denies syncope, Denies tic, Denies tingling, Denies transient paralysis, Denies tremors, Denies vertigo, Denies weakness, Denies visual changes Psychiatric: Reports as per HPI Endocrine: Reports as per HPI, Denies cold intolerance, Denies deepening of the voice, Denies excessive sweating, Denies excessive thirst, Denies fatigue, Denies flushing, Denies heat intolerance, Denies high blood sugars, Denies increase in ring/shoe/hat size, Denies low blood sugars, Denies nocturia, Denies palpitations, Denies polydipsia, Denies polyphagia, Denies polyuria, Denies proptosis, Denies recent glucocorticoid use, Denies thyroid mass, Denies weight change Hematologic/Lymphatic: Reports as per HPI Allergic/Immunologic: Reports as per HPI Objective - Vital Signs Vital signs: Vital Signs Temp 96.9 F L 11/02/19 13:39 Pulse 63 11/02/19 17:16 Resp 18 11/02/19 13:39 BP 92/54 11/02/19 17:16 Pulse Ox 95 11/02/19 13:39 Intake & Output 11/01/19 11/02/19 11/02/19 18:59 06:59 18:59 Intake Total 1000 900 300 Output Total 800 1500 600 Balance 200 -600 -300 Weight 95.5 kg Intake: Oral 1000 900 300 Output: Urine 800 1500 600 Other: Voiding Method Incontinent Incontinent # Voids 1 0 1 # Bowel Movements 0 - Constitutional General appearance: Present: cooperative, no acute distress - EENT Eyes: Present: anicteric sclerae, EOMI, PERRLA, dentition normal ENT: Present: NA/AT, normal oropharynx - Neck Neck: Present: normal ROM - Respiratory Respiratory: bilateral: CTA, negative: diminished, dullness, rales, rhonchi, wheezing - Cardiovascular Rhythm: regular Heart sounds: normal: S1 Abnormal Heart Sounds: Absent: systolic murmur, diastolic murmur, rub, S3 Gallop, S4 Gallop, click, other - Gastrointestinal General gastrointestinal: Present: normal bowel sounds, soft - Integumentary Integumentary: Present: decreased turgor, normal - Neurologic Neurologic: Present: CNII-XII intact - Psychiatric Psychiatric: Present: A&O x's 3, appropriate affect, intact judgment & insight - Labs CBC & Chem 7: 10/30/19 08:41 11/01/19 08:10 Labs: Abnormal Lab Results - Last 24 Hours (Table) 11/02/19 Range/Units 08:26 PT 24.8 H (9.0-12.0) sec INR 2.6 H (<1.2) Microbiology - Last 24 Hours (Table) 10/26/19 12:41 Blood Culture - Final Blood No Growth after 144 hours Assessment and Plan Plan: 1. 1. left basilar infiltrate and/or atelectasis,repiratory symtoms have resolved with possible small pleural effusion, superimposed CHF with pulmonary vascular congestion diffuse interstitial changes , community acquired, discontinue Rocephin IVand ZithromaxIV few respiratory normal luis isolated on culture cefe pime started for Pseudomonas UTI wiith metabolic encephalopathy, 2. Acute urinary tract infection Pseudomonas UTI has quinolone intermidiate reistance drug, Rocephin discontinued, consult with Dr. Chen,cephepime g every 12 hours started. Discontinue Anne, monitor for urinary retention. Dr chen 3 more doses at least of cefepime, no PICC needed, would complete treatment prior to discharge 2. Acute renal insufficiency with dehydration secondary secondary to diminished appetite, IV hydration gentle, History of hydronephrosis in the past, we'll going to obtain renal ultrasound, was seen by urology in 2017 for obstructive uropathy 3. diastolic CHF exacerbation with bilateral dependent edema, however unknown whether this is systolic in nature, no echocardiogram available for review since 2017,we will request another echocardiogram, consult cardiology, IV Lasix 4. 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 Ray 02/15/2017 [facility] normal pressure hydrocephalus 5. Hypertension metoprolol, Zaroxolyn, 6. Pacemaker stable , need pacemaker check consult cardiology, on long-term anticoagulation 7. significantDementia possibly related to the NPH, not on a cholinesterase inhibition 8 History of melanoma 9 Acute renal sufficiency with CK D stage III, fluids IV improved, avoid nephrotoxins, 11 Elevated troponin as related to sepsis, troponins will be monitored 12 Debility with impaired balance and memory loss, patient seen by physical therapy and occupational therapy, 13 CAD with prior CABG in 2001, Edema, . readjusted Lasix, continue metoprolol, losartan, 14 history of kidney stone with prior lithotripsies 15 BPH has urinary retention currently on Flomax Proscar, reinsert anne has pvr 350, has urinary incontinence consult urology, Anne catheter to be discontinued at home. November 10 with voiding trial thereafter, Dr. Peralta to see as an outpatient 16 Coagulopathy on Coumadin, indication for Coumadin currently is not known this would be verified Coumadin is on hold for possible procedure by urology 17 Rheumatid arthritis with debility wheelchair bound prior to admission, 1-2 person assist on community ablation consult PT OT 18 long-term anticoagulation with Coumadin discharge planning, returning to [facility] with home therapy baseline with ambulation would be a walker, 1 person assist
[2019-11-02] MEDS: ATORVASTATIN 40 MG TAB PO SCH (20:21)
[2019-11-02] MEDS: MIRTAZAPINE 15 MG TAB PO SCH (20:21)
[2019-11-03] MEDS: IPRATROPIUM-ALBUTEROL 3 ML NEB INHALATION SCH ×4 (08:08→20:24)
[2019-11-03 10:08] LABS: INR 2.6 (<1.2); Prothrombin Time 24.7 sec (9.0-12.0)
[2019-11-03] MEDS: METOLAZONE 2.5 MG TAB PO SCH (10:08)
[2019-11-03] MEDS: FUROSEMIDE 40 MG TAB PO SCH (10:09)
[2019-11-03] MEDS: FERROUS SULFATE 325 MG TAB PO SCH (10:09)
[2019-11-03] MEDS: POTASSIUM CHLORIDE ER 20 MEQ TAB.ER PO SCH (10:09)
[2019-11-03] MEDS: ALLOPURINOL 100 MG TAB PO SCH ×2 (10:09→21:10)
[2019-11-03] MEDS: SENNOSIDES-DOCUSATE SODIUM 1 EACH TAB PO SCH (10:09)
[2019-11-03] MEDS: TAMSULOSIN 0.4 MG CAP.ER.24H PO SCH ×2 (10:09→21:10)
[2019-11-03] MEDS: PANTOPRAZOLE 40 MG TABLET PO SCH (10:09)
[2019-11-03] MEDS: METOPROLOL TARTRATE 50 MG TAB PO SCH ×2 (10:09→17:51)
[2019-11-03] MEDS: FINASTERIDE 5 MG TAB PO SCH (10:09)
[2019-11-03] MEDS: LOSARTAN 25 MG TAB PO SCH (10:09)
[2019-11-03] MEDS: CEFEPIME 2 GM in SODIUM CHLORIDE 0.9% 100 ML IVPB SCH (12:59)
[2019-11-03] MEDS: WARFARIN 3 MG TAB PO SCH (17:51)
--- NOTE | 2019-11-03 19:11 | PN ---
PROGRESS NOTE DATE OF SERVICE: 11/03/2019 REASON FOR FOLLOWUP: Pseudomonas urinary tract infection. INTERVAL HISTORY: The patient is currently afebrile. The patient has been breathing comfortably. The patient denies having any chest pain or shortness of breath or cough. No nausea or vomiting. No abdominal pain or diarrhea. PHYSICAL EXAMINATION: Blood pressure 117/66, pulse of 60, temperature 97.8. He is 97% on room air. General description is an elderly male lying in bed in no distress. RESPIRATORY SYSTEM: Unlabored breathing. Clear to auscultation anteriorly. HEART: S1, S2. Regular rate and rhythm. ABDOMEN: Soft. No tenderness. LABS: Creatinine is 1.55. No other labs have been obtained except INR of 2.6. DIAGNOSTIC IMPRESSION AND PLAN: Patient with a pseudomonas urinary tract infection, adequately treated. Repeat urine is coming back negative on discharge with no need for any or antibiotic on discharge. Continue with supportive care. MMODL / IJN: [id number] /
--- NOTE | 2019-11-03 19:19 | P.PN ---
Subjective Progress Note Date: 11/03/19 This is a pleasant 79-year-old gentleman patient of Dr. Roman. He currently resides at [facility] , underlying history normal pressure hydrocephalus requiring shunt placement by Dr. Ray02/15/[address] [facility] causing significant memory impairment, hypertension, atrial fibrillation, CAD, sick sinus syndrome requiring pacemaker,he follows with Dr. Vizcaino cardiology. Patient has had shortness of breath for the past 4 days, occasional cough, chronic dependent edema, and wheezing for the past 5 days. He was given Mucinex, no antibiotics, no fever, there is rest or illnesses ongoing at the residential home, patient has diminished appetite for the past 2 days, no medication changes from any other physicians, however the mentioned that he needs a pacemaker check routinely. Patient denies any palpitations, no chest pain, no aspirative events, 10/28: Patient is more mentally clear today, was able to converse and participate appropriately, per nursing staff, patient was able to ambulate with a walker to the door but not to the hallway, no lightheadedness and dizziness, p atient has a positive urinalysis with pyuria, patient is on Rocephin, which was currently pending sputum cultures final, few normal respiratory luis, blood cultures are currently negative patient remains to be afebrile, oxygen are 98% room air blood pressure 146/50, INR 2.0, hemoglobin 11.wbc count 7.5, creatinine 1.39 from a previous of 1.26, has indwelling Anne for I's and O's monitoring, will discontinue Anne catheter tonight. him a cardiology has seen him, patient does not need any interrogation at this time, IV Lasix now switched to oral, awaiting urine cultures prior to discharge, discharge planning in progress, subacute against home therapies at residential place 10/29: Patient continues to be alert, he has baseline difficulties of hearing, however appropriate answers are given, no mentation changes at night per nursing staff, no fever no chills, Pseudomonas growing on urine, sensitivities are currently pending, on IV Rocephin, await final culture report, anticipate discharge in a.m. 2 therapies either to [facility] where he currently resides at the 28/05 supervision, again subacute rehab 10/30, patient is alert at baseline with communication, sitting in recliner [facility] no pain, no diarrhea, : no hematuria, no falls, no aspiration,. culture sows pseudomonas with intermidiate resistance to quinolone, will stop rocephine, start cefepime, antipseudomonal agent. consult with dr Yoder. will d/c anne today 10/[address] Yoder, will continue at least 3 more doses of cefepime, will not need PICC line and does not need oral antibiotic post discharge. mable david does not have any repiratory symptioms, no cardiovascular symtpoms, very pleasant, still with anne. will monitor pvr after anne removal 11/01 patient is uncomfortable in the abdomen today, Anne catheter was discontinued yesterday, examination shows fullness of the bladder up to the umbilicus, PVR is at least 350, patient is incontinent, and cannot void on command, underlying neurogenic bladder, we consulted Dr. Cuha urology, and reinsert Anne catheter, no plans for discharge today, physical therapy is following the patient, no recommendation for subacute, most likely would be dis charged to home environment at [facility] . No IV antibiotics needed on discharge per infectious disease, urinalyses has now normalized November 02: Were anticipating discharge today, however the had a flat tire, with delaying discharge until tomorrow, no IV antibiotics needed post discharge, no oral antibiotic needed post discharge per infectious disease, Dr. Chua recommended leaving the Anne in and would be discontinued 11/10/2019, senior living with home care, to be provided, and therapies. Patient's blood pressure has been low today, we've held Lasix, decrease Lasix dose of 40 mg daily, decrease losartan to 25 mg daily 11/03 patient evaluated at bedside is doing well. Not short of breath, denies any cough. Patient does have underlying significant memory impairment and is unable to cooperate with examination.. at bedside does not want patient to be discharged to home as patient appears weak to her. We will have physical therapy evaluate the patient and have social service liaison see if patient can qualify for rehab at [facility]. Patient's was explained in detail that physical therapy is necessary for the patient to help with his mobility and patient does not have any acute need to be in the hospitals. Since it is late for physical therapy to see the patient will plan on discharging tomorrow Review of Systems Constitutional: Denies chills, Denies fever, endorses lethargic Eyes: denies decreased vision, denies diplopia, denies discharge, denies pain Cardiovascular: Denies chest pain, Denies decreased exercise tolerance, Denies edema, Denies high blood pressure, Denies irregular heart beat, Denies palpitations, Denies paroxysmal nocturnal dyspnea, Denies rapid heart beat, Denies shortness of breath Respiratory: Denies congestion, Denies cough, Denies cough with sputum, Denies dyspnea, Denies home oxygen, Denies wheezing Gastrointestinal: Denies abdominal pain, Denies change in bowel habits, Denies coffee ground emesis, Denies early satiety, Denies excessive gas, Denies heartburn, Denies hematemesis, Denies hematochezia, Denies loss of appetite, Denies nausea, Denies vomiting Genitourinary: Denies dysuria, Denies flank pain, Denies kidney stones, Denies menorrhagia, Denies urgency, Denies urinary frequency Musculoskeletal: Endorses gait dysfunction, endorses limitation of motion, Den ies morning stiffness, Denies muscle cramps Integumentary: Denies rash, Denies wounds, Denies brittle nails, Denies change in hair/nails, Denies darkening of skin Neurological: Denies balance difficulties, Denies change in speech, Denies double vision, Denies gait dysfunction, Denies loss of vision, endorses motor disturbance, Denies numbness, Denies paralysis, Denies paresthesias, Denies seizures Psychiatric: Denies anxiety, Denies depression Endocrine: Denies excessive sweating, Denies excessive thirst, Denies high blood sugars, Denies palpitations Hematologic/Lymphatic: Denies easy bruising, Denies lymphadenopathy Objective - Vital Signs Vital signs: Vital Signs Temp 97.8 F 11/03/19 13:09 Pulse 74 11/03/19 16:53 Resp 15 11/03/19 13:09 BP 117/66 11/03/19 13:09 Pulse Ox 97 11/03/19 16:43 Intake & Output 11/03/19 11/03/19 11/04/19 06:59 18:59 06:59 Intake Total 100 700 Output Total 700 800 Balance -600 -100 Weight 92 kg Intake: Oral 100 700 Output: Urine 700 800 Other: Voiding Method Incontinent Indwelling Catheter # Voids 1 # Bowel Movements 1 - Exam - Constitutional General appearance: cooperative, no acute distress, obese - EENT Eyes: anicteric sclerae, PERRLA, normal appearance ENT: hearing grossly normal - Neck Neck: no lymphadenopathy, normal ROM, no other, no rigidity, no stridor, no thyromegaly - Respiratory Respiratory: bilateral: CTA, decreased air entry bilaterally - Cardiovascular Rhythm: regular Heart sounds: normal: S1, S2 Abnormal Heart Sounds: no systolic murmur, no diastolic murmur, no rub - Gastrointestinal General gastrointestinal: normal bowel sounds, soft nontender - Integumentary Integumentary: no rash - Neurologic Neurologic: CNII-XII intact - Musculoskeletal Musculoskeletal: Gait could not be assessed patient has generalized weakness and 4/5 bilateral lower extremity weakness currently wheelchair-bound at home - Psychiatric Psychiatric: A&O x's 3, appropriate affect - Labs CBC & Chem 7: 10/30/19 08:41 11/01/19 08:10 Labs: Abnormal Lab Results - Last 24 Hours (Table) 11/03/19 Range/Units 08:44 PT 24.7 H (9.0-12.0) sec INR 2.6 H (<1.2) Assessment and Plan Plan: 1. Acute respiratory failure secondary to Community-acquired pneumonia/ Diastolic CHF exacerbation completed treatment with Rocephin and azithromycin 2. Acute urinary tract infection Pseudomonas UTI completed course of cefepime. No recommendations for further antibiotic on discharge 2. Acute renal insufficiency secondary to dehydration and diminished appetite discontinue IV fluids as patient is hydrated 3. diastolic CHF exacerbation with bilateral dependent edema, echocardiogram with preserved ejection fraction and moderate concentric hypertrophy on oral Lasix 4. history of NPH with TREATMENT MANAGER shunt by Dr. Ray 02/15/2017 [facility] normal pressure hydrocephalus 5. Hypertension metoprolol, Zaroxolyn, 6. Pacemaker stable , last interrogated during April and remote interrogation done in September was stable 7. significantDementia possibly related to the NPH, not on a cholinesterase inhibition 8 History of melanoma 9 Acute renal sufficiency with CK D stage III, fluids IV improved, avoid nephrotoxins, 11 Elevated troponin as related to sepsis, troponins will be monitored 12 Debility with impaired balance and memory loss, patient seen by physical therapy and occupational therapy, 13 CAD with prior CABG in 2001, Edema, . readjusted Lasix, continue metoprolol, losartan, 14 history of kidney stone with prior lithotripsies 15 BPH has urinary retention currently on Flomax Proscar, continue Anne catheter for one week, Anne catheter to be discontinued at home. November 10 with voiding trial thereafter, Dr. Peralta to see as an outpatient 16 Coagulopathy on Coumadin, indication for Coumadin currently is not known this would be verified Coumadin is on hold for possible procedure by urology 17 Rheumatid arthritis with debility wheelchair bound prior to admission, 1-2 person assist on community ablation consult PT OT 18 long-term anticoagulation with Coumadin discharge planning, returning to [facility] with rehab, patient was able to use a walker with minimal verbal cueing by physical therapy on since patient's stating that patient has declined, we'll assess with PT again and see if patient qualifies for rehab at [facility]
--- NOTE | 2019-11-03 20:06 | XR ---
EXAMINATION TYPE: XR chest 1V portable DATE OF EXAM: 11/03/2019 COMPARISON: 10/27/2019 HISTORY: Short of breath TECHNIQUE: FINDINGS: Heart is enlarged. There is no gross heart failure. There are sternal wires. There is left axillary pacemaker. There is some mild linear density at the left lung base. IMPRESSION: There is improvement in the pulmonary vascular congestion compared to last exam. There is some mild pleural reaction and atelectasis left lung base unchanged. There is no obvious heart failu re.
[2019-11-03] MEDS: MIRTAZAPINE 15 MG TAB PO SCH (21:10)
[2019-11-03] MEDS: ATORVASTATIN 40 MG TAB PO SCH (21:10)
[2019-11-04 00:15] VITALS: TEMP 98.4
[2019-11-04 06:17] VITALS: BP 128/76; RESP 16
[2019-11-04] MEDS: IPRATROPIUM-ALBUTEROL 3 ML NEB INHALATION SCH ×2 (07:29→11:20)
[2019-11-04 07:42] VITALS: PULSE 72
[2019-11-04] MEDS: ALLOPURINOL 100 MG TAB PO SCH (09:27)
[2019-11-04] MEDS: FINASTERIDE 5 MG TAB PO SCH (09:28)
[2019-11-04] MEDS: FUROSEMIDE 40 MG TAB PO SCH (09:28)
[2019-11-04] MEDS: POTASSIUM CHLORIDE ER 20 MEQ TAB.ER PO SCH (09:28)
[2019-11-04] MEDS: METOPROLOL TARTRATE 50 MG TAB PO SCH (09:28)
[2019-11-04] MEDS: LOSARTAN 25 MG TAB PO SCH (09:28)
[2019-11-04] MEDS: TAMSULOSIN 0.4 MG CAP.ER.24H PO SCH (09:28)
[2019-11-04] MEDS: FERROUS SULFATE 325 MG TAB PO SCH (09:28)
[2019-11-04] MEDS: PANTOPRAZOLE 40 MG TABLET PO SCH (09:28)
[2019-11-04] MEDS: SENNOSIDES-DOCUSATE SODIUM 1 EACH TAB PO SCH (09:28)
[2019-11-04 09:48] LABS: INR 2.5 (<1.2); Prothrombin Time 24.3 sec (9.0-12.0)
[2019-11-04] MEDS ORDERED: HALOPERIDOL LACTATE 5 MG/ML 1 ML VIAL IM PRN (10:35)
[2019-11-04 11:26] VITALS: BMI 29.0
--- NOTE | 2019-11-04 12:07 | P.DS ---
Providers Date of admission: 10/26/19 13:51 Attending physician: Nate Salvador Consults: 10/27/19 16:04 Consult Physician Routine Consulting Provider: Kulwinder Haney Consult Reason/Comments: chf, pacemaker check Do you want consulting provider notified?: Yes 10/30/19 11:30 Consult Physician Routine Consulting Provider: Tuan Yoder Consult Reason/Comments: drug resistant pseudomonas uti Do you want consulting provider notified?: Yes 11/01/19 13:02 Consult Physician Routine Consulting Provider: Janusz Bob Consult Reason/Comments: urinary retention Do you want consulting provider notified?: Yes [facility] Course: This is a pleasant 79-year-old gentleman patient of Dr. Roman. He currently resides at [facility] , underlying history normal pressure hydrocephalus requiring shunt placement by Dr. Ray02/15/2017 at [facility] causing significant memory impairment, hypertension, atrial fibrillation, CAD, sick sinus syndrome requiring pacemaker,he follows with Dr. Vizcaino cardiology. Patient has had shortness of breath for the past 4 days, occasional cough, chronic dependent edema, and wheezing for the past 5 days. He was given Mucinex, no antibiotics, no fever, there is rest or illnesses ongoing at the residential home, patient has diminished appetite for the past 2 days, no medication changes from any other physicians, however the mentioned that he needs a pacemaker check routinely. Patient denies any palpitations, no chest pain, no aspirative events, 10/28: Patient is more mentally clear today, was able to converse and participate appropriately, per nursing staff, patient was able to ambulate with a walker to the door but not to the hallway, no lightheadedness and dizziness, patient has a positive urinalysis with pyuria, patient is on Rocephin, which was currently pending sputum cultures final, few normal respiratory luis, blood cultures are currently negative patient remains to be afebrile, oxygen are 98% room air blood pressure 146/50, INR 2.0, hemoglobin 11.wbc count 7.5, creatinine 1.39 from a previous of 1.26, has indwelling Anne for I's and O's monitoring, will discontinue Anne catheter tonight. him a cardiology has seen him, patient does not need any interrogation at this time, IV Lasix now switched to oral, awaiting urine cultures prior to discharge, discharge planning in progress, s ubacute against home therapies at residential place 10/29: Patient continues to be alert, he has baseline difficulties of hearing, however appropriate answers are given, no mentation changes at night per nursing staff, no fever no chills, Pseudomonas growing on urine, sensitivities are currently pending, on IV Rocephin, await final culture report, anticipate discharge in a.m. 2 therapies either to [facility] where he currently resides at the 28/05 supervision, again subacute rehab 10/30, patient is alert at baseline with communication, sitting in recliner wtih no pain, no diarrhea, : no hematuria, no falls, no aspiration,. culture sows pseudomonas with intermidiate resistance to quinolone, will stop rocephine, start cefepime, antipseudomonal agent. consult with dr Yoder. will d/c anne today 10/[address] Yoder, will continue at least 3 more doses of cefepime, will not need PICC line and does not need oral antibiotic post discharge. patient does not have any repiratory symptioms, no cardiovascular symtpoms, very pleasant, still with anne. will monitor pvr after anne removal 11/01 patient is uncomfortable in the abdomen today, Anne catheter was discontinued yesterday, examination shows fullness of the bladder up to the umbilicus, PVR is at least 350, patient is incontinent, and cannot void on command, underlying neurogenic bladder, we consulted Dr. Chua urology, and reinsert Anne catheter, no plans for discharge today, physical therapy is following the patient, no recommendation for subacute, most likely would be [facility] . No IV antibiotics needed on discharge per infectious disease, urinalyses has now normalized November 02: Were anticipating discharge today, however the had a flat tire, with delaying discharge until tomorrow, no IV antibiotics needed post discharge, no oral antibiotic needed post discharge per infectious disease, Dr. Chua recommended leaving the Anne in and would be discontinued 11/10/2019, nursing home with home care, to be provided, and therapies. Patient's blood pressure has been low today, we've held Lasix, decrease Lasix dose of 40 mg daily, decrease losartan to 25 mg daily 11/03 patient evaluated at bedside is doing well. Not short of breath, denies any cough. Patient does have underlying significant memory impairment and is unable to cooperate with examination.. at bedside does not want patient to be discharged to home as patient appears weak to her. We will have physical therapy evaluate the patient and have social problems specialist see if patient can qualify [facility]. Patient's was explained in detail that physical therapy is necessary for the patient to help with his mobility and patient does not have any acute need to be in the hospitals. Since it is late for physical therapy to see the patient will plan on discharging tomorrow patient examined bedside. Patient did have an episode of combativeness this morning but come down easily. He is alert and is able to walk without any difficulty with a walker. Physical therapy saw the patient today, patient would not qualify for rehab. Patient to follow with urology as outpatient. Chest x- ray was repeated to evaluate for the pulmonary venous congestion which is improved as compared to the previous x-ray patient is breathing appropriately, no cough no shortness of breath seen. No abdominal pain no diarrhea no nausea or vomiting.. Patient is stable to be discharged to [facility] today with home physical therapy Discharge diagnoses 1. Acute respiratory failure secondary to Community-acquired pneumonia/ Diastolic CHF exacerbation completed treatment with Rocephin and azithromycin 2. Acute urinary tract infection Pseudomonas UTI completed course of cefepime. 2. Acute renal insufficiency secondary to dehydration 3. diastolic CHF exacerbation with bilateral dependent edema 4. 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 Ray 02/15/2017 [facility] normal pressure hydrocephalus 5. Hypertension 6. Pacemaker stable , last interrogated during April and remote interrogation done in September was stable 7. 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 16 Coagulopathy on Coumadin 17 Rheumatid arthritis with debility blation con, 1-2 person assist 18 long-term anticoagulation discharge planning, returning to [facility] with rehab Plan - Discharge Summary Discharge Rx Participant: No New Discharge Prescriptions: New Losartan [Cozaar] 25 mg PO DAILY tab Potassium Chloride ER [K-Dur 20] 20 meq PO DAILY tab.er.prt Furosemide [Lasix] 40 mg PO DAILY tab Continue Allopurinol [Zyloprim] 100 mg PO BID@0800,1999 Acetaminophen Tab [Tylenol] 650 mg PO BID PRN PRN Reason: Pain Or Fever > 100.5 Metoprolol Tartrate [Lopressor] 50 mg PO BID@0800,1700 Tamsulosin [Flomax] 0.4 mg PO BID@0800,1999 Acetaminophen Tab [Tylenol] 325 mg PO Q4H PRN PRN Reason: Pain guaiFENesin-DM 100-10MG/5ML [Robitussin DM] 20 ml PO Q4H PRN PRN Reason: Cough Metolazone [Zaroxolyn] 2.5 mg PO ONCE PRN PRN Reason: WEIGHT GAIN OF 2 LBS IN 1 DAY Loperamide [Imodium] 2 mg PO QID PRN PRN Reason: Loose Stool HYDROcodone/APAP 5-325MG [[place] 5-325] 1 tab PO Q12H PRN PRN Reason: Pain SILVER sulfADIAZINE CREAM [Silvadene Cream] 1 applic TOPICAL HS@1999 Ensure 1 can PO BID-W/MEALS Warfarin [Coumadin] 1.5 mg PO SUTUTH Warfarin [Coumadin] 3 mg PO MOWEFRSA Thermazine 1% Cr 1 applic TOPICAL BID Pantoprazole Sodium [Protonix] 40 mg PO DAILY@0800 Mirtazapine [Remeron] 15 mg PO HS@1999 Metolazone [Zaroxolyn] 2.5 mg PO MOWEFR Finasteride [Proscar] 5 mg PO DAILY Ferrous Sulfate [Iron (65 MG Elemental)] 325 mg PO DAILY@0800 Docusate Sodium [Dok] 100 mg PO DAILY@1200 Atorvastatin [Lipitor] 40 mg PO HS@1999 Antibiotic Oint 1 applic TOPICAL BID Discontinued Losartan Potassium [Cozaar] 50 mg PO QAM Potassium Chloride [Klor-Con 20] 20 meq PO TID@0800,1400,1999 Mupirocin 2% Oint [Bactroban 2% Oint] 1 applic TOPICAL DAILY Furosemide [Lasix] 80 mg PO BID@0800,1400 Discharge Medication List Allopurinol [Zyloprim] 100 mg PO BID@0800,199907/25/16 [History] Acetaminophen Tab [Tylenol] 650 mg PO BID PRN 03/07/17 [History] Metoprolol Tartrate [Lopressor] 50 mg PO BID@0800,1700 03/07/17 [History] Tamsulosin [Flomax] 0.4 mg PO BID@0800,199903/07/17 [History] Acetaminophen Tab [Tylenol] 325 mg PO Q4H PRN 10/26/19 [History] Antibiotic Oint 1 applic TOPICAL BID 10/26/19 [History] Atorvastatin [Lipitor] 40 mg PO HS@199910/26/19 [History] Docusate Sodium [Dok] 100 mg PO DAILY@1200 10/26/19 [History] Ensure 1 can PO BID-W/MEALS 10/26/19 [History] Ferrous Sulfate [Iron (65 MG Elemental)] 325 mg PO DAILY@0800 10/26/19 [History] Finasteride [Proscar] 5 mg PO DAILY 10/26/19 [History] HYDROcodone/APAP 5-325MG [[place] 5-325] 1 tab PO Q12H PRN 10/26/19 [History] Loperamide [Imodium] 2 mg PO QID PRN 10/26/19 [History] Metolazone [Zaroxolyn] 2.5 mg PO MOWEFR 10/26/19 [History] Metolazone [Zaroxolyn] 2.5 mg PO ONCE PRN 10/26/19 [History] Mirtazapine [Remeron] 15 mg PO HS@199910/26/19 [History] Pantoprazole Sodium [Protonix] 40 mg PO DAILY@0800 10/26/19 [History] SILVER sulfADIAZINE CREAM [Silvadene Cream] 1 applic TOPICAL HS@199910/26/19 [History] Thermazine 1% Cr 1 applic TOPICAL BID 10/26/19 [History] Warfarin [Coumadin] 1.5 mg PO SUTUTH 10/26/19 [History] Warfarin [Coumadin] 3 mg PO MOWEFRSA 10/26/19 [History] guaiFENesin-DM 100-10MG/5ML [Robitussin DM] 20 ml PO Q4H PRN 10/26/19 [History] Furosemide [Lasix] 40 mg PO DAILY tab 11/02/19 [Rx] Losartan [Cozaar] 25 mg PO DAILY tab 11/02/19 [Rx] Potassium Chloride ER [K-Dur 20] 20 meq PO DAILY tab.er.prt 11/02/19 [Rx] Follow up Appointment(s)/Referral(s): Alejandrina Roman MD [Primary Care Provider] - 1-2 days (office will call you to set up a follow up appt.) Benny Chua MD [STAFF PHYSICIAN] - 11/10/19 10:20 am (Need to make appointment for voiding trial with urologist on 11/10/19. Patient should have anne catheter pulled at [facility] at 0600, by nursing home staff. ) [facility], [NON-STAFF] - Robby Vizcaino MD [STAFF PHYSICIAN] - 11/10/19 3:00 pm Patient Instructions/Handouts: Pneumonia (DC) Activity/Diet/Wound Care/Special Instructions: Homecare will d/c catheter in the AM on 11/10/19. Discharge Disposition: HOME WITH HOME HEALTH SERVICES
--- NOTE | 2019-11-04 16:15 | PN ---
PROGRESS NOTE DATE OF SERVICE: 11/04/2019 REASON FOR FOLLOWUP: Pseudomonas urinary tract infection. INTERVAL HISTORY: The patient was seen on rounds earlier this afternoon. The patient has been afebrile and remains pleasantly confused. No nausea, vomiting or any diarrhea has been reported by the nursing staff. The patient himself was unable to provide any history. PHYSICAL EXAMINATION: Blood pressure is 128/76, pulse of 88, temperature 98.4. He is 95% on room air. General description is an elderly male lying in bed in no distress. RESPIRATORY SYSTEM: Unlabored breathing. Clear to auscultation anteriorly. HEART: S1, S2. Regular rate and rhythm. ABDOMEN: Soft. No tenderness. LABS: No new labs have been obtained except INR, which was therapeutic. DIAGNOSTIC IMPRESSION AND PLAN: Patient with a pseudomonas urinary tract infection that has been adequately treated in this patient. Repeat urine culture has been negative. There is no need for any antibiotic on discharge. Continue with supportive care. MMODL / IJN: [id number] /
== END 2019-11-04 13:27 | disposition home health service (06) | DRG 177 ==
LOC: EC 11:59 → 6NMEDSUR 13:51
PROVIDERS: ADMIT Internal Medicine; ATTEND Internal Medicine
DX: J15.6 Pneumonia due to other Gram-negative bacteria (principal); I50.33 Acute on chronic diastolic (congestive) heart failure; G93.41 Metabolic encephalopathy; J96.00 Acute respiratory failure, unspecified whether with hypoxia or hypercapnia; I13.0 Hypertensive heart and chronic kidney disease with heart failure and stage 1 through stage 4 chronic kidney disease, or unspecified chronic kidney disease; I48.19 Other persistent atrial fibrillation; G91.2 (Idiopathic) normal pressure hydrocephalus; N39.0 Urinary tract infection, site not specified; E86.0 Dehydration; I49.5 Sick sinus syndrome; N18.3 Chronic kidney disease, stage 3 (moderate); F03.90 Unspecified dementia, unspecified severity, without behavioral disturbance, psychotic disturbance, mood disturbance, and anxiety; I25.10 Atherosclerotic heart disease of native coronary artery without angina pectoris; I08.1 Rheumatic disorders of both mitral and tricuspid valves; E78.5 Hyperlipidemia, unspecified; K21.9 Gastro-esophageal reflux disease without esophagitis; M06.9 Rheumatoid arthritis, unspecified; F10.20 Alcohol dependence, uncomplicated; I25.2 Old myocardial infarction; N28.9 Disorder of kidney and ureter, unspecified; N40.1 Benign prostatic hyperplasia with lower urinary tract symptoms; R33.8 Other retention of urine; N39.498 Other specified urinary incontinence; N31.9 Neuromuscular dysfunction of bladder, unspecified; B96.5 Pseudomonas (aeruginosa) (mallei) (pseudomallei) as the cause of diseases classified elsewhere; R31.9 Hematuria, unspecified; R79.1 Abnormal coagulation profile; T45.515A Adverse effect of anticoagulants, initial encounter; H26.9 Unspecified cataract; H91.90 Unspecified hearing loss, unspecified ear; H40.9 Unspecified glaucoma; I73.9 Peripheral vascular disease, unspecified; Z79.01 Long term (current) use of anticoagulants; Z79.899 Other long term (current) drug therapy; Z98.2 Presence of cerebrospinal fluid drainage device; Z95.0 Presence of cardiac pacemaker; Z85.820 Personal history of malignant melanoma of skin; Z85.828 Personal history of other malignant neoplasm of skin; Z87.442 Personal history of urinary calculi; Z95.5 Presence of coronary angioplasty implant and graft; Z95.1 Presence of aortocoronary bypass graft; Z98.890 Other specified postprocedural states; Z98.42 Cataract extraction status, left eye; Z87.19 Personal history of other diseases of the digestive system; Z99.3 Dependence on wheelchair; Z80.8 Family history of malignant neoplasm of other organs or systems
CPT/HCPCS: 36415; 71045; 71046; 76770; 80048; 80053; 81001; 83880; 84443; 84484; 85025; 85610; 85730; 87040; 87070; 87077; 87086; 87186; 87205; 93005; 93306; 94640; 94760; 96365; 99285

== ENCOUNTER 2021-04-30 16:15 | Emergency (ER) | payer MEDICARE ==
[2021-04-30 16:24] VITALS: RESP 18
--- NOTE | 2021-04-30 16:43 | ED ---
General Adult HPI - General Chief complaint: Fall Stated complaint: fall Time Seen by Provider: 04/30/21 16:34 Source: EMS Mode of arrival: EMS Limitations: altered mental status - History of Present Illness Initial comments: Patient is an 80-year-old male with history of dementia, A. fib, multiple other comorbidities, presenting to the emergency department via EMS for a unwitnessed fall. Patient is a permanent resident of [facility] words, according to staff, he was in a wheelchair and possibly fell forward. This was unwitnessed. Patient was sent in for a possible head CT as he is on a blood thinner. According to staff, they also say that he is normally slightly combative however he is being overly nice and not combative and they are concerned for this as well. Patient has no complaints when asked. No pain anywhere. Again he has history of dementia, is a poor historian. There are no further complaints. His vital signs are stable upon arrival. - Related Data Home Medications Medication Instructions Recorded Confirmed allopurinoL [Zyloprim] 100 mg PO BID@0800,199907/25/16 10/26/19 Acetaminophen Tab [Tylenol] 650 mg PO BID PRN 03/07/17 10/26/19 Metoprolol Tartrate [Lopressor] 50 mg PO BID@0800,1700 03/07/17 10/26/19 Tamsulosin [Flomax] 0.4 mg PO BID@0800,199903/07/17 10/26/19 Acetaminophen Tab [Tylenol] 325 mg PO Q4H PRN 10/26/19 10/26/19 Antibiotic Oint 1 applic TOPICAL BID 10/26/19 10/26/19 Atorvastatin [Lipitor] 40 mg PO HS@199910/26/19 10/26/19 Docusate Sodium [Dok] 100 mg PO DAILY@1200 10/26/19 10/26/19 Ensure 1 can PO BID-W/MEALS 10/26/19 10/26/19 Ferrous Sulfate [Iron (65 MG 325 mg PO DAILY@0800 10/26/19 10/26/19 Elemental)] Finasteride [Proscar] 5 mg PO DAILY 10/26/19 10/26/19 HYDROcodone/APAP 5-325MG [[place] 1 tab PO Q12H PRN 10/26/19 10/26/19 5-325] Loperamide [Imodium] 2 mg PO QID PRN 10/26/19 10/26/19 Mirtazapine [Remeron] 15 mg PO HS@199910/26/19 10/26/19 Pantoprazole Sodium [Protonix] 40 mg PO DAILY@0800 10/26/19 10/26/19 SILVER sulfADIAZINE CREAM 1 applic TOPICAL HS@199910/26/19 10/26/19 [Silvadene Cream] Thermazine 1% Cr 1 applic TOPICAL BID 10/26/19 10/26/19 Warfarin [Coumadin] 1.5 mg PO SUTUTH 10/26/19 10/26/19 Warfarin [Coumadin] 3 mg PO MOWEFRSA 10/26/19 10/26/19 guaiFENesin-DM 100-10MG/5ML 20 ml PO Q4H PRN 10/26/19 10/26/19 [Robitussin DM] metOLazone [Zaroxolyn] 2.5 mg PO MOWEFR 10/26/19 10/26/19 metOLazone [Zaroxolyn] 2.5 mg PO ONCE PRN 10/26/19 10/26/19 Previous Rx's Medication Instructions Recorded Furosemide [Lasix] 40 mg PO DAILY #30 tablet 11/04/19 Losartan [Cozaar] 25 mg PO DAILY #30 tab 11/04/19 Potassium Chloride [K-Tab ER] 20 meq PO DAILY #30 tablet.er 11/04/19 Allergies Allergy/AdvReac Type Severity Reaction Status Date / Time No Known Allergies Allergy Verified 04/30/21 16:19 Review of Systems ROS Statement: Those systems with pertinent positive or pertinent negative responses have been documented in the HPI. ROS Other: All systems not noted in ROS Statement are negative. Past Medical History Past Medical History: Atrial Fibrillation, Cancer, Dementia, Eye Disorder, GERD/Reflux, GI Bleed, Hyperlipidemia, Hypertension, Memory Impairment, Myocardial Infarction ([place]), Prostate Disorder, Renal Disease, Rheumatoid Arthritis (RA), Vascular Disorder Additional Past Medical History / Comment(s): alcoholism, Normal pressure hydocephalus with recent shunt, SSS - PACEMAKER, Skin CA- MELANOMA with removal from nose and other types of skin cancer removed, CKD, nephrolithiasis with sx, PVD, OCC EDEMA LEGS, glaucoma bilaterally, R eye cataract, BPH, past urinary retention after cerebral shunt and was discharged with a anne to [facility]-anne dc'd on 03/02/17, RECTAL BLEED AFTER COLONOSCOPY R/T COUMADIN USE, unsteady gait, intermittent confusion, Last Myocardial Infarction Date:: 2001?-silent History of Any Multi-Drug Resistant Organisms: None Reported Past Surgical History: Coronary Bypass/CABG, Heart Catheterization, Orthopedic Surgery, Pacemaker Additional Past Surgical History / Comment(s): Recent cerebral shunt, PCI with stent, TRIPLE CABG 2001, LT Shoulder rotator cuff repair, Colonoscopy, 2004 Original pacer, 07/2016 GENERATOR CHANGE, cystoscopy with double J catheter, since removed, lithotripsies, L eye cataract removal, skin cancer removals. Past Anesthesia/Blood Transfusion Reactions: No Reported Reaction Type of Cardiac Device: Permanent Pacemaker Device Placement Date:: 03/21/2006 Past Psychological History: No Psychological Hx Reported Smoking Status: Unknown if ever smoked Past Alcohol Use History: Daily Past Drug Use History: None Reported - Past Family History Brother(s) Family Medical History: Cancer Additional Family Medical History / Comment(s): SKIN Sister(s) Family Medical History: Cancer Additional Family Medical History / Comment(s): SKIN Mother Family Medical History: Cancer General Exam - General Exam Comments Initial Comments: GENERAL: Patient is well-developed and well-nourished. Patient is nontoxic and in no acute distress, pleasant, not combative. HEAD: Atraumatic, normocephalic. There is no hematomas, no signs of a basilar skull fracture. Instead of the head. EYES: Pupils equal round and reactive to light, extraocular movements intact, sclera anicteric, conjunctiva are normal. Eyelids were unremarkable. ENT: TMs normal, nares patent, oropharynx clear without exudates. Moist mucous membranes. NECK: Normal range of motion, supple without lymphadenopathy or JVD. No midline tenderness. LUNGS: Unlabored respirations. Breath sounds clear to auscultation bilaterally and equal. No wheezes rales or rhonchi. HEART: Regular rate and rhythm without murmurs, rubs or gallops. ABDOMEN: Soft, nontender, normoactive bowel sounds. No guarding, no rebound. No masses appreciated. : Deferred MUSCULOSKELETAL: Normal extremities with adequate strength and normal range of motion, no pitting or edema. No clubbing or cyanosis. NEUROLOGICAL: Patient is alert and oriented x 1, he does have history of dementia, this is his baseline.. Motor and sensory are also intact. Cranial nerves II through XII grossly intact. Symmetrical smile. PSYCH: Normal mood, normal affect. SKIN: Warm, Dry, normal turgor, no rashes or lesions noted. Limitations: altered mental status Course Vital Signs 04/30/21 16:19 Temperature 97.8 F Pulse Rate 55 L Respiratory 18 Rate Blood Pressure 114/74 O2 Sat by Pulse 95 Oximetry Medical Decision Making - Medical Decision Making Patient is an 80-year-old male presenting from [facility] after an unwitnessed fall. He is on blood thinners. They wanted him to have a CT. His exam is revealing no acute findings, he does have history of dementia and is confused at baseline. There no hematomas, no abrasions on his head or elsewhere. CT of the brain and C-spine showed no acute findings. Patient continues to be at his baseline. Patient will be discharged back to the [facility]. His is here and is in agreement with this plan of care. Case discussed with Dr. Hernandez. Disposition Clinical Impression: Fall Disposition: HOME SELF-CARE Condition: Stable Instructions (If sedation given, give patient instructions): Fall Prevention for Older Adults (ED) Additional Instructions: Please return to the Emergency Department if symptoms worsen or any other concerns. Is patient prescribed a controlled substance at d/c from ED?: No Referrals: Alejandrina Roman MD [Primary Care Provider] - 1-2 days Time of Disposition: 17:58
--- NOTE | 2021-04-30 17:38 | CT ---
EXAMINATION TYPE: CT brain mat wo con DATE OF EXAM: 04/30/2021 COMPARISON: 12/15/2018 HISTORY: Fall. CT DLP: 1429.7 mGycm Automated exposure control for dose reduction was used. There is cerebral atrophy. There is mild hydrocephalus. There is shunt catheter in the right lateral ventricle. There is no mass effect nor midline shift. There is no sign of intracranial hemorrhage. Th e calvarium appears intact. Cervical vertebra have normal alignment. Posterior elements are intact. There is no compression fract ure. There is mild cervical facet arthropathy. IMPRESSION: Minor degenerative changes in the cervical spine. No fracture. No change. Cerebral atrophy and hydrocephalus. No acute intracranial abnormality. No change.
[2021-04-30 18:33] VITALS: BP 100/65; PULSE 63; TEMP 98
== END 2021-04-30 19:05 | disposition home or self-care (01) ==
LOC: EC 16:15
DX: Z04.3 Encounter for examination and observation following other accident (principal); I12.9 Hypertensive chronic kidney disease with stage 1 through stage 4 chronic kidney disease, or unspecified chronic kidney disease; N18.9 Chronic kidney disease, unspecified; E78.5 Hyperlipidemia, unspecified; I48.91 Unspecified atrial fibrillation; I25.2 Old myocardial infarction; K21.9 Gastro-esophageal reflux disease without esophagitis; F03.90 Unspecified dementia, unspecified severity, without behavioral disturbance, psychotic disturbance, mood disturbance, and anxiety; M06.9 Rheumatoid arthritis, unspecified; Z95.0 Presence of cardiac pacemaker; Z79.01 Long term (current) use of anticoagulants
CPT/HCPCS: 70450; 72125; 99284

== ENCOUNTER 2021-05-01 21:43 | Emergency (ER) | payer MEDICARE ==
[2021-05-01 21:51] VITALS: TEMP 98.9
--- NOTE | 2021-05-01 22:02 | ED ---
General Adult HPI - General Chief complaint: Fall Stated complaint: Fall Source: patient, EMS Mode of arrival: EMS Limitations: altered mental status - History of Present Illness Initial comments: Allan is a pleasantly demented 80-year-old gentleman who is brought to our emergency department yesterday after having a fall, minor landing on his tailbone. The that time he had a negative head CT is medically cleared for discharge back to his care facility. Caregivers there noticed today that he seemed to have some tenderness in his left shoulder and sent him back for repeat imaging. X-ray was negative physical exam reveals no redness of the skin, no erythema. No obvious injury. Flanks there is no fracture Infection . - Related Data Home Medications Medication Instructions Recorded Confirmed allopurinoL [Zyloprim] 100 mg PO BID@0800,199907/25/16 10/26/19 Acetaminophen Tab [Tylenol] 650 mg PO BID PRN 03/07/17 10/26/19 Metoprolol Tartrate [Lopressor] 50 mg PO BID@0800,1700 03/07/17 10/26/19 Tamsulosin [Flomax] 0.4 mg PO BID@0800,199903/07/17 10/26/19 Acetaminophen Tab [Tylenol] 325 mg PO Q4H PRN 10/26/19 10/26/19 Antibiotic Oint 1 applic TOPICAL BID 10/26/19 10/26/19 Atorvastatin [Lipitor] 40 mg PO HS@199910/26/19 10/26/19 Docusate Sodium [Dok] 100 mg PO DAILY@1200 10/26/19 10/26/19 Ensure 1 can PO BID-W/MEALS 10/26/19 10/26/19 Ferrous Sulfate [Iron (65 MG 325 mg PO DAILY@0800 10/26/19 10/26/19 Elemental)] Finasteride [Proscar] 5 mg PO DAILY 10/26/19 10/26/19 HYDROcodone/APAP 5-325MG [[place] 1 tab PO Q12H PRN 10/26/19 10/26/19 5-325] Loperamide [Imodium] 2 mg PO QID PRN 10/26/19 10/26/19 Mirtazapine [Remeron] 15 mg PO HS@199910/26/19 10/26/19 Pantoprazole Sodium [Protonix] 40 mg PO DAILY@0800 10/26/19 10/26/19 SILVER sulfADIAZINE CREAM 1 applic TOPICAL HS@2000 10/26/19 10/26/19 [Silvadene Cream] Thermazine 1% Cr 1 applic TOPICAL BID 10/26/19 10/26/19 Warfarin [Coumadin] 1.5 mg PO SUTUTH 10/26/19 10/26/19 Warfarin [Coumadin] 3 mg PO MOWEFRSA 10/26/19 10/26/19 guaiFENesin-DM 100-10MG/5ML 20 ml PO Q4H PRN 10/26/19 10/26/19 [Robitussin DM] metOLazone [Zaroxolyn] 2.5 mg PO MOWEFR 10/26/19 10/26/19 metOLazone [Zaroxolyn] 2.5 mg PO ONCE PRN 10/26/19 10/26/19 Previous Rx's Medication Instructions Recorded Furosemide [Lasix] 40 mg PO DAILY #30 tablet 11/04/19 Losartan [Cozaar] 25 mg PO DAILY #30 tab 11/04/19 Potassium Chloride [K-Tab ER] 20 meq PO DAILY #30 tablet.er 11/04/19 Allergies Allergy/AdvReac Type Severity Reaction Status Date / Time No Known Allergies Allergy Verified 04/30/21 16:19 Review of Systems ROS Statement: Those systems with pertinent positive or pertinent negative responses have been documented in the HPI. ROS Other: All systems not noted in ROS Statement are negative. Past Medical History Past Medical History: Atrial Fibrillation, Cancer, Dementia, Eye Disorder, GERD/Reflux, GI Bleed, Hyperlipidemia, Hypertension, Memory Impairment, [place] cardial Infarction ([place]), Prostate Disorder, Renal Disease, Rheumatoid Arthritis (RA), Vascular Disorder Additional Past Medical History / Comment(s): alcoholism, Normal pressure hydocephalus with recent shunt, SSS - PACEMAKER, Skin CA- MELANOMA with removal from nose and other types of skin cancer removed, CKD, nephrolithiasis with sx, PVD, OCC EDEMA LEGS, glaucoma bilaterally, R eye cataract, BPH, past urinary retention after cerebral shunt and was discharged with a anne to [facility] dc'd on 03/02/17, RECTAL BLEED AFTER COLONOSCOPY R/T COUMADIN USE, unsteady ga it, intermittent confusion, Last Myocardial Infarction Date:: 2001?-silent History of Any Multi-Drug Resistant Organisms: None Reported Past Surgical History: Coronary Bypass/CABG, Heart Catheterization, Orthopedic Surgery, Pacemaker Additional Past Surgical History / Comment(s): Recent cerebral shunt, PCI with stent, TRIPLE CABG 2001, LT Shoulder rotator cuff repair, Colonoscopy, 2004 Original pacer, 07/2016 GENERATOR CHANGE, cystoscopy with double J catheter, since removed, lithotripsies, L eye cataract removal, skin cancer removals. Past Anesthesia/Blood Transfusion Reactions: No Reported Reaction Type of Cardiac Device: Permanent Pacemaker Device Placement Date:: 03/21/2006 Past Psychological History: No Psychological Hx Reported Smoking Status: Unknown if ever smoked Past Alcohol Use History: Daily Past Drug Use History: None Reported - Past Family History Brother(s) Family Medical History: Cancer Additional Family Medical History / Comment(s): SKIN Sister(s) Family Medical History: Cancer Additional Family Medical History / Comment(s): SKIN Mother Family Medical History: Cancer General Exam - General Exam Comments Initial Comments: Physical Exam GENERAL: Patient is well-developed and well-nourished. Patient is nontoxic and well-hydrated and is in no distress. HENT: Normocephalic, Atraumatic. EYES: PERRL, EOMI PULMONARY: Unlabored respirations. CARDIOVASCULAR: RRR Warm and well perfused extremities ABDOMEN: Non-distended SKIN: No rashes or bruising : Deferred NEUROLOGIC: Alert to name only No recall of event MUSCULOSKELETAL: Pain with palpation of distal clavicle and shoulder, resists passive ROM PSYCHIATRIC: Unable to assess secondary to advanced dementia Limitations: altered mental status Course Vital Signs 05/01/21 21:44 Temperature 98.9 F Pulse Rate 60 Respiratory 16 Rate Blood Pressure 115/72 O2 Sat by Pulse 100 Oximetry Disposition Clinical Impression: Fall Disposition: HOME SELF-CARE Condition: Stable Instructions (If sedation given, give patient instructions): Fall Prevention for Older Adults (ED) Is patient prescribed a controlled substance at d/c from ED?: No Referrals: Alejandrina Roman MD [Primary Care Provider] - 1-2 days
--- NOTE | 2021-05-01 22:09 | XR ---
EXAMINATION TYPE: XR shoulder complete LT DATE OF EXAM: 05/01/2021 COMPARISON: NONE HISTORY: Shoulder pain TECHNIQUE: 3 views FINDINGS: I see no fracture nor dislocation. Glenohumeral joint is intact. There are no pathologic ca lcifications. There is left axillary pacemaker. IMPRESSION: Negative left shoulder exam. No fracture.
[2021-05-01] MEDS ORDERED: MORPHINE SULFATE 4 MG/ML SYRINGE IM STA (22:38)
[2021-05-01 23:27] VITALS: BP 108/65; PULSE 62; RESP 18
== END 2021-05-01 23:20 | disposition home or self-care (01) ==
LOC: EC 21:43
DX: M25.512 Pain in left shoulder (principal); I12.9 Hypertensive chronic kidney disease with stage 1 through stage 4 chronic kidney disease, or unspecified chronic kidney disease; N18.9 Chronic kidney disease, unspecified; I25.2 Old myocardial infarction; I48.91 Unspecified atrial fibrillation; K21.9 Gastro-esophageal reflux disease without esophagitis; M06.9 Rheumatoid arthritis, unspecified; F03.90 Unspecified dementia, unspecified severity, without behavioral disturbance, psychotic disturbance, mood disturbance, and anxiety; E78.5 Hyperlipidemia, unspecified; Z79.01 Long term (current) use of anticoagulants; Z79.899 Other long term (current) drug therapy; Z95.0 Presence of cardiac pacemaker; Z95.1 Presence of aortocoronary bypass graft; Z95.5 Presence of coronary angioplasty implant and graft; Z85.820 Personal history of malignant melanoma of skin; W19.XXXA Unspecified fall, initial encounter
CPT/HCPCS: 73030; 96372; 99284; J2270

== ENCOUNTER 2022-01-01 00:29 | Emergency (ER) | payer MEDICARE ==
--- NOTE | 2022-01-01 00:54 | ED ---
Fall HPI - General Stated Complaint: Fall Time Seen by Provider: 01/01/22 00:32 Source: RN notes reviewed, old records reviewed Mode of arrival: EMS Limitations: no limitations - History of Present Illness Initial Comments: This is an 81-year-old male to the ER for evaluation. Patient presents today for evaluation of fall. Patient is a significant poor story and unable to give accurate history secondary to dementia. Patient apparently had a fall at extended-care facility was found stay did think he landed on his face hit his face the patient really had no significant complaints. 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: yes, by living facility staff Place Fall Occurred: care home/SNF Loss of Consciousness: none Prolonged Down Time?: no Symptoms Prior to Fall: none Location: head, face Severity: mild Severity scale (1-10): 3 Context: tripped/slipped Associated Symptoms: denies - Related Data Home Medications Medication Instructions Recorded Confirmed allopurinoL [Zyloprim] 100 mg PO BID@0800,199907/25/16 10/26/19 Acetaminophen Tab [Tylenol] 650 mg PO BID PRN 03/07/17 10/26/19 Metoprolol Tartrate [Lopressor] 50 mg PO BID@0800,1700 03/07/17 10/26/19 Tamsulosin [Flomax] 0.4 mg PO BID@0800,199903/07/17 10/26/19 Acetaminophen Tab [Tylenol] 325 mg PO Q4H PRN 10/26/19 10/26/19 Antibiotic Oint 1 applic TOPICAL BID 10/26/19 10/26/19 Atorvastatin [Lipitor] 40 mg PO HS@199910/26/19 10/26/19 Docusate Sodium [Dok] 100 mg PO DAILY@1200 10/26/19 10/26/19 Ensure 1 can PO BID-W/MEALS 10/26/19 10/26/19 Ferrous Sulfate [Iron (65 MG 325 mg PO DAILY@0800 10/26/19 10/26/19 Elemental)] Finasteride [Proscar] 5 mg PO DAILY 10/26/19 10/26/19 HYDROcodone/APAP 5-325MG [[place] 1 tab PO Q12H PRN 10/26/19 10/26/19 5-325] Loperamide [Imodium] 2 mg PO QID PRN 10/26/19 10/26/19 Mirtazapine [Remeron] 15 mg PO HS@199910/26/19 10/26/19 Pantoprazole Sodium [Protonix] 40 mg PO DAILY@0800 10/26/19 10/26/19 SILVER sulfADIAZINE CREAM 1 applic TOPICAL HS@199910/26/19 10/26/19 [Silvadene Cream] Thermazine 1% Cr 1 applic TOPICAL BID 10/26/19 10/26/19 Warfarin [Coumadin] 1.5 mg PO SUTUTH 10/26/19 10/26/19 Warfarin [Coumadin] 3 mg PO MOWEFRSA 10/26/19 10/26/19 guaiFENesin-DM 100-10MG/5ML 20 ml PO Q4H PRN 10/26/19 10/26/19 [Robitussin DM] metOLazone [Zaroxolyn] 2.5 mg PO MOWEFR 10/26/19 10/26/19 metOLazone [Zaroxolyn] 2.5 mg PO ONCE PRN 10/26/19 10/26/19 Previous Rx's Medication Instructions Recorded Furosemide [Lasix] 40 mg PO DAILY #30 tablet 11/04/19 Losartan [Cozaar] 25 mg PO DAILY #30 tab 11/04/19 Potassium Chloride [K-Tab ER] 20 meq PO DAILY #30 tablet.er 11/04/19 Allergies Allergy/AdvReac Type Severity Reaction Status Date / Time No Known Allergies Allergy Verified 01/01/22 01:32 Review of Systems ROS Statement: Those systems with pertinent positive or pertinent negative responses have been documented in the HPI. ROS Other: All systems not noted in ROS Statement are negative. Past Medical History Past Medical History: Atrial Fibrillation, Cancer, Dementia, Eye Disorder, GERD/Reflux, GI Bleed, Hyperlipidemia, Hypertension, Memory Impairment, Myocardial Infarction ([place]), Prostate Disorder, Renal Disease, Rheumatoid Arthritis (RA), Vascular Disorder Additional Past Medical History / Comment(s): alcoholism, Normal pressure hydocephalus with recent shunt, SSS - PACEMAKER, Skin CA- MELANOMA with removal from nose and other types of skin cancer removed, CKD, nephrolithiasis with sx, PVD, OCC EDEMA LEGS, glaucoma bilaterally, R eye cataract, BPH, past urinary retention after cerebral shunt and was discharged with a anne to [facility] dc'd on 03/02/17, RECTAL BLEED AFTER COLONOSCOPY R/T COUMADIN USE, unsteady gait, intermittent confusion, Last Myocardial Infarction Date:: 2001?-silent History of Any Multi-Drug Resistant Organisms: None Reported Past Surgical History: Coronary Bypass/CABG, Heart Catheterization, Orthopedic Surgery, Pacemaker Additional Past Surgical History / Comment(s): Recent cerebral shunt, PCI with stent, TRIPLE CABG 2001, LT Shoulder rotator cuff repair, Colonoscopy, 2004 Original pacer, 07/2016 GENERATOR CHANGE, cystoscopy with double J catheter, since removed, lithotripsies, L eye cataract removal, skin cancer removals. Past Anesthesia/Blood Transfusion Reactions: No Reported Reaction Type of Cardiac Device: Permanent Pacemaker Device Placement Date:: 03/21/2006 Past Psychological History: No Psychological Hx Reported Smoking Status: Unknown if ever smoked Past Alcohol Use History: Daily Past Drug Use History: None Reported - Past Family History Brother(s) Family Medical History: Cancer Additional Family Medical History / Comment(s): SKIN Sister(s) Family Medical History: Cancer Additional Family Medical History / Comment(s): SKIN Mother Family Medical History: Cancer General Exam General appearance: alert, in no apparent distress Head exam: Present: atraumatic, normocephalic, normal inspection Eye exam: Present: normal appearance, PERRL, EOMI. Absent: scleral icterus, conjunctival injection, periorbital swelling ENT exam: Present: normal exam, mucous membranes moist Neck exam: Present: normal inspection. Absent: tenderness, meningismus, lymphadenopathy Respiratory exam: Present: normal lung sounds bilaterally. Absent: respiratory distress, wheezes, rales, rhonchi, stridor Cardiovascular Exam: Present: regular rate, normal rhythm, normal heart sounds. Absent: systolic murmur, diastolic murmur, rubs, gallop, clicks GI/Abdominal exam: Present: soft, normal bowel sounds. Absent: distended, tenderness, guarding, rebound, rigid Extremities exam: Present: normal inspection, full ROM, normal capillary refill. Absent: tenderness, pedal edema, joint swelling, calf tenderness Back exam: Present: normal inspection Neurological exam: Present: alert, oriented X3, CN II-XII intact Psychiatric exam: Present: normal affect, normal mood Skin exam: Present: warm, dry, intact, normal color. Absent: rash Course Vital Signs 01/01/22 01:15 Temperature 97.7 F Pulse Rate 67 Respiratory 16 Rate Blood Pressure 124/69 O2 Sat by Pulse 100 Oximetry - Reevaluation(s) Reevaluation #1: 01/01/22 02:48 Medical record is reviewed Reevaluation #2: 01/01/22 02:48 Patient remains without significant complaint Reevaluation #3: 01/01/22 02:48 Patient is informed of results as well as care home informed of results and questions are answered Medical Decision Making - Medical Decision Making 81 male status post fall normal CT and brain study here in the ER normal x-rays patient can be discharged home - Radiology Data Radiology results: report reviewed (CT brain C-spine chest and pelvis x-ray are negative for traumatic injury), image reviewed Disposition Clinical Impression: Fall, Dementia Disposition: HOME SELF-CARE Condition: Fair Instructions (If sedation given, give patient instructions): Fall Prevention for Older Adults (ED) Is patient prescribed a controlled substance at d/c from ED?: No Referrals: Alejandrina Roman MD [Primary Care Provider] - 1-2 days
--- NOTE | 2022-01-01 01:43 | CT ---
EXAMINATION TYPE: CT facial bones wo con DATE OF EXAM: 01/01/2022 COMPARISON: None HISTORY: Fall CT DLP: 697.50 mGycm Automated exposure control for dose reduction was used. Images obtained from the bottom of the mandible to the top of the frontal sinuses without contrast. The mandibular ring is intact. The temporomandibular joints appear intact. Zygomatic arches appear no rmal. Maxilla is intact. Nasal bone is intact. There is no evidence of orbital blowout fracture. The orbital margins are intact. There is no retro-orbital mass. There is normal aeration of the paran ramón sinuses. There is right-sided ventricular shunt catheter with tip in the right lateral ventricle . There is hydrocephalus. IMPRESSION: No acute abnormality of the facial bones. No fracture seen.
--- NOTE | 2022-01-01 01:46 | CT ---
EXAMINATION TYPE: CT brain cindyine wo con DATE OF EXAM: 01/01/2022 COMPARISON: 04/30/2021 HISTORY: Fall CT DLP: [id number] mGycm Automated exposure control for dose reduction was used. There is right posterior temporal ventricular shunt catheter with tip in the right lateral ventricle. There is hydrocephalus with enlargement of all the ventricles. There is cerebral cortical atrophy. T here is no mass effect or midline shift. There is no sign of intracranial hemorrhage. Cervical vertebra have normal alignment. There is no compression fracture. There is multilevel hypert rophic cervical facet arthropathy. Prevertebral soft tissues are intact. IMPRESSION: Cerebral atrophy. Hydrocephalus. Brain is not changed compared to the old exam. Mild cervical spondylotic changes. No fracture. No change compared to old exam.
--- NOTE | 2022-01-01 01:52 | XR ---
EXAMINATION TYPE: XR pelvis AP view DATE OF EXAM: 01/01/2022 COMPARISON: NONE HISTORY: Fall. Pain TECHNIQUE: Single view FINDINGS: Pelvic ring is intact. Proximal femurs and hip joints appear intact. Sacroiliac joints appe ar normal. Acetabula appear intact. IMPRESSION: Negative exam. No fracture.
--- NOTE | 2022-01-01 01:54 | XR ---
EXAMINATION TYPE: XR chest 1V DATE OF EXAM: 01/01/2022 COMPARISON: 11/03/2019 HISTORY: Fall. Pain TECHNIQUE: Single view FINDINGS: Heart is enlarged. There are sternal wires. There is left axillary pacemaker. Costophrenic angles are clear. There is some linear density left lung base. There is left axillary pacemaker. Ther e are clips at the left pulmonary hilum. IMPRESSION: There is some infiltrate and atelectasis left lower lobe. This appears mostly new compare d to old exam. No heart failure seen.
[2022-01-01 03:07] VITALS: BP 154/89; PULSE 89; RESP 22; TEMP 98.6
== END 2022-01-01 03:05 | disposition home or self-care (01) ==
LOC: EC 00:29
DX: F03.90 Unspecified dementia, unspecified severity, without behavioral disturbance, psychotic disturbance, mood disturbance, and anxiety (principal); I12.9 Hypertensive chronic kidney disease with stage 1 through stage 4 chronic kidney disease, or unspecified chronic kidney disease; N18.9 Chronic kidney disease, unspecified; I48.91 Unspecified atrial fibrillation; I25.2 Old myocardial infarction; K21.9 Gastro-esophageal reflux disease without esophagitis; E78.5 Hyperlipidemia, unspecified; M06.39 Rheumatoid nodule, multiple sites; Z79.01 Long term (current) use of anticoagulants; Z79.899 Other long term (current) drug therapy; Z95.5 Presence of coronary angioplasty implant and graft; W01.0XXA Fall on same level from slipping, tripping and stumbling without subsequent striking against object, initial encounter
CPT/HCPCS: 70450; 70486; 71045; 72125; 72170; 99284

== ENCOUNTER 2022-05-26 10:07 | Inpatient (IN) | payer MEDICARE ==
--- NOTE | 2022-05-26 10:22 | ED ---
General Adult HPI - General Chief complaint: Altered Mental Status Stated complaint: altered mental status Time Seen by Provider: 05/26/22 10:12 Source: patient, RN notes reviewed, old records reviewed Mode of arrival: EMS Limitations: altered mental status - History of Present Illness Initial comments: Patient is an 82-year-old male with past medical history remarkable for atrial fibrillation on several toe, dementia, cancer, hypertension, prostate disease, CAD, NPH with FELT FINISHER shunt who presents emergency department over audible concerns. Since yesterday, patient is slightly more tired than normal. Has been ongoing for the last day or so. Also concerned that the patient may have aspirated yesterday. He is normally combative. Has a baseline of dementia. Patient is his normal baseline self at this time except for slight lethargy. Denies any other issues. No known falls. Presents from nursing facility. Patient cannot provide adequate history at this time. He is moving all 4 extremities as he is combative, but does respond to verbal cues to calm down. - Related Data Home Medications Medication Instructions Recorded Confirmed allopurinoL [Zyloprim] 100 mg PO BID@0800,199907/25/16 05/26/22 Metoprolol Tartrate [Lopressor] 50 mg PO BID@0800,1700 03/07/17 05/26/22 Tamsulosin [Flomax] 0.4 mg PO BID@0800,199903/07/17 05/26/22 Acetaminophen Tab [Tylenol] 325 mg PO Q4H PRN 10/26/19 05/26/22 Atorvastatin [Lipitor] 40 mg PO HS@199910/26/19 05/26/22 Docusate Sodium [Dok] 100 mg PO DAILY@1200 10/26/19 05/26/22 Finasteride [Proscar] 5 mg PO DAILY@0810/26/19 05/26/22 Loperamide [Imodium] 2 mg PO QID PRN 10/26/19 05/26/22 Pantoprazole Sodium [Protonix] 40 mg PO DAILY@0810/26/19 05/26/22 guaiFENesin-DM 100-10MG/5ML 20 ml PO Q4H PRN 10/26/19 05/26/22 [Robitussin DM] metOLazone [Zaroxolyn] 2.5 mg PO DAILY@0700 10/26/19 05/26/22 metOLazone [Zaroxolyn] 2.5 mg PO ONCE PRN 10/26/19 05/26/22 Acetaminophen [Acetaminophen ER] 650 mg PO BID PRN 05/26/22 05/26/22 Ammonium Lactate Cream [Lac-Hydrin 1 applic TOPICAL BID@0800,199905/26/22 05/26/22 12% Cream] Clotrimazole/Betameth Cream 1 applic TOPICAL DAILY@0800 05/26/22 05/26/22 [Lotrisone] Furosemide [Lasix] 40 mg PO BID@0800,1700 05/26/22 05/26/22 Losartan [Cozaar] 25 mg PO DAILY@0800 05/26/22 05/26/22 Melatonin [Melatonin ER] 10 mg PO HS@199905/26/22 05/26/22 Mirtazapine 7.5 mg PO HS@199905/26/22 05/26/22 QUEtiapine FUMARATE [SEROquel] 25 mg PO BID@0800,199905/26/22 05/26/22 Rivaroxaban [Xarelto] 20 mg PO DAILY@1700 05/26/22 05/26/22 Allergies Allergy/AdvReac Type Severity Reaction Status Date / Time No Known Allergies Allergy Verified 05/26/22 11:44 Review of Systems ROS Statement: Those systems with pertinent positive or pertinent negative responses have been documented in the HPI. ROS Other: All systems not noted in ROS Statement are negative. Past Medical History Past Medical History: Atrial Fibrillation, Cancer, Dementia, Eye Disorder, GERD/Reflux, GI Bleed, Hyperlipidemia, Hypertension, Memory Impairment, Myocardial Infarction (NM), Prostate Disorder, Renal Disease, Rheumatoid Arthritis (RA), Vascular Disorder Additional Past Medical History / Comment(s): alcoholism, Normal pressure hydocephalus with recent shunt, SSS - PACEMAKER, Skin CA- MELANOMA with removal from nose and other types of skin cancer removed, CKD, nephrolithiasis with sx, PVD, OCC EDEMA LEGS, glaucoma bilaterally, R eye cataract, BPH, past urinary retention after cerebral shunt and was discharged with a anne to [facility] dc'd on 03/02/17, RECTAL BLEED AFTER COLONOSCOPY R/T COUMADIN USE, unsteady gait, intermittent confusion, Last Myocardial Infarction Date:: 2001?-silent History of Any Multi-Drug Resistant Organisms: None Reported Past Surgical History: Coronary Bypass/CABG, Heart Catheterization, Orthopedic Surgery, Pacemaker Additional Past Surgical History / Comment(s): Recent cerebral shunt, PCI with stent, TRIPLE CABG 2001, LT Shoulder rotator cuff repair, Colonoscopy, 2004 Original pacer, 07/2016 GENERATOR CHANGE, cystoscopy with double J catheter, since removed, lithotripsies, L eye cataract removal, skin cancer removals. Past Anesthesia/Blood Transfusion Reactions: No Reported Reaction Type of Cardiac Device: Permanent Pacemaker Device Placement Date:: 03/21/2006 Past Psychological History: No Psychological Hx Reported Smoking Status: Unknown if ever smoked Past Alcohol Use History: Daily Past Drug Use History: None Reported - Past Family History Brother(s) Family Medical History: Cancer Additional Family Medical History / Comment(s): SKIN Sister(s) Family Medical History: Cancer Additional Family Medical History / Comment(s): SKIN Mother Family Medical History: Cancer General Exam - General Exam Comments Initial Comments: General: Appears in no acute distress. Patient is obese. HEAD: Normal with no signs of head trauma. EYES: PERRLA, EOMI, conjunctiva normal, no discharge. Pupils are 3 mm and equal bilaterally. ENT: Hearing grossly intact, normal oropharynx. RESPIRATORY: Clear breath sounds bilaterally. No wheezes, rales, or rhonchi. No hypoxia. No increased work of breathing. C/V: Regular rate and rhythm. S1 and S2 auscultated, no edema, peripheral pulses 2+ and intact throughout ABD: Abd is soft, nontender, nondistended EXT: Normal range of motion, no obvious deformity SKIN: No rashes or lesions observed on exposed skin. NEURO: Alert. Not oriented. Apparently at his baseline. No focal deficits. Moving all 4 extremities. Saying words. No obvious slurred speech. Limitations: altered mental status Course Vital Signs 05/26/22 05/26/22 10:08 12:30 Temperature 98.1 F Pulse Rate 61 60 Respiratory 20 18 Rate Blood Pressure 128/99 123/64 O2 Sat by Pulse 96 97 Oximetry Medical Decision Making - Medical Decision Making Based on the patient's presentation and physical exam, I'm concerned for altered mental status at this time. Unknown etiology. Patient is on blood thinners. We'll obtain a CT brain in addition to broad workup looking for signs of infection or other etiology at this time. We will obtain chest x-ray as well as abdominal x-ray to evaluate the patient's FELT FINISHER shunt as well. Vital signs are within normal limits at this time. Patient's presents is able to give more information. States that she is concerned he may have aspirated yesterday. Otherwise patient is acting his normal baseline self per her. Agreed with the workup. Does have a right big toe infection that is recently looking worse. No history diabetes. No febrile illness otherwise. EKG shows no acute cardiopulmonary process. CT brain shows no acute changes. Shows stable hydrocephalus with shunt catheter in place. The remainder the shunt imaging is unremarkable. Chest x-ray shows no acute cardio pulmonary process. Foot x-ray shows no acute fracture, no bone infection. Lavatory studies are remarkable for a chronic normocytic anemia with a hemoglobin of 12 .1. This is stable for him. Patient has an AK I with an elevated BUNs of 66 and creatinine 2.24. Lactic acid is within normal limits. Troponin is indeterminate. Remainder the labs are unremarkable. We'll start the patient on vancomycin for his toe infection. Blood cultures were sent. Discussed with the patient's , patient will be admitted to the hospital. I discussed CODE STATUS with the patient's , and she wishes for the patient to be DNR/DNI. She is his power of immigration attorney. CODE STATUS is updated. She was otherwise in agreement this plan. Patient's PCP admits to Dr. Anderson was off, and therefore will be admitted under [facility] physician group. I spoke Dr. Andre who accepted the patient. Patient was admitted in stable condition. Will be continued on IV fluids. - Lab Data Result diagrams: 05/26/22 10:26 05/26/22 10:26 Lab Results 05/26/22 05/26/22 05/26/22 Range/Units 10:26 10:26 10:26 WBC 9.9 (3.8-10.6) k/uL RBC 3.77 L (4.30-5.90) m/uL Hgb 12.1 L (13.0-17.5) gm/dL Hct 36.7 L (39.0-53.0) % MCV 97.3 (80.0-100.0) fL MCH 32.1 (25.0-35.0) pg MCHC 33.0 (31.0-37.0) g/dL RDW 15.1 (11.5-15.5) % Plt Count 265 (150-450) k/uL MPV 7.7 Neutrophils % 84 % Lymphocytes % 10 % Monocytes % 4 % Eosinophils % 1 % Basophils % 0 % Neutrophils # 8.3 H (1.3-7.7) k/uL Lymphocytes # 0.9 L (1.0-4.8) k/uL Monocytes # 0.4 (0-1.0) k/uL Eosinophils # 0.1 (0-0.7) k/uL Basophils # 0.0 (0-0.2) k/uL PT 11.7 (9.0-12.0) sec INR 1.1 (<1.2) APTT 31.5 H (22.0-30.0) sec Sodium 132 L (137-145) mmol/L Potassium 4.6 (3.5-5.1) mmol/L Chloride 98 (98-107) mmol/L Carbon Dioxide 28 (22-30) mmol/L Anion Gap 6 mmol/L BUN 66 H (9-20) mg/dL Creatinine 2.24 H (0.66-1.25) mg/dL Est GFR (CKD-EPI)AfAm 30 (>60 ml/min/1.73 sqM) Est GFR (CKD-EPI)NonAf 26 (>60 ml/min/1.73 sqM) Glucose 128 H (74-99) mg/dL Plasma Lactic Acid Santiago (0.7-2.0) mmol/L Calcium 8.6 (8.4-10.2) mg/dL Total Bilirubin 1.1 (0.2-1.3) mg/dL AST 37 (17-59) U/L ALT 22 (4-49) U/L Alkaline Phosphatase 77 (38-126) U/L Ammonia (<30) umol/L Troponin I (0.000-0.034) ng/mL Total Protein 7.1 (6.3-8.2) g/dL Albumin 3.6 (3.5-5.0) g/dL Amylase 66 (30-110) U/L Lipase 199 (23-300) U/L Urine Color Urine Appearance (Clear) Urine pH (5.0-8.0) Ur Specific Hinckley (1.001-1.035) Urine Protein (Negative) Urine Glucose (UA) (Negative) Urine Ketones (Negative) Urine Blood (Negative) Urine Nitrite (Negative) Urine Bilirubin (Negative) Urine Urobilinogen (<2.0) mg/dL Ur Leukocyte Esterase (Negative) Urine Opiates Screen (NotDetected) Ur Oxycodone Screen (NotDetected) Urine Methadone Screen (NotDetected) Ur Propoxyphene Screen (NotDetected) Ur Barbiturates Screen (NotDetected) U Tricyclic Antidepress (NotDetected) Ur Phencyclidine Scrn (NotDetected) Ur Amphetamines Screen (NotDetected) U Methamphetamines Scrn (NotDetected) U Benzodiazepines Scrn (NotDetected) Urine Cocaine Screen (NotDetected) U Marijuana (THC) Screen (NotDetected) Serum Alcohol <10 mg/dL Coronavirus (PCR) (Not Detectd) Influenza Type A RNA (Not Detectd) Influenza Type B (PCR) (Not Detectd) 05/26/22 05/26/22 05/26/22 Range/Units 10:26 10:26 10:26 WBC (3.8-10.6) k/uL RBC (4.30-5.90) m/uL Hgb (13.0-17.5) gm/dL Hct (39.0-53.0) % MCV (80.0-100.0) fL MCH (25.0-35.0) pg MCHC (31.0-37.0) g/dL RDW (11.5-15.5) % Plt Count (150-450) k/uL MPV Neutrophils % % Lymphocytes % % Monocytes % % Eosinophils % % Basophils % % Neutrophils # (1.3-7.7) k/uL Lymphocytes # (1.0-4.8) k/uL Monocytes # (0-1.0) k/uL Eosinophils # (0-0.7) k/uL Basophils # (0-0.2) k/uL PT (9.0-12.0) sec INR (<1.2) APTT (22.0-30.0) sec Sodium (137-145) mmol/L Potassium (3.5-5.1) mmol/L Chloride (98-107) mmol/L Carbon Dioxide (22-30) mmol/L Anion Gap mmol/L BUN (9-20) mg/dL Creatinine (0.66-1.25) mg/dL Est GFR (CKD-EPI)AfAm (>60 ml/min/1.73 sqM) Est GFR (CKD-EPI)NonAf (>60 ml/min/1.73 sqM) Glucose (74-99) mg/dL Plasma Lactic Acid Santiago (0.7-2.0) mmol/L Calcium (8.4-10.2) mg/dL Total Bilirubin (0.2-1.3) mg/dL AST (17-59) U/L ALT (4-49) U/L Alkaline Phosphatase (38-126) U/L Ammonia <9 (<30) umol/L Troponin I 0.034 (0.000-0.034) ng/mL Total Protein (6.3-8.2) g/dL Albumin (3.5-5.0) g/dL Amylase (30-110) U/L Lipase (23-300) U/L Urine Color Urine Appearance (Clear) Urine pH (5.0-8.0) Ur Specific Hinckley (1.001-1.035) Urine Protein (Negative) Urine Glucose (UA) (Negative) Urine Ketones (Negative) Urine Blood (Negative) Urine Nitrite (Negative) Urine Bilirubin (Negative) Urine Urobilinogen (<2.0) mg/dL Ur Leukocyte Esterase (Negative) Urine Opiates Screen (NotDetected) Ur Oxycodone Screen (NotDetected) Urine Methadone Screen (NotDetected) Ur Propoxyphene Screen (NotDetected) Ur Barbiturates Screen (NotDetected) U Tricyclic Antidepress (NotDetected) Ur Phencyclidine Scrn (NotDetected) Ur Amphetamines Screen (NotDetected) U Methamphetamines Scrn (NotDetected) U Benzodiazepines Scrn (NotDetected) Urine Cocaine Screen (NotDetected) U Marijuana (THC) Screen (NotDetected) Serum Alcohol mg/dL Coronavirus (PCR) (Not Detectd) Influenza Type A RNA Not Detected (Not Detectd) Influenza Type B (PCR) Not Detected (Not Detectd) 05/26/22 05/26/22 05/26/22 Range/Units 10:26 11:35 11:53 WBC (3.8-10.6) k/uL RBC (4.30-5.90) m/uL Hgb (13.0-17.5) gm/dL Hct (39.0-53.0) % MCV (80.0-100.0) fL MCH (25.0-35.0) pg MCHC (31.0-37.0) g/dL RDW (11.5-15.5) % Plt Count (150-450) k/uL MPV Neutrophils % % Lymphocytes % % Monocytes % % Eosinophils % % Basophils % % Neutrophils # (1.3-7.7) k/uL Lymphocytes # (1.0-4.8) k/uL Monocytes # (0-1.0) k/uL Eosinophils # (0-0.7) k/uL Basophils # (0-0.2) k/uL PT (9.0-12.0) sec INR (<1.2) APTT (22.0-30.0) sec Sodium (137-145) mmol/L Potassium (3.5-5.1) mmol/L Chloride (98-107) mmol/L Carbon Dioxide (22-30) mmol/L Anion Gap mmol/L BUN (9-20) mg/dL Creatinine (0.66-1.25) mg/dL Est GFR (CKD-EPI)AfAm (>60 ml/min/1.73 sqM) Est GFR (CKD-EPI)NonAf (>60 ml/min/1.73 sqM) Glucose (74-99) mg/dL Plasma Lactic Acid Santiago 1.4 (0.7-2.0) mmol/L Calcium (8.4-10.2) mg/dL Total Bilirubin (0.2-1.3) mg/dL AST (17-59) U/L ALT (4-49) U/L Alkaline Phosphatase (38-126) U/L Ammonia (<30) umol/L Troponin I (0.000-0.034) ng/mL Total Protein (6.3-8.2) g/dL Albumin (3.5-5.0) g/dL Amylase (30-110) U/L Lipase (23-300) U/L Urine Color Light Yellow Urine Appearance Clear (Clear) Urine pH 6.5 (5.0-8.0) Ur Specific Hinckley 1.011 (1.001-1.035) Urine Protein Negative (Negative) Urine Glucose (UA) Negative (Negative) Urine Ketones Negative (Negative) Urine Blood Negative (Negative) Urine Nitrite Negative (Negative) Urine Bilirubin Negative (Negative) Urine Urobilinogen <2.0 (<2.0) mg/dL Ur Leukocyte Esterase Negative (Negative) Urine Opiates Screen Not Detected (NotDetected) Ur Oxycodone Screen Not Detected (NotDetected) Urine Methadone Screen Not Detected (NotDetected) Ur Propoxyphene Screen Not Detected (NotDetected) Ur Barbiturates Screen Not Detected (NotDetected) U Tricyclic Antidepress Detected H (NotDetected) Ur Phencyclidine Scrn Not Detected (NotDetected) Ur Amphetamines Screen Not Detected (NotDetected) U Methamphetamines Scrn Not Detected (NotDetected) U Benzodiazepines Scrn Detected H (NotDetected) Urine Cocaine Screen Not Detected (NotDetected) U Marijuana (THC) Screen Not Detected (NotDetected) Serum Alcohol mg/dL Coronavirus (PCR) Not Detected (Not Detectd) Influenza Type A RNA (Not Detectd) Influenza Type B (PCR) (Not Detectd) - EKG Data -: EKG Interpreted by Me EKG Comments: 12-lead Electrocardiogram Interpretation Note EKG was reviewed and interpreted by myself. 12-lead ECG performed at 10:15 is interpreted by me as revealing ventricularly paced rhythm at a rate of at 62 beats per minute. Left axis deviation. ND interval is unobtainable, QRS duration is 197 ms, QTc is 483 ms.. There were no ST or T wave abnormalities to suggest myocardial ischemia or injury. R wave progression across the precordium was satisfactory. By my interpretation this EKG is non-diagnostic for acute ischemia. No change when compared to prior EKGs from 2019. Disposition Clinical Impression: Dementia Disposition: ADMITTED IP TO THIS HOSP Condition: Stable Referrals: Alejandrina Roman MD [STAFF PHYSICIAN] - 1-2 days Time of Disposition: 12:35
[2022-05-26 10:54] LABS: Basophils % (A) 0 %; Eosinophils # (A) 0.1 k/uL (0-0.7); Eosinophils % (A) 1 %; HCT 36.7 % (39.0-53.0); HGB 12.1 gm/dL (13.0-17.5); Lymphocytes # (A) 0.9 k/uL (1.0-4.8); Lymphocytes % (A) 10 %; MCH 32.1 pg (25.0-35.0); MCV 97.3 fL (80.0-100.0); Mean Platelet Volume 7.7; Monocytes # (A) 0.4 k/uL (0-1.0); Monocytes % (A) 4 %; Neutrophils # (A) 8.3 k/uL (1.3-7.7); Neutrophils % (A) 84 %; Platelet Count 265 k/uL (150-450); RBC 3.77 m/uL (4.30-5.90); RDW 15.1 % (11.5-15.5); WBC 9.9 k/uL (3.8-10.6)
--- NOTE | 2022-05-26 11:00 | CT ---
EXAMINATION TYPE: CT brain wo con CT DLP: 1217.4 mGycm, Automated exposure control for dose reduction was used. DATE OF EXAM: 05/26/2022 10:50 AM COMPARISON: CT brain C-spine 01/01/2022. CLINICAL INDICATION:Male, 82 years old with history of Altered mental status, AMS TECHNIQUE: Brain: Multiple axial CT images of the brain were obtained without IV contrast. Coronal and sagittal reformats reviewed. FINDINGS: Brain: Extra-axial spaces: No abnormal extra-axial fluid collections. Ventricular system: No significant change in hydrocephalus with enlargement of all the ventricles and right posterior temporal ventricular shunt catheter with tip in the right lateral ventricle. Shunt c atheter appears intact. Cerebral parenchyma: No acute intraparenchymal hemorrhage or mass effect. The dacosta-white junction is well differentiated. Scattered hypoattenuating areas are seen within the white matter. Cerebral vol ume loss. Cerebellum: Unremarkable. Mass effect: No evidence of midline shift. Intracranial vasculature: Atherosclerotic calcifications of the intracranial vessels. Soft tissues: Normal. Calvarium/osseous structures: No depressed skull fracture. Right parietal craniotomy defect from shun t placement. Paranasal sinuses and mastoid air cells: Mild scattered paranasal sinus disease. Visualized orbits: Left aphakia IMPRESSION: No significant change from prior examination with hydrocephalus and shunt catheter in place.
[2022-05-26 11:07] LABS: INR 1.1 (<1.2); Partial Thromboplastin Time 31.5 sec (22.0-30.0); Prothrombin Time 11.7 sec (9.0-12.0)
[2022-05-26 11:19] LABS: ALT 22 U/L (4-49); African American GFR (CKD) 30 (>60 ml/min/1.73 sqM); Albumin 3.6 g/dL (3.5-5.0); Alcohol <10 mg/dL; Amylase 66 U/L (30-110); Anion Gap 6 mmol/L; Blood Urea Nitrogen 66 mg/dL (9-20); Calcium 8.6 mg/dL (8.4-10.2); Carbon Dioxide 28 mmol/L (22-30); Chloride 98 mmol/L (98-107); Glucose 128 mg/dL (74-99); Lipase 199 U/L (23-300); Non-African American GFR(CKD) 26 (>60 ml/min/1.73 sqM); Sodium 132 mmol/L (137-145); Total Bilirubin 1.1 mg/dL (0.2-1.3); Total Protein 7.1 g/dL (6.3-8.2)
--- NOTE | 2022-05-26 11:27 | XR ---
EXAMINATION TYPE: XR chest 2V DATE OF EXAM: 05/26/2022 COMPARISON: 01/01/2022 HISTORY: Shortness of breath TECHNIQUE: Frontal and lateral views of the chest are obtained. FINDINGS: Scattered senescent parenchymal changes noted. Hyperinflation compatible with COPD. No evidence for infiltrate. No evidence for atelectasis. Chronic elevation right hemidiaphragm. Heart size is stable. Mediastinal structures are stable and grossly unremarkable. No evidence for hilar prominence. Degenerative changes dorsal spine. IMPRESSION: 1. No evidence for acute pulmonary disease.
[2022-05-26] MEDS ORDERED: VANCOMYCIN IV PER PHARMACY 1 EACH MISC MISCELLANE PRN (11:29)
[2022-05-26 11:31] LABS: Potassium 4.6 mmol/L (3.5-5.1)
[2022-05-26] MEDS ORDERED: VANCOMYCIN 2,000 MG in SODIUM CHLORIDE 0.9% 500 ML 500 ML IVPB STA (11:31)
[2022-05-26 11:32] LABS: AST 37 U/L (17-59); Alkaline Phosphatase 77 U/L (38-126)
[2022-05-26 11:53] LABS: Appearance,Urine Clear (Clear); Bilirubin,Urine Negative (Negative); Blood,Urine Negative (Negative); Color,Urine Light Yellow; Glucose,Urine (UA) Negative (Negative); Ketones,Urine Negative (Negative); Leukocyte Esterase,Urine Negative (Negative); Nitrite,Urine Negative (Negative); PH, Urine 6.5 (5.0-8.0); Protein,Urine Negative (Negative); Specific Gravity,Urine 1.011 (1.001-1.035); Urobilinogen,Urine <2.0 mg/dL (<2.0)
[2022-05-26] MEDS ORDERED: SODIUM CHLORIDE 0.9% 1,000 ML IV STA (11:54)
--- NOTE | 2022-05-26 12:03 | XR ---
EXAMINATION TYPE: XR foot limited RT DATE OF EXAM: 05/26/2022 CLINICAL HISTORY: pain TECHNIQUE: Frontal, lateral of the right foot are obtained. COMPARISON: None. FINDINGS: There is no acute fracture/dislocation evident. The joint spaces appear within normal mclaughlin its. The overlying soft tissue appears unremarkable. IMPRESSION: There is no acute fracture or dislocation. ICD 10 NO FRACTURE, INITIAL EVALUATION
[2022-05-26 12:18] LABS: Amphetamine Screen,Urine Not Detected (NotDetected); Cocaine Screen,Urine Not Detected (NotDetected); Opiate Screen,Urine Not Detected (NotDetected); Phencyclidine Screen,Urine Not Detected (NotDetected); Urn Cannabinoid Scrn Not Detected (NotDetected)
[2022-05-26 12:19] LABS: Barbiturate Screen,Urine Not Detected (NotDetected); Benzodiazepines Screen,Urine Detected (NotDetected); Methadone Screen, Urine Not Detected (NotDetected); Oxycodone Screen, Urine Not Detected (NotDetected); Tricyclic Antidepressant,Urine Detected (NotDetected)
--- NOTE | 2022-05-26 12:42 | XR ---
Abdomen HISTORY: DAIRY CHEMIST shunt evaluation 3 views of the abdomen Ventricular peritoneal shunt tubing is coiled within the right hemiabdomen. Visualized portions are i ntact. No evident bowel obstruction or pneumoperitoneum. Postop changes in the chest. IMPRESSION: Ventriculoperitoneal shunt tubing intact within the abdomen
[2022-05-26] MEDS ORDERED: NALOXONE 0.4 MG/ML 1 ML VIAL IV PRN (12:43)
[2022-05-26] MEDS ORDERED: metOLazone 2.5 MG TAB PO PRN (12:45)
[2022-05-26] MEDS ORDERED: guaiFENesin-DM 100-10MG/5ML 10 ML CUP PO PRN (12:45)
[2022-05-26] MEDS ORDERED: LOPERAMIDE 2 MG CAP PO PRN (12:45)
[2022-05-26] MEDS: SODIUM CHLORIDE 0.9% 1,000 ML IV STA ×2 (14:30→20:41)
[2022-05-26] MEDS ORDERED: ALBUTEROL NEBULIZED 2.5 MG/3 ML INHALATION STA (14:51)
[2022-05-26] MEDS ORDERED: ONDANSETRON 4 MG/2 ML VIAL IVP PRN (15:13)
[2022-05-26] MEDS ORDERED: ACETAMINOPHEN TAB 325 MG TAB PO PRN (15:13)
[2022-05-26] MEDS ORDERED: MELATONIN 3 MG TABLET PO PRN (15:13)
[2022-05-26] MEDS ORDERED: bisacodyL 5 MG TABLET.DR PO PRN (15:13)
--- NOTE | 2022-05-26 15:28 | P.DS ---
Providers Date of admission: 05/26/22 12:43 Expected date of discharge: 05/26/22 Attending physician: Abbey Andre DO Primary care physician: [facility] Course: Patient is an 82-year-old male with past medical history of atrial fibrillation, dementia, GERD, hypertension, dyslipidemia, and multiple other comorbid conditions who presented to the ER from his nursing facility with altered mentation. On arrival to the ER he underwent an extensive evaluation. Initial vital signs were within normal limits. Initial laboratory analysis shows sodium of 132, BUN of 66, and creatinine 2.24 with last known creatinine 1.[address] head demonstrated no significant change from prior with persistent hydrocephalus and shunt in place. He was noted to have probable infection on his right great toe and foot x-ray was unremarkable. Chest x-ray showed no acute process. Abdominal x-ray showed intact NETBACKUP ADMINISTRATOR shunt tubing. He was started on IVF and vanco. Arrangements were made for admission. Patient seen and examined at bedside. is present at bedside she answers questions. Yeterday he developed a cough which has worsened. It started after he ate an icecream cone. Then today he might me slightly more lethargic than normal but not much. He has been dealing with an ulcer on his right great toe and has been having home care. This is improving. He also was hospitalized at [facility] within the last month. Unable to obtain full review of systems due to dementia. Vital signs reviewed General: nontoxic, no distress, appears at stated age Derm: warm, dry, right great toes with ulcer with good granulation tissue and mild erythem wtihout warmth Head: atraumatic, normocephalic, symmetric Eyes: EOMI, no lid lag, anicteric sclera, pupils equal round reactive to light ENT: Nose and ears atraumatic, + mild thrush, will not cooperate with full exam to inspect throat. Neck: No thyromegaly, no cervical lymphadenopathy, supple Mouth: no lip lesion, mucus membranes moist Cardiovascular: S1S2 reg, no murmur, positive posterior tibial pulse bilateral, no edema, capillary refill less than 2 seconds Lungs: clear to auscultation bilateral, no rhonchi, no rales, no wheeze, no accessory muscle use Abdominal: soft, nontender to palpation, no guarding, no appreciable organomegaly, normal bowel sounds Ext: no gross muscle atrophy, muscle strength muscle strength 5 out of 5 in all 4 extremities, no contractures Neuro: CN II-XII grossly intact, no contractures noted, moving all 4 extremities independently. Psych: Awake, alert to himself, does not follow commands. Assessment/Plan: Dehydration with OBEY on CKD Hyponatremia, mild - hold diuretics - gentle IV fluids - avoid additional nephrotoxic agents, continue ARB Cough - speech consult if able Dementia Hx of NPH s/p shunt - safe and supprotive environment HTN - lopressor, cozaar HLD - lipitor A fib - xarelto Chronic: GERD RA BPH The patient is admitted with an anticipated less than 2 midnight stay for evaluation of OBEY. Surrogate decision-maker: CODE STATUS:DNR/DNI DVT prophylaxis: SCDs Discussed with: , nursing, ed physician Anticipated discharge date: in AM Anticipated discharge place: Return to [facility] A total of 75 minutes was spent on the care of this complex patient more than 50% of the time was spent in counseling and care coordination. Patient Condition at Discharge: Stable Plan - Discharge Summary Discharge Rx Participant: No New Discharge Prescriptions: No Action allopurinoL [Zyloprim] 100 mg PO BID@0800,2000 Metoprolol Tartrate [Lopressor] 50 mg PO BID@0800,1700 Tamsulosin [Flomax] 0.4 mg PO BID@0800,1999 Acetaminophen Tab [Tylenol] 325 mg PO Q4H PRN PRN Reason: Fever And/ Or Pain guaiFENesin-DM 100-10MG/5ML [Robitussin DM] 20 ml PO Q4H PRN PRN Reason: Cough metOLazone [Zaroxolyn] 2.5 mg PO ONCE PRN PRN Reason: WEIGHT GAIN OF 2 LBS IN 1 DAY Loperamide [Imodium] 2 mg PO QID PRN PRN Reason: Loose Stool Pantoprazole Sodium [Protonix] 40 mg PO DAILY@0800 metOLazone [Zaroxolyn] 2.5 mg PO DAILY@0700 Finasteride [Proscar] 5 mg PO DAILY@0800 Docusate Sodium [Dok] 100 mg PO DAILY@1200 Atorvastatin [Lipitor] 40 mg PO HS@2000 Rivaroxaban [Xarelto] 20 mg PO DAILY@1700 QUEtiapine FUMARATE [SEROquel] 25 mg PO BID@08,1999 Mirtazapine 7.5 mg PO HS@1999 Clotrimazole/Betameth Cream [Lotrisone] 1 applic TOPICAL DAILY@08 Ammonium Lactate Cream [Lac-Hydrin 12% Cream] 1 applic TOPICAL BID@799,1999 Acetaminophen [Acetaminophen ER] 650 mg PO BID PRN PRN Reason: Fever And/ Or Pain Melatonin [Melatonin ER] 10 mg PO HS@1999 Losartan [Cozaar] 25 mg PO DAILY@0800 Furosemide [Lasix] 40 mg PO BID@0800,1700 Discharge Medication List allopurinoL [Zyloprim] 100 mg PO BID@08,199907/25/16 [History] Metoprolol Tartrate [Lopressor] 50 mg PO BID@0800,1700 03/07/17 [History] Tamsulosin [Flomax] 0.4 mg PO BID@0800,199903/07/17 [History] Acetaminophen Tab [Tylenol] 325 mg PO Q4H PRN 10/26/19 [History] Atorvastatin [Lipitor] 40 mg PO HS@199910/26/19 [History] Docusate Sodium [Dok] 100 mg PO DAILY@1200 10/26/19 [History] Finasteride [Proscar] 5 mg PO DAILY@0810/26/19 [History] Loperamide [Imodium] 2 mg PO QID PRN 10/26/19 [History] Pantoprazole Sodium [Protonix] 40 mg PO DAILY@0810/26/19 [History] guaiFENesin-DM 100-10MG/5ML [Robitussin DM] 20 ml PO Q4H PRN 10/26/19 [History] metOLazone [Zaroxolyn] 2.5 mg PO DAILY@0700 10/26/19 [History] metOLazone [Zaroxolyn] 2.5 mg PO ONCE PRN 10/26/19 [History] Acetaminophen [Acetaminophen ER] 650 mg PO BID PRN 05/26/22 [History] Ammonium Lactate Cream [Lac-Hydrin 12% Cream] 1 applic TOPICAL BID@0800,199905/26/22 [History] Clotrimazole/Betameth Cream [Lotrisone] 1 applic TOPICAL DAILY@0805/26/22 [History] Furosemide [Lasix] 40 mg PO BID@0800,1700 05/26/22 [History] Losartan [Cozaar] 25 mg PO DAILY@79905/26/22 [History] Melatonin [Melatonin ER] 10 mg PO HS@199905/26/22 [History] Mirtazapine 7.5 mg PO HS@199905/26/22 [History] QUEtiapine FUMARATE [SEROquel] 25 mg PO BID@08,199905/26/22 [History] Rivaroxaban [Xarelto] 20 mg PO DAILY@169905/26/22 [History] Follow up Appointment(s)/Referral(s): Alejandrina Roman MD [STAFF PHYSICIAN] - 1-2 days
[2022-05-26] MEDS ORDERED: RIVAROXABAN 20 MG TAB PO SCH (17:00)
[2022-05-26] MEDS ORDERED: FUROSEMIDE 40 MG TAB PO SCH (17:00)
[2022-05-26] MEDS: METOPROLOL TARTRATE 50 MG TAB PO SCH (17:35)
[2022-05-26] MEDS: ATORVASTATIN 40 MG TAB PO SCH (20:32)
[2022-05-26] MEDS: QUEtiapine 25 MG TAB PO SCH (20:32)
[2022-05-26] MEDS: allopurinoL 100 MG TAB PO SCH (20:32)
[2022-05-26] MEDS: MELATONIN 5 MG TABLET PO SCH (20:32)
[2022-05-26] MEDS: TAMSULOSIN 0.4 MG CAP.ER.24H PO SCH (20:32)
[2022-05-26] MEDS: MIRTAZAPINE 15 MG TAB PO SCH (20:32)
[2022-05-27] MEDS: AMMONIUM LACTATE 12% CREAM 140 GM TUBE TOPICAL SCH ×3 (02:18→20:52)
[2022-05-27] MEDS ORDERED: metOLazone 2.5 MG TAB PO SCH (07:00)
--- NOTE | 2022-05-27 07:39 | P.HPIM ---
History of Present Illness H&P Date: 05/27/22 Patient is an 82-year-old male with past medical history of atrial fibrillation, dementia, GERD, hypertension, dyslipidemia, and multiple other comorbid conditions who presented to the ER from his nursing facility with altered mentation. On arrival to the ER he underwent an extensive evaluation. Initial vital signs were within normal limits. Initial laboratory analysis shows sodium of 132, BUN of 66, and creatinine 2.24 with last known creatinine 1.[address] head demonstrated no significant change from prior with persistent hydrocephalus and shunt in place. He was noted to have probable infection on his right great toe and foot x-ray was unremarkable. Chest x-ray showed no acute process. Abdominal x-ray showed intact GIN INSPECTOR shunt tubing. He was started on IVF and vanco. Arrangements were made for admission. Patient seen and examined at bedside. is present at bedside she answers questions. Yesterday he developed a cough which has worsened. It started after he ate an icecream cone. Then today he might me slightly more lethargic than normal but not much. He has been dealing with an ulcer on his right great toe and has been having home care. This is improving. He also was hospitalized at [facility] within the last month. Unable to obtain full review of systems due to dementia. Vital signs reviewed General: nontoxic, no distress, appears at stated age Derm: warm, dry, right great toes with ulcer with good granulation tissue and mild erythem wtihout warmth Head: atraumatic, normocephalic, symmetric Eyes: EOMI, no lid lag, anicteric sclera, pupils equal round reactive to light ENT: Nose and ears atraumatic, + mild thrush, will not cooperate with full exam to inspect throat. Neck: No thyromegaly, no cervical lymphadenopathy, supple Mouth: no lip lesion, mucus membranes moist Cardiovascular: S1S2 reg, no murmur, positive posterior tibial pulse bilateral, no edema, capillary refill less than 2 seconds Lungs: clear to auscultation bilateral, no rhonchi, no rales, no wheeze, no accessory muscle use Abdominal: soft, nontender to palpation, no guarding, no appreciable organomegaly, normal bowel sounds Ext: no gross muscle atrophy, muscle strength muscle strength 5 out of 5 in all 4 extremities, no contractures Neuro: CN II-XII grossly intact, no contractures noted, moving all 4 extremities independently. Psych: Awake, alert to himself, does not follow commands. Assessment/Plan: Dehydration with OBEY on CKD Hyponatremia, mild - hold diuretics - gentle IV fluids - avoid additional nephrotoxic agents, continue ARB Cough - speech consult if able Dementia Hx of NPH s/p shunt - safe and supportive environment HTN - lopressor, cozaar HLD - lipitor A fib - xarelto Chronic: GERD RA BPH The patient is admitted with an anticipated less than 2 midnight stay for evaluation of OBEY. Surrogate decision-maker: CODE STATUS:DNR/DNI DVT prophylaxis: SCDs Discussed with: , nursing, ed physician Anticipated discharge date: in AM Anticipated discharge place: Return to [facility] A total of 75 minutes was spent on the care of this complex patient more than 50% of the time was spent in counseling and care coordination. Past Medical History Past Medical History: Atrial Fibrillation, Cancer, Dementia, Eye Disorder, GERD/Reflux, GI Bleed, Hyperlipidemia, Hypertension, Memory Impairment, Myocardial Infarction (HI), Prostate Disorder, Renal Disease, Rheumatoid Arthritis (RA), Vascular Disorder Additional Past Medical History / Comment(s): alcoholism, Normal pressure hydocephalus with recent shunt, SSS - PACEMAKER, Skin CA- MELANOMA with removal from nose and other types of skin cancer removed, CKD, nephrolithiasis with sx, PVD, OCC EDEMA LEGS, glaucoma bilaterally, R eye cataract, BPH, past urinary retention after cerebral shunt and was discharged with a anne to [facility]-anne dc'd on 03/02/17, RECTAL BLEED AFTER COLONOSCOPY R/T COUMADIN USE, unsteady gait, intermittent confusion, Last Myocardial Infarction Date:: 2001?-silent History of Any Multi-Drug Resistant Organisms: None Reported Past Surgical History: Coronary Bypass/CABG, Heart Catheterization, Orthopedic Surgery, Pacemaker Additional Past Surgical History / Comment(s): Recent cerebral shunt, PCI with stent, TRIPLE CABG 2001, LT Shoulder rotator cuff repair, Colonoscopy, 2004 Original pacer, 07/2016 GENERATOR CHANGE, cystoscopy with double J catheter, since removed, lithotripsies, L eye cataract removal, skin cancer removals. Past Anesthesia/Blood Transfusion Reactions: No Reported Reaction Type of Cardiac Device: Permanent Pacemaker Device Placement Date:: 03/21/2006 Smoking Status: Second hand smoke exposure - Past Family History Brother(s) Family Medical History: Cancer Additional Family Medical History / Comment(s): SKIN Sister(s) Family Medical History: Cancer Additional Family Medical History / Comment(s): SKIN Mother Family Medical History: Cancer Medications and Allergies Home Medications Medication Instructions Recorded Confirmed Type allopurinoL [Zyloprim] 100 mg PO BID@0800,199907/25/16 05/26/22 History Metoprolol Tartrate [Lopressor] 50 mg PO BID@0800,169903/07/17 05/26/22 History Tamsulosin [Flomax] 0.4 mg PO BID@08,199903/07/17 05/26/22 History Acetaminophen Tab [Tylenol] 325 mg PO Q4H PRN 10/26/19 05/26/22 History Atorvastatin [Lipitor] 40 mg PO HS@199910/26/19 05/26/22 History Docusate Sodium [Dok] 100 mg PO DAILY@119910/26/19 05/26/22 History Finasteride [Proscar] 5 mg PO DAILY@79910/26/19 05/26/22 History Loperamide [Imodium] 2 mg PO QID PRN 10/26/19 05/26/22 History Pantoprazole Sodium [Protonix] 40 mg PO DAILY@79910/26/19 05/26/22 History guaiFENesin-DM 100-10MG/5ML 20 ml PO Q4H PRN 10/26/19 05/26/22 History [Robitussin DM] metOLazone [Zaroxolyn] 2.5 mg PO DAILY@69910/26/19 05/26/22 History metOLazone [Zaroxolyn] 2.5 mg PO ONCE PRN 10/26/19 05/26/22 History Acetaminophen [Acetaminophen ER] 650 mg PO BID PRN 05/26/22 05/26/22 History Ammonium Lactate Cream [Lac-Hydrin 1 applic TOPICAL BID@799,199905/26/22 05/26/22 History 12% Cream] Clotrimazole/Betameth Cream 1 applic TOPICAL DAILY@79905/26/22 05/26/22 History [Lotrisone] Furosemide [Lasix] 40 mg PO BID@0800,17005/26/22 05/26/22 History Losartan [Cozaar] 25 mg PO DAILY@0805/26/22 05/26/22 History Melatonin [Melatonin ER] 10 mg PO HS@199905/26/22 05/26/22 History Mirtazapine 7.5 mg PO HS@199905/26/22 05/26/22 History QUEtiapine FUMARATE [SEROquel] 25 mg PO BID@08,199905/26/22 05/26/22 History Rivaroxaban [Xarelto] 20 mg PO DAILY@169905/26/22 05/26/22 History Allergies Allergy/AdvReac Type Severity Reaction Status Date / Time No Known Allergies Allergy Verified 05/26/22 11:44 Physical Exam Osteopathic Statement: *. No significant issues noted on an osteopathic structural exam other than those noted in the History and Physical/Consult. Vitals: Vital Signs Temp Pulse Pulse Resp BP BP Pulse Ox 05/27/22 03:05 98.8 F 60 16 129/72 94 L 05/27/22 00:00 98.7 F 61 18 131/83 93 L 05/26/22 20:00 99.2 F 60 16 123/85 94 L 05/26/22 17:09 65 05/26/22 16:52 60 95 05/26/22 14:53 97.6 F 82 20 118/72 95 05/26/22 12:30 60 18 123/64 97 05/26/22 10:08 98.1 F 61 20 128/99 96 Intake and Output 05/26/22 05/27/22 05/27/22 22:59 06:59 14:59 Intake Total 300 250 Output Total 250 Balance 300 0 Intake: Intake, IV Titration 200 250 Amount Sodium Chloride 0.9% 1, 200 250 000 ml @ 50 mls/hr IV . Q20H STA Rx#:[id number] Oral 100 Output: Urine 250 Other: # Voids 2 # Bowel Movements 0 Weight 107 kg Results CBC & Chem 7: 05/26/22 10:26 05/26/22 10:26 Labs: Abnormal Lab Results - Last 24 Hours (Table) 05/26/22 05/26/22 05/26/22 Range/Units 10:26 10:26 10:26 RBC 3.77 L (4.30-5.90) m/uL Hgb 12.1 L (13.0-17.5) gm/dL Hct 36.7 L (39.0-53.0) % Neutrophils # 8.3 H (1.3-7.7) k/uL Lymphocytes # 0.9 L (1.0-4.8) k/uL APTT 31.5 H (22.0-30.0) sec Sodium 132 L (137-145) mmol/L BUN 66 H (9-20) mg/dL Creatinine 2.24 H (0.66-1.25) mg/dL Glucose 128 H (74-99) mg/dL U Tricyclic Antidepress (NotDetected) U Benzodiazepines Scrn (NotDetected) 05/26/22 Range/Units 11:35 RBC (4.30-5.90) m/uL Hgb (13.0-17.5) gm/dL Hct (39.0-53.0) % Neutrophils # (1.3-7.7) k/uL Lymphocytes # (1.0-4.8) k/uL APTT (22.0-30.0) sec Sodium (137-145) mmol/L BUN (9-20) mg/dL Creatinine (0.66-1.25) mg/dL Glucose (74-99) mg/dL U Tricyclic Antidepress Detected H (NotDetected) U Benzodiazepines Scrn Detected H (NotDetected) Microbiology - Last 24 Hours (Table) 05/26/22 13:48 Gram Stain - Preliminary Toe - Right First Wound Culture - Preliminary 05/26/22 13:48 Anaerobic Culture - Preliminary Toe - Right First Thrombosis Risk Factor Assmnt - Choose All That Apply Any of the Below Risk Factors Present?: Yes Each Factor Represents 1 point: Obesity (BMI >25) Other Risk Factors: Yes Each Risk Factor Represents 3 Points: Age 75 years or older Other congenital or acquired thrombophilia - If yes, enter type in comment: No Thrombosis Risk Factor Assessment Total Risk Factor Score: 4 Thrombosis Risk Factor Assessment Level: Moderate Risk
[2022-05-27 07:50] LABS: Basophils % (A) 0 %; Eosinophils # (A) 0.1 k/uL (0-0.7); Eosinophils % (A) 1 %; HGB 10.7 gm/dL (13.0-17.5); Lymphocytes # (A) 0.8 k/uL (1.0-4.8); Lymphocytes % (A) 9 %; MCH 31.2 pg (25.0-35.0); MCHC 31.6 g/dL (31.0-37.0); MCV 98.7 fL (80.0-100.0); Macrocytosis Slight; Mean Platelet Volume 7.8; Monocytes # (A) 0.3 k/uL (0-1.0); Monocytes % (A) 3 %; Neutrophils # (A) 8.2 k/uL (1.3-7.7); Neutrophils % (A) 85 %; Platelet Count 218 k/uL (150-450); RBC 3.44 m/uL (4.30-5.90); WBC 9.6 k/uL (3.8-10.6)
[2022-05-27 08:32] LABS: Calcium 8.2 mg/dL (8.4-10.2); Potassium 3.8 mmol/L (3.5-5.1)
[2022-05-27 10:11] LABS: Appearance,Urine Cloudy (Clear); Bacteria,Urine Occasional /hpf; Bilirubin,Urine Negative (Negative); Blood,Urine Large (Negative); Color,Urine Light Red; Glucose,Urine (UA) Negative (Negative); Ketones,Urine Negative (Negative); Leukocyte Esterase,Urine Moderate (Negative); Nitrite,Urine Negative (Negative); Protein,Urine 1+ (Negative); RBC,Urine >182 /hpf (0-5); Specific Gravity,Urine 1.017 (1.001-1.035); Urobilinogen,Urine <2.0 mg/dL (<2.0); WBC,Urine 17 /hpf (0-5)
[2022-05-27] MEDS: CLOTRIMAZOLE/BETAMETH 1-0.05% CREAM 45 GM TUBE TOPICAL SCH (10:40)
[2022-05-27] MEDS: PANTOPRAZOLE 40 MG TABLET PO SCH ×2 (10:41→10:57)
[2022-05-27] MEDS: allopurinoL 100 MG TAB PO SCH ×3 (10:41→20:52)
[2022-05-27] MEDS: QUEtiapine 25 MG TAB PO SCH ×3 (10:41→20:52)
[2022-05-27] MEDS: FINASTERIDE 5 MG TAB PO SCH ×2 (10:41→10:57)
[2022-05-27] MEDS: TAMSULOSIN 0.4 MG CAP.ER.24H PO SCH ×3 (10:41→20:52)
[2022-05-27] MEDS: LOSARTAN 25 MG TAB PO SCH ×2 (10:41→10:57)
[2022-05-27] MEDS: METOPROLOL TARTRATE 50 MG TAB PO SCH ×3 (10:41→18:44)
--- NOTE | 2022-05-27 11:45 | P.PN ---
Subjective Progress Note Date: 05/27/22 Patient is an 82-year-old male with past medical history of atrial fibrillation, dementia, GERD, hypertension, dyslipidemia, and multiple other comorbid conditions who presented to the ER from his nursing facility with altered mentation. On arrival to the ER he underwent an extensive evaluation. Initial vital signs were within normal limits. Initial laboratory analysis shows sodium of 132, BUN of 66, and creatinine 2.24 with last known creatinine 1.[address] head demonstrated no significant change from prior with persistent hydrocephalus and shunt in place. He was noted to have probable infection on his right great toe and foot x-ray was unremarkable. Chest x-ray showed no ac rosanne process. Abdominal x-ray showed intact ENVIRONMENT COORDINATOR shunt tubing. He was started on IVF and vanco. Arrangements were made for admission. Patient seen and examined at bedside. More awake today. Deneis pain. Hematuria noted in external male anne. No know injury. General: no toxic , no distress, appears at stated age Derm: warm, dry Head: atraumatic, normocephalic, symmetric Eyes: EOMI, no lid lag, anicteric sclera Mouth: no lip lesion, mucus membranes moist Cardiovascular: S1S2 reg, no murmur, positive posterior tibial pulse bilateral, Lungs: Cours be bilateral, no rhonchi, no rales , no accessory muscle use, no cough noted. Abdominal: soft, nontender to palpation, no guarding, no appreciable organomegaly Ext: no gross muscle atrophy, no edema, no contractures Neuro: CN II-XI grossly intact, no focal neuro deficits Psych: Awake, oriented to self, Assessment/plan: Hematuria - confirmed on UA - Consult urology - hold xarelto - continue with flomax and proscar Anemia - possible dilutaion vs due to hematuria - follow CBC - no indication for transfusion - will check iron studies Dehydration with OBEY on CKD, improved Hyponatremia, mild - hold diuretics - stop IVF - avoid additional nephrotoxic agents, continue ARB Cough - did well on speech evaluation, can have outpatient modified barrium Dementia Hx of NPH s/p shunt - safe and supportive environment HTN - lopressor, cozaar HLD - lipitor A fib - xarelto on hold due to hematuria Chronic: GERD RA BPH Objective - Vital Signs Vital signs: Vital Signs Temp 98.0 F 05/27/22 10:30 Pulse 60 05/27/22 10:30 Resp 17 05/27/22 10:30 BP 129/69 05/27/22 10:30 Pulse Ox 97 05/27/22 10:30 FiO2 Intake & Output 05/26/22 05/27/22 05/27/22 18:59 06:59 18:59 Intake Total 550 Output Total 250 Balance 300 Weight 106.5 kg 107 kg Intake: Intake, IV Titration 450 Amount Sodium Chloride 0.9% 1, 450 000 ml @ 50 mls/hr IV . Q20H STA Rx#:[id number] Oral 100 Output: Urine 250 Other: # Voids 2 # Bowel Movements 0 - Labs CBC & Chem 7: 05/27/22 07:24 05/27/22 07:44 Labs: Abnormal Lab Results - Last 24 Hours (Table) 05/26/22 05/27/22 05/27/22 Range/Units 11:35 07:24 07:44 RBC 3.44 L (4.30-5.90) m/uL Hgb 10.7 L (13.0-17.5) gm/dL Hct 34.0 L (39.0-53.0) % Neutrophils # 8.2 H (1.3-7.7) k/uL Lymphocytes # 0.8 L (1.0-4.8) k/uL Sodium 135 L (137-145) mmol/L BUN 48 H (9-20) mg/dL Creatinine 1.79 H (0.66-1.25) mg/dL Glucose 118 H (74-99) mg/dL Calcium 8.2 L (8.4-10.2) mg/dL Urine Protein (Negative) Urine Blood (Negative) Ur Leukocyte Esterase (Negative) Urine RBC (0-5) /hpf Urine WBC (0-5) /hpf Urine Bacteria (None) /hpf U Tricyclic Antidepress Detected H (NotDetected) U Benzodiazepines Scrn Detected H (NotDetected) 05/27/22 Range/Units 09:56 RBC (4.30-5.90) m/uL Hgb (13.0-17.5) gm/dL Hct (39.0-53.0) % Neutrophils # (1.3-7.7) k/uL Lymphocytes # (1.0-4.8) k/uL Sodium (137-145) mmol/L BUN (9-20) mg/dL Creatinine (0.66-1.25) mg/dL Glucose (74-99) mg/dL Calcium (8.4-10.2) mg/dL Urine Protein 1+ H (Negative) Urine Blood Large H (Negative) Ur Leukocyte Esterase Moderate H (Negative) Urine RBC >182 H (0-5) /hpf Urine WBC 17 H (0-5) /hpf Urine Bacteria Occasional H (None) /hpf U Tricyclic Antidepress (NotDetected) U Benzodiazepines Scrn (NotDetected) Microbiology - Last 24 Hours (Table) 05/26/22 13:48 Gram Stain - Preliminary Toe - Right First Wound Culture - Preliminary 05/26/22 13:48 Anaerobic Culture - Preliminary Toe - Right First
[2022-05-27] MEDS ORDERED: VANCOMYCIN 1,750 MG in SODIUM CHLORIDE 0.9% 500 ML 500 ML IVPB SCH (13:00)
[2022-05-27] MEDS: DOCUSATE 100 MG CAP PO SCH (13:37)
[2022-05-27] MEDS: ATORVASTATIN 40 MG TAB PO SCH (20:52)
[2022-05-27] MEDS: MIRTAZAPINE 15 MG TAB PO SCH (20:52)
[2022-05-27] MEDS: MELATONIN 5 MG TABLET PO SCH (20:52)
[2022-05-28] MEDS: CLOTRIMAZOLE/BETAMETH 1-0.05% CREAM 45 GM TUBE TOPICAL SCH (07:47)
[2022-05-28] MEDS: FINASTERIDE 5 MG TAB PO SCH (07:47)
[2022-05-28] MEDS: QUEtiapine 25 MG TAB PO SCH ×2 (07:47→23:00)
[2022-05-28] MEDS: LOSARTAN 25 MG TAB PO SCH (07:47)
[2022-05-28] MEDS: TAMSULOSIN 0.4 MG CAP.ER.24H PO SCH ×2 (07:47→23:00)
[2022-05-28] MEDS: allopurinoL 100 MG TAB PO SCH ×2 (07:47→23:00)
[2022-05-28] MEDS: METOPROLOL TARTRATE 50 MG TAB PO SCH ×2 (07:47→16:07)
[2022-05-28] MEDS: FUROSEMIDE 40 MG TAB PO SCH ×3 (07:47→16:07)
[2022-05-28] MEDS: PANTOPRAZOLE 40 MG TABLET PO SCH (07:47)
[2022-05-28] MEDS: AMMONIUM LACTATE 12% CREAM 140 GM TUBE TOPICAL SCH ×2 (07:48→23:00)
[2022-05-28 08:13] LABS: HCT 34.9 % (39.0-53.0); HGB 10.9 gm/dL (13.0-17.5); Hypochromasia Slight; MCH 31.3 pg (25.0-35.0); MCHC 31.3 g/dL (31.0-37.0); MCV 100.1 fL (80.0-100.0); Macrocytosis Slight; Platelet Count 228 k/uL (150-450); RBC 3.48 m/uL (4.30-5.90); WBC 6.8 k/uL (3.8-10.6)
[2022-05-28] MEDS: DOCUSATE 100 MG CAP PO SCH (12:10)
--- NOTE | 2022-05-28 12:46 | P.PN ---
Subjective Progress Note Date: 05/28/22 (delayed charting seen at 1030) Patient is an 82-year-old male with past medical history of atrial fibrillation, dementia, GERD, hypertension, dyslipidemia, and multiple other comorbid conditions who presented to the ER from his nursing facility with altered mentation. On arrival to the ER he underwent an extensive evaluation. Initial vital signs were within normal limits. Initial laboratory analysis shows sodium of 132, BUN of 66, and creatinine 2.24 with last known creatinine 1.[address] from [address] head demonstrated no significant change from prior with persistent hydrocephalus and shunt in place. He was noted to have probable infection on his right great toe and foot x-ray was unremarkable. Chest x-ray showed no acute process. Abdominal x-ray showed intact PAINTER HELPER SPRAY shunt tubing. He was started on IVF and vanco. Arrangements were made for admission. He did well. His diuretics were held and he was placed on IVF. His OBEY and dehydration resolved. He developed hematuria and it came to light that he required straight cath in the ED for obtain UA. His xarelto was held and this resolved without intervention. Patient seen and examined at bedside. Awake, conversational. Does not want to role over in bed. But smiling. General: no toxic , no distress, appears at stated age Derm: warm, dry Head: atraumatic, normocephalic, symmetric Eyes: EOMI, no lid lag, anicteric sclera Mouth: no lip lesion, mucus membranes moist Cardiovascular: S1S2 reg, no murmur, positive posterior tibial pulse bilateral, Lungs: Cours be bilateral, no rhonchi, no rales , no accessory muscle use, no cough noted. Abdominal: soft, nontender to palpation, no guarding, no appreciable organomegaly Ext: no gross muscle atrophy, no edema, no contractures, hematuria resolved Neuro: CN II-XI grossly intact, no focal neuro deficits Psych: Awake, oriented to self, obstinate Assessment/plan: Hematuria, resolved - urology consult canceled as resolved and know to have had a straight cath prior - resume xarelto - continue with flomax and proscar Anemia - possible dilutaion vs due to hematuria, stable - follow CBC - no indication for transfusion - if continues consider iron studies in the outpatient setting. Dehydration with OBEY on CKD, improved Hyponatremia, mild - resume lasix and continue to hold metalazone - off IVF - avoid additional nephrotoxic agents, continue ARB Cough, resolved Dementia Hx of NPH s/p shunt - safe and supportive environment HTN - lopressor, cozaar HLD - lipitor A fib - xarelto on hold due to hematuria Chronic: GERD RA BPH Home in AM Objective - Vital Signs Vital signs: Vital Signs Temp 97.5 F L 05/28/22 08:00 Pulse 60 05/28/22 08:00 Resp 17 05/28/22 08:00 BP 116/68 05/28/22 08:00 Pulse Ox 95 05/28/22 08:00 FiO2 Intake & Output 05/27/22 05/28/22 05/28/22 18:59 06:59 18:59 Intake Total 50 Output Total 375 Balance -325 Intake: Oral 50 Output: Urine 375 Other: Voiding Method External Catheter Diaper Incontinent External Catheter # Voids 1 1 - Labs CBC & Chem 7: 05/28/22 06:12 05/28/22 06:12 Labs: Abnormal Lab Results - Last 24 Hours (Table) 05/28/22 05/28/22 Range/Units 06:12 06:12 RBC 3.48 L (4.30-5.90) m/uL Hgb 10.9 L (13.0-17.5) gm/dL Hct 34.9 L (39.0-53.0) % MCV 100.1 H (80.0-100.0) fL Creatinine 1.49 H (0.66-1.25) mg/dL Microbiology - Last 24 Hours (Table) 05/27/22 09:56 Urine Culture - Preliminary Urine,Voided 05/26/22 11:53 Blood Culture - Preliminary Blood No Growth after 24 hours 05/26/22 11:53 Blood Culture - Preliminary Blood No Growth after 24 hours
[2022-05-28] MEDS ORDERED: RIVAROXABAN 20 MG TAB PO SCH (17:30)
[2022-05-28] MEDS: MUPIROCIN 2% OINT 22 GM TUBE TOPICAL SCH ×2 (18:21→23:00)
[2022-05-28] MEDS: MIRTAZAPINE 15 MG TAB PO SCH (23:00)
[2022-05-28] MEDS: MELATONIN 5 MG TABLET PO SCH (23:00)
[2022-05-28] MEDS: ATORVASTATIN 40 MG TAB PO SCH (23:00)
[2022-05-29 07:52] VITALS: BP 148/76; PULSE 54; RESP 18; TEMP 97.4
[2022-05-29] MEDS: QUEtiapine 25 MG TAB PO SCH (08:22)
[2022-05-29] MEDS: allopurinoL 100 MG TAB PO SCH (08:22)
[2022-05-29] MEDS: PANTOPRAZOLE 40 MG TABLET PO SCH (08:22)
[2022-05-29] MEDS: TAMSULOSIN 0.4 MG CAP.ER.24H PO SCH (08:22)
[2022-05-29] MEDS: LOSARTAN 25 MG TAB PO SCH (08:22)
[2022-05-29] MEDS: FUROSEMIDE 40 MG TAB PO SCH (08:22)
[2022-05-29] MEDS: MUPIROCIN 2% OINT 22 GM TUBE TOPICAL SCH (08:22)
[2022-05-29] MEDS: FINASTERIDE 5 MG TAB PO SCH (08:22)
[2022-05-29] MEDS: METOPROLOL TARTRATE 50 MG TAB PO SCH (08:22)
[2022-05-29] MEDS: AMMONIUM LACTATE 12% CREAM 140 GM TUBE TOPICAL SCH (08:23)
[2022-05-29] MEDS: CLOTRIMAZOLE/BETAMETH 1-0.05% CREAM 45 GM TUBE TOPICAL SCH (08:23)
--- NOTE | 2022-05-29 08:48 | P.DS ---
Providers Date of admission: 05/26/22 12:43 Expected date of discharge: 05/29/22 Attending physician: Abbey Andre DO Primary care physician: Tyron Murphy [facility] Course: Discharge Diagnosis: Hematuria, resolved Anemia Dehydration with OBEY on CKD, improved Hyponatremia, mild Cough, resolved Dementia Hx of NPH s/p shunt HTN HLD A fib GERD RA BPH Hospital Course: Patient is an 82-year-old male with past medical history of atrial fibrillation, dementia, GERD, hypertension, dyslipidemia, and multiple other comorbid conditions who presented to the ER from his nursing facility with altered mentation. On arrival to the ER he underwent an extensive evaluation. Initial vital signs were within normal limits. Initial laboratory analysis shows sodium of 132, BUN of 66, and creatinine 2.24 with last known creatinine 1.[address] head demonstrated no significant change from prior with persistent hydrocephalus and shunt in place. He was noted to have probable infection on his right great toe and foot x-ray was unremarkable. Chest x-ray showed no acute process. 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 He was started on IVF and vanco. Arrangements were made for admission. He did well. His diuretics were held and he was placed on IVF. His OBEY and dehydration resolved. He developed hematuria and it came to light that he required straight cath in the ED for obtain UA. His xarelto was held and this resolved without intervention. He laso has been struggling with a wound on his right great toe, it was cultured in the ED but appears to be healing well without warmth, significant errythema, or drainage.The MRSA cultures will be treated with mupirocin ointment. He was determined stable for discharge. Follow-up: Primary care physicians on discharge, Bactroban 3 times daily for 7 days to right great toe. Patient seen and examined at bedside. He is awake and alert he denies complaints but indicates that he is hungry. Vital signs reviewed and stable. General: nontoxic, no distress, appears at stated age Derm: warm, dry, right great toe with small pen tip sized ulcer without warmth or errhythema, no drainiage Head: atraumatic, normocephalic, symmetric Eyes: EOMI, no lid lag, anicteric sclera Mouth: no lip lesion, mucus membranes moist Cardiovascular: S1S2 reg, no murmur, positive posterior tibial pulse bilateral, Lungs: CTA bilateral, no rhonchi, no rales , no accessory muscle use Abdominal: soft, nontender to palpation, no guarding, no appreciable organomegaly Ext: no gross muscle atrophy, no edema, no contractures Neuro: CN II-XI grossly intact, no focal neuro deficits Psych: Alert, oriented to self, appropriate affect A total of 32 minutes of time were spent preparing this complex discharge summary. Patient was discharged on 05/29/22. Patient Condition at Discharge: Stable Plan - Discharge Summary Discharge Rx Participant: No New Discharge Prescriptions: New Mupirocin 2% Oint [Bactroban 2% Oint] 1 applic TOPICAL TID 7 Days #15 gram Continue allopurinoL [Zyloprim] 100 mg PO BID@0800,1999 Metoprolol Tartrate [Lopressor] 50 mg PO BID@0800,1700 Tamsulosin [Flomax] 0.4 mg PO BID@0800,1999 Acetaminophen Tab [Tylenol] 325 mg PO Q4H PRN PRN Reason: Fever And/ Or Pain guaiFENesin-DM 100-10MG/5ML [Robitussin DM] 20 ml PO Q4H PRN PRN Reason: Cough Loperamide [Imodium] 2 mg PO QID PRN PRN Reason: Loose Stool Pantoprazole Sodium [Protonix] 40 mg PO DAILY@0800 Finasteride [Proscar] 5 mg PO DAILY@0800 Docusate Sodium [Dok] 100 mg PO DAILY@1200 Atorvastatin [Lipitor] 40 mg PO HS@1999 Rivaroxaban [Xarelto] 20 mg PO DAILY@1700 QUEtiapine FUMARATE [SEROquel] 25 mg PO BID@0800,1999 Mirtazapine 7.5 mg PO HS@1999 Clotrimazole/Betameth Cream [Lotrisone] 1 applic TOPICAL DAILY@0800 Ammonium Lactate Cream [Lac-Hydrin 12% Cream] 1 applic TOPICAL BID@0800,1999 Acetaminophen [Acetaminophen ER] 650 mg PO BID PRN PRN Reason: Fever And/ Or Pain Melatonin [Melatonin ER] 10 mg PO HS@1999 Losartan [Cozaar] 25 mg PO DAILY@0800 Furosemide [Lasix] 40 mg PO BID@0800,1700 Discontinued metOLazone [Zaroxolyn] 2.5 mg PO ONCE PRN PRN Reason: WEIGHT GAIN OF 2 LBS IN 1 DAY metOLazone [Zaroxolyn] 2.5 mg PO DAILY@0700 Discharge Medication List allopurinoL [Zyloprim] 100 mg PO BID@0800,199907/25/16 [History] Metoprolol Tartrate [Lopressor] 50 mg PO BID@0800,1700 03/07/17 [History] Tamsulosin [Flomax] 0.4 mg PO BID@0800,199903/07/17 [History] Acetaminophen Tab [Tylenol] 325 mg PO Q4H PRN 10/26/19 [History] Atorvastatin [Lipitor] 40 mg PO HS@199910/26/19 [History] Docusate Sodium [Dok] 100 mg PO DAILY@1200 10/26/19 [History] Finasteride [Proscar] 5 mg PO DAILY@0810/26/19 [History] Loperamide [Imodium] 2 mg PO QID PRN 10/26/19 [History] Pantoprazole Sodium [Protonix] 40 mg PO DAILY@0810/26/19 [History] guaiFENesin-DM 100-10MG/5ML [Robitussin DM] 20 ml PO Q4H PRN 10/26/19 [History] Acetaminophen [Acetaminophen ER] 650 mg PO BID PRN 05/26/22 [History] Ammonium Lactate Cream [Lac-Hydrin 12% Cream] 1 applic TOPICAL BID@0800,199905/26/22 [History] Clotrimazole/Betameth Cream [Lotrisone] 1 applic TOPICAL DAILY@0805/26/22 [History] Furosemide [Lasix] 40 mg PO BID@0800,17005/26/22 [History] Losartan [Cozaar] 25 mg PO DAILY@0805/26/22 [History] Melatonin [Melatonin ER] 10 mg PO HS@199905/26/22 [History] Mirtazapine 7.5 mg PO HS@199905/26/22 [History] QUEtiapine FUMARATE [SEROquel] 25 mg PO BID@0800,199905/26/22 [History] Rivaroxaban [Xarelto] 20 mg PO DAILY@17005/26/22 [History] Mupirocin 2% Oint [Bactroban 2% Oint] 1 applic TOPICAL TID 7 Days #15 gram 05/29/22 [Rx] Follow up Appointment(s)/Referral(s): Alejandrina Roman MD [STAFF PHYSICIAN] - 1-2 days Activity/Diet/Wound Care/Special Instructions: Activity: as tolerated Diet: regular Wound Care: Apply bactroban to right great toe for 7 days Special Instructions: Please continue to hold metalazone until seen by your primary care physician, this is a potent diuretic. You may have some additional swelling with holding this medication, consider open-toe compression stockings, [facility] does carry these. Discharge Disposition: HOME SELF-CARE
--- NOTE | 2022-05-29 10:16 | CDI ---
Documentation Clarification Form Date: 05/29/2022 10:05:04 AM From: Nanda King CCS, CCDS Admit Date: 05/26/2022 12:43:00 PM Patient Name: Allan Stevens Visit Number: [id number] Discharge Date: ATTENTION: The Clinical Documentation Specialists (CDI) and [facility] Coding Staff appreciate your assistance in clarifying documentation. Please respond to the clarification below the line at the bottom and electronically sign. The CDI & [facility] Coding staff will review the response and follow-up if needed. Please note: Queries are made part of the Legal Health Record. If you have any questions, please contact the author of this message via ITS. Dr. Abbey Andre: CKD is documented throughout the record without specificity of the stage of CKD. Additional clarification regarding the stage of CKD is requested. 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 Clinical Indicators: Presented to the ED with Altered Mentation, probable infection on his right great toe, cough, more lethargic than normal and mild thrush. Admit with Dehydration with OBEY on CKD, Mild Hyponatremia, Cough. LABS: 05/26 BUN 66, Creatinine 2.24, GFR 26 05/27: BUN 48, Creatinine 1.79, GFR 34 05/28 Creatinine 1.49, GFR 50 Historical GFR: 07/16/2017: >60 Treatment 05/26: Blood glucose monitoring, Fall precautions, Anaerobic Wound culture, Blood cultures, O2 2Lnc, IV Vancomycin 500 mls @ 167 mls/hr x1, IV Na Chl 1,000 mls @ 999 mls/hr q1H, IV Na Chl 1,000 mls @ 50 mls/hr q20H, INH Ventolin 5 mg x1. Home meds: Xarelto 20 mg Daily, Mirtazapine, Melatonin, Lipitor, Flomax, Seroquel, Lopressor, Cozaar, Lasix, Proscar, Dok, Zyloprim Please clarify the stage of the CKD, if known: [ ] CKD Stage 2 (GFR 60-89) [ X ] CKD Stage 3 (GFR 30-59) [ ] CKD Stage 3a (GFR 45-59) [ ] CKD Stage 3b (GFR 30-44) [ ] CKD Stage 4 (GFR 15-29) [ ] Other, please specify [ ] Unable to determine (Template Last revised: December 2020) MTDD
--- NOTE | 2022-05-29 10:26 | CDI ---
Documentation Clarification Form Date: 05/29/2022 10:17:18 AM From: Nanda KingPUAL khan, CCDS Admit Date: 05/26/2022 12:43:00 PM Patient Name: Allan Stevens Visit Number: [id number] Discharge Date: ATTENTION: The Clinical Documentation Specialists (CDI) and [facility] Coding Staff appreciate your assistance in clarifying documentation. Please respond to the clarification below the line at the bottom and electronically sign. The CDI & [facility] Coding staff will review the response and follow-up if needed. Please note: Queries are made part of the Legal Health Record. If you have any questions, please contact the author of this message via ITS. Dr. Abbey Andre: Anemia without further specificity is documented in the record beginning in the 05/26 ED Note: (Chronic Normocytic) and in the subsequent Attending Physician Progress notes and Discharge Summary. Per the 05/27 Attending Physician Progress Note: Hematuria noted in external male anne, Xarelto on hole. Per the 05/29 Discharge Summary: Hematuria resolved. Additional specificity regarding the Type and Acuity of Anemia is requested. 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 Clinical Indicators: Presented to the ED with Altered Mentation, probable infection on his right great toe, cough, more lethargic than normal and mild thrush. Admit with Dehydration with OBEY on CKD, Mild Hyponatremia, Cough. 05/26 VS: T 98.1, P 61, R 20, BP 128/99, PO 96 RA, MBI: 33.8 LABS: 05/26 Hgb 12.1, Hct 36.7 05/27 Hgb 10.7, Hct 34.0 05/28 Hgb 10.9, Hct 34.9 05/26 UA: clear 05/27 UA: Light Red, Cloudy, 1+ protein, large blood, negative nitrite, Moderate Esterase, RBC >182, WBC 17. Treatment 05/26: Blood glucose monitoring, Fall precautions, Anaerobic Wound culture, Blood cultures, O2 2Lnc, IV Vancomycin 500 mls @ 167 mls/hr x1, IV Na Chl 1,000 mls @ 999 mls/hr q1H, IV Na Chl 1,000 mls @ 50 mls/hr q20H, INH Ventolin 5 mg x1. 05/27: External Catheter for Incontinence, urine appearance: Hematuria, dark lamont. Home meds: Xarelto 20 mg Daily, Mirtazapine, Melatonin, Lipitor, Flomax, Seroquel, Lopressor, Cozaar, Lasix, Proscar, Dok, Zyloprim Please clarify the Type & Acuity of Anemia: [ ] Acute blood loss anemia [ ] Acute on chronic blood loss anemia [ ] Chronic blood loss anemia [ ] Hemolytic anemia [ ] Drug induced anemia [ ] Anemia of chronic kidney disease [ ] Anemia of other chronic disease(s) [ X ] Unable to determine [ ] Other, please specify (Template Last Revised: December 2020) Anemia, chronic, at baseline, undetermined etiology MTDD
== END 2022-05-29 10:58 | DRG 683 ==
LOC: EC 10:07 → 3SCARD 12:43 → 4SSUR 05-28 05:51
PROVIDERS: ADMIT Internal Medicine; ATTEND Internal Medicine
DX: N17.9 Acute kidney failure, unspecified (principal); B37.0 Candidal stomatitis; E87.1 Hypo-osmolality and hyponatremia; G91.2 (Idiopathic) normal pressure hydrocephalus; R31.9 Hematuria, unspecified; F03.90 Unspecified dementia, unspecified severity, without behavioral disturbance, psychotic disturbance, mood disturbance, and anxiety; E78.5 Hyperlipidemia, unspecified; L97.519 Non-pressure chronic ulcer of other part of right foot with unspecified severity; E86.0 Dehydration; I25.10 Atherosclerotic heart disease of native coronary artery without angina pectoris; I73.9 Peripheral vascular disease, unspecified; L08.89 Other specified local infections of the skin and subcutaneous tissue; I49.5 Sick sinus syndrome; Z20.822 Contact with and (suspected) exposure to COVID-19; Z66 Do not resuscitate; N40.1 Benign prostatic hyperplasia with lower urinary tract symptoms; R33.8 Other retention of urine; D63.1 Anemia in chronic kidney disease; I48.91 Unspecified atrial fibrillation; I12.9 Hypertensive chronic kidney disease with stage 1 through stage 4 chronic kidney disease, or unspecified chronic kidney disease; N18.30 Chronic kidney disease, stage 3 unspecified; K21.9 Gastro-esophageal reflux disease without esophagitis; M06.9 Rheumatoid arthritis, unspecified; Z77.22 Contact with and (suspected) exposure to environmental tobacco smoke (acute) (chronic); I25.2 Old myocardial infarction; Z95.0 Presence of cardiac pacemaker; Z85.820 Personal history of malignant melanoma of skin; Z98.2 Presence of cerebrospinal fluid drainage device; Z79.01 Long term (current) use of anticoagulants; Z79.899 Other long term (current) drug therapy; Z87.442 Personal history of urinary calculi; Z95.1 Presence of aortocoronary bypass graft; Z95.5 Presence of coronary angioplasty implant and graft
CPT/HCPCS: 36415; 70450; 71046; 74018; 80048; 80053; 80306; 80320; 81001; 81003; 82140; 82150; 82565; 83605; 83690; 83735; 84443; 84484; 85025; 85027; 85610; 85730; 87040; 87070; 87075; 87077; 87086; 87186; 87205; 87502; 87635; 93005; 94640; 96365; 99285

== ENCOUNTER 2023-01-26 05:10 | Inpatient (IN) | payer MEDICARE ==
[2023-01-26] MEDS ORDERED: SODIUM CHLORIDE 0.9% 500 ML 500 ML IV ONE (05:15)
[2023-01-26] MEDS ORDERED: levETIRAcetam IV 2,000 MG in SODIUM CHLORIDE 0.9% 250 ML IVPB ONE (05:18)
[2023-01-26] MEDS ORDERED: DIPH,PERTUS(ACELL)TETVAC-LF 0.5 ML VIAL IM ONE (05:18)
[2023-01-26 05:20] LABS: Glucose,Whole Blood 129 mg/dL (70-110)
--- NOTE | 2023-01-26 05:37 | ED ---
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 fib on several toe, dementia, hypertension who presents emergency Department from his nursing facility over concern for possible seizure. Patient was standing to assist staff with helping wiping after using the restroom, when he began having some tonic-clonic movements per staff. The result after to 4 minutes approximately per staff. Was not witnessed by EMS. Baseline is nonverbal and seems to be able to somewhat understand and respond with movements of his head. Patient fell, controlled fall backwards if sitting back down with the generalized tonic-clonic movements. He seems to back at his baseline per EMS with this in on what staff is telling them. They do not believe that he fell or hit his head. Has a small skin tear on his left arm. They're concerned for possible altered mental status versus seizure. No history of seizures. Presents for further evaluation at this time. Patient is unable to provide any history. - Related Data Home Medications Medication Instructions Recorded Confirmed Metoprolol Tartrate [Lopressor] 50 mg PO BID@0800,1700 03/07/17 01/26/23 Acetaminophen Tab [Tylenol] 325 mg PO Q4H PRN 10/26/19 01/26/23 Atorvastatin [Lipitor] 40 mg PO HS@2000 10/26/19 01/26/23 Docusate Sodium [Dok] 100 mg PO DAILY@1200 10/26/19 01/26/23 Finasteride [Proscar] 5 mg PO DAILY@0800 10/26/19 01/26/23 Loperamide [Imodium] 2 - 4 mg PO QID PRN MDD 6 tabs 10/26/19 01/26/23 Pantoprazole Sodium [Protonix] 40 mg PO DAILY@0800 10/26/19 01/26/23 guaiFENesin-DM 100-10MG/5ML 20 ml PO Q4H PRN 10/26/19 01/26/23 [Robitussin DM] Acetaminophen [Acetaminophen ER] 650 mg PO BID PRN 05/26/22 01/26/23 Ammonium Lactate Cream [Lac-Hydrin 1 applic TOPICAL BID@0800,199905/26/22 01/26/23 12% Cream] Clotrimazole/Betameth Cream 1 applic TOPICAL DAILY@0800 05/26/22 01/26/23 [Lotrisone] Furosemide [Lasix] 40 mg PO BID@0800,1700 05/26/22 01/26/23 Losartan [Cozaar] 25 mg PO DAILY@0800 05/26/22 01/26/23 Melatonin [Melatonin ER] 10 mg PO HS@199905/26/22 01/26/23 Mirtazapine 7.5 mg PO HS@199905/26/22 01/26/23 QUEtiapine FUMARATE [SEROquel] 25 mg PO BID@0800,199905/26/22 01/26/23 Rivaroxaban [Xarelto] 20 mg PO DAILY@1700 05/26/22 01/26/23 Potassium Chloride Oral Liquid 20 meq PO BID 01/26/23 01/26/23 metOLazone 2.5 mg PO DAILY PRN 01/26/23 01/26/23 Allergies Allergy/AdvReac Type Severity Reaction Status Date / Time No Known Allergies Allergy Verified 01/26/23 06:51 Review of Systems ROS Statement: Those systems with pertinent positive or pertinent negative responses have been documented in the HPI. ROS Other: All systems not noted in ROS Statement are negative. Past Medical History Past Medical History: Atrial Fibrillation, Cancer, Dementia, Eye Disorder, GERD/Reflux, GI Bleed, Hyperlipidemia, Hypertension, Memory Impairment, Myocardial Infarction (CA), Prostate Disorder, Renal Disease, Rheumatoid Arthritis (RA), Vascular Disorder Additional Past Medical History / Comment(s): alcoholism, Normal pressure hydocephalus with recent shunt, SSS - PACEMAKER, Skin CA- MELANOMA with removal from nose and other types of skin cancer removed, CKD, nephrolithiasis with sx, PVD, OCC EDEMA LEGS, glaucoma bilaterally, R eye cataract, BPH, past urinary retention after cerebral shunt and was discharged with a anne to [facility] dc'd on 03/02/17, RECTAL BLEED AFTER COLONOSCOPY R/T COUMADIN USE, unsteady gait, intermittent confusion, Last Myocardial Infarction Date:: 2001?-silent History of Any Multi-Drug Resistant Organisms: MRSA Date of last positivie culture/infection: 05/26/22 MDRO Source:: Right First Toe Past Surgical History: Coronary Bypass/CABG, Heart Catheterization, Orthopedic Surgery, Pacemaker Additional Past Surgical History / Comment(s): Recent cerebral shunt, PCI with stent, TRIPLE CABG 2001, LT Shoulder rotator cuff repair, Colonoscopy, 2004 Original pacer, 07/2016 GENERATOR CHANGE, cystoscopy with double J catheter, since removed, lithotripsies, L eye cataract removal, skin cancer removals. Past Anesthesia/Blood Transfusion Reactions: No Reported Reaction Type of Cardiac Device: Permanent Pacemaker Device Placement Date:: 03/21/2006 Past Psychological History: No Psychological Hx Reported Smoking Status: Second hand smoke exposure - Past Family History Brother(s) Family Medical History: Cancer Additional Family Medical History / Comment(s): SKIN Sister(s) Family Medical History: Cancer Additional Family Medical History / Comment(s): SKIN Mother Family Medical History: Cancer General Exam - General Exam Comments Initial Comments: General: Appears in no acute distress. HEAD: Normal with no signs of head trauma. Negative blankenship sign. Negative raccoon eyes. EYES: PERRLA, EOMI, conjunctiva normal, no discharge. Pupils are 2 mm and equal bilaterally ENT: Hearing grossly intact, normal oropharynx.Patient seems to have blood on his tongue but is unwilling to stick it out or allow me to examine it. RESPIRATORY: Clear breath sounds bilaterally. No wheezes, rales, or rhonchi. C/V: Regular rate and rhythm. S1 and S2 auscultated, no edema, peripheral pul ses 2+ and intact throughout ABD: Abd is soft, nontender, nondistended EXT: Normal range of motion, no obvious deformity SKIN: Patient has a skin tear located over the left forearm. NEURO: Alert. Unknown orientation. Nonverbal at baseline. Seems to be able to respond to basic questions with shaking or nodding his head. Moving his extremities. Appears to be at baseline. Patient is combative with staff at baseline if he does not want something done. Limitations: language barrier, altered mental status Course Vital Signs 01/26/23 01/26/23 01/26/23 05:12 05:23 08:00 Temperature 98.2 F Pulse Rate 64 Pulse Rate [ 60 Pulse Oximetery ] Respiratory 18 18 Rate Blood Pressure 131/89 Blood Pressure 144/82 [Right Arm] O2 Sat by Pulse 97 97 Oximetry Medical Decision Making - Medical Decision Making Was pt. sent in by a medical professional or institution (, PA, MATERIAL PLANNING ANALYST, urgent care, hospital, or detention...) When possible be specific @ -Patient sent by [facility] Did you speak to anyone other than the patient for history (EMS, parent, family, police, friend...)? What history was obtained from this source @ -EMS who provided most the patient's history Did you review nursing and triage notes (agree or disagree)? Why? @ -I reviewed and agree with nursing and triage notes Were old charts reviewed (outside hosp., previous admission, EMS record, old EKG, old radiological studies, urgent care reports/EKG's, detention records)? Report findings @ - old charts including old EKGs reviewed from prior admission in May 2022. Differential Diagnosis (chest pain, altered mental status, abdominal pain women, abdominal pain men, vaginal bleeding, weakness, fever, dyspnea, syncope, headache, dizziness, GI bleed, back pain, seizure, CVA, palpatations, mental health, musculoskeletal)? @ -Differential Altered Mental Status: Hypoglycemia, DKA, hypercapnia, ETOH, overdose, CO poisoning, trauma, myxedema coma, HTN encephalopathy, infection, encephalitis, psychosis, intercranial hemorrhage, hepatic encephalopathy, meningitis, CVA, this is not meant to be an all-inclusive list EKG interpreted by me (3pts min.). @ -As above X-rays interpreted by me (1pt min.). @ -KUB, chest x-ray, pelvic x-ray, forearm x-ray negative for any obvious acute process. No evidence of constipation. CT interpreted by me (1pt min.). @ -CT brain returned negative for any acute intracranial process. No obvious acute findings. Appears UNDER GROUND MINER shunt is intact. Hydrocephalus is mild in stable compared to prior brain imaging. U/S interpreted by me (1pt. min.). @ -None done What testing was considered but not performed or refused? (CT, X-rays, U/S, labs)? Why? @ -None What meds were considered but not given or refused? Why? @ -None Did you discuss the management of the patient with other professionals (professionals i.e. , PA, MATERIAL PLANNING ANALYST, lab, RT, psych nurse, social work instructor, drill press set up operator, teacher, artillery officer, case management social worker)? Give summary @ -I discussed with Dr. anderson who accepted the admission. Was smoking cessation discussed for >3mins.? @ -No Was critical care preformed (if so, how long)? @ -No Were there social determinants of health that impacted care today? How? (Homelessness, low income, unemployed, alcoholism, drug addiction, transportation, low edu. Level, literacy, decrease access to med. care, senior living, rehab)? @ -No Was there de-escalation of care discussed even if they declined (Discuss DNR or withdrawal of care, Hospice)? DNR status @ -No What co-morbidities impacted this encounter? (DM, HTN, Smoking, COPD, CAD, Cancer, CVA, ARF, Chemo, Hep., AIDS, mental health diagnosis, sleep apnea, morbid obesity)? @ -Patient's baseline mental state of being nonverbal, history of A. fib on xeralto Was patient admitted / discharged? Hospital course, mention meds given and route, prescriptions, significant lab abnormalities, going to OR and other pertinent info. @ -Based on patient's presentation and physical exam, I'm concerned for altered mental status for the patient. Possible seizure as well however no history of seizures. We will obtain a CT brain in addition to altered mental status workup including infectious labs. Chest, pelvis, left forearm, KUB x-rays will be obtained. Patient seems in agreement with this plan. He will be started on a 500 mL fluid bolus, empiric IV Keppra, as well as given a Tdap booster. Vital signs are within acceptable limits. EKG shows no signs of acute ischemia.Imaging negative for any acute process. CT brain appears baseline for the patient. Lactic acid is elevated to 6.9 supporting seizure. Patient has an elevated BUN/creatinine the setting of CKD a nd appears to be at his baseline. Coags are elevated in the setting of xeralto use. Ammonia is also elevated mildly to 40s. Urinalysis is still pending. Drug screen is still pending. Patient's troponin is also mildly elevated but this is likely secondary to the breakthrough seizure. EKG unremarkable. We will continue to trend the troponin. Patient was given 324 mg of aspirin. I updated the patient. Vital signs remain within acceptable limits. He'll be admitted to the hospital for evaluation by neurology. I spoke with the admitting provider, Dr. Anderson who covers for Dr. Murphy who accepted the patient. Neurology is consulted to evaluate the patient. Patient be administered a dose of rectal lactulose, as well as continue on maintenance fluids. Urinalysis is still pending at this time. Undiagnosed new problem with uncertain prognosis? @ -No Drug Therapy requiring intensive monitoring for toxicity (Heparin, Nitro, Ins ulin, Cardizem)? @ -No Were any procedures done? @ -No Diagnosis/symptom? @ -new onset seizure Acute, or Chronic, or Acute on Chronic? @ -acute Uncomplicated (without systemic symptoms) or Complicated (systemic symptoms)? @ -complicated Side effects of treatment? @ -No Exacerbation, Progression, or Severe Exacerbation? @ -No Poses a threat to life or bodily function? How? (Chest pain, USA, CA, pneumonia, PE, COPD, DKA, ARF, appy, cholecystitis, CVA, Diverticulitis, Homicidal, Suicidal, threat to staff... and all critical care pts) @ -Yes, if untreated can result in significant morbidity and mortality. Diagnosis/symptom? @ -Hyperammonia Acute, or Chronic, or Acute on Chronic? @ -Acute Uncomplicated (without systemic symptoms) or Complicated (systemic symptoms)? @ -Complicated Side effects of treatment? @ -none Exacerbation, Progression, or Severe Exacerbation] @ -no Poses a threat to life or bodily function? @ -no Diagnosis/symptom? @ -History of NPH with UNDER GROUND MINER shunt Acute, or Chronic, or Acute on Chronic? @ -Chronic Uncomplicated (without systemic symptoms) or Complicated (systemic symptoms)? @ -Uncomplicated Side effects of treatment? @ -none Exacerbation, Progression, or Severe Exacerbation] @ -no Poses a threat to life or bodily function? @ -Potentially Diagnosis/symptom? @ -History of A. fib on xeralto Acute, or Chronic, or Acute on Chronic? @ -Acute Uncomplicated (without systemic symptoms) or Complicated (systemic symptoms)? @ -Uncomplicated Side effects of treatment? @ -none Exacerbation, Progression, or Severe Exacerbation] @ -no Poses a threat to life or bodily function? @ -Potentially, if uncontrolled. Diagnosis/symptom? @ -Lactic acidosis Acute, or Chronic, or Acute on Chronic? @ -Acute Uncomplicated (without systemic symptoms) or Complicated (systemic symptoms)? @ -Uncomplicated Side effects of treatment? @ -none Exacerbation, Progression, or Severe Exacerbation] @ -no Poses a threat to life or bodily function? @ -no Diagnosis/symptom? @ -Tongue abrasion Acute, or Chronic, or Acute on Chronic? @ -Acute Uncomplicated (without systemic symptoms) or Complicated (systemic symptoms)? @ -Uncomplicated Side effects of treatment? @ -none Exacerbation, Progression, or Severe Exacerbation] @ -no Poses a threat to life or bodily function? @ -no - Lab Data Result diagrams: 01/26/23 05:23 01/26/23 05:23 Lab Results 01/26/23 01/26/23 01/26/23 Range/Units 05:19 05:23 05:23 WBC 9.3 (3.8-10.6) k/uL RBC 4.68 (4.30-5.90) m/uL Hgb 14.0 (13.0-17.5) gm/dL Hct 44.0 (39.0-53.0) % MCV 94.0 (80.0-100.0) fL MCH 29.9 (25.0-35.0) pg MCHC 31.8 (31.0-37.0) g/dL RDW 14.7 (11.5-15.5) % Plt Count 303 (150-450) k/uL MPV 7.6 Neutrophils % 70 % Lymphocytes % 21 % Monocytes % 5 % Eosinophils % 3 % Basophils % 0 % Neutrophils # 6.5 (1.3-7.7) k/uL Lymphocytes # 2.0 (1.0-4.8) k/uL Monocytes # 0.4 (0-1.0) k/uL Eosinophils # 0.2 (0-0.7) k/uL Basophils # 0.0 (0-0.2) k/uL PT 13.0 H (9.0-12.0) sec INR 1.3 H (<1.2) APTT 30.1 H (22.0-30.0) sec Sodium (137-145) mmol/L Potassium (3.5-5.1) mmol/L Chloride (98-107) mmol/L Carbon Dioxide (22-30) mmol/L Anion Gap mmol/L BUN (9-20) mg/dL Creatinine (0.66-1.25) mg/dL Est GFR (CKD-EPI)AfAm (>60 ml/min/1.73 sqM) Est GFR (CKD-EPI)NonAf (>60 ml/min/1.73 sqM) Glucose (74-99) mg/dL POC Glucose (mg/dL) 129 H (70-110) mg/dL POC Glu Sanitary Plumber ID Benji Tong Lactic Ac Sepsis Rflx Plasma Lactic Acid Santiago (0.7-2.0) mmol/L Calcium (8.4-10.2) mg/dL Total Bilirubin (0.2-1.3) mg/dL AST (17-59) U/L ALT (4-49) U/L Alkaline Phosphatase (38-126) U/L Ammonia (<30) umol/L Troponin I (0.000-0.034) ng/mL Total Protein (6.3-8.2) g/dL Albumin (3.5-5.0) g/dL Urine Color Urine Appearance (Clear) Urine pH (5.0-8.0) Ur Specific [place] (1.001-1.035) Urine Protein (Negative) Urine Glucose (UA) (Negative) Urine Ketones (Negative) Urine Blood (Negative) Urine Nitrite (Negative) Urine Bilirubin (Negative) Urine Urobilinogen (<2.0) mg/dL Ur Leukocyte Esterase (Negative) Urine Opiates Screen (NotDetected) Ur Oxycodone Screen (NotDetected) Urine Methadone Screen (NotDetected) Ur Propoxyphene Screen (NotDetected) Ur Barbiturates Screen (NotDetected) U Tricyclic Antidepress (NotDetected) Ur Phencyclidine Scrn (NotDetected) Ur Amphetamines Screen (NotDetected) U Methamphetamines Scrn (NotDetected) U Benzodiazepines Scrn (NotDetected) Urine Cocaine Screen (NotDetected) U Marijuana (THC) Screen (NotDetected) Serum Alcohol mg/dL Influenza Type A (PCR) (Not Detectd) Influenza Type B (PCR) (Not Detectd) RSV (PCR) (Not Detectd) SARS-CoV-2 (PCR) (Not Detectd) 01/26/23 01/26/23 01/26/23 Range/Units 05:23 05:23 05:23 WBC (3.8-10.6) k/uL RBC (4.30-5.90) m/uL Hgb (13.0-17.5) gm/dL Hct (39.0-53.0) % MCV (80.0-100.0) fL MCH (25.0-35.0) pg MCHC (31.0-37.0) g/dL RDW (11.5-15.5) % Plt Count (150-450) k/uL MPV Neutrophils % % Lymphocytes % % Monocytes % % Eosinophils % % Basophils % % Neutrophils # (1.3-7.7) k/uL Lymphocytes # (1.0-4.8) k/uL Monocytes # (0-1.0) k/uL Eosinophils # (0-0.7) k/uL Basophils # (0-0.2) k/uL PT (9.0-12.0) sec INR (<1.2) APTT (22.0-30.0) sec Sodium 138 (137-145) mmol/L Potassium 4.7 (3.5-5.1) mmol/L Chloride 102 (98-107) mmol/L Carbon Dioxide 23 (22-30) mmol/L Anion Gap 13 mmol/L BUN 30 H (9-20) mg/dL Creatinine 1.57 H (0.66-1.25) mg/dL Est GFR (CKD-EPI)AfAm 47 (>60 ml/min/1.73 sqM) Est GFR (CKD-EPI)NonAf 40 (>60 ml/min/1.73 sqM) Glucose 131 H (74-99) mg/dL POC Glucose (mg/dL) (70-110) mg/dL POC Glu Sanitary Plumber ID Lactic Ac Sepsis Rflx Plasma Lactic Acid Santiago 6.9 H* (0.7-2.0) mmol/L Calcium 8.8 (8.4-10.2) mg/dL Total Bilirubin 0.8 (0.2-1.3) mg/dL AST 35 (17-59) U/L ALT 37 (4-49) U/L Alkaline Phosphatase 92 (38-126) U/L Ammonia 46 H (<30) umol/L Troponin I 0.050 H* (0.000-0.034) ng/mL Total Protein 7.5 (6.3-8.2) g/dL Albumin 3.8 (3.5-5.0) g/dL Urine Color Urine Appearance (Clear) Urine pH (5.0-8.0) Ur Specific [place] (1.001-1.035) Urine Protein (Negative) Urine Glucose (UA) (Negative) Urine Ketones (Negative) Urine Blood (Negative) Urine Nitrite (Negative) Urine Bilirubin (Negative) Urine Urobilinogen (<2.0) mg/dL Ur Leukocyte Esterase (Negative) Urine Opiates Screen (NotDetected) Ur Oxycodone Screen (NotDetected) Urine Methadone Screen (NotDetected) Ur Propoxyphene Screen (NotDetected) Ur Barbiturates Screen (NotDetected) U Tricyclic Antidepress (NotDetected) Ur Phencyclidine Scrn (NotDetected) Ur Amphetamines Screen (NotDetected) U Methamphetamines Scrn (NotDetected) U Benzodiazepines Scrn (NotDetected) Urine Cocaine Screen (NotDetected) U Marijuana (THC) Screen (NotDetected) Serum Alcohol <10 mg/dL Influenza Type A (PCR) (Not Detectd) Influenza Type B (PCR) (Not Detectd) RSV (PCR) (Not Detectd) SARS-CoV-2 (PCR) (Not Detectd) 01/26/23 01/26/23 01/26/23 Range/Units 05:23 05:31 05:31 WBC (3.8-10.6) k/uL RBC (4.30-5.90) m/uL Hgb (13.0-17.5) gm/dL Hct (39.0-53.0) % MCV (80.0-100.0) fL MCH (25.0-35.0) pg MCHC (31.0-37.0) g/dL RDW (11.5-15.5) % Plt Count (150-450) k/uL MPV Neutrophils % % Lymphocytes % % Monocytes % % Eosinophils % % Basophils % % Neutrophils # (1.3-7.7) k/uL Lymphocytes # (1.0-4.8) k/uL Monocytes # (0-1.0) k/uL Eosinophils # (0-0.7) k/uL Basophils # (0-0.2) k/uL PT (9.0-12.0) sec INR (<1.2) APTT (22.0-30.0) sec Sodium (137-145) mmol/L Potassium (3.5-5.1) mmol/L Chloride (98-107) mmol/L Carbon Dioxide (22-30) mmol/L Anion Gap mmol/L BUN (9-20) mg/dL Creatinine (0.66-1.25) mg/dL Est GFR (CKD-EPI)AfAm (>60 ml/min/1.73 sqM) Est GFR (CKD-EPI)NonAf (>60 ml/min/1.73 sqM) Glucose (74-99) mg/dL POC Glucose (mg/dL) (70-110) mg/dL POC Glu Sanitary Plumber ID Lactic Ac Sepsis Rflx Plasma Lactic Acid Santiago (0.7-2.0) mmol/L Calcium (8.4-10.2) mg/dL Total Bilirubin (0.2-1.3) mg/dL AST (17-59) U/L ALT (4-49) U/L Alkaline Phosphatase (38-126) U/L Ammonia (<30) umol/L Troponin I (0.000-0.034) ng/mL Total Protein (6.3-8.2) g/dL Albumin (3.5-5.0) g/dL Urine Color Light Yellow Urine Appearance Clear (Clear) Urine pH 6.0 (5.0-8.0) Ur Specific [place] 1.011 (1.001-1.035) Urine Protein Negative (Negative) Urine Glucose (UA) Negative (Negative) Urine Ketones Negative (Negative) Urine Blood Negative (Negative) Urine Nitrite Negative (Negative) Urine Bilirubin Negative (Negative) Urine Urobilinogen <2.0 (<2.0) mg/dL Ur Leukocyte Esterase Negative (Negative) Urine Opiates Screen Not Detected (NotDetected) Ur Oxycodone Screen Not Detected (NotDetected) Urine Methadone Screen Not Detected (NotDetected) Ur Propoxyphene Screen Not Detected (NotDetected) Ur Barbiturates Screen Not Detected (NotDetected) U Tricyclic Antidepress Detected H (NotDetected) Ur Phencyclidine Scrn Not Detected (NotDetected) Ur Amphetamines Screen Not Detected (NotDetected) U Methamphetamines Scrn Not Detected (NotDetected) U Benzodiazepines Scrn Not Detected (NotDetected) Urine Cocaine Screen Not Detected (NotDetected) U Marijuana (THC) Screen Not Detected (NotDetected) Serum Alcohol mg/dL Influenza Type A (PCR) Not Detected (Not Detectd) Influenza Type B (PCR) Not Detected (Not Detectd) RSV (PCR) Not Detected (Not Detectd) SARS-CoV-2 (PCR) Not Detected (Not Detectd) 01/26/23 Range/Units 06:17 WBC (3.8-10.6) k/uL RBC (4.30-5.90) m/uL Hgb (13.0-17.5) gm/dL Hct (39.0-53.0) % MCV (80.0-100.0) fL MCH (25.0-35.0) pg MCHC (31.0-37.0) g/dL RDW (11.5-15.5) % Plt Count (150-450) k/uL MPV Neutrophils % % Lymphocytes % % Monocytes % % Eosinophils % % Basophils % % Neutrophils # (1.3-7.7) k/uL Lymphocytes # (1.0-4.8) k/uL Monocytes # (0-1.0) k/uL Eosinophils # (0-0.7) k/uL Basophils # (0-0.2) k/uL PT (9.0-12.0) sec INR (<1.2) APTT (22.0-30.0) sec Sodium (137-145) mmol/L Potassium (3.5-5.1) mmol/L Chloride (98-107) mmol/L Carbon Dioxide (22-30) mmol/L Anion Gap mmol/L BUN (9-20) mg/dL Creatinine (0.66-1.25) mg/dL Est GFR (CKD-EPI)AfAm (>60 ml/min/1.73 sqM) Est GFR (CKD-EPI)NonAf (>60 ml/min/1.73 sqM) Glucose (74-99) mg/dL POC Glucose (mg/dL) (70-110) mg/dL POC Glu Sanitary Plumber ID Lactic Ac Sepsis Rflx Y Plasma Lactic Acid Santiago (0.7-2.0) mmol/L Calcium (8.4-10.2) mg/dL Total Bilirubin (0.2-1.3) mg/dL AST (17-59) U/L ALT (4-49) U/L Alkaline Phosphatase (38-126) U/L Ammonia (<30) umol/L Troponin I (0.000-0.034) ng/mL Total Protein (6.3-8.2) g/dL Albumin (3.5-5.0) g/dL Urine Color Urine Appearance (Clear) Urine pH (5.0-8.0) Ur Specific [place] (1.001-1.035) Urine Protein (Negative) Urine Glucose (UA) (Negative) Urine Ketones (Negative) Urine Blood (Negative) Urine Nitrite (Negative) Urine Bilirubin (Negative) Urine Urobilinogen (<2.0) mg/dL Ur Leukocyte Esterase (Negative) Urine Opiates Screen (NotDetected) Ur Oxycodone Screen (NotDetected) Urine Methadone Screen (NotDetected) Ur Propoxyphene Screen (NotDetected) Ur Barbiturates Screen (NotDetected) U Tricyclic Antidepress (NotDetected) Ur Phencyclidine Scrn (NotDetected) Ur Amphetamines Screen (NotDetected) U Methamphetamines Scrn (NotDetected) U Benzodiazepines Scrn (NotDetected) Urine Cocaine Screen (NotDetected) U Marijuana (THC) Screen (NotDetected) Serum Alcohol mg/dL Influenza Type A (PCR) (Not Detectd) Influenza Type B (PCR) (Not Detectd) RSV (PCR) (Not Detectd) SARS-CoV-2 (PCR) (Not Detectd) - EKG Data -: EKG Interpreted by Me EKG Comments: 12-lead Electrocardiogram Interpretation Note EKG was reviewed and interpreted by myself. 12-lead ECG performed at 0520 is interpreted by me as revealing ventricularly paced rhythm at a rate of at 60 beats per minute. Left axis deviation. VT interval is 154 ms, QRS duration is 182 ms, QTc is 479 ms.. There were no ST or T wave abnormalities to suggest myocardial ischemia or injury. R wave progression across the precordium was delayed. By my interpretation this EKG is non-diagnostic for acute ischemia. When compared with EKG from May 2022, no significant change. Disposition Clinical Impression: Lactic acidosis, New onset seizure, Elevated troponin, History of atrial fibrillation, Abrasion of tongue Disposition: ADMITTED IP TO THIS HOSP Condition: Stable Time of Disposition: 06:40
[2023-01-26 05:57] LABS: Basophils % (A) 0 %; Eosinophils # (A) 0.2 k/uL (0-0.7); Eosinophils % (A) 3 %; Lymphocytes % (A) 21 %; MCH 29.9 pg (25.0-35.0); MCHC 31.8 g/dL (31.0-37.0); Mean Platelet Volume 7.6; Monocytes # (A) 0.4 k/uL (0-1.0); Monocytes % (A) 5 %; Neutrophils # (A) 6.5 k/uL (1.3-7.7); Neutrophils % (A) 70 %; Platelet Count 303 k/uL (150-450); RBC 4.68 m/uL (4.30-5.90); RDW 14.7 % (11.5-15.5); WBC 9.3 k/uL (3.8-10.6)
[2023-01-26 06:09] LABS: INR 1.3 (<1.2); Partial Thromboplastin Time 30.1 sec (22.0-30.0)
--- NOTE | 2023-01-26 06:09 | CT ---
EXAMINATION TYPE: CT brain wo con DATE OF EXAM: 01/26/2023 COMPARISON: 05/26/2022 HISTORY: Altered mental status CT DLP: 1158.7 mGycm Automated exposure control for dose reduction was used. Images obtained of the brain with no contrast. There is shunt catheter on the right side with the tip in the frontal horn right lateral ventricle. T here is mild hydrocephalus. There is cerebral atrophy. There is no mass effect or midline shift. No s ign of intracranial hemorrhage. The calvarium is intact. Skull base is intact. IMPRESSION: Cerebral atrophy. Hydrocephalus. Mild white matter chronic changes. No acute intracranial abnormality . No significant change compared to old exam.
--- NOTE | 2023-01-26 06:11 | XR ---
EXAMINATION TYPE: XR chest 1V portable DATE OF EXAM: 01/26/2023 COMPARISON: 05/26/2022 HISTORY: Fall. Seizure. TECHNIQUE: Single view FINDINGS: Heart appears slightly enlarged. There is right-sided shunt catheter. There are sternal wir es. There is left axillary pacemaker. No pleural effusion. IMPRESSION: Mild cardiomegaly. No obvious heart failure. No significant change.
--- NOTE | 2023-01-26 06:12 | XR ---
EXAMINATION TYPE: XR KUB DATE OF EXAM: 01/26/2023 COMPARISON: 05/26/2022 HISTORY: Constipation TECHNIQUE: Single view FINDINGS: There is no sign of intestinal obstruction or pneumoperitoneum. There is shunt catheter loo ped in the lateral right side of the abdomen. No evidence of a mass. There is vascular calcification. IMPRESSION: Nonacute abdomen. No significant constipation.
[2023-01-26 06:13] LABS: ALT 37 U/L (4-49); AST 35 U/L (17-59); African American GFR (CKD) 47 (>60 ml/min/1.73 sqM); Albumin 3.8 g/dL (3.5-5.0); Alcohol <10 mg/dL; Alkaline Phosphatase 92 U/L (38-126); Anion Gap 13 mmol/L; Blood Urea Nitrogen 30 mg/dL (9-20); Calcium 8.8 mg/dL (8.4-10.2); Carbon Dioxide 23 mmol/L (22-30); Chloride 102 mmol/L (98-107); Glucose 131 mg/dL (74-99); Non-African American GFR(CKD) 40 (>60 ml/min/1.73 sqM); Sodium 138 mmol/L (137-145); Total Bilirubin 0.8 mg/dL (0.2-1.3); Total Protein 7.5 g/dL (6.3-8.2)
--- NOTE | 2023-01-26 06:13 | XR ---
EXAMINATION TYPE: XR pelvis AP view DATE OF EXAM: 01/26/2023 COMPARISON: 01/01/2022 HISTORY: Fall. Pain TECHNIQUE: FINDINGS: Pelvic ring is intact. The proximal femurs and hip joints are intact. Sacroiliac joints are intact IMPRESSION: No acute abnormality of the pelvis. No fracture. No change.
--- NOTE | 2023-01-26 06:14 | XR ---
EXAMINATION TYPE: XR forearm LT DATE OF EXAM: 01/26/2023 COMPARISON: NONE HISTORY: Seizure. Fall. TECHNIQUE: 2 views FINDINGS: The radius and ulna appear intact. Elbow joint appears intact. Exam limited by positioning. No fracture seen. IMPRESSION: No acute abnormality of the left forearm.
[2023-01-26 06:15] LABS: Lactic Acid, Venous 6.9 mmol/L (0.7-2.0); Potassium 4.7 mmol/L (3.5-5.1)
[2023-01-26] MEDS ORDERED: NALOXONE 0.4 MG/ML 1 ML VIAL IV PRN (06:23)
[2023-01-26] MEDS ORDERED: LACTULOSE 20 GM/30 ML CUP PO ONE (06:40)
[2023-01-26] MEDS ORDERED: ASPIRIN 81 MG PO STA (06:40)
[2023-01-26] MEDS: SODIUM CHLORIDE 0.9% 1,000 ML IV SCH ×2 (06:41→20:45)
[2023-01-26 07:04] LABS: Appearance,Urine Clear (Clear); Bilirubin,Urine Negative (Negative); Blood,Urine Negative (Negative); Color,Urine Light Yellow; Glucose,Urine (UA) Negative (Negative); Ketones,Urine Negative (Negative); Leukocyte Esterase,Urine Negative (Negative); Nitrite,Urine Negative (Negative); Protein,Urine Negative (Negative); Specific Gravity,Urine 1.011 (1.001-1.035); Urobilinogen,Urine <2.0 mg/dL (<2.0)
[2023-01-26] MEDS ORDERED: ASPIRIN 300 MG SUPP RECTAL STA (07:07)
[2023-01-26] MEDS ORDERED: LACTULOSE 200 GM/300 ML (FROM 1/2 GAL JUG) RECTAL ONE (07:07)
[2023-01-26 07:31] LABS: Amphetamine Screen,Urine Not Detected (NotDetected); Barbiturate Screen,Urine Not Detected (NotDetected); Benzodiazepines Screen,Urine Not Detected (NotDetected); Cocaine Screen,Urine Not Detected (NotDetected); Methadone Screen, Urine Not Detected (NotDetected); Opiate Screen,Urine Not Detected (NotDetected); Oxycodone Screen, Urine Not Detected (NotDetected); Phencyclidine Screen,Urine Not Detected (NotDetected); Tricyclic Antidepressant,Urine Detected (NotDetected); Urn Cannabinoid Scrn Not Detected (NotDetected)
[2023-01-26] MEDS ORDERED: metOLazone 2.5 MG TAB PO PRN (11:04)
[2023-01-26] MEDS ORDERED: ACETAMINOPHEN TAB 325 MG TAB PO PRN ×2 (11:04)
[2023-01-26] MEDS: DOCUSATE 100 MG CAP PO SCH (12:21)
--- NOTE | 2023-01-26 15:36 | P.HPIM ---
History of Present Illness H&P Date: 01/26/23 Chief Complaint: Abnormal behavior This is a 82-year-old patient, follows with visiting physicians Dr. Murphy. History stopping by the at the bedside. At the baseline patient able to eat okay sometimes. Able to stand with a walker and maybe take a few steps with help. Does get a diaper. Does not really talk. The was called and this morning as he was acting strange around 5:30 AM. Aspirin the EMS report: Patient was making incomprehensible noises. More mor vishal and groaning. With some combative behavior. Staff reported that patient had a seizure lasting about 3 minutes while attempting to change patient's previous. Patient did bite his tongue. Blood gases 146. Patient at the baseline and so occasionally a few words. Currently patient just mumbling words. According to the does not patient's baseline. Patient himself is not able to give any history Review of systems: Cannot up anus patient is mumbling Past medical history to include: Atrial fibrillation, dementia, GERD, GI bleed, hyperlipidemia, hypertension, prostate disorder, renal disease, rheumatoid arthritis, alcoholism, normal pressure hydrocephalus with radiation shunt, pacemaker, COPD, kidney stones, PAD, glaucoma, BPH, unsteady gait. Coronary bypass angioplasty with stent query bypass 2002 Social history: Currently at [facility] words. Did drink some alcohol in the past Physical examination: VITAL SIGNS: 98.2, 64, 18, 131/89, 97% room air upon presentation GENERAL: BMI 38, laying in bed, mumbling morning his aunts. EYES: Pupils equal. Conjunctiva normal. HEENT: External appearance of nose and ears normal, oral cavity grossly normal. Dry blood on the mouth tongue NECK: JVD not raised; masses not palpable. HEART: First and second heart sounds are normal; no edema. LUNGS: Respiratory rate normal; clear to auscultation. ABDOMEN: Soft, nontender, liver spleen not palpable, no masses palpable. PSYCH: [Patient is mumbling. L. MUSCULOSKELETAL:No Clubbing/cyanosis;muscles-grossly intact NEUROLOGICAL: Patient is moving his upper extremity. Pupils equal. LYMPHATICS: No lymph nodes palpable in the axilla and neck INVESTIGATIONS, reviewed in the clinical context: White count 9.3 hemoglobin 14 platelets 303 sodium 138 potassium 4.7 BUN 30 creatinine 1.57 Lactic acid 6.9, repeat 1.5 Troponin I 0.050, 0.029, 0.027 UA: Unremarkable Urine drug screen positive for tricyclic antidepressants EKG tracing personally reviewed by me-ventricular paced rhythm [address] brain: Cerebral atrophy. Hydrocephalus. Mild white matter changes. No acu te intracranial abnormality. Chest x-ray film personally reviewed by me-questionable portable. Some cardiomegaly. No obvious infiltrates Assessment and plan: -New onset of seizure activity. No prior history reported by the at the bedside. Patient has significant precipitating factors including DEVELOPMENT SCIENTIST shunt. Hydrocephalus. Refractive Surgeon neurology. Neurological checks. EEG -Post ictal state, patient mumbling words which is not his baseline -Severe cognitive impairment, dementia -GERD Protonix 40 mg a day -Hyperlipidemia Lipitor 40 mg daily at bedtime -Essential hypertension Lopressor, Lipitor -Hyperlipidemia Lipitor 40 mg daily at bedtime -Persistent atrial fibrillation, with pacemaker Xarelto -BPH Proscar -CAD with a prior history of stent coronary bypass -Normal pressure hydrocephalus his recent shunt -Chronic medical debility, can only take a couple of steps with a walker Past Medical History Past Medical History: Atrial Fibrillation, Cancer, Dementia, Eye Disorder, GERD/Reflux, GI Bleed, Hyperlipidemia, Hypertension, Memory Impairment, Myocardial Infarction ([place]), Prostate Disorder, Renal Disease, Rheumatoid Arthritis (RA), Vascular Disorder Additional Past Medical History / Comment(s): alcoholism, Normal pressure hydocephalus with recent shunt, SSS - PACEMAKER, Skin CA- MELANOMA with removal from nose and other types of skin cancer removed, CKD, nephrolithiasis with sx, PVD, OCC EDEMA LEGS, glaucoma bilaterally, R eye cataract, BPH, past urinary retention after cerebral shunt and was discharged with a anne to [facility] dc'd on 03/02/17, RECTAL BLEED AFTER COLONOSCOPY R/T COUMADIN USE, unsteady gait, intermittent confusion, Last Myocardial Infarction Date:: 2001?-silent History of Any Multi-Drug Resistant Organisms: MRSA Date of last positivie culture/infection: 05/26/22 MDRO Source:: Right First Toe Past Surgical History: Coronary Bypass/CABG, Heart Catheterization, Orthopedic Surgery, Pacemaker Additional Past Surgical History / Comment(s): Recent cerebral shunt, PCI with stent, TRIPLE CABG 2001, LT Shoulder rotator cuff repair, Colonoscopy, 2004 Original pacer, 07/2016 GENERATOR CHANGE, cystoscopy with double J catheter, since removed, lithotripsies, L eye cataract removal, skin cancer removals. Past Anesthesia/Blood Transfusion Reactions: No Reported Reaction Type of Cardiac Device: Permanent Pacemaker Device Placement Date:: 03/21/2006 Past Psychological History: No Psychological Hx Reported Smoking Status: Second hand smoke exposure - Past Family History Brother(s) Family Medical History: Cancer Additional Family Medical History / Comment(s): SKIN Sister(s) Family Medical History: Cancer Additional Family Medical History / Comment(s): SKIN Mother Family Medical History: Cancer Medications and Allergies Home Medications Medication Instructions Recorded Confirmed Type Metoprolol Tartrate [Lopressor] 50 mg PO BID@0800,1700 03/07/17 01/26/23 History Acetaminophen Tab [Tylenol] 325 mg PO Q4H PRN 10/26/19 01/26/23 History Atorvastatin [Lipitor] 40 mg PO HS@199910/26/19 01/26/23 History Docusate Sodium [Dok] 100 mg PO DAILY@1200 10/26/19 01/26/23 History Finasteride [Proscar] 5 mg PO DAILY@0800 10/26/19 01/26/23 History Loperamide [Imodium] 2 - 4 mg PO QID PRN MDD 6 tabs 10/26/19 01/26/23 History Pantoprazole Sodium [Protonix] 40 mg PO DAILY@0800 10/26/19 01/26/23 History guaiFENesin-DM 100-10MG/5ML 20 ml PO Q4H PRN 10/26/19 01/26/23 History [Robitussin DM] Acetaminophen [Acetaminophen ER] 650 mg PO BID PRN 05/26/22 01/26/23 History Ammonium Lactate Cream [Lac-Hydrin 1 applic TOPICAL BID@0800,199905/26/22 01/26/23 History 12% Cream] Clotrimazole/Betameth Cream 1 applic TOPICAL DAILY@0800 05/26/22 01/26/23 History [Lotrisone] Furosemide [Lasix] 40 mg PO BID@0800,1700 05/26/22 01/26/23 History Losartan [Cozaar] 25 mg PO DAILY@0800 05/26/22 01/26/23 History Melatonin [Melatonin ER] 10 mg PO HS@199905/26/22 01/26/23 History Mirtazapine 7.5 mg PO HS@199905/26/22 01/26/23 History QUEtiapine FUMARATE [SEROquel] 25 mg PO BID@0800,199905/26/22 01/26/23 History Rivaroxaban [Xarelto] 20 mg PO DAILY@1700 05/26/22 01/26/23 History Potassium Chloride Oral Liquid 20 meq PO BID 01/26/23 01/26/23 History metOLazone 2.5 mg PO DAILY PRN 01/26/23 01/26/23 History Allergies Allergy/AdvReac Type Severity Reaction Status Date / Time No Known Allergies Allergy Verified 01/26/23 06:51 Physical Exam Vitals: Vital Signs Temp Pulse Resp BP Pulse Ox 01/26/23 05:23 64 18 131/89 97 01/26/23 05:12 98.2 F Intake and Output 01/25/23 01/26/23 01/26/23 22:59 06:59 14:59 Other: Weight 113.398 kg Results CBC & Chem 7: 01/26/23 05:23 01/26/23 05:23 Labs: Abnormal Lab Results - Last 24 Hours (Table) 01/26/23 01/26/23 01/26/23 Range/Units 05:19 05:23 05:23 PT 13.0 H (9.0-12.0) sec INR 1.3 H (<1.2) APTT 30.1 H (22.0-30.0) sec BUN 30 H (9-20) mg/dL Creatinine 1.57 H (0.66-1.25) mg/dL Glucose 131 H (74-99) mg/dL POC Glucose (mg/dL) 129 H (70-110) mg/dL Plasma Lactic Acid Santiago (0.7-2.0) mmol/L Ammonia (<30) umol/L Troponin I (0.000-0.034) ng/mL U Tricyclic Antidepress (NotDetected) 01/26/23 01/26/23 01/26/23 Range/Units 05:23 05:23 05:31 PT (9.0-12.0) sec INR (<1.2) APTT (22.0-30.0) sec BUN (9-20) mg/dL Creatinine (0.66-1.25) mg/dL Glucose (74-99) mg/dL POC Glucose (mg/dL) (70-110) mg/dL Plasma Lactic Acid Santiago 6.9 H* (0.7-2.0) mmol/L Ammonia 46 H (<30) umol/L Troponin I 0.050 H* (0.000-0.034) ng/mL U Tricyclic Antidepress Detected H (NotDetected)
[2023-01-26] MEDS: RIVAROXABAN 20 MG TAB PO SCH (18:43)
[2023-01-26] MEDS: FUROSEMIDE 40 MG TAB PO SCH (18:43)
[2023-01-26] MEDS: METOPROLOL TARTRATE 50 MG TAB PO SCH (18:43)
[2023-01-26] MEDS: QUEtiapine 25 MG TAB PO SCH (20:44)
[2023-01-26] MEDS: POTASSIUM CHLORIDE ER 20 MEQ TAB.ER PO SCH (20:44)
[2023-01-26] MEDS: MIRTAZAPINE 15 MG TAB PO SCH (20:44)
[2023-01-26] MEDS: levETIRAcetam 500 MG TAB PO SCH (20:44)
[2023-01-26] MEDS: ATORVASTATIN 40 MG TAB PO SCH (20:44)
[2023-01-26] MEDS: MELATONIN 5 MG TABLET PO SCH (20:44)
[2023-01-26] MEDS: AMMONIUM LACTATE 12% CREAM 140 GM TUBE TOPICAL SCH (20:45)
--- NOTE | 2023-01-27 01:20 | EEG ---
ELECTROENCEPHALOGRAM REPORT PREAMBLE: This is an 82-year-old male with new onset seizure. The patient is a resident of shelter with history of hydrocephalus, status post shunting, also has history of TBI. EEG FINDINGS: This is a 21-channel digital EEG recorded with video component, utilizing 10/20 international system with referential and bipolar montages. The background consists of moderately well-developed and regulated, predominantly 6 to 7 hertz theta activity seen diffusely in bihemispheric region. Background does not seem to be reactive to eye opening or closing. Frequent jaw movement artifact was seen. Hyperventilation and photic stimulation were not performed. Different stages of sleep were not seen. No focal or generalized epileptiform activity was seen. IMPRESSION: This is an abnormal EEG due to background slowing of moderate degree. This is suggestive of generalized cerebral dysfunction as can be seen with toxic metabolic encephalopathy or related to diffuse structural brain abnormality. Clinical correlation is recommended. No epileptiform activity was seen. MMODL / IJN: [id number] /
[2023-01-27] MEDS: SODIUM CHLORIDE 0.9% 1,000 ML IV SCH ×3 (06:28→20:18)
[2023-01-27] MEDS ORDERED: LOSARTAN 25 MG TAB PO SCH (08:00)
[2023-01-27 08:29] LABS: Basophils % (A) 0 %; Eosinophils # (A) 0.1 k/uL (0-0.7); Eosinophils % (A) 2 %; HCT 37.9 % (39.0-53.0); HGB 12.4 gm/dL (13.0-17.5); Lymphocytes # (A) 0.9 k/uL (1.0-4.8); Lymphocytes % (A) 13 %; MCH 30.4 pg (25.0-35.0); MCHC 32.7 g/dL (31.0-37.0); MCV 93.1 fL (80.0-100.0); Mean Platelet Volume 8.1; Monocytes # (A) 0.5 k/uL (0-1.0); Monocytes % (A) 8 %; Neutrophils # (A) 5.1 k/uL (1.3-7.7); Neutrophils % (A) 76 %; Platelet Count 196 k/uL (150-450); RBC 4.07 m/uL (4.30-5.90); WBC 6.7 k/uL (3.8-10.6)
[2023-01-27 08:30] LABS: Calcium 8.3 mg/dL (8.4-10.2)
[2023-01-27 08:42] LABS: Potassium 4.7 mmol/L (3.5-5.1)
[2023-01-27] MEDS: PANTOPRAZOLE 40 MG TABLET PO SCH (09:07)
[2023-01-27] MEDS: FINASTERIDE 5 MG TAB PO SCH (09:07)
[2023-01-27] MEDS: DOCUSATE 100 MG CAP PO SCH (09:07)
[2023-01-27] MEDS: FUROSEMIDE 40 MG TAB PO SCH ×2 (09:07→17:05)
[2023-01-27] MEDS: METOPROLOL TARTRATE 50 MG TAB PO SCH ×2 (09:07→17:05)
[2023-01-27] MEDS: POTASSIUM CHLORIDE ER 20 MEQ TAB.ER PO SCH ×2 (09:07→20:18)
[2023-01-27] MEDS: levETIRAcetam 500 MG TAB PO SCH ×2 (09:07→20:18)
[2023-01-27] MEDS: QUEtiapine 25 MG TAB PO SCH ×2 (09:07→20:18)
[2023-01-27] MEDS: CLOTRIMAZOLE/BETAMETH 1-0.05% CREAM 45 GM TUBE TOPICAL SCH (09:08)
[2023-01-27] MEDS: AMMONIUM LACTATE 12% CREAM 140 GM TUBE TOPICAL SCH ×2 (09:08→20:19)
--- NOTE | 2023-01-27 10:53 | P.CNNES ---
History of Present Illness Consult date: 01/26/23 Requesting physician: Murphy Nelson Reason for Consult: new onset seizure, history of NPH with shunt History of Present Illness: Patient is a 82-year-old male with history of advanced dementia, history of NPH, status post STEEL ERECTING PUSHER shunt, resident of group home came to the hospital by ambulance today at 5:10 AM for new onset seizure. Patient has severe dementia, cannot provide any history. Patient's was also present at this time, who provided the history. Patient was diagnosed with NPH 6 years ago, for which he underwent shunting at [facility]. The shunt got infected, required revision within 1 week. He went to [facility] for a week to 10 days and then [place] for short while, but now has been residing in [facility] for last 6 years. Patient's mentioned that the nursing staff went to change him at around 4-5 a.m. and found he was jerking with eyes acting funny and is a bit his tongue and he was brought here. Patient was asleep all day, but now is more awake. At baseline patient has severe dementia, talks very little. He would say number or talk out of context slightly but not consistent. His vision is okay. Patient's states that he is mainly in the wheelchair, or bed. He spends a lot of time in his recliner. He is able to stand up with help and tello sfer to the wheelchair. However she states that he can walk with a walker does not do it. He is also on diapers. No previous history of tobacco alcohol, although he does drink wine with dinner every day. As per EMS flow sheet, they were called for a possible seizure. And when they arrived, patient was alert and oriented 0, with GCS of 11 and making incomprehensible noises, more moaning and groaning, along with combative behavior. It was reported patient had a sudden onset witnessed seizure lasting about 3 minutes while attempting to change patient's brief. Patient's pupils were equal and reactive to light, blood showing in patient's mouth and bite guevara on patient's tongue. Blood glucose was 1 46 mg/dL. Staff mentioned that patient normally is somewhat verbal but now he was moaning. Vital signs at the scene was blood pressure 162/67, pulse rate 59, respirations [address] saturation 98%. CT head revealed cerebral atrophy. Hydrocephalus. Mild white matter chronic change. No acute intracranial abnormality. No change as compared to previous exam. I personally reviewed CT head, agree with the findings. Patient has evidence of hydrocephalus, with evidence of a ventriculoperitoneal shunt. Chest x-ray revealed mild cardiomegaly. No obvious heart failure. KUB revealed no acute abdomen. Pelvic and forearm x-ray negative. EKG revealed electronic ventricular pacemaker. Patient's blood test shows normal CBC, INR 1.3, electrolytes are normal, BUN 30 creatinine 1.57. P lasma lactate 6.9. Hepatic panel normal. Ammonia 46, troponin is mildly elevated 0.050. UA negative. Urine drug screen positive for tricyclics. Influenza, RSV and coronal virus PCR negative. Blood alcohol level negative. Patient's home medications include metoprolol, Protonix, Proscar, Lipitor 40 mg, Xarelto 20 mg daily, Seroquel 25 mg twice a day, mirtazapine 7.5 mg daily at bedtime, losartan, Lasix, metolazone and potassium. Review of Systems Due to advanced dementia, and probably postictal state. Patient's and nurse does not know any more details. Not complaining of anything in particular. ROS unobtainable: due to mental status Past Medical History Past Medical History: Atrial Fibrillation, Cancer, Dementia, Eye Disorder, GERD/Reflux, GI Bleed, Hyperlipidemia, Hypertension, Memory Impairment, Myocardial Infarction ([place]), Prostate Disorder, Renal Disease, Rheumatoid Arthritis ([place]), Vascular Disorder Additional Past Medical History / Comment(s): alcoholism, Normal pressure hydocephalus with recent shunt, SSS - PACEMAKER, Skin CA- MELANOMA with removal from nose and other types of skin cancer removed, CKD, nephrolithiasis with sx, PVD, OCC EDEMA LEGS, glaucoma bilaterally, R eye cataract, BPH, past urinary retention after cerebral shunt and was [facility], RECTAL BLEED AFTER COLONOSCOPY R/T COUMADIN USE, unsteady gait, intermittent confusion, Last Myocardial Infarction Date:: 2001?-silent History of Any Multi-Drug Resistant Organisms: MRSA Date of last positivie culture/infection: 05/26/22 MDRO Source:: Right First Toe Past Surgical History: Coronary Bypass/CABG, Heart Catheterization, Orthopedic Surgery, Pacemaker Additional Past Surgical History / Comment(s): Recent cerebral shunt, PCI with stent, TRIPLE CABG 2001, LT Shoulder rotator cuff repair, Colonoscopy, 2004 Original pacer, 07/2016 GENERATOR CHANGE, cystoscopy with double J catheter, since removed, lithotripsies, L eye cataract removal, skin cancer removals. Past Anesthesia/Blood Transfusion Reactions: No Reported Reaction Type of Cardiac Device: Permanent Pacemaker Device Placement Date:: 03/21/2006 Past Psychological History: No Psychological Hx Reported Smoking Status: Second hand smoke exposure - Past Family History Brother(s) Family Medical History: Cancer Additional Family Medical History / Comment(s): SKIN Sister(s) Family Medical History: Cancer Additional Family Medical History / Comment(s): SKIN Mother Family Medical History: Cancer Medications and Allergies Home Medications Medication Instructions Recorded Confirmed Type Metoprolol Tartrate [Lopressor] 50 mg PO BID@0800,1700 03/07/17 01/26/23 History Acetaminophen Tab [Tylenol] 325 mg PO Q4H PRN 10/26/19 01/26/23 History Atorvastatin [Lipitor] 40 mg PO HS@199910/26/19 01/26/23 History Docusate Sodium [Dok] 100 mg PO DAILY@1200 10/26/19 01/26/23 History Finasteride [Proscar] 5 mg PO DAILY@0800 10/26/19 01/26/23 History Loperamide [Imodium] 2 - 4 mg PO QID PRN MDD 6 tabs 10/26/19 01/26/23 History Pantoprazole Sodium [Protonix] 40 mg PO DAILY@0800 10/26/19 01/26/23 History guaiFENesin-DM 100-10MG/5ML 20 ml PO Q4H PRN 10/26/19 01/26/23 History [Robitussin DM] Acetaminophen [Acetaminophen ER] 650 mg PO BID PRN 05/26/22 01/26/23 History Ammonium Lactate Cream [Lac-Hydrin 1 applic TOPICAL BID@0800,199905/26/22 01/26/23 History 12% Cream] Clotrimazole/Betameth Cream 1 applic TOPICAL DAILY@0800 05/26/22 01/26/23 History [Lotrisone] Furosemide [Lasix] 40 mg PO BID@0800,1700 05/26/22 01/26/23 History Losartan [Cozaar] 25 mg PO DAILY@0800 05/26/22 01/26/23 History Melatonin [Melatonin ER] 10 mg PO HS@199905/26/22 01/26/23 History Mirtazapine 7.5 mg PO HS@199905/26/22 01/26/23 History QUEtiapine FUMARATE [SEROquel] 25 mg PO BID@0800,199905/26/22 01/26/23 History Rivaroxaban [Xarelto] 20 mg PO DAILY@1700 05/26/22 01/26/23 History Potassium Chloride Oral Liquid 20 meq PO BID 01/26/23 01/26/23 History metOLazone 2.5 mg PO DAILY PRN 01/26/23 01/26/23 History Allergies Allergy/AdvReac Type Severity Reaction Status Date / Time No Known Allergies Allergy Verified 01/26/23 06:51 Physical Examination - Vital Signs Vital Signs: Vital Signs Temp Pulse Resp BP Pulse Ox 01/26/23 05:23 64 18 131/89 97 01/26/23 05:12 98.2 F Intake and Output 01/25/23 01/26/23 01/26/23 22:59 06:59 14:59 Other: Weight 113.398 kg Patient is an elderly male, laying comfortably in the bed. Patient is alert awake. Patient is almost nonverbal, make some phonetic sounds, but does not speak anything clearly. Attention, concentration and fund of knowledge is severely limited due to dementia. On cranial nerve examination, pupils are equal, round and reacting to light, visual forte could not be tested reliably. Extraocular muscles are intact with no nystagmus. Face is symmetric, he would not protrude his tongue despite his also requesting for him to stick out his tongue. Palate cannot be tested. He did not cooperate for shoulder shrug, hearing probably decreased, facial sensation could not be tested. Patient has some dried up blood between his lips. On muscle strength testing, patient would not cooperate for testing of the upper limbs. He does move it spontaneously. His hogshead opener is no more than 3+. Patient's states that his hogshead opener is usually good. Patient is probably postictal. He moves arms, and slowly brings it down. Patient did not cooperate with testing of the lower limbs. He grimaces with painful stimuli in the both lower limbs. He has boots on in his feet. . Deep tendon reflexes are symmetric 1+ at the biceps, 1+ brachioradialis, diminished in the lower limbs and plantars are flat. Sensory to touch could not be assessed, but he does withdraw to painful stimuli either side. Cerebellar functions could not be tested. Tone and bulk of muscles normal. Gait Patient not ambulatory. On general examination, there is no carotid bruit or murmur, S1-S2 audible. Chest is clear on consultation. Abdomen is soft nontender. No organomegaly, bowel sounds present. Peripheral pulses are present. No edema. Results - Laboratory Findings CBC and BMP: 01/27/23 08:04 01/27/23 08:04 Abnormal Lab Findings: Abnormal Labs 01/26/23 01/26/23 01/26/23 05:19 05:23 05:23 PT 13.0 H INR 1.3 H APTT 30.1 H BUN 30 H Creatinine 1.57 H Glucose 131 H POC Glucose (mg/dL) 129 H Plasma Lactic Acid Santiago Ammonia Troponin I U Tricyclic Antidepress 01/26/23 01/26/23 01/26/23 05:23 05:23 05:31 PT INR APTT BUN Creatinine Glucose POC Glucose (mg/dL) Plasma Lactic Acid Santiago 6.9 H* Ammonia 46 H Troponin I 0.050 H* U Tricyclic Antidepress Detected H Assessment and Plan Assessment: * New onset seizure, no obvious provoking factor identified. * History of NPH, status post ventriculoperitoneal shunting 6 years ago. * Advanced dementia * Atrial fibrillation, patient on Xarelto. * Hypertension * Pacemaker Plan: * Patient underwent EEG, which was abnormal EEG due to background slowing of moderate degree. This is suggestive of generalized cerebral dysfunction as can be seen with toxic metabolic encephalopathy or related to diffuse structural brain abnormality. Clinical correlation is recommended. No epileptiform activity was seen. * Patient was given loading dose of Keppra 2000 mg in the ER. Patient will be maintained on 500 mg twice a day. * Patient does have history of hydrocephalus and placement of santiago triculoperitoneal shunt. Recommend patient follow up with his neurosurgeon to make sure the hydrocephalus is stable and shunt is patent. * Neurologically clear otherwise. Discussed with patient's in detail. Thank you for the consult.
[2023-01-27] MEDS ORDERED: VANCOMYCIN IV PER PHARMACY 1 EACH MISC MISCELLANE PRN (16:47)
--- NOTE | 2023-01-27 17:01 | P.PN ---
Subjective Progress Note Date: 01/27/23 This is an 82 year old male who is admitted for possible seizure like activity from the [facility]. He has been admitted and undergoing neurology evaluation. Patient had EEG done showing no epileptiform activity. There is suggestive of generalized cerebral dysfunction as can be seen with toxic metabolic encephal opathy related to diffuse structural brain abnormality. 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 He has been started on oral keppra with no further seizure activity noted. Blood culture on admission is now positive for gram-positive cocci which will be repeated today. Patient will be started on IV vancomycin. Patients at the beside today does state that patient did wake up a bit and was able to eat lunch with assistance. He has dementia at baseline and does not speak much. Patients felt he is not back to baseline and appears significantly weak. May require more than AFC at discharge. PT/OT will be consulted. Unable to complete review of systems patient is mumbling and unable to answer questions appropriately. PHYSICAL EXAMINATION: GENERAL: The patient is alert and oriented x3, not in any acute distress. Well developed, well nourished. HEENT: Pupils are round and equally reacting to light. EOMI. No scleral icterus. No conjunctival pallor. Normocephalic, atraumatic. No pharyngeal erythema. No thyromegaly. CARDIOVASCULAR: S1 and S2 present. No murmurs, rubs, or gallops. PULMONARY: Chest is clear to auscultation, no wheezing or crackles. ABDOMEN: Soft, nontender, nondistended, normoactive bowel sounds. No palpable organomegaly. MUSCULOSKELETAL: No joint swelling or deformity. EXTREMITIES: No cyanosis, clubbing, or pedal edema. NEUROLOGICAL: Gross neurological examination did not reveal any focal deficits. SKIN: No rashes. Assessment and Plan -New onset of seizure activity. No prior history reported by the at the bedside. 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 Hydrocephalus. [employer] Technical [employer] neurology. Neurological checks. EEG negative for epileptiform activity. -Post ictal state, patient mumbling words which is not his baseline at bedside today, patient not back to baseline yet. Weak. -Gram positive bacteremia started on oral vancomycin and repeat cultures ordered. ID consultation, UA and chest xray negative for infection. No white count. No fever. -Severe cognitive impairment, dementia -GERD Protonix 40 mg a day -Hyperlipidemia Lipitor 40 mg daily at bedtime -Essential hypertension Lopressor, Lipitor -Hyperlipidemia Lipitor 40 mg daily at bedtime -Persistent atrial fibrillation, with pacemaker Xarelto -BPH Proscar -CAD with a prior history of stent coronary bypass -Normal pressure hydrocephalus has recent shunt -Chronic medical debility, can only take a couple of steps with a walker GI prophylaxis DVT prophylaxis Full Code Patient has been started on Vancomycin and ID consultation. Repeat blood cultures. Continue oral seizure medication. PT/OT and social work discharge planning. The impression and plan of care has been dictated by Raeann Bridges, Nurse Practitioner as directed. Dr. Urmila MD I have performed a history and physical examination and medical decision making of this patient, discussed the same with the dictator, and agree with the dictators assessment and plan as written, documented as a scribe. Based on total visit time, I have performed more than 50% of this visit. Objective - Vital Signs Vital signs: Vital Signs Temp 96.9 F L 01/27/23 11:40 Pulse 61 01/27/23 11:40 Resp 20 01/27/23 11:40 BP 110/76 01/27/23 11:40 Pulse Ox 97 01/27/23 11:40 FiO2 Intake & Output 01/26/23 01/27/23 01/27/23 18:59 06:59 18:59 Intake Total 120 118 Balance 120 118 Weight 113.398 kg Intake: Oral 120 118 Other: Voiding Method Diaper Diaper External Catheter Incontinent Incontinent # Voids 2 1 1 # Bowel Movements 1 - Labs CBC & Chem 7: 01/27/23 08:04 01/27/23 08:04 Labs: Abnormal Lab Results - Last 24 Hours (Table) 01/27/23 01/27/23 Range/Units 08:04 08:04 RBC 4.07 L (4.30-5.90) m/uL Hgb 12.4 L (13.0-17.5) gm/dL Hct 37.9 L (39.0-53.0) % Lymphocytes # 0.9 L (1.0-4.8) k/uL Chloride 111 H (98-107) mmol/L BUN 23 H (9-20) mg/dL Calcium 8.3 L (8.4-10.2) mg/dL Microbiology - Last 24 Hours (Table) 01/26/23 06:00 Blood Culture Gram Stain - Preliminary Blood 01/26/23 06:00 Blood Culture - Final Blood 01/26/23 05:45 Blood Culture - Preliminary Blood No Growth after 24 hours Assessment and Plan Time with Patient: Less than 30
[2023-01-27] MEDS: RIVAROXABAN 20 MG TAB PO SCH (17:05)
[2023-01-27] MEDS ORDERED: VANCOMYCIN 1,750 MG in SODIUM CHLORIDE 0.9% 500 ML 500 ML IVPB ONE (18:00)
[2023-01-27] MEDS: MELATONIN 5 MG TABLET PO SCH (20:18)
[2023-01-27] MEDS: ATORVASTATIN 40 MG TAB PO SCH (20:18)
[2023-01-27] MEDS: MIRTAZAPINE 15 MG TAB PO SCH (20:18)
[2023-01-28] MEDS ORDERED: VANCOMYCIN 1,750 MG in SODIUM CHLORIDE 0.9% 500 ML 500 ML IVPB SCH (02:00)
[2023-01-28] MEDS: QUEtiapine 25 MG TAB PO SCH ×2 (08:44→22:49)
[2023-01-28] MEDS: levETIRAcetam 500 MG TAB PO SCH ×2 (08:44→22:49)
[2023-01-28] MEDS: FINASTERIDE 5 MG TAB PO SCH (08:44)
[2023-01-28] MEDS: DOCUSATE 100 MG CAP PO SCH (08:44)
[2023-01-28] MEDS: PANTOPRAZOLE 40 MG TABLET PO SCH (08:44)
[2023-01-28] MEDS: FUROSEMIDE 40 MG TAB PO SCH ×2 (08:44→17:18)
[2023-01-28] MEDS: POTASSIUM CHLORIDE ER 20 MEQ TAB.ER PO SCH ×2 (08:44→22:50)
[2023-01-28] MEDS: METOPROLOL TARTRATE 50 MG TAB PO SCH ×2 (08:44→17:18)
[2023-01-28] MEDS: CLOTRIMAZOLE/BETAMETH 1-0.05% CREAM 45 GM TUBE TOPICAL SCH (08:45)
[2023-01-28] MEDS: AMMONIUM LACTATE 12% CREAM 140 GM TUBE TOPICAL SCH ×2 (08:45→22:50)
--- NOTE | 2023-01-28 11:31 | P.PN ---
Subjective Progress Note Date: 01/27/23 Patient was seen for follow-up. Patient's was also present today. No further seizures. His mentation is getting better. Patient does have severe dementia at baseline. Objective - Vital Signs Vital signs: Vital Signs Temp 98 F 01/27/23 16:48 Pulse 54 L 01/27/23 16:48 Resp 20 01/27/23 16:48 BP 126/79 01/27/23 16:48 Pulse Ox 96 01/27/23 16:48 FiO2 Intake & Output 01/26/23 01/27/23 01/27/23 18:59 06:59 18:59 Intake Total 120 1318 Output Total 900 Balance 120 418 Weight 113.398 kg Intake: Intake, IV Titration 1200 Amount Sodium Chloride 0.9% 1, 1200 000 ml @ 100 mls/hr IV . Q10H [facility] Rx#:[id number] Oral 120 118 Output: Urine 900 Other: Voiding Method Diaper Diaper External Catheter Incontinent Incontinent # Voids 2 1 1 # Bowel Movements 1 - Exam Patient is an elderly male, laying comfortably in the bed. Patient is alert awake. Patient is speaking some phrases, some words which are intelligible. Otherwise he mumbles and grunts. Attention, concentration and fund of knowledge is severely limited due to dementia. On cranial nerve examination, pupils are equal, round and reacting to light, visual forte could not be tested reliably. Extraocular muscles are intact with no nystagmus. Face is symmetric, he would not protrude his tongue despite his also requesting for him to stick out his tongue. Palate cannot be tested. He did not cooperate for shoulder shrug, hearing probably decreased, facial sensation could not be tested. Patient has some dried up blood between his lips. On muscle strength testing, patient would not cooperate for testing of the upper limbs. He does move it spontaneously. 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 Patient's states that his teaching supervisor is usually good. Patient is probably postictal. He moves arms, and slowly brings it down. Patient did not cooperate with testing of the lower limbs. He grimaces with painful stimuli in the both lower limbs. He has boots on in his feet. . Deep tendon reflexes are symmetric 1+ at the biceps, 1+ brachioradialis, diminished in the lower limbs and plantars are flat. Sensory to touch could not be assessed, but he does withdraw to painful stimuli either side. Cerebellar functions could not be tested. Tone and bulk of muscles normal. Gait Patient not ambulatory. On general examination, there is no carotid bruit or murmur, S1-S2 audible. Chest is clear on consultation. Abdomen is soft nontender. No organomegaly, bowel sounds present. Peripheral pulses are present. No edema. - Labs CBC & Chem 7: 01/27/23 08:04 01/27/23 08:04 Labs: Abnormal Lab Results - Last 24 Hours (Table) 01/27/23 01/27/23 Range/Units 08:04 08:04 RBC 4.07 L (4.30-5.90) m/uL Hgb 12.4 L (13.0-17.5) gm/dL Hct 37.9 L (39.0-53.0) % Lymphocytes # 0.9 L (1.0-4.8) k/uL Chloride 111 H (98-107) mmol/L BUN 23 H (9-20) mg/dL Calcium 8.3 L (8.4-10.2) mg/dL Microbiology - Last 24 Hours (Table) 01/26/23 06:00 Blood Culture Gram Stain - Preliminary Blood 01/26/23 06:00 Blood Culture - Final Blood 01/26/23 05:45 Blood Culture - Preliminary Blood No Growth after 24 hours Assessment and Plan Assessment: * New onset seizure, no obvious provoking factor identified. * History of NPH, status post ventriculoperitoneal shunting 6 years ago. * Advanced dementia * Atrial fibrillation, patient on Xarelto. * Hypertension * Pacemaker Plan: * Patient underwent EEG, which was abnormal EEG due to background slowing of moderate degree. This is suggestive of generalized cerebral dysfunction as can be seen with toxic metabolic encephalopathy or related to diffuse structural brain abnormality. Clinical correlation is recommended. No epileptiform activity was seen. * Patient was given loading dose of Keppra 2000 mg in the ER. Patient will be maintained on 500 mg twice a day. * Patient does have history of hydrocephalus and placement of ventric uloperitoneal shunt. Recommend patient follow up with his neurosurgeon to make sure the hydrocephalus is stable and shunt is patent. Discussed with patient's . She states that patient has so much advanced dementia, that she does not want anymore surgical procedures on him. * Neurologically clear otherwise. Discussed with patient's in detail. * Neurology will sign off. Please reconsult if any other concerns.
--- NOTE | 2023-01-28 13:09 | P.PN ---
Subjective Progress Note Date: 01/28/23 This is an 82 year old male who is admitted for possible seizure like activity from the [facility]. He has been admitted and undergoing neurology evaluation. Patient had EEG done showing no epileptiform activity. There is suggestive of generalized cerebral dysfunction as can be seen with toxic metabolic encephal opathy related to diffuse structural brain abnormality. Patient has a history of hydrocephalus and REDIPPER shunt. He has been started on oral keppra with no further seizure activity noted. Blood culture on admission is now positive for gram-positive cocci which will be repeated today. Patient will be started on IV vancomycin. Patients at the beside today does state that patient did wake up a bit and was able to eat lunch with assistance. He has dementia at baseline and does not speak much. Patients felt he is not back to baseline and appears significantly weak. May require more than [facility] at discharge. PT/OT will be consulted. 01/28/2023 Patient is evaluated today resting in bed. Mentation has improved he is more alert and responsive and speech appears more confluent. Refusing oral medication. Neurology signed off and patient to continue on keppra 500 mg BID. PT/OT and social work on consult for discharge planning. Return to [facility] possibly tomorrow. Unable to complete review of systems patient is mumbling and unable to answer questions appropriately. PHYSICAL EXAMINATION: GENERAL: The patient is alert and oriented x1, not in any acute distress. Well developed, well nourished. HEENT: Pupils are round and equally reacting to light. EOMI. No scleral icterus. No conjunctival pallor. Normocephalic, atraumatic. No pharyngeal erythema. No thyromegaly. CARDIOVASCULAR: S1 and S2 present. No murmurs, rubs, or gallops. PULMONARY: Chest is clear to auscultation, no wheezing or crackles. ABDOMEN: Soft, nontender, nondistended, normoactive bowel sounds. No palpable organomegaly. MUSCULOSKELETAL: No joint swelling or deformity. EXTREMITIES: No cyanosis, clubbing, or pedal edema. NEUROLOGICAL: Diffuse weakness, mumbling slurred speech. Improving. SKIN: No rashes. Assessment and Plan -New onset of seizure activity. No prior history reported by the at the bedside. Patient has significant precipitating factors including REDIPPER shunt. Hydrocephalus. [place] neurology. Neurological checks. EEG negative for epileptiform activity. -Post ictal state, patient mumbling words which is not his baseline at bedside today, patient not back to baseline yet. Weak. -Gram positive bacteremia started on oral vancomycin and repeat cultures ordered. ID consultation, UA and chest xray negative for infection. No white count. No fever. -Severe cognitive impairment, dementia -GERD Protonix 40 mg a day -Hyperlipidemia Lipitor 40 mg daily at bedtime -Essential hypertension Lopressor, Lipitor -Hyperlipidemia Lipitor 40 mg daily at bedtime -Persistent atrial fibrillation, with pacemaker Xarelto -BPH Proscar -CAD with a prior history of stent coronary bypass -Normal pressure hydrocephalus has recent shunt -Chronic medical debility, can only take a couple of steps with a walker GI prophylaxis DVT prophylaxis Full Code Patient has been started on Vancomycin and ID consultation. Repeat blood cultures. Continue oral seizure medication. PT/OT and social work discharge planning. Patient is more awake and alert today. The impression and plan of care has been dictated by Raeann Bridges Nurse Practitioner as directed. Dr. Urmila MD I have performed a history and physical examination and medical decision making of this patient, discussed the same with the dictator, and agree with the dictators assessment and plan as written, documented as a scribe. Based on total visit time, I have performed more than 50% of this visit. Objective - Vital Signs Vital signs: Vital Signs Temp 98.6 F 01/28/23 04:00 Pulse 67 01/28/23 04:00 Resp 19 01/28/23 04:00 BP 126/72 01/28/23 04:00 Pulse Ox 98 01/28/23 04:00 FiO2 Intake & Output 01/27/23 01/28/23 01/28/23 18:59 06:59 18:59 Intake Total 1318 Output Total 900 1000 Balance 418 -1000 Intake: Intake, IV Titration 1200 Amount Sodium Chloride 0.9% 1, 1200 000 ml @ 100 mls/hr IV . Q10H [facility] Rx#:[id number] Oral 118 Output: Urine 900 1000 Other: Voiding Method External Catheter Diaper Incontinent # Voids 1 - Labs CBC & Chem 7: 01/27/23 08:04 01/27/23 08:04 Labs: Microbiology - Last 24 Hours (Table) 01/26/23 05:45 Blood Culture - Preliminary Blood No Growth after 48 hours 01/26/23 06:00 Blood Culture Gram Stain - Preliminary Blood 01/26/23 06:00 Blood Culture - Final Blood Assessment and Plan Time with Patient: Less than 30
[2023-01-28] MEDS: RIVAROXABAN 20 MG TAB PO SCH (17:18)
[2023-01-28] MEDS: SODIUM CHLORIDE 0.9% 1,000 ML IV SCH ×2 (17:18→22:50)
--- NOTE | 2023-01-28 20:48 | P.CONS ---
History of Present Illness - Reason for Consult Consult date: 01/28/23 - History of Present Illness Patient is a 82-year-old male with a past medical his significant for traumatic brain injury with normal pressure hydrocephalus with prior shunt atrial fibrillation hypertension dementia patient was brought into the ER on 01/26/2023 from the intermediate concerning for possible seizure apparently the nursing staff was helping wiping after using the restroom and the patient started having some tonic-clonic movements per the staff lasted about 4 minutes for the patient was brought into the ER on arrival to the ER the patient was afebrile and no fever has been recorded subsequently patient was not hypoxic or need for supplemental oxygen patient did have normal white count he did have elevated BUN and creatinine subsequent normalized with hydration did have elevated lactic acid level enzymes are normal troponin was elevated urine has been negative urine drug screen was positive for tricyclic influenza RSV and COVID testing was negative patient did have a blood culture drawn which came back positive with Enterococcus patient is patient was started on vancomycin infectious disease was consulted for further management of antibiotic therapy most information has been obtained from review the chart talking to the family as the patient was not able for any history of the dog history of any nausea vomiting no choking on the food and the patient did have a chest x-ray with mild cardiomegaly no obvious heart failure no significant change Past Medical History Past Medical History: Atrial Fibrillation, Cancer, Dementia, Eye Disorder, G ERD/Reflux, GI Bleed, Hyperlipidemia, Hypertension, Memory Impairment, Myocardial Infarction (AR), Prostate Disorder, Renal Disease, Rheumatoid Arthritis (RA), Vascular Disorder Additional Past Medical History / Comment(s): alcoholism, Normal pressure hydocephalus with recent shunt, SSS - PACEMAKER, Skin CA- MELANOMA with removal from nose and other types of skin cancer removed, CKD, nephrolithiasis with sx, PVD, OCC EDEMA LEGS, glaucoma bilaterally, R eye cataract, BPH, past urinary retention after cerebral shunt and was discharged with a anne to [place] dc'd on 03/02/17, RECTAL BLEED AFTER COLONOSCOPY R/T COUMADIN USE, unsteady gait, intermittent confusion, Last Myocardial Infarction Date:: 2001?-silent History of Any Multi-Drug Resistant Organisms: MRSA Year Discovered:: 05/26/22 MDRO Source:: Right First Toe Past Surgical History: Coronary Bypass/CABG, Heart Catheterization, Orthopedic Surgery, Pacemaker Additional Past Surgical History / Comment(s): Recent cerebral shunt, PCI with stent, TRIPLE CABG 2001, LT Shoulder rotator cuff repair, Colonoscopy, 2004 Original pacer, 07/2016 GENERATOR CHANGE, cystoscopy with double J catheter, since removed, lithotripsies, L eye cataract removal, skin cancer removals. Past Anesthesia/Blood Transfusion Reactions: No Reported Reaction Type of Cardiac Device: Permanent Pacemaker Device Placement Date:: 03/21/2006 Past Psychological History: No Psychological Hx Reported Smoking Status: Second hand smoke exposure - Past Family History Brother(s) Family Medical History: Cancer Additional Family Medical History / Comment(s): SKIN Sister(s) Family Medical History: Cancer Additional Family Medical History / Comment(s): SKIN Mother Family Medical History: Cancer Medications and Allergies Home Medications Medication Instructions Recorded Confirmed Type Metoprolol Tartrate [Lopressor] 50 mg PO BID@0800,1700 03/07/17 01/26/23 History Acetaminophen Tab [Tylenol] 325 mg PO Q4H PRN 10/26/19 01/26/23 History Atorvastatin [Lipitor] 40 mg PO HS@199910/26/19 01/26/23 History Docusate Sodium [Dok] 100 mg PO DAILY@1200 10/26/19 01/26/23 History Finasteride [Proscar] 5 mg PO DAILY@0800 10/26/19 01/26/23 History Loperamide [Imodium] 2 - 4 mg PO QID PRN MDD 6 tabs 10/26/19 01/26/23 History Pantoprazole Sodium [Protonix] 40 mg PO DAILY@0800 10/26/19 01/26/23 History guaiFENesin-DM 100-10MG/5ML 20 ml PO Q4H PRN 10/26/19 01/26/23 History [Robitussin DM] Acetaminophen [Acetaminophen ER] 650 mg PO BID PRN 05/26/22 01/26/23 History Ammonium Lactate Cream [Lac-Hydrin 1 applic TOPICAL BID@0800,199905/26/22 01/26/23 History 12% Cream] Clotrimazole/Betameth Cream 1 applic TOPICAL DAILY@0800 05/26/22 01/26/23 History [Lotrisone] Furosemide [Lasix] 40 mg PO BID@0800,1700 05/26/22 01/26/23 History Losartan [Cozaar] 25 mg PO DAILY@0800 05/26/22 01/26/23 History Melatonin [Melatonin ER] 10 mg PO HS@199905/26/22 01/26/23 History Mirtazapine 7.5 mg PO HS@199905/26/22 01/26/23 History QUEtiapine FUMARATE [SEROquel] 25 mg PO BID@08,199905/26/22 01/26/23 History Rivaroxaban [Xarelto] 20 mg PO DAILY@1700 05/26/22 01/26/23 History Potassium Chloride Oral Liquid 20 meq PO BID 01/26/23 01/26/23 History metOLazone 2.5 mg PO DAILY PRN 01/26/23 01/26/23 History levETIRAcetam [Keppra] 500 mg PO Q12HR tab 01/29/23 Rx Allergies Allergy/AdvReac Type Severity Reaction Status Date / Time No Known Allergies Allergy Verified 01/26/23 06:51 Physical Exam Vitals: Vital Signs Temp Pulse Resp BP Pulse Ox 01/28/23 08:00 97.5 F L 59 L 20 159/72 97 01/28/23 04:00 98.6 F 67 19 126/72 98 01/28/23 00:00 98.2 F 63 18 117/59 97 01/27/23 20:00 98.2 F 60 19 131/54 96 01/27/23 16:48 98 F 54 L 20 126/79 96 Intake and Output 01/27/23 01/28/23 01/28/23 22:59 06:59 14:59 Intake Total 1200 Output Total 900 1000 200 Balance 300 -1000 -200 Intake: Intake, IV Titration 1200 Amount Sodium Chloride 0.9% 1, 1200 000 ml @ 100 mls/hr IV . Q10H [facility] Rx#:[id number] Output: Urine 900 1000 200 Other: Voiding Method Diaper Diaper Incontinent Incontinent Incontinent External Catheter Results CBC & Chem 7: 01/27/23 08:04 01/29/23 10:49 Labs: Microbiology - Last 24 Hours (Table) 01/26/23 05:45 Blood Culture - Preliminary Blood No Growth after 48 hours 01/26/23 06:00 Blood Culture Gram Stain - Preliminary Blood 01/26/23 06:00 Blood Culture - Final Blood Assessment and Plan Plan: 1patient with a positive blood culture which has been finalized as Aerococcus which is usually of a urinary source versus GI in this patient urine was negative abdominal soft rectal examination patient has been admitted to hospital with a seizure activity with no fever or elevated white count with a question of possible contamination 2-we will repeat his UA check a CRP and a procalcitonin and follow-up on the repeat blood culture 3-May continue vancomycin while waiting for repeat cultures to be finalized We will follow on clinical condition and cultures to further adjust medication if needed Thank you for this consultation we will follow the patient along with you Time with Patient: Greater than 30
[2023-01-28] MEDS: ATORVASTATIN 40 MG TAB PO SCH (22:49)
[2023-01-28] MEDS: MELATONIN 5 MG TABLET PO SCH (22:49)
[2023-01-28] MEDS: MIRTAZAPINE 15 MG TAB PO SCH (22:49)
--- NOTE | 2023-01-29 01:56 | P.PN ---
Subjective Progress Note Date: 01/28/23 Patient was seen for follow-up. Patient's was also present today. No further seizures. His mentation is getting better. Patient does have severe dementia at baseline. Objective - Vital Signs Vital signs: Vital Signs Temp 97.2 F L 01/28/23 20:00 Pulse 63 01/28/23 20:00 Resp 20 01/28/23 20:00 BP 164/88 01/28/23 20:00 Pulse Ox 97 01/28/23 20:00 FiO2 Intake & Output 01/28/23 01/28/23 01/29/23 06:59 18:59 06:59 Intake Total 1436 Output Total 1000 800 900 Balance -1000 636 -900 Intake: Intake, IV Titration 1200 Amount Sodium Chloride 0.9% 1, 1200 000 ml @ 100 mls/hr IV . Q10H [facility] Rx#:[id number] Oral 236 Output: Urine 1000 800 900 Other: Voiding Method Diaper Incontinent Incontinent External Catheter - Exam Patient is an elderly male, laying comfortably in the bed. Patient is alert awake. Patient is speaking some phrases, some words which are intelligible. Otherwise he mumbles and grunts. Attention, concentration and fund of knowledge is severely limited due to dementia. On cranial nerve examination, pupils are equal, round and reacting to light, visual forte could not be tested reliably. Extraocular muscles are intact with no nystagmus. Face is symmetric, he would not protrude his tongue despite his also requesting for him to stick out his tongue. Palate cannot be tested. He did not cooperate for shoulder shrug, hearing probably decreased, facial sensation could not be tested. Patient has some dried up blood between his lips. On muscle strength testing, patient would not cooperate for testing of the upper limbs. He does move it spontaneously. His artisan plasterer is no more than 3+. Patient's states that his artisan plasterer is usually good. Patient is probably postictal. He moves arms, and slowly brings it down. Patient did not cooperate with testing of the lower limbs. He grimaces with painful stimuli in the both lower limbs. He has boots on in his feet. . Deep tendon reflexes are symmetric 1+ at the biceps, 1+ brachioradialis, d iminished in the lower limbs and plantars are flat. Sensory to touch could not be assessed, but he does withdraw to painful stimuli either side. Cerebellar functions could not be tested. Tone and bulk of muscles normal. Gait Patient not ambulatory. On general examination, there is no carotid bruit or murmur, S1-S2 audible. Chest is clear on consultation. Abdomen is soft nontender. No organomegaly, bowel sounds present. Peripheral pulses are present. No edema. - Labs CBC & Chem 7: 01/27/23 08:04 01/27/23 08:04 Labs: Microbiology - Last 24 Hours (Table) 01/27/23 17:05 Blood Culture - Preliminary Blood No Growth after 24 hours 01/26/23 06:00 Blood Culture Gram Stain - Final Blood Blood Culture - Final Aerococcus species 01/26/23 05:45 Blood Culture - Preliminary Blood No Growth after 48 hours Assessment and Plan Assessment: * New onset seizure, no obvious provoking factor identified. * History of NPH, status post ventriculoperitoneal shunting 6 years ago. * Advanced dementia * Atrial fibrillation, patient on Xarelto. * Hypertension * Pacemaker Plan: * Patient underwent EEG, which was abnormal EEG due to background slowing of moderate degree. This is suggestive of generalized cerebral dysfunction as can be seen with toxic metabolic encephalopathy or related to diffuse structural brain abnormality. Clinical correlation is recommended. No epileptiform activity was seen. * Patient was given loading dose of Keppra 2000 mg in the ER. Patient will be maintained on 500 mg twice a day. Patient is tolerating Keppra very well. * Patient does have history of hydrocephalus and placement of ventriculoperiton eal shunt. Recommend patient follow up with his neurosurgeon to make sure the hydrocephalus is stable and shunt is patent. Discussed with patient's . She states that patient has so much advanced dementia, that she does not want anymore surgical procedures on him. * Infectious disease on board for positive blood culture. * Neurologically clear otherwise. Discussed with patient's in detail. * Neurology will sign off. Please reconsult if any other concerns.
[2023-01-29] MEDS ORDERED: VANCOMYCIN 1,750 MG in SODIUM CHLORIDE 0.9% 500 ML 500 ML IVPB SCH (05:00)
[2023-01-29] MEDS: SODIUM CHLORIDE 0.9% 1,000 ML IV SCH ×2 (05:11→15:12)
[2023-01-29 07:04] LABS: Appearance,Urine Clear (Clear); Bilirubin,Urine Negative (Negative); Blood,Urine Small (Negative); Color,Urine Colorless; Glucose,Urine (UA) Negative (Negative); Hyaline Casts,Urine 1 /lpf (0-2); Ketones,Urine Negative (Negative); Leukocyte Esterase,Urine Negative (Negative); Mucus,Urine Rare /hpf; Nitrite,Urine Negative (Negative); Protein,Urine Negative (Negative); RBC,Urine 15 /hpf (0-5); Specific Gravity,Urine 1.008 (1.001-1.035); Urobilinogen,Urine <2.0 mg/dL (<2.0); WBC,Urine 1 /hpf (0-5)
[2023-01-29] MEDS: FUROSEMIDE 40 MG TAB PO SCH ×2 (09:06→16:04)
[2023-01-29] MEDS: FINASTERIDE 5 MG TAB PO SCH (09:06)
[2023-01-29] MEDS: PANTOPRAZOLE 40 MG TABLET PO SCH (09:06)
[2023-01-29] MEDS: levETIRAcetam 500 MG TAB PO SCH ×2 (09:06→19:52)
[2023-01-29] MEDS: QUEtiapine 25 MG TAB PO SCH ×2 (09:06→19:52)
[2023-01-29] MEDS: METOPROLOL TARTRATE 50 MG TAB PO SCH ×2 (09:06→16:04)
[2023-01-29] MEDS: POTASSIUM CHLORIDE ER 20 MEQ TAB.ER PO SCH ×2 (09:07→19:52)
[2023-01-29] MEDS: AMMONIUM LACTATE 12% CREAM 140 GM TUBE TOPICAL SCH ×2 (09:07→19:52)
[2023-01-29] MEDS: CLOTRIMAZOLE/BETAMETH 1-0.05% CREAM 45 GM TUBE TOPICAL SCH (09:07)
[2023-01-29 11:23] LABS: C Reactive Protein 1.7 mg/dL (<1.0); Calcium 7.8 mg/dL (8.4-10.2); Potassium 3.9 mmol/L (3.5-5.1)
[2023-01-29] MEDS: DOCUSATE 100 MG CAP PO SCH ×2 (11:35→19:52)
--- NOTE | 2023-01-29 15:05 | P.PN ---
Subjective Progress Note Date: 01/29/23 This is an 82 year old male who is admitted for possible seizure like activity from the [facility]. He has been admitted and undergoing neurology evaluation. Patient had EEG done showing no epileptiform activity. There is suggestive of generalized cerebral dysfunction as can be seen with toxic metabolic encephal opathy related to diffuse structural brain abnormality. 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 He has been started on oral keppra with no further seizure activity noted. Blood culture on admission is now positive for gram-positive cocci which will be repeated today. Patient will be started on IV vancomycin. Patients at the beside today does state that patient did wake up a bit and was able to eat lunch with assistance. He has dementia at baseline and does not speak much. Patients felt he is not back to baseline and appears significantly weak. May require more than [facility] at discharge. PT/OT will be consulted. 01/28/2023 Patient is evaluated today resting in bed. Mentation has improved he is more alert and responsive and speech appears more confluent. Refusing oral medication. Neurology signed off and patient to continue on keppra 500 mg BID. PT/OT and social work on consult for discharge planning. Return to [facility] possibly tomorrow. 01/29/2023 Patients blood culture is growing aerococcus and ID is following. Patient continues on IV vancomycin and repeat blood culture is pending at this time. No further seizure like activity noted. Patient continues on oral keppra BID and mentation has improved. IV fluids will be stopped. Patient does have elevated ESR. Kidney function has normalized and creatinine is now 1.02. Urinalysis done and negative. Blood pressure today 143/78 and patient is afebrile. Unable to complete review of systems patient is mumbling and unable to answer questions appropriately. PHYSICAL EXAMINATION: GENERAL: The patient is alert and oriented x1, not in any acute distress. Well developed, well nourished. HEENT: Pupils are round and equally reacting to light. EOMI. No scleral icterus. No conjunctival pallor. Normocephalic, atraumatic. No pharyngeal erythema. No thyromegaly. CARDIOVASCULAR: S1 and S2 present. No murmurs, rubs, or gallops. PULMONARY: Scattered faint wheezing. ABDOMEN: Soft, nontender, nondistended, normoactive bowel sounds. No palpable organomegaly. MUSCULOSKELETAL: No joint swelling or deformity. EXTREMITIES: No cyanosis, clubbing, or pedal edema. NEUROLOGICAL: Diffuse weakness, mumbling slurred speech. Improving. SKIN: No rashes. Assessment and Plan Assessment New onset of seizure activity presenting with postictal state started on oral keppra BID. No further seizure activity and EEG is negative for epileptiform activity Gram positive bacteremia with culture showing aerococcus on IV vancomycin Severe cognitive impairment, dementia GERD Hyperlipidemia Essential hypertension Hyperlipidemia Persistent atrial fibrillation, with pacemaker BPH CAD with a prior history of stent coronary bypass Normal pressure hydrocephalus has recent shunt Chronic medical debility, can only take a couple of steps with a walker at baseline GI prophylaxis DVT prophylaxis anticoagulated with xarelto Full Code Plan Patient has been started on Vancomycin and ID consultation. Repeat blood cultures are pending. Continue oral seizure medication. PT/OT and social work discharge planning. Patient is more awake and alert today. IV fluids will be discontinued at this time encourage oral intake and continue 1:1 supervision with meals. The impression and plan of care has been dictated by Raeann Bridges, Nurse Practitioner as directed. Dr. Urmila MD I have performed a history and physical examination and medical decision making of this patient, discussed the same with the dictator, and agree with the dictators assessment and plan as written, documented as a scribe. Based on total visit time, I have performed more than 50% of this visit. Objective - Vital Signs Vital signs: Vital Signs Temp 97.5 F L 01/29/23 08:58 Pulse 61 01/29/23 11:35 Resp 16 01/29/23 11:35 BP 143/78 01/29/23 11:35 Pulse Ox 96 01/29/23 11:35 FiO2 Intake & Output 01/28/23 01/29/23 01/29/23 18:59 06:59 18:59 Intake Total 1436 1720 Output Total 800 2200 Balance 636 -480 Weight 103.5 kg Intake: IV 1720 Invasive Line 2 20 Sodium Chloride 0.9% 1, 1200 000 ml @ 100 mls/hr IV . Q10H [facility] Rx#:[id number] Vancomycin 1,750 mg In 500 Sodium Chloride 0.9% 500 ml 500 ml @ 167 mls/hr IVPB Q24H [facility] Rx#: [id number] Intake, IV Titration 1200 Amount Sodium Chloride 0.9% 1, 1200 000 ml @ 100 mls/hr IV . Q10H [facility] Rx#:[id number] Oral 236 Output: Urine 800 2200 Uretheral (Barriga) 600 Other: Voiding Method Incontinent Incontinent Incontinent External Catheter External Catheter External Catheter - Labs CBC & Chem 7: 01/27/23 08:04 01/29/23 10:49 Labs: Abnormal Lab Results - Last 24 Hours (Table) 01/29/23 01/29/23 01/29/23 Range/Units 06:30 10:49 10:49 ESR 79 H (0-15) mm/hr Chloride 113 H (98-107) mmol/L Glucose 117 H (74-99) mg/dL Calcium 7.8 L (8.4-10.2) mg/dL C-Reactive Protein 1.7 H (<1.0) mg/dL Urine Blood Small H (Negative) Urine RBC 15 H (0-5) /hpf Urine Mucus Rare H (None) /hpf Microbiology - Last 24 Hours (Table) 01/28/23 07:01 Blood Culture - Preliminary Blood No Growth after 24 hours 01/26/23 05:45 Blood Culture - Preliminary Blood No Growth after 72 hours 01/27/23 17:05 Blood Culture - Preliminary Blood No Growth after 24 hours 01/26/23 06:00 Blood Culture Gram Stain - Final Blood Blood Culture - Final Aerococcus species Assessment and Plan Time with Patient: Less than 30
[2023-01-29] MEDS: RIVAROXABAN 15 MG TAB PO SCH (16:04)
--- NOTE | 2023-01-29 19:01 | P.PN ---
Subjective Progress Note Date: 01/29/23 Principal diagnosis: Positive blood culture Patient is a 82-year-old male with a past medical his significant for traumatic brain injury with normal pressure hydrocephalus with prior shunt atrial fibrillation hypertension dementia patient was brought into the ER on 01/26/2023 from the senior care concerning for possible seizure, patient didn't have any fever during this admission he did have a positive blood culture which has been finalized as Aerococcus on today's evaluation that is 01/29/2023, the patient remains to be afebrile, patient is breathing comfortably on room air and no further seizure has been reported no vomiting or diarrhea has been reported Objective - Vital Signs Vital signs: Vital Signs Temp 97.5 F L 01/29/23 08:58 Pulse 61 01/29/23 11:35 Resp 16 01/29/23 11:35 BP 143/78 01/29/23 11:35 Pulse Ox 96 01/29/23 11:35 FiO2 Intake & Output 01/28/23 01/29/23 01/29/23 18:59 06:59 18:59 Intake Total 1436 1720 Output Total 800 2200 Balance 636 -480 Weight 103.5 kg Intake: IV 1720 Invasive Line 2 20 Sodium Chloride 0.9% 1, 1200 000 ml @ 100 mls/hr IV . Q10H [facility] Rx#:[id number] Vancomycin 1,750 mg In 500 Sodium Chloride 0.9% 500 ml 500 ml @ 167 mls/hr IVPB Q24H [facility] Rx#: [id number] Intake, IV Titration 1200 Amount Sodium Chloride 0.9% 1, 1200 000 ml @ 100 mls/hr IV . Q10H [facility] Rx#:[id number] Oral 236 Output: Urine 800 2200 Uretheral (Barriga) 600 Other: Voiding Method Incontinent Incontinent Incontinent External Catheter External Catheter External Catheter - Exam GENERAL DESCRIPTION: An elderly male lying in bed in no distress RESPIRATORY SYSTEM: Unlabored breathing , decreased breath sounds at bases HEART: S1 S2 regular rate and rhythm , ABDOMEN: Soft , no tenderness EXTREMITIES: No edema feet - Labs CBC & Chem 7: 01/27/23 08:04 01/29/23 10:49 Labs: Abnormal Lab Results - Last 24 Hours (Table) 01/29/23 01/29/23 Range/Units 06:30 10:49 Chloride 113 H (98-107) mmol/L Glucose 117 H (74-99) mg/dL Calcium 7.8 L (8.4-10.2) mg/dL C-Reactive Protein 1.7 H (<1.0) mg/dL Urine Blood Small H (Negative) Urine RBC 15 H (0-5) /hpf Urine Mucus Rare H (None) /hpf Microbiology - Last 24 Hours (Table) 01/28/23 07:01 Blood Culture - Preliminary Blood No Growth after 24 hours 01/26/23 05:45 Blood Culture - Preliminary Blood No Growth after 72 hours 01/27/23 17:05 Blood Culture - Preliminary Blood No Growth after 24 hours 01/26/23 06:00 Blood Culture Gram Stain - Final Blood Blood Culture - Final Aerococcus species Assessment and Plan (1) Positive blood culture Current Visit: Yes Status: Acute Code(s): R78.81 - BACTEREMIA SNOMED Code(s): 569834492 Plan: 1patient with a positive blood culture which has been finalized as Aerococcus which is usually of a urinary source versus GI in this patient urine was negative abdominal soft rectal examination patient has been admitted to hospital with a seizure activity with no fever or elevated white count with a question of possible contamination 2-repeat culture has been negative so far, repeat UA was negative CRP is mildly elevated We will discontinue vancomycin as no clinical focus for this positive blood culture and more likely contaminant
[2023-01-29] MEDS: MIRTAZAPINE 15 MG TAB PO SCH (19:51)
[2023-01-29] MEDS: MELATONIN 5 MG TABLET PO SCH (19:51)
[2023-01-29] MEDS: ATORVASTATIN 40 MG TAB PO SCH (19:51)
[2023-01-30] MEDS ORDERED: VANCOMYCIN TROUGH DUE 1 EACH MISC MISCELLANE ONE (04:00)
[2023-01-30] MEDS: QUEtiapine 25 MG TAB PO SCH ×2 (08:56→20:07)
[2023-01-30] MEDS: FINASTERIDE 5 MG TAB PO SCH (08:56)
[2023-01-30] MEDS: levETIRAcetam 500 MG TAB PO SCH ×2 (08:56→20:07)
[2023-01-30] MEDS: POTASSIUM CHLORIDE ER 20 MEQ TAB.ER PO SCH ×2 (08:56→20:07)
[2023-01-30] MEDS: AMMONIUM LACTATE 12% CREAM 140 GM TUBE TOPICAL SCH ×2 (08:56→20:27)
[2023-01-30] MEDS: FUROSEMIDE 40 MG TAB PO SCH ×2 (08:56→16:29)
[2023-01-30] MEDS: CLOTRIMAZOLE/BETAMETH 1-0.05% CREAM 45 GM TUBE TOPICAL SCH (08:56)
[2023-01-30] MEDS: PANTOPRAZOLE 40 MG TABLET PO SCH (08:57)
[2023-01-30] MEDS: METOPROLOL TARTRATE 50 MG TAB PO SCH ×2 (08:57→16:29)
[2023-01-30] MEDS: LOSARTAN 25 MG TAB PO SCH (12:06)
--- NOTE | 2023-01-30 13:12 | XR ---
EXAMINATION TYPE: XR chest 1V portable DATE OF EXAM: 01/30/2023 CLINICAL HISTORY: Difficulty breathing and wheezing. TECHNIQUE: Single AP portable upright view of the chest is obtained. COMPARISON: Chest x-ray from 4 days earlier FINDINGS: Persistent cardiomegaly with dual lead pacemaker. Overlying sternal wires and mediastinal clips are redemonstrated. Persistent central vascular congestion. Right lung remains clear. Suboptima l evaluation of the right lung base due to body habitus and portable technique. Cannot rule out new o pacity at this level. There is overlying right-sided CAMP DIRECTOR shunt catheter redemonstrated. Overlying EKG leads are redemonstrated. Osseous structures are intact. IMPRESSION: Cardiomegaly with mild central vascular congestion redemonstrated. Possible developing le ft basilar acute infiltrate and/or atelectasis and small left pleural effusion. Correlate clinically. Progress study advised.
[2023-01-30] MEDS: RIVAROXABAN 15 MG TAB PO SCH (16:29)
[2023-01-30] MEDS ORDERED: FUROSEMIDE 10 MG/ML 4 ML VIAL IV STA (16:43)
--- NOTE | 2023-01-30 16:48 | P.PN ---
Subjective Progress Note Date: 01/30/23 This is an 82 year old male who is admitted for possible seizure like activity from the [facility]. He has been admitted and undergoing neurology evaluation. Patient had EEG done showing no epileptiform activity. There is suggestive of generalized cerebral dysfunction as can be seen with toxic metabolic encephal opathy related to diffuse structural brain abnormality. 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 He has been started on oral keppra with no further seizure activity noted. Blood culture on admission is now positive for gram-positive cocci which will be repeated today. Patient will be started on IV vancomycin. Patients at the beside today does state that patient did wake up a bit and was able to eat lunch with assistance. He has dementia at baseline and does not speak much. Patients felt he is not back to baseline and appears significantly weak. May require more than [facility] at discharge. PT/OT will be consulted. 01/28/2023 Patient is evaluated today resting in bed. Mentation has improved he is more alert and responsive and speech appears more confluent. Refusing oral medication. Neurology signed off and patient to continue on keppra 500 mg BID. PT/OT and social work on consult for discharge planning. Return to [facility] possibly tomorrow. 01/29/2023 Patients blood culture is growing aerococcus and ID is following. Patient continues on IV vancomycin and repeat blood culture is pending at this time. No further seizure like activity noted. Patient continues on oral keppra BID and mentation has improved. IV fluids will be stopped. Patient does have elevated ESR. Kidney function has normalized and creatinine is now 1.02. Urinalysis done and negative. Blood pressure today 143/78 and patient is afebrile. 01/30/2023 Patient is evaluated today off IV fluids and on home lasix PO BID. Patient is noted to have some audible wheezing. Chest xray is done showing central venous congestion possible developing infiltrate. He is given IV lasix x 1. Patient is high risk for aspiration and is on dysphagia diet with 1:1 supervision sitting up right no straws and thin liquids. Meds in applesauce yogurt. He needs to be sitting up 30 degrees at all time. Repeat labs in AM and likely patient can discharge back to the [facility] tomorrow. Resumed on home losartan dose. Unable to complete review of systems patient is mumbling and unable to answer questions appropriately. PHYSICAL EXAMINATION: GENERAL: The patient is alert and oriented x1, not in any acute distress. Well developed, well nourished. HEENT: Pupils are round and equally reacting to light. EOMI. No scleral icterus. No conjunctival pallor. Normocephalic, atraumatic. No pharyngeal erythema. No thyromegaly. CARDIOVASCULAR: S1 and S2 present. No murmurs, rubs, or gallops. PULMONARY: Scattered faint wheezing. ABDOMEN: Soft, nontender, nondistended, normoactive bowel sounds. No palpable organomegaly. MUSCULOSKELETAL: No joint swelling or deformity. EXTREMITIES: No cyanosis, clubbing, or pedal edema. NEUROLOGICAL: Diffuse weakness, mumbling slurred speech. Improving. SKIN: No rashes. Assessment and Plan Assessment New onset of seizure activity presenting with postictal state started on oral keppra BID. No further seizure activity and EEG is negative for epileptiform activity Gram positive bacteremia with culture showing aerococcus on IV vancomycin Severe cognitive impairment, dementia GERD Hyperlipidemia Essential hypertension Hyperlipidemia Persistent atrial fibrillation, with pacemaker BPH CAD with a prior history of stent coronary bypass Normal pressure hydrocephalus has recent shunt Chronic medical debility, can only take a couple of steps with a walker at baseline GI prophylaxis DVT prophylaxis anticoagulated with xarelto Full Code Plan Antibiotics discontinued. Continue oral seizure medication. PT/OT and social work discharge planning. Patient is more awake and alert today. continue 1:1 supervision with meals. IV lasix x1. AM labs and likely DC to [facility] tomorrow. The impression and plan of care has been dictated by Raeann Bridges, Nurse Practitioner as directed. Dr. Urmila MD I have performed a history and physical examination and medical decision making of this patient, discussed the same with the dictator, and agree with the dictators assessment and plan as written, documented as a scribe. Based on total visit time, I have performed more than 50% of this visit. Objective - Vital Signs Vital signs: Vital Signs Temp 97.5 F L 01/30/23 08:15 Pulse 60 01/30/23 15:04 Resp 20 01/30/23 11:59 BP 130/87 01/30/23 11:59 Pulse Ox 98 01/30/23 11:59 FiO2 Intake & Output 01/29/23 01/30/23 01/30/23 18:59 06:59 18:59 Intake Total 20 Output Total 350 750 100 Balance -350 -730 -100 Weight 105.1 kg Intake: IV 20 Invasive Line 2 20 Output: Urine 350 750 100 Other: Voiding Method Incontinent Incontinent Incontinent External Catheter External Catheter External Catheter - Labs CBC & Chem 7: 01/27/23 08:04 01/29/23 10:49 Labs: Microbiology - Last 24 Hours (Table) 01/28/23 07:01 Blood Culture - Preliminary Blood No Growth after 48 hours 01/26/23 05:45 Blood Culture - Preliminary Blood No Growth after 96 hours 01/27/23 17:05 Blood Culture - Preliminary Blood No Growth after 48 hours Assessment and Plan Time with Patient: Less than 30
[2023-01-30] MEDS: ATORVASTATIN 40 MG TAB PO SCH (20:07)
[2023-01-30] MEDS: MELATONIN 5 MG TABLET PO SCH (20:07)
[2023-01-30] MEDS: MIRTAZAPINE 15 MG TAB PO SCH (20:07)
--- NOTE | 2023-01-30 21:00 | P.PN ---
Subjective Progress Note Date: 01/30/23 Principal diagnosis: Positive blood culture Patient is a 82-year-old male with a past medical his significant for traumatic brain injury with normal pressure hydrocephalus with prior shunt atrial fibrillation hypertension dementia patient was [facility], patient didn't have any fever during this admission he did have a positive blood culture which has been finalized as Aerococcus on today's evaluation that is 01/30/2023, the patient continues to be afebrile, patient is breathing comfortably on room air and no further seizure has been reported , patient seemed to be slightly lethargic and wheezing today per the at the bedside however no vomiting or diarrhea has been reported Objective - Vital Signs Vital signs: Vital Signs Temp 97.5 F L 01/30/23 08:15 Pulse 60 01/30/23 11:59 Resp 20 01/30/23 11:59 BP 130/87 01/30/23 11:59 Pulse Ox 98 01/30/23 11:59 FiO2 Intake & Output 01/29/23 01/30/23 01/30/23 18:59 06:59 18:59 Intake Total 20 Output Total 350 750 100 Balance -350 -730 -100 Weight 105.1 kg Intake: IV 20 Invasive Line 2 20 Output: Urine 350 750 100 Other: Voiding Method Incontinent Incontinent Incontinent External Catheter External Catheter External Catheter - Exam GENERAL DESCRIPTION: An elderly male lying in bed in no distress RESPIRATORY SYSTEM: Unlabored breathing , decreased breath sounds at bases HEART: S1 S2 regular rate and rhythm , ABDOMEN: Soft , no tenderness EXTREMITIES: No edema feet - Labs CBC & Chem 7: 01/27/23 08:04 01/29/23 10:49 Labs: Abnormal Lab Results - Last 24 Hours (Table) 01/29/23 Range/Units 10:49 ESR 79 H (0-15) mm/hr Microbiology - Last 24 Hours (Table) 01/28/23 07:01 Blood Culture - Preliminary Blood No Growth after 48 hours 01/26/23 05:45 Blood Culture - Preliminary Blood No Growth after 96 hours 01/27/23 17:05 Blood Culture - Preliminary Blood No Growth after 48 hours Assessment and Plan (1) Positive blood culture Current Visit: Yes Status: Acute Code(s): R78.81 - BACTEREMIA SNOMED Code(s): 626383924 Plan: 1patient with a positive blood culture which has been finalized as Aerococcus which is usually of a urinary source versus GI in this patient urine was negative abdominal soft rectal examination patient has been admitted to hospital with a seizure activity with no fever or elevated white count with a question of possible contamination 2-repeat culture has been negative Patient seemed to be doing well off antibiotics and will monitor closely off antibiotic therapy. Keeping in mind his new respiratory symptoms we will check chest x-ray Time with Patient: Less than 30
[2023-01-31 08:20] LABS: Basophils % (A) 0 %; Eosinophils # (A) 0.2 k/uL (0-0.7); Eosinophils % (A) 3 %; HCT 40.6 % (39.0-53.0); HGB 12.7 gm/dL (13.0-17.5); Lymphocytes % (A) 16 %; MCH 29.7 pg (25.0-35.0); MCHC 31.3 g/dL (31.0-37.0); MCV 94.8 fL (80.0-100.0); Mean Platelet Volume 8.3; Monocytes # (A) 0.4 k/uL (0-1.0); Monocytes % (A) 7 %; Neutrophils # (A) 4.2 k/uL (1.3-7.7); Neutrophils % (A) 71 %; Platelet Count 238 k/uL (150-450); RBC 4.28 m/uL (4.30-5.90); RDW 14.8 % (11.5-15.5); WBC 5.9 k/uL (3.8-10.6)
[2023-01-31 08:28] LABS: Calcium 8.4 mg/dL (8.4-10.2); Potassium 3.9 mmol/L (3.5-5.1); Total Bilirubin 0.8 mg/dL (0.2-1.3); Total Protein 6.4 g/dL (6.3-8.2)
[2023-01-31] MEDS: AMMONIUM LACTATE 12% CREAM 140 GM TUBE TOPICAL SCH (09:48)
[2023-01-31] MEDS: FINASTERIDE 5 MG TAB PO SCH (09:48)
[2023-01-31] MEDS: CLOTRIMAZOLE/BETAMETH 1-0.05% CREAM 45 GM TUBE TOPICAL SCH (09:48)
[2023-01-31] MEDS: LOSARTAN 25 MG TAB PO SCH (09:48)
[2023-01-31] MEDS: PANTOPRAZOLE 40 MG TABLET PO SCH (09:49)
[2023-01-31] MEDS: levETIRAcetam 500 MG TAB PO SCH (09:49)
[2023-01-31] MEDS: METOPROLOL TARTRATE 50 MG TAB PO SCH (09:49)
[2023-01-31] MEDS: QUEtiapine 25 MG TAB PO SCH (09:49)
[2023-01-31] MEDS: POTASSIUM CHLORIDE ER 20 MEQ TAB.ER PO SCH (10:05)
[2023-01-31 11:03] LABS: C Reactive Protein 3.1 mg/dL (<1.0)
--- NOTE | 2023-01-31 11:15 | XR ---
EXAMINATION TYPE: XR chest 1V portable DATE OF EXAM: 01/31/2023 COMPARISON: 01/22/2023 INDICATION: Follow-up wheezing TECHNIQUE: Single frontal view of the chest is obtained. FINDINGS: The heart size is mildly prominent. The pulmonary vasculature is normal. There is silhouetting left diaphragm. A retrocardiac infiltrate may be improving. Minimal right costo phrenic angle blunting may be present. Correlate for atelectasis or pneumonia. Pacemaker overlies left chest. Catheter transverses the field of view on the right chest. Sternotomy wires are midline. IMPRESSION: 1. Improving retrocardiac infiltrate minimal right pleural effusion or atelectasis at the costophreni c angle may be present.
[2023-01-31 12:06] VITALS: PULSE 60
[2023-01-31] MEDS ORDERED: FUROSEMIDE 10 MG/ML 4 ML VIAL IV STA (12:16)
[2023-01-31] MEDS: DOCUSATE 100 MG CAP PO SCH (12:38)
--- NOTE | 2023-01-31 13:09 | P.DS ---
Providers Date of admission: 01/26/23 06:23 Attending physician: Kj Anderson Consults: 01/26/23 06:23 Consult Physician Routine Consulting Provider: Julio Wallis Consult Reason/Comments: new onset seizure, history of NPH with shunt Do you want consulting provider notified?: Yes 01/27/23 16:49 Consult Physician Routine Consulting Provider: Tuan Yoder Consult Reason/Comments: gram positive bacteremia Do you want consulting provider notified?: Yes Primary care physician: Tyron Murphy Hospital Course: Final Diagnosis New onset of seizure activity presenting with postictal state started on oral keppra BID. 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 Patient to continue on keppra 500 mg twice a day. Continue all other same home medications. He does need encouragement to cough and deep breath. Recommend to continue head of the bed up 30*. He continues on dysphagia level 3 chopped diet with 1:1 supervision. Recommend to repeat labs in 2 to 3 days. Patient to see his primary provider in 1 to 2 days. Additionally patient will require neurology follow up on discharge in 1 to 2 weeks. Hospital Course This is an 82 year old male who is admitted for possible seizure like activity from the [facility]. Has medical history of Atrial fibrillation, dementia, GERD, GI bleed, hyperlipidemia, hypertension, prostate disorder, renal disease, rheumatoid arthritis, alcoholism, normal pressure hydrocephalus with radiation shunt, pacemaker, COPD, kidney stones, PAD, glaucoma, BPH, unsteady gait. CABG in 2001. He follows with Dr Murphy. He has been admitted and undergoing neurology evaluation. Patient had EEG done showing no epileptiform activity. There is suggestive of generalized cerebral dysfunction as can be seen with toxic metabolic encephalopathy related to diffuse structural brain abnormality. Patient has a history of hydrocephalus and [employer] shunt. He has been started on oral keppra with no further seizure activity noted. Patient had multiple images done Blood culture on admission is now positive for aerococcus started on IV vancomycin. Patient was evaluated by infectious disease and blood culture was repeated and negative so far. Urinalysis negative and felt that this was likely a contaminent species at this time. He has dementia at baseline and does not speak much. Patient was cleared by neurology and ID for discharge. Patient was noted to have some faint wheezing and chest xray was perfomed showing cardiomegaly with central venous congestion. Possible developing left basilar acute infiltrate and or atelectasis and small left pleural effusion. Patient was given a dose of IV lasix. He was monitored overnight and continues on room air. Follow up chest xray is showing improving retrocardiac infiltrate minimal right pleural effusion or atelectasis. Patient is given incentive spirometer which is difficult to perform as patient at baseline does not follow directions well. Patient will be given a dose of IV lasix. Patient is cleared to discharge back to [facility] and recommend close follow up. Resume home lasix on discharge. 01/31/2023 Patient is evaluated today sitting up in the bed. No acute events over night. He is conversing and appropriate at baseline mentation. Continues on keppra no further seizure activited noted. He has been tolerating diet. He responded well to the IV lasix and a second dose will be given today. Lung sounds have improved. Chest xray has improved as well. No antibiotics recommended on discharge. Labs today reveal sodium of 140, potassium of 3.9, BUN 15, creatinine 1.20. Procalcitonin level 0.06 and 0.08. He is afebrile, heart rate 60, blood p ressure 108/64, 97% on room air. Please see medication reconciliation for a list of current medication. Thank you for allowing us to participate in the care of this patient. The impression and plan of care has been dictated by Raeann Bridges Nurse Practitioner as directed. Dr. Urmila MD I have performed a history and physical examination and medical decision making of this patient, discussed the same with the dictator, and agree with the dictators assessment and plan as written, documented as a scribe. Based on total visit time, I have performed more than 50% of this visit. Patient Condition at Discharge: Stable Plan - Discharge Summary Discharge Rx Participant: No New Discharge Prescriptions: New levETIRAcetam [Keppra] 500 mg PO Q12HR tab Continue Metoprolol Tartrate [Lopressor] 50 mg PO BID@0800,1700 Acetaminophen Tab [Tylenol] 325 mg PO Q4H PRN PRN Reason: Fever And/ Or Pain guaiFENesin-DM 100-10MG/5ML [Robitussin DM] 20 ml PO Q4H PRN PRN Reason: Cough Loperamide [Imodium] 2 - 4 mg PO QID PRN MDD 6 tabs PRN Reason: Loose Stool Pantoprazole Sodium [Protonix] 40 mg PO DAILY@0800 Finasteride [Proscar] 5 mg PO DAILY@0800 Docusate Sodium [Dok] 100 mg PO DAILY@1200 Atorvastatin [Lipitor] 40 mg PO HS@1999 Rivaroxaban [Xarelto] 20 mg PO DAILY@1700 QUEtiapine FUMARATE [SEROquel] 25 mg PO BID@0800,1999 Mirtazapine 7.5 mg PO HS@1999 Clotrimazole/Betameth Cream [Lotrisone] 1 applic TOPICAL DAILY@0800 Ammonium Lactate Cream [Lac-Hydrin 12% Cream] 1 applic TOPICAL BID@0800,1999 metOLazone 2.5 mg PO DAILY PRN PRN Reason: edema Potassium Chloride Oral Liquid 20 meq PO BID Acetaminophen [Acetaminophen ER] 650 mg PO BID PRN PRN Reason: Fever And/ Or Pain Melatonin [Melatonin ER] 10 mg PO HS@1999 Losartan [Cozaar] 25 mg PO DAILY@0800 Furosemide [Lasix] 40 mg PO BID@0800,1700 Discharge Medication List Metoprolol Tartrate [Lopressor] 50 mg PO BID@0800,1700 03/07/17 [History] Acetaminophen Tab [Tylenol] 325 mg PO Q4H PRN 10/26/19 [History] Atorvastatin [Lipitor] 40 mg PO HS@199910/26/19 [History] Docusate Sodium [Dok] 100 mg PO DAILY@1200 10/26/19 [History] Finasteride [Proscar] 5 mg PO DAILY@0800 10/26/19 [History] Loperamide [Imodium] 2 - 4 mg PO QID PRN MDD 6 tabs 10/26/19 [History] Pantoprazole Sodium [Protonix] 40 mg PO DAILY@0800 10/26/19 [History] guaiFENesin-DM 100-10MG/5ML [Robitussin DM] 20 ml PO Q4H PRN 10/26/19 [History] Acetaminophen [Acetaminophen ER] 650 mg PO BID PRN 05/26/22 [History] Ammonium Lactate Cream [Lac-Hydrin 12% Cream] 1 applic TOPICAL BID@799,199905/26/22 [History] Clotrimazole/Betameth Cream [Lotrisone] 1 applic TOPICAL DAILY@79905/26/22 [History] Furosemide [Lasix] 40 mg PO BID@0800,169905/26/22 [History] Losartan [Cozaar] 25 mg PO DAILY@79905/26/22 [History] Melatonin [Melatonin ER] 10 mg PO HS@199905/26/22 [History] Mirtazapine 7.5 mg PO HS@199905/26/22 [History] QUEtiapine FUMARATE [SEROquel] 25 mg PO BID@799,199905/26/22 [History] Rivaroxaban [Xarelto] 20 mg PO DAILY@169905/26/22 [History] Potassium Chloride Oral Liquid 20 meq PO BID 01/26/23 [History] metOLazone 2.5 mg PO DAILY PRN 01/26/23 [History] levETIRAcetam [Keppra] 500 mg PO Q12HR tab 01/29/23 [Rx] Follow up Appointment(s)/Referral(s): Tyron Murphy MD [Primary Care Provider] - 1-2 days Chase Major DO [STAFF PHYSICIAN] - 1 Week Ambulatory/Diagnostic Orders: Basic Metabolic Panel [LAB.AMB] Time Frame: 3 Days, Location: None Selected Complete Blood Count w/diff [LAB.AMB] Time Frame: 3 Days, Location: None Selected Patient Instructions/Handouts: Seizure/Epilepsy Discharge Instructions & Follow-Up Activity/Diet/Wound Care/Special Instructions: Call [facility] [place] for transport back Patient will need to follow up with neurology on discharge. Discharge Disposition: TRANSFER TO SNF/ECF
--- NOTE | 2023-01-31 14:23 | P.PN ---
Subjective Progress Note Date: 01/31/23 Principal diagnosis: Positive blood culture Patient is a 82-year-old male with a past medical his significant for traumatic brain injury with normal pressure hydrocephalus with prior shunt atrial fibrillation hypertension dementia patient was brought into the ER on 01/26/2023 from the correction concerning for possible seizure, patient didn't have any fever during this admission he did have a positive blood culture which has been finalized as Aerococcus on today's evaluation that is 01/31/2023, the patient remains to be afebrile, patient is breathing comfortably on room air and no further seizure has been reported , patient is more awake and alert today mention some wheezing earlier but seems to have resolved no vomiting or diarrhea reported by the [facility] staff Objective - Vital Signs Vital signs: Vital Signs Temp 98.1 F 01/31/23 08:04 Pulse 68 01/31/23 08:04 Resp 18 01/31/23 08:04 BP 108/64 01/31/23 08:04 Pulse Ox 97 01/31/23 08:04 FiO2 Intake & Output 01/30/23 01/31/23 01/31/23 18:59 06:59 18:59 Intake Total 118 200 0 Output Total 1450 1150 Balance -1332 -950 0 Weight 102 kg Intake: Oral 118 200 0 Output: Urine 1450 1150 Other: Voiding Method Incontinent Incontinent External Catheter External Catheter - Exam GENERAL DESCRIPTION: An elderly male lying in bed in no distress RESPIRATORY SYSTEM: Unlabored breathing , decreased breath sounds at bases HEART: S1 S2 regular rate and rhythm , ABDOMEN: Soft , no tenderness EXTREMITIES: No edema feet - Labs CBC & Chem 7: 01/31/23 06:53 01/31/23 06:53 Labs: Abnormal Lab Results - Last 24 Hours (Table) 01/31/23 01/31/23 Range/Units 06:53 06:53 RBC 4.28 L (4.30-5.90) m/uL Hgb 12.7 L (13.0-17.5) gm/dL C-Reactive Protein 3.1 H (<1.0) mg/dL Albumin 3.0 L (3.5-5.0) g/dL Microbiology - Last 24 Hours (Table) 01/28/23 07:01 Blood Culture - Preliminary Blood No Growth after 72 hours 01/26/23 05:45 Blood Culture - Preliminary Blood No Growth after 120 hours 01/27/23 17:05 Blood Culture - Preliminary Blood No Growth after 72 hours Assessment and Plan (1) Positive blood culture Current Visit: Yes Status: Acute Code(s): R78.81 - BACTEREMIA SNOMED Code(s): 925854628 Plan: 1patient with a positive blood culture which has been finalized as Aerococcus which is usually of a urinary source versus GI in this patient urine was negative abdominal soft rectal examination patient has been admitted to hospital with a seizure activity with no fever or elevated white count with a question of possible contamination 2-repeat culture has been negative 3patient did have a chest x-ray with some infiltrate possible cardiac etiology as the patient did have normal pro-calcitonin hence no need for any antibiotic on discharge discussed with the admitting team Time with Patient: Less than 30
[2023-01-31 15:58] VITALS: BP 152/80; RESP 18; TEMP 97.7
== END 2023-01-31 16:42 | DRG 101 ==
LOC: EEVIPCON 05:10 → EC 05:10 → 3SCARD 06:23 → EEVIPCON 06:23 → UNDODISIN 01-29 13:55
PROVIDERS: ADMIT Hospitalist; ATTEND Hospitalist
PROC: 3E0234Z Introduction of Serum, Toxoid and Vaccine into Muscle, Percutaneous Approach (ICD-10-PCS; principal; 2023-01-26)
DX: R56.9 Unspecified convulsions (principal); G91.2 (Idiopathic) normal pressure hydrocephalus; J98.11 Atelectasis; J90 Pleural effusion, not elsewhere classified; I48.19 Other persistent atrial fibrillation; E87.20 Acidosis, unspecified; K57.92 Diverticulitis of intestine, part unspecified, without perforation or abscess without bleeding; Z28.311 Partially vaccinated for COVID-19; Z20.822 Contact with and (suspected) exposure to COVID-19; Z98.2 Presence of cerebrospinal fluid drainage device; F03.C0 Unspecified dementia, severe, without behavioral disturbance, psychotic disturbance, mood disturbance, and anxiety; B96.89 Other specified bacterial agents as the cause of diseases classified elsewhere; F10.21 Alcohol dependence, in remission; J44.9 Chronic obstructive pulmonary disease, unspecified; S00.512A Abrasion of oral cavity, initial encounter; I73.9 Peripheral vascular disease, unspecified; H40.9 Unspecified glaucoma; I13.10 Hypertensive heart and chronic kidney disease without heart failure, with stage 1 through stage 4 chronic kidney disease, or unspecified chronic kidney disease; M06.9 Rheumatoid arthritis, unspecified; N18.9 Chronic kidney disease, unspecified; E78.5 Hyperlipidemia, unspecified; Z79.01 Long term (current) use of anticoagulants; Z95.0 Presence of cardiac pacemaker; Z86.14 Personal history of Methicillin resistant Staphylococcus aureus infection; I25.2 Old myocardial infarction; R13.10 Dysphagia, unspecified; I25.10 Atherosclerotic heart disease of native coronary artery without angina pectoris; Z95.1 Presence of aortocoronary bypass graft; R77.8 Other specified abnormalities of plasma proteins; K21.9 Gastro-esophageal reflux disease without esophagitis; Z85.820 Personal history of malignant melanoma of skin; Z85.828 Personal history of other malignant neoplasm of skin; Z87.19 Personal history of other diseases of the digestive system; R26.81 Unsteadiness on feet; R53.81 Other malaise; N40.1 Benign prostatic hyperplasia with lower urinary tract symptoms; S41.112A Laceration without foreign body of left upper arm, initial encounter; W19.XXXA Unspecified fall, initial encounter; Z23 Encounter for immunization; Z79.899 Other long term (current) drug therapy; Z87.442 Personal history of urinary calculi; Z87.820 Personal history of traumatic brain injury; Z95.5 Presence of coronary angioplasty implant and graft
CPT/HCPCS: 36415; 70450; 71045; 72170; 74018; 80048; 80053; 80306; 80320; 81001; 81003; 82140; 83605; 84145; 84484; 85025; 85610; 85652; 85730; 86140; 87040; 87636; 90471; 90715; 93005; 95816; 96365; 99285